=== PATIENT | female | born 1940 | race Caucasian/White ===

== ENCOUNTER 2017-04-15 11:22 | Outpatient (RCR) | payer MEDICARE, OTHER, SELFPAY ==
[2017-04-15 16:35] LABS: International Normalized Ratio 2.1; Prothrombin Time (Protime)PT. 22.5 SECONDS (11.7-14.9)
[2017-04-15 17:36] LABS: Absolute Lymphocyte Count 1.18 X10^3/ul (0.83-4.51); Absolute Neutrophil Count 5.3 X10^3/uL (2.0-7.7); Basophil# 0.04 X10^3/uL; Basophil% 0.5 % (0-1); Eosinophil# 0.18 X10^3/uL; Eosinophils% 2.4 % (0-5); Hematocrit 34.2 % (37-47); Hemoglobin 11.2 g/dl (12.0-15.0); Lymphocyte # 1.18 X10^3/ul (4.0); Lymphocyte % 15.8 % (19-41); Mean Corp Hgb Conc 32.7 g/gl (32-36); Mean Corpuscular Hgb 31.3 pg (27.0-32.0); Mean Corpuscular Volume 95.5 fL (81-99); Mean Platelet Vol. 10.8 fl (6.2-12.0); Monocyte# 0.71 X10^3/uL; Monocyte% 9.5 % (0-10); Neutrophil # 5.34 X10^3/uL (2.7-7.7); Neutrophil % 71.7 % (47-70); Platelet Count 93 K/mm3 (150-450); RBC Distribution Width CV 14.9 % (11.6-14.6); RBC Distribution Width SD 49.8 fl (35.1-43.9); Red Blood Count 3.58 M/mm3 (4.2-5.4); White Blood Count 7.5 K/mm3 (4.4-11.0)
[2017-04-15 17:38] LABS: POSITIVE COUNT NO; POSITIVE DIFFERENTIAL NO; POSITIVE MORPHOLOGY NO
== END 2017-04-15 11:30 | disposition home or self-care (01) ==
LOC: MTLAB 11:22
PROVIDERS: Family Provider Family Medicine; PCP Family Medicine; Visit Provider Internal Medicine Cardiovascular Disease
DX: I48.0 Paroxysmal atrial fibrillation (principal)
CPT/HCPCS: 36415; 85025; 85610

== ENCOUNTER 2017-05-06 12:53 | Outpatient (RCR) | payer MEDICARE, OTHER, SELFPAY ==
[2017-05-06 14:03] LABS: International Normalized Ratio 2.1; Prothrombin Time (Protime)PT. 22.4 SECONDS (11.7-14.9)
== END 2017-05-06 15:00 | disposition home or self-care (01) ==
LOC: MTLAB 12:53
PROVIDERS: Family Provider Family Medicine; PCP Family Medicine; Visit Provider Internal Medicine Cardiovascular Disease
DX: I48.0 Paroxysmal atrial fibrillation (principal)
CPT/HCPCS: 36415; 85610

== ENCOUNTER → 2017-05-19 13:11 | Outpatient (CLI) | payer MEDICARE, OTHER, SELFPAY ==
--- NOTE | 2017-05-19 13:17 | RAD_ITS ---
STUDY: X-RAY CHEST REASON FOR EXAM: Female, 77 years old. Extreme shortness of breath. TECHNIQUE: PA and lateral views of the chest. COMPARISON: Comparison is made with prior study dated September 14, 2016. FINDINGS: Hyperinflation. Stable increase in markings in both lungs suggestive of scarring. Mild degree of vascular congestion. Sternal cerclage wires are present from a prior sternotomy. Marked cardiomegaly. Prior aortic and mitral valve prostheses. Left-sided dual-chamber pacemaker. Normal mediastinum and bj. Normal visualized pulmonary arteries. There is atherosclerotic calcification of the aortic arch with tortuosity. Normal visualized thoracic spine. Normal visualized ribs, clavicles, and shoulders. There is no demonstrated abnormality of the visualized soft tissue structures of the upper abdomen. RAD/Chest PA and Lateral IMPRESSION: Marked degree of cardiomegaly. Vascular congestion with superimposed scarring in both lungs. Electronically Signed: Joey Avila MD at 13:44 EST Tel [phone], Service support ,
[2017-05-19 14:10] LABS: Absolute Lymphocyte Count 1.08 X10^3/ul (0.83-4.51); Absolute Neutrophil Count 5.3 X10^3/uL (2.0-7.7); Basophil# 0.05 X10^3/uL; Basophil% 0.7 % (0-1); Eosinophil# 0.16 X10^3/uL; Eosinophils% 2.2 % (0-5); Hematocrit 33.2 % (37-47); Hemoglobin 10.7 g/dl (12.0-15.0); Lymphocyte # 1.08 X10^3/ul (4.0); Lymphocyte % 14.9 % (19-41); Mean Corp Hgb Conc 32.2 g/gl (32-36); Mean Corpuscular Hgb 31.4 pg (27.0-32.0); Mean Corpuscular Volume 97.4 fL (81-99); Mean Platelet Vol. 10.3 fl (6.2-12.0); Monocyte# 0.69 X10^3/uL; Monocyte% 9.5 % (0-10); Neutrophil # 5.27 X10^3/uL (2.7-7.7); Neutrophil % 72.6 % (47-70); Platelet Count 93 K/mm3 (150-450); RBC Distribution Width CV 15.7 % (11.6-14.6); RBC Distribution Width SD 53.5 fl (35.1-43.9); Red Blood Count 3.41 M/mm3 (4.2-5.4); White Blood Count 7.3 K/mm3 (4.4-11.0)
[2017-05-19 14:16] LABS: POSITIVE COUNT NO; POSITIVE DIFFERENTIAL NO; POSITIVE MORPHOLOGY NO
[2017-05-19 14:48] LABS: ALB/GLOB Ratio 0.9 RATIO (0.9-2.4); AST(SGOT) 33 U/L (15-37); Alanine Aminotransfer ALT/SGPT 26 U/L (13-56); Albumin, Serum 3.6 g/dL (3.2-5.0); Alkaline Phosphatase 104 U/L (45-117); Anion Gap 11 (5-15); BUN 16 mg/dL (7-18); Calcium,Total 8.8 mg/dL (8.5-10.1); Chloride 106 mmol/L (98-107); Creatinine, Serum 1.14 mg/dL (0.55-1.02); EST Glomerular Filtration Rate 49 mL/min (>60); Est Glom Filt Rate - Afr Amer 59 mL/min (>60); Globulin 3.8 g/dL (2.2-4.2); Glucose 95 mg/dL (74-106); Potassium 3.9 mmol/L (3.5-5.1); Protein, Total 7.4 g/dL (6.4-8.2); Sodium Level 142 mmol/L (136-145)
== END ==
PROVIDERS: Family Provider Family Medicine; PCP Family Medicine; Visit Provider Family Medicine
DX: R06.02 Shortness of breath (principal); D64.9 Anemia, unspecified; R53.83 Other fatigue; R05 Cough
CPT/HCPCS: 36415; 71046; 80053; 85025

== ENCOUNTER 2017-05-23 17:56 | Inpatient (IN) | payer MEDICARE, OTHER, SELFPAY ==
[2017-05-23] VITALS (11 sets, daily range): BP systolic 133–158; BP diastolic 70–92; PULSE 70–80; RESP 18–30; TEMP 36.4–36.7; O2SAT 73–97; BMI 26.8; BMI 31.6; BMI 31.7
--- NOTE | 2017-05-23 18:27 | RAD_ITS ---
STUDY: X-RAY CHEST REASON FOR EXAM: Female, 77 years old. Shortness of breath. TECHNIQUE: Single AP portable view of the chest. COMPARISON: May 19, 2017. FINDINGS: Patient has left-sided intracardiac pacemaker. Patient has had a sternotomy. Cardiac monitoring leads are present. Patient has 2 valvular prosthesis. Lungs are hyperexpanded. There is mild prominence of bronchovascular markings. There are small pleural effusions. There is moderate cardiac enlargement. There are calcified mediastinal and hilar lymph nodes. There is prominence of the pulmonary hilar arteries without peripheral pulmonary vascular congestion. There is atherosclerotic calcification of the aortic arch with tortuosity. There is demineralization of the osseous structures. Normal visualized ribs, clavicles, and shoulders. There is no demonstrated abnormality of the visualized soft tissue structures of the upper abdomen. RAD/Chest 1 View (Portable) IMPRESSION: Unchanged appearance of the chest with moderate cardiomegaly, chronic pulmonary congestion and postoperative changes. Electronically Signed: Shannan Reynolds MD at 19:25 EST , Service support ,
--- NOTE | 2017-05-23 18:27 | EKG12_ITS ---
Test Reason : SOB Blood Pressure : / mmHG Vent. Rate : 070 BPM Atrial Rate : 075 BPM P-R Int : 000 ms QRS Dur : 144 ms QT Int : 452 ms P-R-T Axes : 000 223 069 degrees QTc Int : 488 ms Ventricular-paced rhythm Abnormal ECG Confirmed by NICOLE BOBBY MD ([id number]), copy editor JOSE SPRINGER ([id number] on 05/25/2017 2:15:09 PM Referred By: Abby Pendleton Confirmed By:NICOLE BOBBY MD
--- NOTE | 2017-05-23 18:43 | ED.VISSUMM ---
- ER Visit Summary Date of Service: 05/23/17 Chief Complaint: Shortness of breath History of Present Illness: The patient is a 77 F presenting with shortness of breath which started 4 days ago. She was seen by her primary care physician. She had chest x-ray which showed cardiomegaly and fluid in her lungs. She increased her Lasix and her nebulizer treatments. She continues to be short of breath. Dyspnea is worsened with exertion. She denies chest pain. Denies fever. She has had a mild cough. She wears 2.5 L of home O2 and states she has had to bump this up recently. Her sats at home have been in the 70s. Physical Examination: Vitals are stable. Patient is afebrile. Alert no acute distress. Pulse ox 95% on 6 L HEENT exam is unremarkable. Neck is supple. Lungs are clear and equal bilaterally. Heart is regular rate and rhythm. Abdomen is soft nontender nondistended. Extremities are unremarkable. Mild symmetric edema Skin is warm and dry. No focal neurologic deficit. Remainder of exam is unremarkable. Emergency Department Course and Treatment: EKG is paced at a rate of 70. Chest x-rays shows cardiomegaly, CHF. CBC shows a hemoglobin 10.3, platelets 97. Chemistries show glucose 114, BUN 21, creatinine 1.68. Troponin is negative. BNP 311.6. She was given Lasix IV. Due to her hypoxia I feel she should be admitted. Discussed with the hospitalist for admission. Disposition: Admission Impression: CHF exacerbation This note was generated with [employer] dictation software. It may contain incorrect words, spelling, and punctuation that were not noted in review of the chart prior to signing ED Disposition - Plan for ED Patient: Chief Complaint: Shortness of Breath Referrals: Abby Pendleton DO [Primary Care Provider] -
[2017-05-23] MEDS: Aspirin 81 MG TAB.CHEW 324 MG PO (18:50)
[2017-05-23] MEDS: Furosemide 40 MG/4 ML Vial IV (18:50)
[2017-05-23 19:16] LABS: Absolute Lymphocyte Count 1.07 X10^3/ul (0.83-4.51); Absolute Neutrophil Count 4.6 X10^3/uL (2.0-7.7); Basophil# 0.03 X10^3/uL; Basophil% 0.5 % (0-1); Eosinophil# 0.12 X10^3/uL; Eosinophils% 1.9 % (0-5); Hematocrit 32.2 % (37-47); Hemoglobin 10.3 g/dl (12.0-15.0); Lymphocyte # 1.07 X10^3/ul (4.0); Lymphocyte % 16.7 % (19-41); Mean Corpuscular Hgb 30.4 pg (27.0-32.0); Mean Platelet Vol. 9.4 fl (6.2-12.0); Monocyte# 0.58 X10^3/uL; Monocyte% 9.1 % (0-10); Neutrophil # 4.59 X10^3/uL (2.7-7.7); Neutrophil % 71.6 % (47-70); Platelet Count 97 K/mm3 (150-450); RBC Distribution Width CV 15.6 % (11.6-14.6); RBC Distribution Width SD 54.7 fl (35.1-43.9); Red Blood Count 3.39 M/mm3 (4.2-5.4); White Blood Count 6.4 K/mm3 (4.4-11.0)
[2017-05-23 19:19] LABS: POSITIVE COUNT NO; POSITIVE DIFFERENTIAL NO; POSITIVE MORPHOLOGY NO
[2017-05-23 19:41] LABS: Anion Gap 8 (5-15); BUN 21 mg/dL (7-18); BUN/Creat Ratio 12.5 RATIO (10-20); Calcium,Total 8.7 mg/dL (8.5-10.1); Chloride 108 mmol/L (98-107); Creatinine, Serum 1.68 mg/dL (0.55-1.02); EST Glomerular Filtration Rate 31 mL/min (>60); Est Glom Filt Rate - Afr Amer 38 mL/min (>60); Estimated Creatinine Clearance 21.16 ml/min; Glucose 114 mg/dL (74-106); Potassium 3.5 mmol/L (3.5-5.1); Sodium Level 141 mmol/L (136-145)
[2017-05-23 19:59] LABS: BNP,B-Type NATRIURETIC PEPTIDE 311.6 pg/mL (0-100)
--- NOTE | 2017-05-23 21:40 | PCM.HP.STD ---
Problem List (1) Acute on chronic diastolic heart failure Status: Acute (2) penitentiary (current) use of anticoagulants Status: Chronic (3) Nonrheumatic mitral valve regurgitation Status: Acute (4) Nonrheumatic tricuspid (valve) insufficiency Status: Acute (5) Cardiac pacemaker in situ Status: Chronic (6) Long-term use of high-risk medication Status: Chronic (7) Presence of prosthetic heart valve Status: Chronic (8) Nonrheumatic aortic (valve) insufficiency Status: Chronic (9) Subendocardial myocardial infarction Status: Chronic (10) Cardiomyopathy, dilated Status: Chronic (11) S/P AVR (aortic valve replacement) Status: Chronic (12) History of bacterial endocarditis Status: Chronic (13) Thrombocytopenia Status: Chronic (14) Contusion of left upper arm, initial encounter Status: Chronic (15) Iron deficiency anemia Status: Chronic (16) Chronic atrial fibrillation Status: Chronic (17) Congestive heart failure Status: Chronic (18) Pulmonary hypertension Status: Chronic (19) Coronary artery disease Status: Chronic (20) Hypertension Status: Chronic Qualifiers: (21) Interstitial lung disease Status: Chronic (22) Hyperlipidemia Status: Chronic Qualifiers: (23) Hypothyroidism Status: Chronic (24) Right shoulder pain Status: Acute (25) History of mitral valve replacement Status: Resolved (26) History of tricuspid valve replacement Status: Resolved History of Present Illness Date of Admission: 05/23/17 Chief Complaint: Progressive shortness of breath since past Tuesday The patient is a 77 year old F with extensive cardiac history including coronary artery disease, multiple valvular heart disease status post CABG in 2011 with mitral and tricuspid valve repair and then TAVR in in [facility] came to ER with progressive worsening of shortness of breath since past Tuesday about 5 days. She is short of breath at rest and even on minimal exertion. She also feels chest congestion but denies chest pain. There is no lower extremity swelling. Her PCP increased her diuretic 80 mg twice daily but still not responding probably due to bowel congestion. In ED, chest x-ray shows pulmonary venous congestion. She responded well with IV Lasix and had 5 times urination in the ER. She feels better with regards to her shortness of breath. 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) Palpitations (Chronic) Cardiac pacemaker in situ (Chronic) Long-term use of high-risk medication (Chronic) Presence of prosthetic heart valve (Chronic) Nonrheumatic aortic (valve) insufficiency (Chronic) 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, dilated (Chronic) S/P AVR (aortic valve replacement) (Chronic ~05/2014) History of bacterial endocarditis (Chronic) Thrombocytopenia (Chronic) Contusion of left upper arm, initial encounter (Chronic) Iron deficiency anemia (Chronic) Chronic atrial fibrillation (Chronic) Congestive heart failure (Chronic) Pulmonary hypertension (Chronic) Coronary artery disease (Chronic) Hypertension (Chronic) Interstitial lung disease (Chronic) Hyperlipidemia (Chronic) Hypothyroidism (Chronic) Allergies GERI Inhibitors Allergy (Verified 05/23/17 18:03) Angioedema amiodarone Allergy (Verified 05/23/17 18:03) Other doxycycline Allergy (Verified 05/23/17 18:03) Other rosuvastatin calcium [From Crestor] Allergy (Verified 05/23/17 18:03) Other Sulfa (Sulfonamide Antibiotics) Allergy (Verified 05/23/17 18:03) Nausea tiotropium bromide [From Spiriva with HandiHaler] Allergy (Verified 05/23/17 18:03) Other codeine Adverse Reaction (Verified 05/23/17 18:03) Vomiting hydrocodone bitartrate [From Vicodin] Adverse Reaction (Verified 05/23/17 18:03) Vomiting Home Medications: Ambulatory Orders Medication Instructions Recorded Calcium Carb/Vitamin D [Os-Kem 500 tab PO DAILY 02/16/13 500MG + D] Magnesium 250 mg PO DAILY 02/16/13 Oxygen, Home [Home Oxygen] 2.5 lpm NASAL QHS 02/16/13 Potassium Chloride [Klor-Con M10] 20 meq PO TID 03/01/13 Dicyclomine HCl [Bentyl] 10 mg PO TID 11/14/13 Esomeprazole Mag Trihydrate 20 mg PO DAILY 11/14/13 [Nexium] Polyvinyl Alcohol/Povidone/Pf 1 ea OP DAILY PRN PRN 12/13/13 [Refresh Classic Eye Drops] [place]-3 Fatty Acids [Fish Oil] 300 mg PO DAILY 12/10/14 Fexofenadine/Pseudoephedrine 1 ea PO DAILY 12/15/14 [Adriana-D 12 Hour Tablet] B Complex with Vitamin C [Vitamin 1 ea PO DAILY 06/23/16 B-Complex with Vit C] Ferrous Sulfate [Iron] 325 mg PO DAILY 06/23/16 Meclizine HCl [Antivert] 12.5 mg PO 4X/DAY PRN PRN 06/23/16 Nitroglycerin [Nitrostat] 0.4 mg SL DAILY PRN 06/23/16 Warfarin [Coumadin ([facility])] 4 mg PO DAILY 06/23/16 Diltiazem CD [Cardizem CD] 240 mg PO DAILY 01/12/17 atorvastatin 40 mg tablet 20 mg PO QHS tab 04/08/17 cholecalciferol (vitamin D3) 5,000 5,000 unit PO QDAY 04/08/17 unit capsule fluticasone 250 mcg-salmeterol 50 1 inh INHALATION Q12H 04/08/17 mcg/dose blistr powdr for inhalation lactobacillus combination no.8 3 3,000 mmu cells PO QDAY 04/08/17 billion cell capsule levothyroxine 75 mcg tablet 75 mcg PO QDAY tab 04/08/17 folic acid 800 mcg tablet 800 mcg PO QDAY 04/11/17 Albuterol Aerosols [Ventolin 2.5 mg INHALATION Q6H PRN PRN 05/23/17 Aerosols] Furosemide [Lasix] 80 mg PO BID 05/23/17 Surgical History: cataract, hysterectomy, total knee arthroplasty, - - Mitral and tricuspid valve replacement, pacemaker implantation 2013 Psychiatric History: No pertinent psych hx 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 Denies: Cough, Sputum production Gastrointestinal: Denies: Abdominal Pain, Nausea, Vomiting Genitourinary: Denies: Dysuria Musculoskeletal: Denies: Joint Pain, Joint Tenderness Skin: Denies: Rash, Wounds Neurological: Denies: Numbness, Tingling, Focal weakness Psychiatric: Denies: Anxiety, Depression, Homicidal Ideations, Suicidal Ideations Hematologic/ Lymphatic: Denies: Easy Bruising, Easy Bleeding VTE Information - Inpt Only VTE Present on Admission: No VTE Mechan Device Prophylaxis: None VTE Pharm Prophylaxis ordered?: Yes Patient Problems: Active and Suspected Problems (Last Reviewed 04/11/17 @ 13:38 by Yasmin Agee) Acute on chronic diastolic heart failure (Acute) - Physical Exam General: Alert, Oriented x3, Cooperative HEENT: Atraumatic, PERRLA, EOMI, Normocephalic Neck: Supple, No JVD, Negative Carotid Bruits Lungs: Diminished, Rales, Short of Breath Cardiovascular: Regular rate, Regular Rhythm, Normal S1, Normal S2, Murmur - PANSystolic murmur present over mitral area and left lower sternal border with radiation to carotids and left axilla. Abdomen: Bowel Sounds Present, Soft, Non Tender Extremities: No edema, Capillary Refill Less than 3 Seconds Skin: No rashes, No breakdown Musculoskeletal: No Tenderness to Palpation of Joints or Extremities Neurological: Cranial nerves II-XII grossly intact Psych/Mental Status: Normal Affect, Appropriate Vital Signs Temp Pulse Resp BP Pulse Ox 97.6 F L 71 20 H 136/79 H 96 05/23/17 17:57 05/23/17 21:22 05/23/17 21:22 05/23/17 21:22 05/23/17 21:22 Assessment/Plan Active and Suspected Problems (Last Reviewed 04/11/17 @ 13:38 by Yasmin Agee) Acute on chronic diastolic heart failure (Acute) The patient is a 77 year old F with extensive cardiac history including coronary artery disease, multiple valvular heart disease status post CABG in 2011 with mitral and tricuspid valve repair and then TAVR in in [facility] came to ER with progressive worsening of shortness of breath since past Tuesday about 5 days. She is short of breath at rest and even on minimal exertion. She also feels chest congestion but denies chest pain. There is no lower extremity swelling. Her PCP increased her diuretic 80 mg twice daily but still not responding probably due to bowel congestion. In ED, chest x-ray shows pulmonary venous congestion. She responded well with IV Lasix and had 5 times urination in the ER. She feels better with regards to her shortness of breath. EKG shows ventricular paced rhythm with occ PVCs at 70 bpm. 1. Acute on chronic diastolic heart failure, most probably due to multiple valvular heart disease status post mitral and tricuspid valve repair and TAVR replacement as mentioned above: The patient is being admitted in PCU floor. Serial cardiac enzymes to rule out ACS although very low probability. On IV Lasix 40 mg twice daily as she responded well with single dose of 40 mg IV Lasix. On fluid restriction. 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 Resume her home cardiac medications diltiazem 240 mg daily, atorvastatin . Monitor intake and output, electrolytes and kidney function. 2. Multiple valvular heart disease including tricuspid and mitral valve repair/annuloplasty and aortic valve, TAVR: She had 2D echo in November 2016 which showed EF 65%, left atrium moderately enlarged, right atrium severely enlarged, mildly dilated right ventricle and angioplasty gradient tricuspid and mitral valve. RVSP 37 mmHg. Mild 1+ MR and TR. Trivial AR.. Stable bioprosthetic aortic valve. No need of further 2D echo. 3. Arrhythmia including paroxysmal A. fib on Coumadin: Patient had history of proximal A. fib and has dual-chamber pacemaker. No INR done in the ER, INR ordered and adjust the dose of Coumadin accordingly. Patient also had history of ventricular tachycardia back in 2014. Currently she is a stable. 4. Coronary artery disease status post CABG: Other multiple comorbidities include history of coronary artery disease status post CABG, dilated cardiomyopathy, iron deficiency anemia, history of bacterial endocarditis, hypertension, and interstitial lung disease, hypothyroidism, pulmonary hypertension, dyslipidemia and bilateral knee replacement: Stable. Home medications resumed. DVT prophylaxis: On Coumadin. This note was generated with [employer] dictation software. Every effort was made to ensure accuracy, however computerized street flusher driver mistakes may persist. Code Visit Inpatient E&M: 43600 Init Hosp L3
--- NOTE | 2017-05-23 21:54 | HP.PCM_ITS ---
Problem List (1) Acute on chronic diastolic heart failure Status: Acute (2) custodial (current) use of anticoagulants Status: Chronic (3) Nonrheumatic mitral valve regurgitation Status: Acute (4) Nonrheumatic tricuspid (valve) insufficiency Status: Acute (5) Cardiac pacemaker in situ Status: Chronic (6) Long-term use of high-risk medication Status: Chronic (7) Presence of prosthetic heart valve Status: Chronic (8) Nonrheumatic aortic (valve) insufficiency Status: Chronic (9) Subendocardial myocardial infarction Status: Chronic (10) Cardiomyopathy, dilated Status: Chronic (11) S/P AVR (aortic valve replacement) Status: Chronic (12) History of bacterial endocarditis Status: Chronic (13) Thrombocytopenia Status: Chronic (14) Contusion of left upper arm, initial encounter Status: Chronic (15) Iron deficiency anemia Status: Chronic (16) Chronic atrial fibrillation Status: Chronic (17) Congestive heart failure Status: Chronic (18) Pulmonary hypertension Status: Chronic (19) Coronary artery disease Status: Chronic (20) Hypertension Status: Chronic Qualifiers: (21) Interstitial lung disease Status: Chronic (22) Hyperlipidemia Status: Chronic Qualifiers: (23) Hypothyroidism Status: Chronic (24) Right shoulder pain Status: Acute (25) History of mitral valve replacement Status: Resolved (26) History of tricuspid valve replacement Status: Resolved History of Present Illness Date of Admission: 05/23/17 Chief Complaint: Progressive shortness of breath since past Tuesday The patient is a 77 year old F with extensive cardiac history including coronary artery disease, multiple valvular heart disease status post CABG in 2011 with mitral and tricuspid valve repair and then TAVR in in [facility] came to ER with progressive worsening of shortness of breath since past Tuesday about 5 days. She is short of breath at rest and even on minimal exertion. She also feels chest congestion but denies chest pain. There is no lower extremity swelling. Her PCP increased her diuretic 80 mg twice daily but still not responding probably due to bowel congestion. In ED, chest x-ray shows pulmonary venous congestion. She responded well with IV Lasix and had 5 times urination in the ER. She feels better with regards to her shortness of breath. 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) Palpitations (Chronic) Cardiac pacemaker in situ (Chronic) Long-term use of high-risk medication (Chronic) Presence of prosthetic heart valve (Chronic) Nonrheumatic aortic (valve) insufficiency (Chronic) 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, dilated (Chronic) S/P AVR (aortic valve replacement) (Chronic ~05/2014) History of bacterial endocarditis (Chronic) Thrombocytopenia (Chronic) Contusion of left upper arm, initial encounter (Chronic) Iron deficiency anemia (Chronic) Chronic atrial fibrillation (Chronic) Congestive heart failure (Chronic) Pulmonary hypertension (Chronic) Coronary artery disease (Chronic) Hypertension (Chronic) Interstitial lung disease (Chronic) Hyperlipidemia (Chronic) Hypothyroidism (Chronic) Allergies GERI Inhibitors Allergy (Verified 05/23/17 18:03) Angioedema amiodarone Allergy (Verified 05/23/17 18:03) Other doxycycline Allergy (Verified 05/23/17 18:03) Other rosuvastatin calcium [From Crestor] Allergy (Verified 05/23/17 18:03) Other Sulfa (Sulfonamide Antibiotics) Allergy (Verified 05/23/17 18:03) Nausea tiotropium bromide [From Spiriva with HandiHaler] Allergy (Verified 05/23/17 18: 03) Other codeine Adverse Reaction (Verified 05/23/17 18:03) Vomiting hydrocodone bitartrate [From Vicodin] Adverse Reaction (Verified 05/23/17 18:03) Vomiting Home Medications: Ambulatory Orders Medication Instructions Recorded Calcium Carb/Vitamin D [Os-Kem 500 tab PO DAILY 02/16/13 500MG + D] Magnesium 250 mg PO DAILY 02/16/13 Oxygen, Home [Home Oxygen] 2.5 lpm NASAL QHS 02/16/13 Potassium Chloride [Klor-Con M10] 20 meq PO TID 03/01/13 Dicyclomine HCl [Bentyl] 10 mg PO TID 11/14/13 Esomeprazole Mag Trihydrate 20 mg PO DAILY 11/14/13 [Nexium] Polyvinyl Alcohol/Povidone/Pf 1 ea OP DAILY PRN PRN 12/13/13 [Refresh Classic Eye Drops] [place]-3 Fatty Acids [Fish Oil] 300 mg PO DAILY 12/10/14 Fexofenadine/Pseudoephedrine 1 ea PO DAILY 12/15/14 [Adriana-D 12 Hour Tablet] B Complex with Vitamin C [Vitamin 1 ea PO DAILY 06/23/16 B-Complex with Vit C] Ferrous Sulfate [Iron] 325 mg PO DAILY 06/23/16 Meclizine HCl [Antivert] 12.5 mg PO 4X/DAY PRN PRN 06/23/16 Nitroglycerin [Nitrostat] 0.4 mg SL DAILY PRN 06/23/16 Warfarin [Coumadin (PBKC)] 4 mg PO DAILY 06/23/16 Diltiazem CD [Cardizem CD] 240 mg PO DAILY 01/12/17 atorvastatin 40 mg tablet 20 mg PO QHS tab 04/08/17 cholecalciferol (vitamin D3) 5,000 5,000 unit PO QDAY 04/08/17 unit capsule fluticasone 250 mcg-salmeterol 50 1 inh INHALATION Q12H 04/08/17 mcg/dose blistr powdr for inhalation lactobacillus combination no.8 3 3,000 mmu cells PO QDAY 04/08/17 billion cell capsule levothyroxine 75 mcg tablet 75 mcg PO QDAY tab 04/08/17 folic acid 800 mcg tablet 800 mcg PO QDAY 04/11/17 Albuterol Aerosols [Ventolin 2.5 mg INHALATION Q6H PRN PRN 05/23/17 Aerosols] Furosemide [Lasix] 80 mg PO BID 05/23/17 Surgical History: cataract, hysterectomy, total knee arthroplasty, - - Mitral and tricuspid valve replacement, pacemaker implantation 2013 Psychiatric History: No pertinent psych hx 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 Denies: Cough, Sputum production Gastrointestinal: Denies: Abdominal Pain, Nausea, Vomiting Genitourinary: Denies: Dysuria Musculoskeletal: Denies: Joint Pain, Joint Tenderness Skin: Denies: Rash, Wounds Neurological: Denies: Numbness, Tingling, Focal weakness Psychiatric: Denies: Anxiety, Depression, Homicidal Ideations, Suicidal Ideations Hematologic/ Lymphatic: Denies: Easy Bruising, Easy Bleeding VTE Information - Inpt Only VTE Present on Admission: No VTE Mechan Device Prophylaxis: None VTE Pharm Prophylaxis ordered?: Yes Patient Problems: Active and Suspected Problems (Last Reviewed 04/11/17 @ 13:38 by Yasmin Agee) Acute on chronic diastolic heart failure (Acute) - Physical Exam General: Alert, Oriented x3, Cooperative HEENT: Atraumatic, PERRLA, EOMI, Normocephalic Neck: Supple, No JVD, Negative Carotid Bruits Lungs: Diminished, Rales, Short of Breath Cardiovascular: Regular rate, Regular Rhythm, Normal S1, Normal S2, Murmur - PANSystolic murmur present over mitral area and left lower sternal border with radiation to carotids and left axilla. Abdomen: Bowel Sounds Present, Soft, Non Tender Extremities: No edema, Capillary Refill Less than 3 Seconds Skin: No rashes, No breakdown Musculoskeletal: No Tenderness to Palpation of Joints or Extremities Neurological: Cranial nerves II-XII grossly intact Psych/Mental Status: Normal Affect, Appropriate Vital Signs Temp Pulse Resp BP Pulse Ox 97.6 F L 71 20 H 136/79 H 96 05/23/17 17:57 05/23/17 21:22 05/23/17 21:22 05/23/17 21:22 05/23/17 21:22 Assessment/Plan Active and Suspected Problems (Last Reviewed 04/11/17 @ 13:38 by Yasmin Agee) Acute on chronic diastolic heart failure (Acute) The patient is a 77 year old F with extensive cardiac history including coronary artery disease, multiple valvular heart disease status post CABG in 2011 with mitral and tricuspid valve repair and then TAVR in in [facility] came to ER with progressive worsening of shortness of breath since past Tuesday about 5 days. She is short of breath at rest and even on minimal exertion. She also feels chest congestion but denies chest pain. There is no lower extremity swelling. Her PCP increased her diuretic 80 mg twice daily but still not responding probably due to bowel congestion. In ED, chest x-ray shows pulmonary venous congestion. She responded well with IV Lasix and had 5 times urination in the ER. She feels better with regards to her shortness of breath. EKG shows ventricular paced rhythm with occ PVCs at 70 bpm. 1. Acute on chronic diastolic heart failure, most probably due to multiple valvular heart disease status post mitral and tricuspid valve repair and TAVR replacement as mentioned above: The patient is being admitted in PCU floor. Serial cardiac enzymes to rule out ACS although very low probability. On IV Lasix 40 mg twice daily as she responded well with single dose of 40 mg IV Lasix. On fluid restriction. Consult Dr. Neri, her human services assistant. Resume her home cardiac medications diltiazem 240 mg daily, atorvastatin . Monitor intake and output, electrolytes and kidney function. 2. Multiple valvular heart disease including tricuspid and mitral valve repair/ annuloplasty and aortic valve, TAVR: She had 2D echo in November 2016 which showed EF 65%, left atrium moderately enlarged, right atrium severely enlarged, mildly dilated right ventricle and angioplasty gradient tricuspid and mitral valve. RVSP 37 mmHg. Mild 1+ MR and TR. Trivial AR.. Stable bioprosthetic aortic valve. No need of further 2D echo. 3. Arrhythmia including paroxysmal A. fib on Coumadin: Patient had history of proximal A. fib and has dual-chamber pacemaker. No INR done in the ER, INR ordered and adjust the dose of Coumadin accordingly. Patient also had history of ventricular tachycardia back in 2014. Currently she is a stable. 4. Coronary artery disease status post CABG: Other multiple comorbidities include history of coronary artery disease status post CABG, dilated cardiomyopathy, iron deficiency anemia, history of bacterial endocarditis, hypertension, and interstitial lung disease, hypothyroidism, pulmonary hypertension, dyslipidemia and bilateral knee replacement: Stable. Home medications resumed. DVT prophylaxis: On Coumadin. This note was generated with [employer] dictation software. Every effort was made to ensure accuracy, however computerized dentures lab technician mistakes may persist. Code Visit Inpatient E&M: 79650 Init Hosp L3
[2017-05-23 22:48] LABS: International Normalized Ratio 2.2; Prothrombin Time (Protime)PT. 23.8 SECONDS (11.7-14.9)
[2017-05-23 22:58] LABS: Magnesium 2.4 mg/dL (1.6-2.6)
[2017-05-23] MEDS: Atorvastatin Calcium 20 MG Tablet PO (23:51)
[2017-05-23] MEDS: Dicyclomine 10 MG Capsule PO (23:51)
[2017-05-24] VITALS (14 sets, daily range): BP systolic 106–150; BP diastolic 61–74; PULSE 69–76; RESP 16–24; TEMP 36.4–37.2; O2SAT 86–96
[2017-05-24] MEDS: Dicyclomine 10 MG Capsule PO ×3 (05:41→21:24)
[2017-05-24] MEDS: Levothyroxine 75 MCG Tablet PO (05:41)
--- NOTE | 2017-05-24 05:55 | EKG12_ITS ---
Test Reason : MORNING EKG Blood Pressure : / mmHG Vent. Rate : 070 BPM Atrial Rate : 072 BPM P-R Int : 000 ms QRS Dur : 186 ms QT Int : 494 ms P-R-T Axes : 000 204 060 degrees QTc Int : 533 ms Ventricular-paced rhythm Abnormal ECG When compared with ECG of 23-MAY-2017 18:14, MANUAL COMPARISON REQUIRED, DATA IS UNCONFIRMED Confirmed by KANU CABRERA, NICOLE ([id number]), editorial intern JOSE SPRINGER ([id number]) on 05/25/2017 2:46:37 PM Referred By: Abby Pendleton Confirmed By:NICOLE BOBBY MD
--- NOTE | 2017-05-24 06:21 | CPS ---
PT REFUSED HOSPITAL BIPAP.pT WILL HAVE HER FAMILY BRING HER CPAP IN.
[2017-05-24 06:37] LABS: International Normalized Ratio 2.3; Prothrombin Time (Protime)PT. 24.4 SECONDS (11.7-14.9)
[2017-05-24 06:38] LABS: Absolute Lymphocyte Count 1.01 X10^3/ul (0.83-4.51); Absolute Neutrophil Count 4.9 X10^3/uL (2.0-7.7); Basophil# 0.05 X10^3/uL; Basophil% 0.7 % (0-1); Eosinophil# 0.22 X10^3/uL; Eosinophils% 3.2 % (0-5); Hematocrit 31.8 % (37-47); Hemoglobin 10.3 g/dl (12.0-15.0); Lymphocyte # 1.01 X10^3/ul (4.0); Lymphocyte % 14.8 % (19-41); Mean Corp Hgb Conc 32.4 g/gl (32-36); Mean Corpuscular Hgb 30.6 pg (27.0-32.0); Mean Corpuscular Volume 94.4 fL (81-99); Monocyte% 8.8 % (0-10); Neutrophil # 4.94 X10^3/uL (2.7-7.7); Neutrophil % 72.5 % (47-70); Platelet Count 95 K/mm3 (150-450); RBC Distribution Width CV 15.4 % (11.6-14.6); RBC Distribution Width SD 52.9 fl (35.1-43.9); Red Blood Count 3.37 M/mm3 (4.2-5.4); White Blood Count 6.8 K/mm3 (4.4-11.0)
[2017-05-24 06:58] LABS: Anion Gap 9 (5-15); BUN 17 mg/dL (7-18); BUN/Creat Ratio 15.3 RATIO (10-20); Calcium,Total 8.3 mg/dL (8.5-10.1); Chloride 106 mmol/L (98-107); Cholesterol 98 mg/dL (200); Creatinine, Serum 1.11 mg/dL (0.55-1.02); EST Glomerular Filtration Rate 51 mL/min (>60); Est Glom Filt Rate - Afr Amer 61 mL/min (>60); Estimated Creatinine Clearance 32.03 ml/min; Glucose 87 mg/dL (74-106); High Density Lipoprotein 57 mg/dL; Potassium 3.1 mmol/L (3.5-5.1); Sodium Level 143 mmol/L (136-145); Thyroid Stim Hormone (TSH) 1.37 uIU/mL (0.358-3.74); Triglycerides 38 mg/dL; Very Low Density Lipoprotein 8 mg/dL (5-40)
[2017-05-24 07:12] LABS: POSITIVE COUNT NO; POSITIVE DIFFERENTIAL NO; POSITIVE MORPHOLOGY NO
[2017-05-24] MEDS: Budesonide Respules 0.5 MG/2 ML AMPUL.NEB. INHALATION ×2 (07:32→19:12)
[2017-05-24] MEDS: Albuterol 2.5 MG/3 ML VIAL.NEB. INHALATION ×3 (07:32→19:12)
--- NOTE | 2017-05-24 07:37 | PCM.CONS.C ---
Reason for Consult Date of Consultation: 05/24/17 Reason for Consultation: Shortness of breath. History of Present Illness: The patient is a 77 year old F is a 77 F who presented urgency room with shortness of breath which have been going on for approximately 5 days also. Since her last visit on 01/19/2017 she notes overall she has been doing well from a cardiac standpoint with respect not having any concerning chest discomfort, no significant change in her respiratory status, no near syncope or syncope, and no unexplained fevers, chills, or night sweats. Does have a history of transcutaneous aortic valve replacement procedure performed at the [facility] in May 2014 during which time she received a [employer] valve. She also had a mitral valve repair in October 2011 with a 28 mm annuloplasty ring as well as a tricuspid valve repair with a 30 mm annuloplasty ring and a maze procedure. In addition she had a dual-chamber pacemaker placed in July 2013 after an AV ivonne ablation. Does not have any obstructive coronary disease. As you recall her last echocardiographic study was performed at [facility] on 12/07/2016. At that time the left ventricular systolic function was thought to be normal with an LVEF of 65%, she had a D shaped left ventricle during both systole and diastole, septal bounce, mildly dilated right ventricle, moderate dilatation of the left atrium, severe dilatation of the right atrium, an annuloplasty ring in the mitral valve position with mild transvalvular MR, an annuloplasty ring in the tricuspid valve position with mild transvalvular TR, a stable appearing bioprosthetic aortic valve with mild to moderate aortic valve stenosis and trivial transvalvular aortic valve insufficiency, mild to moderate pulmonic valve insufficiency, dilatation of the main pulmonary artery, and estimated right ventricular systolic pressure of 37 mmHg, and pacemaker/ICD leads in the right atrium and the right ventricle. In the emergency room she was evaluated and it was thought that she was fluid overloaded and she was given intravenous Lasix. She had previously seen her primary physician who had increased her diuretic dose but it does not appear that this made a significant difference. Time however she appears to be fairly stable. Past Medical History Allergies/Adverse Reactions: Allergies GERI Inhibitors Allergy (Verified 05/23/17 18:03) Angioedema amiodarone Allergy (Verified 05/23/17 18:03) Other doxycycline Allergy (Verified 05/23/17 18:03) Other rosuvastatin calcium [From Crestor] Allergy (Verified 05/23/17 18:03) Other Sulfa (Sulfonamide Antibiotics) Allergy (Verified 05/23/17 18:03) Nausea tiotropium bromide [From Spiriva with HandiHaler] Allergy (Verified 05/23/17 18:03) Other codeine Adverse Reaction (Verified 05/23/17 18:03) Vomiting hydrocodone bitartrate [From Vicodin] Adverse Reaction (Verified 05/23/17 18:03) Vomiting Home Medications: Ambulatory Orders Medication Instructions Recorded Calcium Carb/Vitamin D [Os-Kem 500 tab PO DAILY 02/16/13 500MG + D] Magnesium 250 mg PO DAILY 02/16/13 Oxygen, Home [Home Oxygen] 2.5 lpm NASAL QHS 02/16/13 Potassium Chloride [Klor-Con M10] 20 meq PO TID 03/01/13 Dicyclomine HCl [Bentyl] 10 mg PO TID 11/14/13 Esomeprazole Mag Trihydrate 20 mg PO DAILY 11/14/13 [Nexium] Polyvinyl Alcohol/Povidone/Pf 1 ea OP DAILY PRN PRN 12/13/13 [Refresh Classic Eye Drops] [place]-3 Fatty Acids [Fish Oil] 300 mg PO DAILY 12/10/14 Fexofenadine/Pseudoephedrine 1 ea PO DAILY 12/15/14 [Adriana-D 12 Hour Tablet] B Complex with Vitamin C [Vitamin 1 ea PO DAILY 06/23/16 B-Complex with Vit C] Ferrous Sulfate [Iron] 325 mg PO DAILY 06/23/16 Meclizine HCl [Antivert] 12.5 mg PO 4X/DAY PRN PRN 06/23/16 Nitroglycerin [Nitrostat] 0.4 mg SL DAILY PRN 06/23/16 Warfarin [Coumadin (PBKC)] 4 mg PO DAILY 06/23/16 Diltiazem CD [Cardizem CD] 240 mg PO DAILY 01/12/17 atorvastatin 40 mg tablet 20 mg PO QHS tab 04/08/17 cholecalciferol (vitamin D3) 5,000 5,000 unit PO QDAY 04/08/17 unit capsule fluticasone 250 mcg-salmeterol 50 1 inh INHALATION Q12H 04/08/17 mcg/dose blistr powdr for inhalation lactobacillus combination no.8 3 3,000 mmu cells PO QDAY 04/08/17 billion cell capsule levothyroxine 75 mcg tablet 75 mcg PO QDAY tab 04/08/17 folic acid 800 mcg tablet 800 mcg PO QDAY 04/11/17 Albuterol Aerosols [Ventolin 2.5 mg INHALATION Q6H PRN PRN 05/23/17 Aerosols] Furosemide [Lasix] 80 mg PO BID 05/23/17 Past Medical History (Chronic Problems): Chronic Problems (Last Reviewed 04/11/17 @ 13:38 by Yasmin Agee) 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) Palpitations (Chronic) Cardiac pacemaker in situ (Chronic) Long-term use of high-risk medication (Chronic) Presence of prosthetic heart valve (Chronic) Nonrheumatic aortic (valve) insufficiency (Chronic) 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, dilated (Chronic) S/P AVR (aortic valve replacement) (Chronic ~05/2014) History of bacterial endocarditis (Chronic) Thrombocytopenia (Chronic) Contusion of left upper arm, initial encounter (Chronic) Iron deficiency anemia (Chronic) Chronic atrial fibrillation (Chronic) Congestive heart failure (Chronic) Pulmonary hypertension (Chronic) Coronary artery disease (Chronic) Hypertension (Chronic) Interstitial lung disease (Chronic) Hyperlipidemia (Chronic) Hypothyroidism (Chronic) Surgical History: cataract, hysterectomy, total knee arthroplasty, - - Mitral and tricuspid valve replacement, pacemaker implantation 2013 Psychiatric History: No pertinent psych hx 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: No pertinent 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 history - *Family History Maternal Family History: Family History (Last Reviewed 04/11/17 @ 13:38 by Yasmin Agee) Father CAD (coronary artery disease) Myocardial infarction History Items: No pertinent history Paternal Family History: Family History (Last Reviewed 04/11/17 @ 13:38 by Yasmin Agee) Father CAD (coronary artery disease) Myocardial infarction History Items: No pertinent history Smoking Status: Never smoker Alcohol: None Drugs: None Review of Systems - Review of Systems General: Denies: Fever, Night Sweats, Fatigue Cardiovascular: Reports: Shortness of Breath, Shortness of Breath at Rest, Shortness of Breath with Exertion. Denies: Chest Discomfort, Orthopnea, PND, Peripheral Edema, Palpitations, Lightheadedness, Dizziness, Near Syncope, Syncope Respiratory: Denies: Cough, Sputum Production, Hemoptysis Gastrointestinal: Denies: Hematemesis, Hematochezia, Melena Genitourinary: Denies: Dysuria, Hematuria Skin: Denies: Rash Subjectve: Pleasant lady slightly short of breath. Objective: Vital Signs Temp Pulse Resp BP Pulse Ox 97.5 F L 70 16 139/74 H 95 05/24/17 03:04 05/24/17 07:09 05/24/17 03:04 05/24/17 03:04 05/24/17 03:04 Oxygen Flow Rate 4 Oxygen Delivery Method Nasal Cannula Weight: 144 lb 9.972 oz Body Mass Index (BMI) 31.6 Intake and Output for Last 24 Hours 05/22/17 05/23/17 05/24/17 23:59 23:59 23:59 Intake Total 250 / 250 Output Total 1275 / 1275 Balance -1025 / -1025 General: Awake, Alert, Oriented x 3, Ill Appearing HEENT: PERRL, EOMI, Sclera Non Icteric Neck: Supple, Good ROM, No Lymph Node Enlargement Lungs: Diminished Carl Bases Cardiovascular: Regular Rhythm, Normal S1, Normal S2, No Rubs, No Gallops Murmur Murmur: Grade 3/6, Mid Systolic, LLSB Vascular: No Carotid Bruits, Normal Femoral Pulses, Normal Radial Pulses, Normal Dorsalis Pedal Pulse, Normal Posterior Tibial Pulses Abdomen: Bowel Sounds Present, Soft, Non Tender, No HSM, No Organomegaly Extremities: No Cyanosis, No Clubbing, No edema Neurological: No Focal Motor or Sensory Deficit Psych/Mental Status: Appropriate, Anxious 05/23/17 21:30: Magnesium 2.4 05/23/17 21:30: Troponin I < 0.02 05/23/17 21:37: PT 23.8 H, INR 2.2 05/24/17 02:23: Troponin I < 0.02 05/24/17 05:50: WBC 6.8, RBC 3.37 L, Hgb 10.3 L, Hct 31.8 L, MCV 94.4, MCH 30.6, MCHC 32.4, RDW 15.4 H, RDW Differential 52.9 H, Plt Count 95 L, MPV 10.0, Immature Gran % (Auto) 0.000, Neut % (Auto) 72.5 H, Lymph % (Auto) 14.8 L, Collin % (Auto) 8.8, Eos % (Auto) 3.2, Baso % (Auto) 0.7, Absolute Neuts (auto) 4.9, Total Counted Not Reportable 05/24/17 05:50: PT 24.4 H, INR 2.3 05/24/17 05:50: Sodium 143, Potassium 3.1 L, Chloride 106, Carbon Dioxide 28.0, Anion Gap 9, BUN 17, Creatinine 1.11 H, Est GFR (MDRD) Af Amer 61, Est GFR (MDRD) Non-Af 51 L, BUN/Creatinine Ratio 15.3, Glucose 87, Calcium 8.3 L, Triglycerides 38, Cholesterol 98, LDL Cholesterol 33, VLDL Cholesterol 8, HDL Cholesterol 57 Rhythm: EKG: AV sequential pacing Assessment/Plan Congestive heart failure-acute diastolic Etiology is not entirely clear. Her previous echocardiogram had demonstrated preserved ejection fraction but with pulmonary pressures which were elevated. My recommendation will be for her to receive a day of intravenous Lasix and then subsequently switch her to oral Lasix. 2. Presence of prosthetic heart valve Z95.2 The patient is status post a transcatheter aortic valve replacement procedure at [facility]. She appears to be doing well at this time. Her most recent noninvasive studies performed locally are as noted above. Will suggest repeat her echocardiogram today In the interim she does need to continue her AHA antibiotic prophylaxis. 3. S/P mitral valve repair Z98.890 Plan She does have a history of a mitral valve repair as noted above. Her mitral valve apparatus is been stable. She will continue to be followed noninvasively. She will continue AHA antibiotic prophylaxis. 4. S/P tricuspid valve repair Z98.890 Plan She does have a history of a tricuspid valve repair as noted above. Again she appears to be stable at this time. Her valvular apparatus appears to be stable based on her no most recent noninvasive studies. She will continue [employer] antibiotic prophylaxis. She will continue to be followed. 5. Chronic atrial fibrillation I48.2 Plan She has a history of underlying atrial fibrillation/flutter. She has been treated medically. She is undergone AV node ablation. She has a permanent pacemaker in place. She continues anticoagulant therapy. INR is noted to be therapeutic. She continues with permanent pacemaker follow-up. 6. S/P ablation operation for arrhythmia Z98.890; Z86.79 Plan She has a history of an AV node ablation as noted above. She appears to have done well since her AV node ablation with her medical therapy and her permanent pacemaker placement. 7. Presence of cardiac pacemaker Z95.0 Plan She does have a permanent pacemaker in place. It has been followed. It has been functioning appropriately. 8. History of bacterial endocarditis Z86.79 Plan She has a history of infectious endocarditis. She was treated medically. She has had no recurrent fevers, chills, or night sweats. She will monitor for any concerns. She will continue outpatient cardiovascular follow-up. 9. Hyperlipidemia, unspecified hyperlipidemia type E78.5 Plan Her lipid labs were evaluated as noted above. She will continue medical management and follow-up. 10. Essential hypertension I10 Plan Her blood pressure appears to be under reasonably good control at this time. She will continue medical therapy and follow-up. 11. Interstitial lung disease J84.9 Plan She has been followed locally by Dr. Molina of pulmonology and at [facility] by Dr. Emanuel Herrera. She will continue her pulmonary follow-up as directed by her pulmonary physicians. 12. Pulmonary HTN I27.20 Plan There is a history of pulmonary hypertension. She continues her medical management. She continues with outpatient follow-up noninvasively as noted above. 13. Long-term use of high-risk medication Z79.899 Plan She is on medical management that does require follow-up. This is with respect to laboratory studies. Thank you for allowing me to participate in the care of your patient. Please don't hesitate to call if any issues arise
--- NOTE | 2017-05-24 07:40 | CON.PCM_ITS ---
Reason for Consult Date of Consultation: 05/24/17 Reason for Consultation: Shortness of breath. History of Present Illness: The patient is a 77 year old F is a 77 F who presented urgency room with shortness of breath which have been going on for approximately 5 days also. Since her last visit on 01/19/2017 she notes overall she has been doing well from a cardiac standpoint with respect not having any concerning chest discomfort, no significant change in her respiratory status, no near syncope or syncope, and no unexplained fevers, chills, or night sweats. Does have a history of transcutaneous aortic valve replacement procedure performed at the [facility] in May 2014 during which time she received a [employer] valve. She also had a mitral valve repair in October 2011 with a 28 mm annuloplasty ring as well as a tricuspid valve repair with a 30 mm annuloplasty ring and a maze procedure. In addition she had a dual-chamber pacemaker placed in July 2013 after an AV ivonne ablation. Does not have any obstructive coronary disease. As you recall her last echocardiographic study was performed at [facility] on 12/07/2016. At that time the left ventricular systolic function was thought to be normal with an LVEF of 65%, she had a D shaped left ventricle during both systole and diastole, septal bounce, mildly dilated right ventricle, moderate dilatation of the left atrium, severe dilatation of the right atrium, an annuloplasty ring in the mitral valve position with mild transvalvular MR, an annuloplasty ring in the tricuspid valve position with mild transvalvular TR, a stable appearing bioprosthetic aortic valve with mild to moderate aortic valve stenosis and trivial transvalvular aortic valve insufficiency, mild to moderate pulmonic valve insufficiency, dilatation of the main pulmonary artery, and estimated right ventricular systolic pressure of 37 mmHg, and pacemaker/ICD leads in the right atrium and the right ventricle. In the emergency room she was evaluated and it was thought that she was fluid overloaded and she was given intravenous Lasix. She had previously seen her primary physician who had increased her diuretic dose but it does not appear that this made a significant difference. Time however she appears to be fairly stable. Past Medical History Allergies/Adverse Reactions: Allergies GERI Inhibitors Allergy (Verified 05/23/17 18:03) Angioedema amiodarone Allergy (Verified 05/23/17 18:03) Other doxycycline Allergy (Verified 05/23/17 18:03) Other rosuvastatin calcium [From Crestor] Allergy (Verified 05/23/17 18:03) Other Sulfa (Sulfonamide Antibiotics) Allergy (Verified 05/23/17 18:03) Nausea tiotropium bromide [From Spiriva with HandiHaler] Allergy (Verified 05/23/17 18: 03) Other codeine Adverse Reaction (Verified 05/23/17 18:03) Vomiting hydrocodone bitartrate [From Vicodin] Adverse Reaction (Verified 05/23/17 18:03) Vomiting Home Medications: Ambulatory Orders Medication Instructions Recorded Calcium Carb/Vitamin D [Os-Kem 500 tab PO DAILY 02/16/13 500MG + D] Magnesium 250 mg PO DAILY 02/16/13 Oxygen, Home [Home Oxygen] 2.5 lpm NASAL QHS 02/16/13 Potassium Chloride [Klor-Con M10] 20 meq PO TID 03/01/13 Dicyclomine HCl [Bentyl] 10 mg PO TID 11/14/13 Esomeprazole Mag Trihydrate 20 mg PO DAILY 11/14/13 [Nexium] Polyvinyl Alcohol/Povidone/Pf 1 ea OP DAILY PRN PRN 12/13/13 [Refresh Classic Eye Drops] [place]-3 Fatty Acids [Fish Oil] 300 mg PO DAILY 12/10/14 Fexofenadine/Pseudoephedrine 1 ea PO DAILY 12/15/14 [Adriana-D 12 Hour Tablet] B Complex with Vitamin C [Vitamin 1 ea PO DAILY 06/23/16 B-Complex with Vit C] Ferrous Sulfate [Iron] 325 mg PO DAILY 06/23/16 Meclizine HCl [Antivert] 12.5 mg PO 4X/DAY PRN PRN 06/23/16 Nitroglycerin [Nitrostat] 0.4 mg SL DAILY PRN 06/23/16 Warfarin [Coumadin (PBKC)] 4 mg PO DAILY 06/23/16 Diltiazem CD [Cardizem CD] 240 mg PO DAILY 01/12/17 atorvastatin 40 mg tablet 20 mg PO QHS tab 04/08/17 cholecalciferol (vitamin D3) 5,000 5,000 unit PO QDAY 04/08/17 unit capsule fluticasone 250 mcg-salmeterol 50 1 inh INHALATION Q12H 04/08/17 mcg/dose blistr powdr for inhalation lactobacillus combination no.8 3 3,000 mmu cells PO QDAY 04/08/17 billion cell capsule levothyroxine 75 mcg tablet 75 mcg PO QDAY tab 04/08/17 folic acid 800 mcg tablet 800 mcg PO QDAY 04/11/17 Albuterol Aerosols [Ventolin 2.5 mg INHALATION Q6H PRN PRN 05/23/17 Aerosols] Furosemide [Lasix] 80 mg PO BID 05/23/17 Past Medical History (Chronic Problems): Chronic Problems (Last Reviewed 04/11/17 @ 13:38 by Yasmin Agee) jail (current) use of anticoagulants (Chronic) Palpitations (Chronic) Cardiac pacemaker in situ (Chronic) Long-term use of high-risk medication (Chronic) Presence of prosthetic heart valve (Chronic) Nonrheumatic aortic (valve) insufficiency (Chronic) 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, dilated (Chronic) S/P AVR (aortic valve replacement) (Chronic ~05/2014) History of bacterial endocarditis (Chronic) Thrombocytopenia (Chronic) Contusion of left upper arm, initial encounter (Chronic) Iron deficiency anemia (Chronic) Chronic atrial fibrillation (Chronic) Congestive heart failure (Chronic) Pulmonary hypertension (Chronic) Coronary artery disease (Chronic) Hypertension (Chronic) Interstitial lung disease (Chronic) Hyperlipidemia (Chronic) Hypothyroidism (Chronic) Surgical History: cataract, hysterectomy, total knee arthroplasty, - - Mitral and tricuspid valve replacement, pacemaker implantation 2013 Psychiatric History: No pertinent psych hx CARDIOLOGY PHYSICIAN ASSISTANT History: No pertinent CARDIOLOGY PHYSICIAN ASSISTANT history - *Family History Maternal Family History: Family History (Last Reviewed 04/11/17 @ 13:38 by Yasmin Agee) Father CAD (coronary artery disease) Myocardial infarction History Items: No pertinent history Paternal Family History: Family History (Last Reviewed 04/11/17 @ 13:38 by Yasmin Agee) Father CAD (coronary artery disease) Myocardial infarction History Items: No pertinent history Smoking Status: Never smoker Alcohol: None Drugs: None Review of Systems - Review of Systems General: Denies: Fever, Night Sweats, Fatigue Cardiovascular: Reports: Shortness of Breath, Shortness of Breath at Rest, Shortness of Breath with Exertion. Denies: Chest Discomfort, Orthopnea, PND, Peripheral Edema, Palpitations, Lightheadedness, Dizziness, Near Syncope, Syncope Respiratory: Denies: Cough, Sputum Production, Hemoptysis Gastrointestinal: Denies: Hematemesis, Hematochezia, Melena Genitourinary: Denies: Dysuria, Hematuria Skin: Denies: Rash Subjectve: Pleasant lady slightly short of breath. Objective: Vital Signs Temp Pulse Resp BP Pulse Ox 97.5 F L 70 16 139/74 H 95 05/24/17 03:04 05/24/17 07:09 05/24/17 03:04 05/24/17 03:04 05/24/17 03:04 Oxygen Flow Rate 4 Oxygen Delivery Method Nasal Cannula Weight: 144 lb 9.972 oz Body Mass Index (BMI) 31.6 Intake and Output for Last 24 Hours 05/22/17 05/23/17 05/24/17 23:59 23:59 23:59 Intake Total 250 / 250 Output Total 1275 / 1275 Balance -1025 / -1025 General: Awake, Alert, Oriented x 3, Ill Appearing HEENT: PERRL, EOMI, Sclera Non Icteric Neck: Supple, Good ROM, No Lymph Node Enlargement Lungs: Diminished Carl Bases Cardiovascular: Regular Rhythm, Normal S1, Normal S2, No Rubs, No Gallops Murmur Murmur: Grade 3/6, Mid Systolic, LLSB Vascular: No Carotid Bruits, Normal Femoral Pulses, Normal Radial Pulses, Normal Dorsalis Pedal Pulse, Normal Posterior Tibial Pulses Abdomen: Bowel Sounds Present, Soft, Non Tender, No HSM, No Organomegaly Extremities: No Cyanosis, No Clubbing, No edema Neurological: No Focal Motor or Sensory Deficit Psych/Mental Status: Appropriate, Anxious 05/23/17 21:30: Magnesium 2.4 05/23/17 21:30: Troponin I < 0.02 05/23/17 21:37: PT 23.8 H, INR 2.2 05/24/17 02:23: Troponin I < 0.02 05/24/17 05:50: WBC 6.8, RBC 3.37 L, Hgb 10.3 L, Hct 31.8 L, MCV 94.4, MCH 30.6 , MCHC 32.4, RDW 15.4 H, RDW Differential 52.9 H, Plt Count 95 L, MPV 10.0, Immature Gran % (Auto) 0.000, Neut % (Auto) 72.5 H, Lymph % (Auto) 14.8 L, Alfalfa % (Auto) 8.8, Eos % (Auto) 3.2, Baso % (Auto) 0.7, Absolute Neuts (auto) 4.9, Total Counted Not Reportable 05/24/17 05:50: PT 24.4 H, INR 2.3 05/24/17 05:50: Sodium 143, Potassium 3.1 L, Chloride 106, Carbon Dioxide 28.0, Anion Gap 9, BUN 17, Creatinine 1.11 H, Est GFR (MDRD) Af Amer 61, Est GFR (MDRD ) Non-Af 51 L, BUN/Creatinine Ratio 15.3, Glucose 87, Calcium 8.3 L, Triglycerides 38, Cholesterol 98, LDL Cholesterol 33, VLDL Cholesterol 8, HDL Cholesterol 57 Rhythm: EKG: AV sequential pacing Assessment/Plan Congestive heart failure-acute diastolic Etiology is not entirely clear. Her previous echocardiogram had demonstrated preserved ejection fraction but with pulmonary pressures which were elevated. My recommendation will be for her to receive a day of intravenous Lasix and then subsequently switch her to oral Lasix. 2. Presence of prosthetic heart valve Z95.2 The patient is status post a transcatheter aortic valve replacement procedure at [facility]. She appears to be doing well at this time. Her most recent noninvasive studies performed locally are as noted above. Will suggest repeat her echocardiogram today In the interim she does need to continue her AHA antibiotic prophylaxis. 3. S/P mitral valve repair Z98.890 Plan She does have a history of a mitral valve repair as noted above. Her mitral valve apparatus is been stable. She will continue to be followed noninvasively. She will continue AHA antibiotic prophylaxis. 4. S/P tricuspid valve repair Z98.890 Plan She does have a history of a tricuspid valve repair as noted above. Again she appears to be stable at this time. Her valvular apparatus appears to be stable based on her no most recent noninvasive studies. She will continue [employer] [place] [employer] antibiotic prophylaxis. She will continue to be followed. 5. Chronic atrial fibrillation I48.2 Plan She has a history of underlying atrial fibrillation/flutter. She has been treated medically. She is undergone AV node ablation. She has a permanent pacemaker in place. She continues anticoagulant therapy. INR is noted to be therapeutic. She continues with permanent pacemaker follow-up. 6. S/P ablation operation for arrhythmia Z98.890; Z86.79 Plan She has a history of an AV node ablation as noted above. She appears to have done well since her AV node ablation with her medical therapy and her permanent pacemaker placement. 7. Presence of cardiac pacemaker Z95.0 Plan She does have a permanent pacemaker in place. It has been followed. It has been functioning appropriately. 8. History of bacterial endocarditis Z86.79 Plan She has a history of infectious endocarditis. She was treated medically. She has had no recurrent fevers, chills, or night sweats. She will monitor for any concerns. She will continue outpatient cardiovascular follow-up. 9. Hyperlipidemia, unspecified hyperlipidemia type E78.5 Plan Her lipid labs were evaluated as noted above. She will continue medical management and follow-up. 10. Essential hypertension I10 Plan Her blood pressure appears to be under reasonably good control at this time. She will continue medical therapy and follow-up. 11. Interstitial lung disease J84.9 Plan She has been followed locally by Dr. Molina of pulmonology and at [facility] by Dr. Emanuel Herrera. She will continue her pulmonary follow-up as directed by her pulmonary physicians. 12. Pulmonary HTN I27.20 Plan There is a history of pulmonary hypertension. She continues her medical management. She continues with outpatient follow-up noninvasively as noted above. 13. Long-term use of high-risk medication Z79.899 Plan She is on medical management that does require follow-up. This is with respect to laboratory studies. Thank you for allowing me to participate in the care of your patient. Please don't hesitate to call if any issues arise
--- NOTE | 2017-05-24 07:45 | ECHOD_ITS ---
Reason For Study: CHF Procedure This was a 2D Doppler, Color Flow transthoracic echocardiogram. Exam performed portable in patient room. Left Ventricle Normal LV size. D shaped septum in systole and diastole. Left ventricular systolic function is normal. The estimated ejection fraction is 60 %. Unable to assess diastolic dysfunction. Right Ventricle Normal RV size. ICD or pacer leads identified within the right ventricle. Normal systolic function. Atria The left atrium is mildly enlarged. Normal right atrium. ICD or pacer leads identified within the right atrium. Mitral Valve Bileaflet diffuse mitral valve thickening. Mild (1+) eccentric mitral valve insufficiency. An annuloplasty ring is noted in the mitral position. Tricuspid Valve Normal tricuspid valve. Moderate (2+) tricuspid valve insufficiency. Pulmonary artery systolic pressure is 65 mmHg. Severe pulmonary hypertension. An annuloplasty ring is noted in the tricuspid position. Aortic Valve Peak aortic valve gradient 73 mmHg. Mean aortic valve gradient 43 mmHg. Moderate aortic stenosis. Calculated aortic valve area (continuity equation) is 1.0 cm2. Bioprosthetic aortic valve. Pulmonic Valve Normal pulmonic valve. Moderate (2+) pulmonic valve insufficiency. Great Vessels Normal aortic root. The pulmonary artery is normal size. and partially collapses. Pericardium/Pleural No pericardial effusion. MMode/2D Measurements & Calculations LVIDd: 3.9 cm IVSd: 1.3 cm LVOT diam: 2.0 cm LVIDs: 2.7 cm LVPWd: 1.0 cm LVOT area: 3.0 cm2 RVDd: 4.5 cm FS: 29.5 % Ao root diam: 3.3 cm LAV(MOD-sp4): 83.6 ml LA A4 area: 25.0 cm2 LA dimension: 5.3 cm RA A4 area: 20.1 cm2 Doppler Measurements & Calculations MV E max andrew: 215.0 cm/sec MV V2 max: 231.3 cm/sec Ao V2 max: 381.8 cm/sec MV max P.4 mmHg Ao max P.0 mmHg MV V2 mean: 102.4 cm/sec Ao V2 mean: 272.4 cm/sec MV mean P.7 mmHg Ao mean P.8 mmHg MV V2 VTI: 50.5 cm Ao V2 VTI: 72.2 cm MVA(VTI): 1.5 cm2 CECIL(I,D): 1.1 cm2 CECIL(V,D): 1.0 cm2 LV V1 max: 128.1 cm/sec SV(LVOT): 77.5 ml TV V2 max: 135.1 cm/sec LV V1 max P.6 mmHg TV max P.3 mmHg LV V1 mean P.3 mmHg TV V2 mean: 69.8 cm/sec LV V1 mean: 99.6 cm/sec TV mean P.3 mmHg LV V1 VTI: 25.5 cm PA V2 max: 135.6 cm/sec PI end-d andrew: 115.0 cm/sec TR max andrew: 389.3 cm/sec TR max P.8 mmHg Interpretation Summary Normal LV size. D shaped septum in systole and diastole. Left ventricular systolic function is normal. The estimated ejection fraction is 60 %. Unable to assess diastolic dysfunction. Pulmonary artery systolic pressure is 65 mmHg. Mean aortic valve gradient 43 mmHg. Bioprosthetic aortic valve. Compared to the previous the is mildly worse and the pulmonary pressures are higher. There is evidence of volume and pressure overload. Ordering Physician: Barron Hannon Referring Physician: Abby Pendleton V Performed By: Sunni Arredondo, RHONDACS, RVT
--- NOTE | 2017-05-24 08:26 | PCM.PN.HOSP ---
Patient Problems: Active and Suspected Problems (Last Reviewed 04/11/17 @ 13:38 by Yasmin Agee) Acute on chronic diastolic heart failure (Acute) Subjective: Patient with no acute events since admission per self and per nursing report. Notes improved dyspnea with ongoing diuresis, but still increased from baseline and worse with exertional attempts. States she does have as needed oxygen at home 2.5 L nasal cannula but has been using this routinely. Discussed plan of continue IV Lasix today with plan for oral transition tomorrow with oxygenation assessment for discharge home planning. Patient denies fevers, chills, nausea, emesis, abdominal pain, chest pain. Objective: Physical Examination: General: awake, alert, oriented x 3 and cooperative, seated upright in bedside chair in no apparent distress. Skin: normal color, turgor, no icterus, cyanosis. HEENT: AT/NC, EOMI, PERRLA, MMM. Lungs: Diminished BS, > BL bases, minimal crackles BL bases, moderate effort, no wheezing or rhonchi. Heart: Regular rate and rhythm; no gallop, rub audible, SM. Abdomen: soft, NTTP, ND, normal BS. Extremities: no cyanosis, clubbing, or edema. Neurological: patient awake, alert, oriented x 3; cognitive function intact; pupils equally reactive to light and accomodation; cranial nerves II-XII grossly normal, moving all 4 extremities, no focal deficits, strength moderately globally decreased. Psychiatric: affect appears normal, no acute evidence of depressive or anxiety feelings. Vitals/I&O's: Vital Signs Temp Pulse Resp BP Pulse Ox 97.5 F L 70 16 139/74 H 95 05/24/17 03:04 05/24/17 07:09 05/24/17 03:04 05/24/17 03:04 05/24/17 03:04 Oxygen Flow Rate 4 Oxygen Delivery Method Nasal Cannula Weight: 144 lb 9.972 oz Body Mass Index (BMI) 31.6 Intake and Output for Last 24 Hours 05/22/17 05/23/17 05/24/17 23:59 23:59 23:59 Intake Total 250 / 250 Output Total 1275 / 1275 Balance -1025 / -1025 Laboratory Results 05/23/17 21:30: Magnesium 2.4 05/23/17 21:30: Troponin I < 0.02 05/23/17 21:37: PT 23.8 H, INR 2.2 05/24/17 02:23: Troponin I < 0.02 05/24/17 05:50: WBC 6.8, RBC 3.37 L, Hgb 10.3 L, Hct 31.8 L, MCV 94.4, MCH 30.6, MCHC 32.4, RDW 15.4 H, RDW Differential 52.9 H, Plt Count 95 L, MPV 10.0, Immature Gran % (Auto) 0.000, Neut % (Auto) 72.5 H, Lymph % (Auto) 14.8 L, [place] % (Auto) 8.8, Eos % (Auto) 3.2, Baso % (Auto) 0.7, Absolute Neuts (auto) 4.9, Absolute Lymphs (auto) 1.01, Total Counted Not Reportable 05/24/17 05:50: PT 24.4 H, INR 2.3 05/24/17 05:50: Sodium 143, Potassium 3.1 L, Chloride 106, Carbon Dioxide 28.0, Anion Gap 9, BUN 17, Creatinine 1.11 H, Estim Creat Clear Calc 32.03, Est GFR (MDRD) Af Amer 61, Est GFR (MDRD) Non-Af 51 L, BUN/Creatinine Ratio 15.3, Glucose 87, Calcium 8.3 L, Triglycerides 38, Cholesterol 98, LDL Cholesterol 33, VLDL Cholesterol 8, HDL Cholesterol 57, TSH 1.37 Current Medications Acetaminophen (Tylenol) 650 mg PO Q6H PRN PRN PRN Reason: Mild Pain (scale 0-3)/T>100.7 Al Hydroxide/Mg Hydroxide (Mylanta Ii) 30 ml PO Q6H PRN PRN PRN Reason: Gastric Burning Albuterol Sulfate (Ventolin Aerosols) 2.5 mg INHALATION Q6H PRN PRN PRN Reason: SHORTNESS OF BREATH Albuterol Sulfate (Ventolin Aerosols) 2.5 mg INHALATION Q6HWA.RT ON LICENSE OF [facility] Last Admin: 05/24/17 07:32 Dose: 2.5 mg Atorvastatin Calcium (Lipitor) 20 mg PO QHS ON LICENSE OF [facility] Last Admin: 05/23/17 23:51 Dose: 20 mg Bisacodyl (Dulcolax) 10 mg RECTAL DAILY PRN PRN PRN Reason: Constipation Budesonide (Pulmicort Aerosol) 0.5 mg INHALATION Q12H.RT ON LICENSE OF [facility] Last Admin: 05/24/17 07:32 Dose: 0.5 mg Dicyclomine HCl (Bentyl) 10 mg PO TID ON LICENSE OF [facility] Last Admin: 05/24/17 05:41 Dose: 10 mg Diltiazem HCl (Cardizem Cd) 240 mg PO DAILY ON LICENSE OF [facility] Docusate Sodium (Colace) 200 mg PO BID PRN PRN PRN Reason: Constipation Ferrous Sulfate (Ferrous Sulfate) 325 mg PO DAILYCM ON LICENSE OF [facility] Folic Acid (Folic Acid) 1 mg PO DAILYCM ON LICENSE OF [facility] Furosemide (Lasix) 40 mg IV BIDLX ON LICENSE OF [facility] Lactobacillus Acidophilus (Acidophilus) 1 tablet PO DAILY ON LICENSE OF [facility] Levothyroxine Sodium (Synthroid) 75 mcg PO DAILY@0600 ON LICENSE OF [facility] Last Admin: 05/24/17 05:41 Dose: 75 mcg Loratadine (Claritin) 10 mg PO DAILY ON LICENSE OF [facility] Magnesium Oxide (Mag-Ox 400) 200 mg PO DAILY ON LICENSE OF [facility] Meclizine HCl (Antivert) 12.5 mg PO 4X/DAY PRN PRN PRN Reason: VERTIGO Morphine Sulfate (Morphine) 1 - 2 mg IV Q4H PRN PRN PRN Reason: SEVERE PAIN (6-10/10) Multivitamins (Allbee W/C Caplet, Thera B Comp/C) 1 capsule PO DAILY ON LICENSE OF [facility] Nitroglycerin (Nitrostat) 0.4 mg SUBLINGUAL Q5M PRN PRN Reason: CARDIAC/CHEST PAIN Non-Formulary Medication (Oxygen, Home [Home Oxygen]) 2.5 lpm NASAL QHS ON LICENSE OF [facility] Last Admin: 05/23/17 23:09 Dose: 2.5 lpm Ondansetron HCl (Zofran) 4 mg IV Q8H PRN PRN PRN Reason: Nausea Oxycodone HCl (Oxyir) 5 mg PO Q4H PRN PRN PRN Reason: Moderate Pain (pain scale 4-5) Pantoprazole Sodium (Protonix) 20 mg PO DAILY ON LICENSE OF [facility] Potassium Chloride (K-Dur) 20 meq PO TIDCM ON LICENSE OF [facility] Pseudoephedrine HCl (Sudafed) 60 mg PO 4X/DAY ON LICENSE OF [facility] Last Admin: 05/23/17 23:50 Dose: Not Given Sodium Chloride () 5 - 30 ml IV UD PRN PRN Reason: SALINE FLUSH Warfarin Sodium (Coumadin (Pbkc)) 4 mg PO DAILY@1700 RADHA PRN Reason: Protocol Zolpidem Tartrate (Ambien (Generic)) 5 mg PO QHS PRN PRN PRN Reason: INSOMNIA Assessment/Plan Active and Suspected Problems (Last Reviewed 04/11/17 @ 13:38 by Yasmin Agee) Acute on chronic diastolic heart failure (Acute) The patient is a 77 y/o F w/ PMHx: Valvular Heart Disease w/ NR MVR s/p MV repair, s/p TV repair, s/p prosthetic AVR (AHA abx proph protocol), Dilated Cardiomyopathy, Hx RI, Myelodysplastic Syndrome w/ Chronic Thrombocytopenia following w/ Dr. Hatch, Chronic Diastolic CHF, PAF s/p ablation and pacemaker placement, Hx bacterial endocarditis, Pulm HTN, Interstitial Lung Disease, HTN, HLD who presents to the [facility] ED on 05/23/17 with progressive dyspnea x 5 days, both at rest and worse with exertion with PCP increase lasix without improvement. (1) Acute Decompensated Diastolic CHF: CXR obtained in the ED w/ congestion. Patient administered IV lasix in the ED, admitted to the PCU, maintained on cardiac telemetry, unremarkable cardiac enzyme series, continue IV lasix diuresis, monitor I/Os, maintain on intake restriction, continue medical therapy w/ coumadin, statin, not on BB or ACEI, maintained on cardizem, IV lasix as noted with oral transition in 05/25/17, TSH and magnesium level normal. Most recent ECHO noted 11/2016 w/ EF 65%, left atrium moderately enlarged, right atrium severely enlarged, mildly dilated right ventricle and angioplasty gradient tricuspid and mitral valve, RVSP 37 mmHg, Mild 1+ MR and TR, Trivial AR, stable bioprosthetic aortic valve w/ repeat ECHO ordered per Cardiology, pending. Cardiology consulted, recommendation continued IV lasix today and transition to oral lasix tomorrow. (2) Acute kidney injury: Admission BUN/Cr 21/1.68, prior baseline creatinine noted to be 0.8-1.1. Given CHF presentation, given IV lasix, no IVFs administered, repeat 05/24/17 BUN/Cr 17/1.11 improved, continue to trend. (3) Valvular Heart Disease: Hx NR MVR s/p MV repair, s/p TV repair, s/p prosthetic AVR, following AHA abx proph protocol, last ECHO (4) Dilated Cardiomyopathy, Hx RI, CAD: s/p CABG, maintain on coumadin, statin, on cardizem, IV lasix as noted with oral transition 05/25/17, allergy to ACEI, not on BB secondary to cardizem concurrent usage. (5) Myelodysplastic Syndrome w/ Chronic Thrombocytopenia: Following w/ Dr. Hatch, admission CBC w/ WBC 6.4, Hgb 10.3, Plts 97, 05/24/17 Plts 95, stable. (6) PAF: s/p ablation and pacemaker placement, maintained on coumadin and cardizem, admission INR 2.2, 05/24/17 INR 2.3, continue to trend. (7) Pulmonary HTN, Interstitial Lung Disease: PRN albuterol, HOB, IS. (8) Hypertension: Continue home regimen including IV Lasix, Cardizem, PRN hydralazine. (9) Hyperlipidemia: Continue home statin regimen. (10) Hypothyroidism: Continue home synthroid regimen, TSH normal. (11) Chronic Normocytic Anemia, Fe Deficiency Anemia: Admission Hgb 10.3, stable, trend, continue home Fe supplementation. (12) GERD: PPI. (13) DVT Prophylaxis: SCDs, coumadin w/ INR trending. Code Visit Inpatient E&M: 07263 Subs Hosp L2
--- NOTE | 2017-05-24 08:27 | CPS ---
PT INCREASED TO 4.5LPM. SATURATION UP TO 91%%. NURSE AWARE
--- NOTE | 2017-05-24 08:45 | PN_ITS ---
Patient Problems: Active and Suspected Problems (Last Reviewed 04/11/17 @ 13:38 by Yasmin Agee) Acute on chronic diastolic heart failure (Acute) Subjective: Patient with no acute events since admission per self and per nursing report. Notes improved dyspnea with ongoing diuresis, but still increased from baseline and worse with exertional attempts. States she does have as needed oxygen at home 2.5 L nasal cannula but has been using this routinely. Discussed plan of continue IV Lasix today with plan for oral transition tomorrow with oxygenation assessment for discharge home planning. Patient denies fevers, chills, nausea, emesis, abdominal pain, chest pain. Objective: Physical Examination: General: awake, alert, oriented x 3 and cooperative, seated upright in bedside chair in no apparent distress. Skin: normal color, turgor, no icterus, cyanosis. HEENT: AT/NC, EOMI, PERRLA, MMM. Lungs: Diminished BS, > BL bases, minimal crackles BL bases, moderate effort, no wheezing or rhonchi. Heart: Regular rate and rhythm; no gallop, rub audible, SM. Abdomen: soft, NTTP, ND, normal BS. Extremities: no cyanosis, clubbing, or edema. Neurological: patient awake, alert, oriented x 3; cognitive function intact; pupils equally reactive to light and accomodation; cranial nerves II-XII grossly normal, moving all 4 extremities, no focal deficits, strength moderately globally decreased. Psychiatric: affect appears normal, no acute evidence of depressive or anxiety feelings. Vitals/I&O's: Vital Signs Temp Pulse Resp BP Pulse Ox 97.5 F L 70 16 139/74 H 95 05/24/17 03:04 05/24/17 07:09 05/24/17 03:04 05/24/17 03:04 05/24/17 03:04 Oxygen Flow Rate 4 Oxygen Delivery Method Nasal Cannula Weight: 144 lb 9.972 oz Body Mass Index (BMI) 31.6 Intake and Output for Last 24 Hours 05/22/17 05/23/17 05/24/17 23:59 23:59 23:59 Intake Total 250 / 250 Output Total 1275 / 1275 Balance -1025 / -1025 Laboratory Results 05/23/17 21:30: Magnesium 2.4 05/23/17 21:30: Troponin I < 0.02 05/23/17 21:37: PT 23.8 H, INR 2.2 05/24/17 02:23: Troponin I < 0.02 05/24/17 05:50: WBC 6.8, RBC 3.37 L, Hgb 10.3 L, Hct 31.8 L, MCV 94.4, MCH 30.6 , MCHC 32.4, RDW 15.4 H, RDW Differential 52.9 H, Plt Count 95 L, MPV 10.0, Immature Gran % (Auto) 0.000, Neut % (Auto) 72.5 H, Lymph % (Auto) 14.8 L, [place] % (Auto) 8.8, Eos % (Auto) 3.2, Baso % (Auto) 0.7, Absolute Neuts (auto) 4.9, Absolute Lymphs (auto) 1.01, Total Counted Not Reportable 05/24/17 05:50: PT 24.4 H, INR 2.3 05/24/17 05:50: Sodium 143, Potassium 3.1 L, Chloride 106, Carbon Dioxide 28.0, Anion Gap 9, BUN 17, Creatinine 1.11 H, Estim Creat Clear Calc 32.03, Est GFR ( MDRD) Af Amer 61, Est GFR (MDRD) Non-Af 51 L, BUN/Creatinine Ratio 15.3, Glucose 87, Calcium 8.3 L, Triglycerides 38, Cholesterol 98, LDL Cholesterol 33 , VLDL Cholesterol 8, HDL Cholesterol 57, TSH 1.37 Current Medications Acetaminophen (Tylenol) 650 mg PO Q6H PRN PRN PRN Reason: Mild Pain (scale 0-3)/T>100.7 Al Hydroxide/Mg Hydroxide (Mylanta Ii) 30 ml PO Q6H PRN PRN PRN Reason: Gastric Burning Albuterol Sulfate (Ventolin Aerosols) 2.5 mg INHALATION Q6H PRN PRN PRN Reason: SHORTNESS OF BREATH Albuterol Sulfate (Ventolin Aerosols) 2.5 mg INHALATION Q6HWA.RT [facility] Last Admin: 05/24/17 07:32 Dose: 2.5 mg Atorvastatin Calcium (Lipitor) 20 mg PO QHS [facility] Last Admin: 05/23/17 23:51 Dose: 20 mg Bisacodyl (Dulcolax) 10 mg RECTAL DAILY PRN PRN PRN Reason: Constipation Budesonide (Pulmicort Aerosol) 0.5 mg INHALATION Q12H.RT [facility] Last Admin: 05/24/17 07:32 Dose: 0.5 mg Dicyclomine HCl (Bentyl) 10 mg PO TID [facility] Last Admin: 05/24/17 05:41 Dose: 10 mg Diltiazem HCl (Cardizem Cd) 240 mg PO DAILY [facility] Docusate Sodium (Colace) 200 mg PO BID PRN PRN PRN Reason: Constipation Ferrous Sulfate (Ferrous Sulfate) 325 mg PO DAILYCM [facility] Folic Acid (Folic Acid) 1 mg PO DAILYCM [facility] Furosemide (Lasix) 40 mg IV BIDLX [facility] Lactobacillus Acidophilus (Acidophilus) 1 tablet PO DAILY [facility] Levothyroxine Sodium (Synthroid) 75 mcg PO DAILY@0600 [facility] Last Admin: 05/24/17 05:41 Dose: 75 mcg Loratadine (Claritin) 10 mg PO DAILY [facility] Magnesium Oxide (Mag-Ox 400) 200 mg PO DAILY [facility] Meclizine HCl (Antivert) 12.5 mg PO 4X/DAY PRN PRN PRN Reason: VERTIGO Morphine Sulfate (Morphine) 1 - 2 mg IV Q4H PRN PRN PRN Reason: SEVERE PAIN (6-10/10) Multivitamins (Allbee W/C Caplet, Thera B Comp/C) 1 capsule PO DAILY [facility] Nitroglycerin (Nitrostat) 0.4 mg SUBLINGUAL Q5M PRN PRN Reason: CARDIAC/CHEST PAIN Non-Formulary Medication (Oxygen, Home [Home Oxygen]) 2.5 lpm NASAL QHS [facility] Last Admin: 05/23/17 23:09 Dose: 2.5 lpm Ondansetron HCl (Zofran) 4 mg IV Q8H PRN PRN PRN Reason: Nausea Oxycodone HCl (Oxyir) 5 mg PO Q4H PRN PRN PRN Reason: Moderate Pain (pain scale 4-5) Pantoprazole Sodium (Protonix) 20 mg PO DAILY [facility] Potassium Chloride (K-Dur) 20 meq PO TIDCM [facility] Pseudoephedrine HCl (Sudafed) 60 mg PO 4X/DAY [facility] Last Admin: 05/23/17 23:50 Dose: Not Given Sodium Chloride () 5 - 30 ml IV UD PRN PRN Reason: SALINE FLUSH Warfarin Sodium (Coumadin (Pbkc)) 4 mg PO DAILY@1700 RAD[facility] PRN Reason: Protocol Zolpidem Tartrate (Ambien (Generic)) 5 mg PO QHS PRN PRN PRN Reason: INSOMNIA Assessment/Plan Active and Suspected Problems (Last Reviewed 04/11/17 @ 13:38 by Yasmin Agee) Acute on chronic diastolic heart failure (Acute) The patient is a 77 y/o F w/ PMHx: 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 Hatch, Chronic Diastolic CHF, PAF s/p ablation and pacemaker placement, Hx bacterial endocarditis, Pulm HTN, Interstitial Lung Disease, HTN, HLD who presents to the [facility] ED on 05/23/17 with progressive dyspnea x 5 days, both at rest and worse with exertion with PCP increase lasix without improvement. (1) Acute Decompensated Diastolic CHF: CXR obtained in the ED w/ congestion. Patient administered IV lasix in the ED, admitted to the PCU, maintained on cardiac telemetry, unremarkable cardiac enzyme series, continue IV lasix diuresis, monitor I/Os, maintain on intake restriction, continue medical therapy w/ coumadin, statin, not on BB or ACEI, maintained on cardizem, IV lasix as noted with oral transition in 05/25/17, TSH and magnesium level normal. Most recent ECHO noted 11/2016 w/ EF 65%, left atrium moderately enlarged, right atrium severely enlarged, mildly dilated right ventricle and angioplasty gradient tricuspid and mitral valve, RVSP 37 mmHg, Mild 1+ MR and TR, Trivial AR , stable bioprosthetic aortic valve w/ repeat ECHO ordered per Cardiology, pending. Cardiology consulted, recommendation continued IV lasix today and transition to oral lasix tomorrow. (2) Acute kidney injury: Admission BUN/Cr 21/1.68, prior baseline creatinine noted to be 0.8-1.1. Given CHF presentation, given IV lasix, no IVFs administered, repeat 05/24/17 BUN/Cr 17/1.11 improved, continue to trend. (3) Valvular Heart Disease: Hx NR MVR s/p MV repair, s/p TV repair, s/p prosthetic AVR, following AHA abx proph protocol, last ECHO (4) Dilated Cardiomyopathy, Hx [place], CAD: s/p CABG, maintain on coumadin, statin, on cardizem, IV lasix as noted with oral transition 05/25/17, allergy to ACEI, not on BB secondary to cardizem concurrent usage. (5) Myelodysplastic Syndrome w/ Chronic Thrombocytopenia: Following w/ Dr. Hatch , admission CBC w/ WBC 6.4, Hgb 10.3, Plts 97, 05/24/17 Plts 95, stable. (6) PAF: s/p ablation and pacemaker placement, maintained on coumadin and cardizem, admission INR 2.2, 05/24/17 INR 2.3, continue to trend. (7) Pulmonary HTN, Interstitial Lung Disease: PRN albuterol, HOB, IS. (8) Hypertension: Continue home regimen including IV Lasix, Cardizem, PRN hydralazine. (9) Hyperlipidemia: Continue home statin regimen. (10) Hypothyroidism: Continue home synthroid regimen, TSH normal. (11) Chronic Normocytic Anemia, Fe Deficiency Anemia: Admission Hgb 10.3, stable , trend, continue home Fe supplementation. (12) GERD: PPI. (13) DVT Prophylaxis: SCDs, coumadin w/ INR trending. Code Visit Inpatient E&M: 30903 Subs Hosp L2
[2017-05-24] MEDS: Vitamin B Comp W-C Capsule 1 CAP PO (08:59)
[2017-05-24] MEDS: 0.9% NaCl Peripheral Flush Adult/Peds IV (08:59)
[2017-05-24] MEDS: Folic Acid 1 MG Tablet PO (08:59)
[2017-05-24] MEDS: Loratadine 10 MG Tablet PO (08:59)
[2017-05-24] MEDS: Pantoprazole Sodium 20 MG Tablet PO (08:59)
[2017-05-24] MEDS: Ferrous Sulfate 325 MG Tablet PO (08:59)
[2017-05-24] MEDS: Magnesium Oxide 400 MG Tablet 200 MG PO (08:59)
[2017-05-24] MEDS: Furosemide 40 MG/4 ML Vial IV ×2 (08:59→17:18)
[2017-05-24] MEDS: dilTIAZem CD 240 MG Capsule PO (09:01)
--- NOTE | 2017-05-24 14:43 | CASEMGMT ---
RN CM ASSESSMENT: Adm diagnosis: CHF Exacerbation. LACE Strata: 3 RN CM Assessment Complete. See attached link for full assessment. Transition Planning: Patient reports she is independent, lives alone, is established with PCP and specialists. The patient drives and uses a walker in the community. The patient reports her dtr accompanies her to her appnts in [place], but goes alone to area providers. The patient has home oxygen, which she reports she had been using only nocturnally prior to admission and has a Bipap for nocturnal use. The patient denies the need for HHS, but asks RN JOHN to check back prior to discharge. RN CM will continue to follow hospital clinical course and will follow up with patient prior to discharge. Care Coordination: Patient will need follow-up appnts scheduled prior to discharge. Disposition: Home with support of dtr. Verbal PADMINI LOPEZ report provided to Allison Castro, FINANCIAL SERVICES AGENT CM. ERICH Gamboa, RN-BC, CCM
[2017-05-24] MEDS: Atorvastatin Calcium 20 MG Tablet PO (21:24)
[2017-05-25] VITALS (9 sets, daily range): BP systolic 109–129; BP diastolic 56–67; PULSE 70–78; RESP 18–24; TEMP 36.8–36.9; O2SAT 85–95
[2017-05-25] MEDS: Dicyclomine 10 MG Capsule PO (06:15)
[2017-05-25] MEDS: Levothyroxine 75 MCG Tablet PO (06:15)
--- NOTE | 2017-05-25 06:26 | CPS ---
attempted bipap for pt , pt was unable to tolerate
--- NOTE | 2017-05-25 06:53 | PN.CARD_ITS ---
Subjectve: Seen and evaluated and appears to be doing better this morning and breathing better Objective: Vital Signs Temp Pulse Resp BP Pulse Ox 98.4 F 70 20 H 115/67 92 05/25/17 03:38 05/25/17 03:38 05/25/17 03:38 05/25/17 03:38 05/25/17 03:38 Oxygen Flow Rate 3 Oxygen Delivery Method Nasal Cannula Weight: 143 lb 11.862 oz Body Mass Index (BMI) 31.6 Intake and Output for Last 24 Hours 05/23/17 05/24/17 05/25/17 23:59 23:59 23:59 Intake Total 1350 / 1350 60 / 60 Output Total 3075 / 3075 150 / 150 Balance -1725 / -1725 -90 / -90 General: Awake, Alert, Oriented x 3 HEENT: PERRL, EOMI, Sclera Non Icteric Neck: Supple, Good ROM, No Lymph Node Enlargement Lungs: Clear to auscultation Cardiovascular: Regular Rhythm, Normal S1, Normal S2, No Rubs, No Gallops Murmur Murmur: Grade 3/6, Mid Systolic, LLSB Vascular: No Carotid Bruits, Normal Femoral Pulses, Normal Radial Pulses, Normal Dorsalis Pedal Pulse, Normal Posterior Tibial Pulses Abdomen: Bowel Sounds Present, Soft, Non Tender, No HSM, No Organomegaly Extremities: No Cyanosis, No Clubbing, No edema Neurological: No Focal Motor or Sensory Deficit 05/24/17 05:50: WBC 6.8, RBC 3.37 L, Hgb 10.3 L, Hct 31.8 L, MCV 94.4, MCH 30.6 , MCHC 32.4, RDW 15.4 H, RDW Differential 52.9 H, Plt Count 95 L, MPV 10.0, Immature Gran % (Auto) 0.000, Neut % (Auto) 72.5 H, Lymph % (Auto) 14.8 L, [place] % (Auto) 8.8, Eos % (Auto) 3.2, Baso % (Auto) 0.7, Absolute Neuts (auto) 4.9, Total Counted Not Reportable 05/24/17 05:50: Sodium 143, Potassium 3.1 L, Chloride 106, Carbon Dioxide 28.0, Anion Gap 9, BUN 17, Creatinine 1.11 H, Est GFR (MDRD) Af Amer 61, Est GFR (MDRD ) Non-Af 51 L, BUN/Creatinine Ratio 15.3, Glucose 87, Calcium 8.3 L, Triglycerides 38, Cholesterol 98, LDL Cholesterol 33, VLDL Cholesterol 8, HDL Cholesterol 57 05/24/17 08:50: Troponin I < 0.02 Assessment/Plan Congestive heart failure-acute diastolic Etiology is not entirely clear. Her previous echocardiogram had demonstrated preserved ejection fraction but with pulmonary pressures which were elevated. My recommendation will be for her to receive oral Lasix. Can be ambulated today to see how she does on the current regimen. I would also suggest the addition of spironolactone 25 mg a day. 2. Presence of prosthetic heart valve Z95.2 The patient is status post a transcatheter aortic valve replacement procedure at [facility]. She appears to be doing well at this time. Her most recent noninvasive studies performed locally are as noted above. Echocardiogram demonstrated mild reduction in the aortic valve area. We will continue to watch the above with serial echocardiograms. In the interim she does need to continue her AHA antibiotic prophylaxis. 3. S/P mitral valve repair Z98.890 Plan She does have a history of a mitral valve repair as noted above. Her mitral valve apparatus is been stable. She will continue to be followed noninvasively. She will continue AHA antibiotic prophylaxis. 4. S/P tricuspid valve repair Z98.890 Plan She does have a history of a tricuspid valve repair as noted above. Again she appears to be stable at this time. Her valvular apparatus appears to be stable based on her no most recent noninvasive studies. She will continue [employer] antibiotic prophylaxis. She will continue to be followed. 5. Chronic atrial fibrillation I48.2 Plan She has a history of underlying atrial fibrillation/flutter. She has been treated medically. She is undergone AV node ablation. She has a permanent pacemaker in place. She continues anticoagulant therapy. INR is noted to be therapeutic. She continues with permanent pacemaker follow-up. 6. S/P ablation operation for arrhythmia Z98.890; Z86.79 Plan She has a history of an AV node ablation as noted above. She appears to have done well since her AV node ablation with her medical therapy and her permanent pacemaker placement. 7. Presence of cardiac pacemaker Z95.0 Plan She does have a permanent pacemaker in place. It has been followed. It has been functioning appropriately. 8. History of bacterial endocarditis Z86.79 Plan She has a history of infectious endocarditis. She was treated medically. She has had no recurrent fevers, chills, or night sweats. She will monitor for any concerns. She will continue outpatient cardiovascular follow-up. 9. Hyperlipidemia, unspecified hyperlipidemia type E78.5 Plan Her lipid labs were evaluated as noted above. She will continue medical management and follow-up. 10. Essential hypertension I10 Plan Her blood pressure appears to be under reasonably good control at this time. She will continue medical therapy and follow-up. 11. Interstitial lung disease J84.9 Plan She has been followed locally by Dr. Molina of pulmonology and at [facility] by Dr. Emanuel Herrera. She will continue her pulmonary follow-up as directed by her pulmonary physicians. 12. Pulmonary HTN I27.20 Plan There is a history of pulmonary hypertension. She continues her medical management. Remain on the diuretics with Lasix and the addition of spironolactone. She continues with outpatient follow-up noninvasively as noted above. 13. Long-term use of high-risk medication Z79.899 Plan She is on medical management that does require follow-up. This is with respect to laboratory studies. Thank you for allowing me to participate in the care of your patient. Please don't hesitate to call if any issues arise. If she is able to ambulate well today with minimal oxygen requirements she may be able to go home and follow-up as an outpatient with her primary physician.
[2017-05-25] MEDS: Budesonide Respules 0.5 MG/2 ML AMPUL.NEB. INHALATION (07:15)
[2017-05-25] MEDS: Albuterol 2.5 MG/3 ML VIAL.NEB. INHALATION ×2 (07:15→12:41)
[2017-05-25] MEDS: Magnesium Oxide 400 MG Tablet 200 MG PO (09:10)
[2017-05-25] MEDS: dilTIAZem CD 240 MG Capsule PO (09:11)
[2017-05-25] MEDS: Pantoprazole Sodium 20 MG Tablet PO (09:11)
[2017-05-25] MEDS: Folic Acid 1 MG Tablet PO (09:11)
[2017-05-25] MEDS: Spironolactone 25 MG Tablet PO (09:11)
[2017-05-25] MEDS: Vitamin B Comp W-C Capsule 1 CAP PO (09:11)
[2017-05-25] MEDS: Furosemide 80 MG Tablet PO (09:11)
[2017-05-25] MEDS: Loratadine 10 MG Tablet PO (09:11)
[2017-05-25] MEDS: Ferrous Sulfate 325 MG Tablet PO (09:11)
--- NOTE | 2017-05-25 11:02 | PCM.DC ---
- Discharge Diagnoses Current Active Problems: Current Active and Chronic Problems (Last Reviewed 04/11/17 @ 13:38 by Yasmin Agee) Acute on chronic diastolic heart failure (Acute) (1) Acute Decompensated Diastolic CHF (2) Acute kidney injury, Resolved (3) Valvular Heart Disease (4) Dilated Cardiomyopathy, Hx MD, CAD (5) Myelodysplastic Syndrome w/ Chronic Thrombocytopenia (6) PAF s/p ablation and pacemaker placement (7) Pulmonary HTN, Interstitial Lung Disease (8) Hypertension (9) Hyperlipidemia (10) Hypothyroidism (11) Chronic Normocytic Anemia, Fe Deficiency Anemia (12) GERD You will use the following diet at home:: Cardiac Your food should be the consistency of: Regular Your liquids should be the consistency of: Regular/Thin Discharge Activity: - - Use assistive devices as needed, continue activity parameters per Cardiology recommendations. May resume sexual activity in: No Restrictions Weight Bearing Status: Weight bearing as tolerated Call your doctor if you observe: Fever of 101 or Higher, Inability to urinate, Inability to have a bowel movement, Shortness of breath, Dizziness, Fainting spells, Swelling in the ankles, Chest pain, Uncontrolled pain, - - Weight gain > 5 lb please contact the Classified Copy Control Clerk. Instructions: What Is Heart Failure?, Heart Failure: Warning Signs of a Flare-Up, Heart Failure: Tracking Your Weight, Heart Failure: Being Active, Taking Medications for Your Heart, Using Oxygen Safely, Using Oxygen at Home, Preventing Falls: Are You At Risk of Falling?, Preventing Falls: Making Changes in Your Living Space, Preventing Falls: Moving Safely Out of a Chair and Bed, Preventing Falls: Moving Safely Using a Cane or Walker Additional Instructions: Please have repeat basic metabolic testing with your primary care at follow-up given medication changes to assure renal function remains improved and also to assess your potassium level to ascertain if supplementation alterations is needed to avoid elevated or lowered levels outside of desired parameters. Allergies/Adverse Reactions: Allergies GERI Inhibitors Allergy (Verified 05/23/17 18:03) Angioedema amiodarone Allergy (Verified 05/23/17 18:03) Other doxycycline Allergy (Verified 05/23/17 18:03) Other rosuvastatin calcium [From Crestor] Allergy (Verified 05/23/17 18:03) Other Sulfa (Sulfonamide Antibiotics) Allergy (Verified 05/23/17 18:03) Nausea tiotropium bromide [From Spiriva with HandiHaler] Allergy (Verified 05/23/17 18:03) Other codeine Adverse Reaction (Verified 05/23/17 18:03) Vomiting hydrocodone bitartrate [From Vicodin] Adverse Reaction (Verified 05/23/17 18:03) Vomiting Medications to take at Discharge Calcium Carb/Vitamin D [Os-Kem 500MG + D] 500 tab PO DAILY 02/16/13 Magnesium 250 mg PO DAILY 02/16/13 Oxygen, Home [Home Oxygen] 2.5 lpm NASAL QHS 02/16/13 Dicyclomine HCl [Bentyl] 10 mg PO TID 11/14/13 Esomeprazole Mag Trihydrate [Nexium] 20 mg PO DAILY 11/14/13 Polyvinyl Alcohol/Povidone/Pf [Refresh Classic Eye Drops] 1 ea OP DAILY PRN PRN 12/13/13 [place]-3 Fatty Acids [Fish Oil] 300 mg PO DAILY 12/10/14 B Complex with Vitamin C [Vitamin B-Complex with Vit C] 1 ea PO DAILY 06/23/16 Ferrous Sulfate [Iron] 325 mg PO DAILY 06/23/16 Meclizine HCl [Antivert] 12.5 mg PO 4X/DAY PRN PRN 06/23/16 Nitroglycerin [Nitrostat] 0.4 mg SL DAILY PRN 06/23/16 Warfarin [Coumadin] 4 mg PO DAILY 06/23/16 Diltiazem CD [Cardizem CD] 240 mg PO DAILY 01/12/17 atorvastatin 40 mg tablet 20 mg PO QHS tab 04/08/17 cholecalciferol (vitamin D3) 5,000 unit capsule 5,000 unit PO QDAY 04/08/17 fluticasone 250 mcg-salmeterol 50 mcg/dose blistr powdr for inhalation 1 inh INHALATION Q12H 04/08/17 lactobacillus combination no.8 3 billion cell capsule 3,000 mmu cells PO QDAY 04/08/17 levothyroxine 75 mcg tablet 75 mcg PO QDAY tab 04/08/17 folic acid 800 mcg tablet 800 mcg PO QDAY 04/11/17 Albuterol Aerosols [Ventolin Aerosols] 2.5 mg INHALATION Q6H PRN PRN 05/23/17 Furosemide [Lasix] 80 mg PO BID 05/23/17 Fexofenadine HCl [Adriana Allergy] 60 mg PO DAILY 05/24/17 Potassium Chloride [K-Dur] 40 meq PO DAILYCM #30 tab 05/25/17 Spironolactone [Aldactone] 25 mg PO DAILY #30 tab 05/25/17 The following prescriptions were given: Potassium Chloride [K-Dur] 40 meq PO DAILYCM #30 tab Spironolactone [Aldactone] 25 mg PO DAILY #30 tab Primary Care Physician: Abby Pendleton DO [Primary Care Provider] - Please follow up with your Primary Care Physician in: Follow-up within 2-3 days to review admission. Please Follow Up With: Jason Neri MD When: Please follow-up as Cardiology advised or within 2-4 weeks, may see FEATHER DUSTER WINDER/PA Proposed Discharge Date: 05/25/17
--- NOTE | 2017-05-25 11:07 | DCINST_ITS ---
- Discharge Diagnoses Current Active Problems: Current Active and Chronic Problems (Last Reviewed 04/11/17 @ 13:38 by Yasmin Agee) Acute on chronic diastolic heart failure (Acute) (1) Acute Decompensated Diastolic CHF (2) Acute kidney injury, Resolved (3) Valvular Heart Disease (4) Dilated Cardiomyopathy, Hx NH, CAD (5) Myelodysplastic Syndrome w/ Chronic Thrombocytopenia (6) PAF s/p ablation and pacemaker placement (7) Pulmonary HTN, Interstitial Lung Disease (8) Hypertension (9) Hyperlipidemia (10) Hypothyroidism (11) Chronic Normocytic Anemia, Fe Deficiency Anemia (12) GERD You will use the following diet at home:: Cardiac Your food should be the consistency of: Regular Your liquids should be the consistency of: Regular/Thin Discharge Activity: - - Use assistive devices as needed, continue activity parameters per Cardiology recommendations. May resume sexual activity in: No Restrictions Weight Bearing Status: Weight bearing as tolerated Call your doctor if you observe: Fever of 101 or Higher, Inability to urinate, Inability to have a bowel movement, Shortness of breath, Dizziness, Fainting spells, Swelling in the ankles, Chest pain, Uncontrolled pain, - - Weight gain > 5 lb please contact the Pharmaceutical Laboratory Technician. Instructions: What Is Heart Failure?, Heart Failure: Warning Signs of a Flare- Up, Heart Failure: Tracking Your Weight, Heart Failure: Being Active, Taking Medications for Your Heart, Using Oxygen Safely, Using Oxygen at Home, Preventing Falls: Are You At Risk of Falling?, Preventing Falls: Making Changes in Your Living Space, Preventing Falls: Moving Safely Out of a Chair and Bed, Preventing Falls: Moving Safely Using a Cane or Walker Additional Instructions: Please have repeat basic metabolic testing with your primary care at follow-up given medication changes to assure renal function remains improved and also to assess your potassium level to ascertain if supplementation alterations is needed to avoid elevated or lowered levels outside of desired parameters. Allergies/Adverse Reactions: Allergies GERI Inhibitors Allergy (Verified 05/23/17 18:03) Angioedema amiodarone Allergy (Verified 05/23/17 18:03) Other doxycycline Allergy (Verified 05/23/17 18:03) Other rosuvastatin calcium [From Crestor] Allergy (Verified 05/23/17 18:03) Other Sulfa (Sulfonamide Antibiotics) Allergy (Verified 05/23/17 18:03) Nausea tiotropium bromide [From Spiriva with HandiHaler] Allergy (Verified 05/23/17 18: 03) Other codeine Adverse Reaction (Verified 05/23/17 18:03) Vomiting hydrocodone bitartrate [From Vicodin] Adverse Reaction (Verified 05/23/17 18:03) Vomiting Medications to take at Discharge Calcium Carb/Vitamin D [Os-Kem 500MG + D] 500 tab PO DAILY 02/16/13 Magnesium 250 mg PO DAILY 02/16/13 Oxygen, Home [Home Oxygen] 2.5 lpm NASAL QHS 02/16/13 Dicyclomine HCl [Bentyl] 10 mg PO TID 11/14/13 Esomeprazole Mag Trihydrate [Nexium] 20 mg PO DAILY 11/14/13 Polyvinyl Alcohol/Povidone/Pf [Refresh Classic Eye Drops] 1 ea OP DAILY PRN PRN 12/13/13 [place]-3 Fatty Acids [Fish Oil] 300 mg PO DAILY 12/10/14 B Complex with Vitamin C [Vitamin B-Complex with Vit C] 1 ea PO DAILY 06/23/16 Ferrous Sulfate [Iron] 325 mg PO DAILY 06/23/16 Meclizine HCl [Antivert] 12.5 mg PO 4X/DAY PRN PRN 06/23/16 Nitroglycerin [Nitrostat] 0.4 mg SL DAILY PRN 06/23/16 Warfarin [Coumadin] 4 mg PO DAILY 06/23/16 Diltiazem CD [Cardizem CD] 240 mg PO DAILY 01/12/17 atorvastatin 40 mg tablet 20 mg PO QHS tab 04/08/17 cholecalciferol (vitamin D3) 5,000 unit capsule 5,000 unit PO QDAY 04/08/17 fluticasone 250 mcg-salmeterol 50 mcg/dose blistr powdr for inhalation 1 inh INHALATION Q12H 04/08/17 lactobacillus combination no.8 3 billion cell capsule 3,000 mmu cells PO QDAY levothyroxine 75 mcg tablet 75 mcg PO QDAY tab 04/08/17 folic acid 800 mcg tablet 800 mcg PO QDAY 04/11/17 Albuterol Aerosols [Ventolin Aerosols] 2.5 mg INHALATION Q6H PRN PRN 05/23/17 Furosemide [Lasix] 80 mg PO BID 05/23/17 Fexofenadine HCl [Adriana Allergy] 60 mg PO DAILY 05/24/17 Potassium Chloride [K-Dur] 40 meq PO DAILYCM #30 tab 05/25/17 Spironolactone [Aldactone] 25 mg PO DAILY #30 tab 05/25/17 The following prescriptions were given: Potassium Chloride [K-Dur] 40 meq PO DAILYCM #30 tab Spironolactone [Aldactone] 25 mg PO DAILY #30 tab Primary Care Physician: Abby Pendleton DO [Primary Care Provider] - Please follow up with your Primary Care Physician in: Follow-up within 2-3 days to review admission. Please Follow Up With: Jason Neri MD When: Please follow-up as Cardiology advised or within 2-4 weeks, may see SUPERVISOR SIGN SHOP/PA Proposed Discharge Date: 05/25/17
--- NOTE | 2017-05-25 11:07 | PCM.DC.SUM ---
Discharge Date and Diagnosis - Problem List Patient Problems: Active and Suspected Problems (Last Reviewed 04/11/17 @ 13:38 by Yasmin Agee) Acute on chronic diastolic heart failure (Acute) Date of Admission: 05/23/17 Date of Discharge: 05/25/17 - Primary Discharge Diagnosis Active and Suspected Problems (Last Reviewed 04/11/17 @ 13:38 by Yasmin Agee) (1) Acute Decompensated Diastolic CHF w/ Hypoxia (2) Acute kidney injury, Resolved (3) Valvular Heart Disease (4) Dilated Cardiomyopathy, Hx [place], CAD (5) Myelodysplastic Syndrome w/ Chronic Thrombocytopenia (6) PAF s/p ablation and pacemaker placement (7) Pulmonary HTN, Interstitial Lung Disease (8) Hypertension (9) Hyperlipidemia (10) Hypothyroidism (11) Chronic Normocytic Anemia, Fe Deficiency Anemia (12) GERD - Secondary Discharge Diagnosis Chronic Problems (Last Reviewed 04/11/17 @ 13:38 by Yasmin Agee) MCC (current) use of anticoagulants (Chronic) Palpitations (Chronic) Cardiac pacemaker in situ (Chronic) Long-term use of high-risk medication (Chronic) Presence of prosthetic heart valve (Chronic) Nonrheumatic aortic (valve) insufficiency (Chronic) 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, dilated (Chronic) S/P AVR (aortic valve replacement) (Chronic ~05/2014) History of bacterial endocarditis (Chronic) Thrombocytopenia (Chronic) Contusion of left upper arm, initial encounter (Chronic) Iron deficiency anemia (Chronic) Chronic atrial fibrillation (Chronic) Congestive heart failure (Chronic) Pulmonary hypertension (Chronic) Coronary artery disease (Chronic) Hypertension (Chronic) Interstitial lung disease (Chronic) Hyperlipidemia (Chronic) Hypothyroidism (Chronic) Hospital Course and Treatment Dr. Hannon Cardiology Operations: None Procedures: 2-D Echocardiogram, EKG Summary of Care Provided: The patient is a 77 y/o F w/ PMHx: Valvular Heart Disease w/ NR MVR s/p MV repair, s/p TV repair, s/p prosthetic AVR (AHA abx proph protocol), Dilated Cardiomyopathy, Hx HI, Myelodysplastic Syndrome w/ Chronic Thrombocytopenia following w/ Dr. Hatch, Chronic Diastolic CHF, PAF s/p ablation and pacemaker placement, Hx bacterial endocarditis, Pulm HTN, Interstitial Lung Disease, HTN, HLD who presented to the [facility] ED on 05/23/17 with progressive dyspnea x 5 days, both at rest and worse with exertion with PCP increase lasix without improvement. CXR obtained in the ED w/ congestion. Patient administered IV lasix in the ED, admitted to the PCU, maintained on cardiac telemetry, unremarkable cardiac enzyme series, continue IV lasix diuresis, monitor I/Os, maintain on intake restriction, continue medical therapy w/ coumadin, statin, not on BB or ACEI, maintained on cardizem, IV lasix as noted with oral transition 05/25/17, TSH and magnesium level normal. Most recent ECHO noted 11/2016 w/ EF 65%, left atrium moderately enlarged, right atrium severely enlarged, mildly dilated right ventricle and angioplasty gradient tricuspid and mitral valve, RVSP 37 mmHg, Mild 1+ MR and TR, Trivial AR, stable bioprosthetic aortic valve w/ repeat ECHO ordered per Cardiology noting normal LV size, D-shaped septum in systole and diastole, LV systolic function normal, EF 60%, unable to assess diastolic dysfunction, pulmonary artery systolic pressure 65 mmHg, mean aortic valve gradient 43 mmHg, bioprosthetic aortic valve in place, compared to previous left ear mildly worse and pulmonary pressure higher with evidence of volume and pressure overload. Cardiology addition low dose spironolactone. During admission, patient additionally with noted RONNIE with admission BUN/Cr 21/1.68, prior baseline creatinine noted to be 0.8-1.1, repeat 05/24/17 BUN/Cr 17/1.11 improved with recommendation for repeat BMP with PCP at follow-up. Cardiology recommendation for oxygenation testing which was performed w/ noted qualification for home oxygen, noted to be mobile in and out of the home thus requiring mobile unit, additionally given her frail state, she would benefit from small conserving device to avoid increased fall risk or self injury. Additionally patient discharged on continued current medications with discharge to home and follow-up with PCP and Cardiology. DAY OF DISCHARGE PROGRESS NOTE: Subjective: Patient without acute event overnight per self and nursing report. Patient notes continued improvement in dyspnea complaint. Cardiology evaluation this AM with recommendation for minor medication changes and discharge to home with oxygenation testing prior. Although highly recommended home health services, patient declined all assistance recommendations. Patient denies fever, chills, nausea, emesis, abdominal pain, chest pain or worsened dyspnea. Patient agreeable to discharge to home. Patient will be discharged with follow-up with primary care physician within 3-5 days in addition to Cardiology. Objective: T 98.4, HR 70, BP 109/56, RR 18, 95% on 2.5L NC. Physical Examination: General: awake, alert, oriented x 3 and cooperative, seated upright in bedside chair in no apparent distress. Skin: normal color, turgor, no icterus, cyanosis. HEENT: AT/NC, EOMI, PERRLA, MMM. Lungs: Diminished BS, > BL bases, resolved prior minimal crackles BL bases, improved effort, no wheezing or rhonchi. Heart: Regular rate and rhythm; no gallop, rub audible, SM. Abdomen: soft, NTTP, ND, normal BS. Extremities: no cyanosis, clubbing, or edema. Neurological: patient awake, alert, oriented x 3; cognitive function intact; pupils equally reactive to light and accomodation; cranial nerves II-XII grossly normal, moving all 4 extremities, no focal deficits, strength moderately globally decreased. Psychiatric: affect appears normal, no acute evidence of depressive or anxiety feelings. Assessment and Plan: Please see hospital summary above. Discharge Activity: - - Use assistive devices as needed, continue activity parameters per Cardiology recommendations. May resume sexual activity in: No Restrictions Weight Bearing Status: Weight bearing as tolerated Call your doctor if you observe: Fever of 101 or Higher, Inability to urinate, Inability to have a bowel movement, Shortness of breath, Dizziness, Fainting spells, Swelling in the ankles, Chest pain, Uncontrolled pain, - - Weight gain > 5 lb please contact the Director Of Academic. Home Medications: Medications to take at Discharge Calcium Carb/Vitamin D [Os-Kem 500MG + D] 500 tab PO DAILY 02/16/13 Magnesium 250 mg PO DAILY 02/16/13 Oxygen, Home [Home Oxygen] 2.5 lpm NASAL QHS 02/16/13 Dicyclomine HCl [Bentyl] 10 mg PO TID 11/14/13 Esomeprazole Mag Trihydrate [Nexium] 20 mg PO DAILY 11/14/13 Polyvinyl Alcohol/Povidone/Pf [Refresh Classic Eye Drops] 1 ea OP DAILY PRN PRN 12/13/13 [place]-3 Fatty Acids [Fish Oil] 300 mg PO DAILY 12/10/14 B Complex with Vitamin C [Vitamin B-Complex with Vit C] 1 ea PO DAILY 06/23/16 Ferrous Sulfate [Iron] 325 mg PO DAILY 06/23/16 Meclizine HCl [Antivert] 12.5 mg PO 4X/DAY PRN PRN 06/23/16 Nitroglycerin [Nitrostat] 0.4 mg SL DAILY PRN 06/23/16 Warfarin [Coumadin] 4 mg PO DAILY 06/23/16 Diltiazem CD [Cardizem CD] 240 mg PO DAILY 01/12/17 atorvastatin 40 mg tablet 20 mg PO QHS tab 04/08/17 cholecalciferol (vitamin D3) 5,000 unit capsule 5,000 unit PO QDAY 04/08/17 fluticasone 250 mcg-salmeterol 50 mcg/dose blistr powdr for inhalation 1 inh INHALATION Q12H 04/08/17 lactobacillus combination no.8 3 billion cell capsule 3,000 mmu cells PO QDAY 04/08/17 levothyroxine 75 mcg tablet 75 mcg PO QDAY tab 04/08/17 folic acid 800 mcg tablet 800 mcg PO QDAY 04/11/17 Albuterol Aerosols [Ventolin Aerosols] 2.5 mg INHALATION Q6H PRN PRN 05/23/17 Furosemide [Lasix] 80 mg PO BID 05/23/17 Fexofenadine HCl [Adriana Allergy] 60 mg PO DAILY 05/24/17 Potassium Chloride [K-Dur] 40 meq PO DAILYCM #30 tab 05/25/17 Spironolactone [Aldactone] 25 mg PO DAILY #30 tab 05/25/17 Following Prescrptions Were Given to Patient: Potassium Chloride [K-Dur] 40 meq PO DAILYCM #30 tab Spironolactone [Aldactone] 25 mg PO DAILY #30 tab Primary Care Physician: Abby Pendleton DO [Primary Care Provider] - Please follow up with your Primary Care Physician in: Follow-up within 2-3 days to review admission. Please Follow Up With: Jason Neri MD When: Please follow-up as Cardiology advised or within 2-4 weeks, may see FULL STACK PYTHON DEVELOPER/PA Patient Instructions: What Is Heart Failure?, Heart Failure: Warning Signs of a Flare-Up, Heart Failure: Tracking Your Weight, Heart Failure: Being Active, Using Oxygen Safely, Using Oxygen at Home, Taking Medications for Your Heart, Preventing Falls: Are You At Risk of Falling?, Preventing Falls: Making Changes in Your Living Space, Preventing Falls: Moving Safely Out of a Chair and Bed, Preventing Falls: Moving Safely Using a Cane or Walker Minutes spent on discharge:: 35 Patient Condition:: Fair Meaningful Use Info Meaningful Use Diagnoses (Choose all that apply): CHF - CHF GERI/ARB ordered at discharge?: No Reason GERI/ARB not ordered?: Allergy Documented LVEF (%): 60 Code Visit Inpatient E&M: 19206 Disch Hosp
--- NOTE | 2017-05-25 11:13 | DS.PCM_ITS ---
Discharge Date and Diagnosis - Problem List Patient Problems: Active and Suspected Problems (Last Reviewed 04/11/17 @ 13:38 by Yasmin Agee) Acute on chronic diastolic heart failure (Acute) Date of Admission: 05/23/17 Date of Discharge: 05/25/17 - Primary Discharge Diagnosis Active and Suspected Problems (Last Reviewed 04/11/17 @ 13:38 by Yasmin Agee) (1) Acute Decompensated Diastolic CHF w/ Hypoxia (2) Acute kidney injury, Resolved (3) Valvular Heart Disease (4) Dilated Cardiomyopathy, Hx MS, CAD (5) Myelodysplastic Syndrome w/ Chronic Thrombocytopenia (6) PAF s/p ablation and pacemaker placement (7) Pulmonary HTN, Interstitial Lung Disease (8) Hypertension (9) Hyperlipidemia (10) Hypothyroidism (11) Chronic Normocytic Anemia, Fe Deficiency Anemia (12) GERD - Secondary Discharge Diagnosis Chronic Problems (Last Reviewed 04/11/17 @ 13:38 by Yasmin Agee) alf (current) use of anticoagulants (Chronic) Palpitations (Chronic) Cardiac pacemaker in situ (Chronic) Long-term use of high-risk medication (Chronic) Presence of prosthetic heart valve (Chronic) Nonrheumatic aortic (valve) insufficiency (Chronic) 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, dilated (Chronic) S/P AVR (aortic valve replacement) (Chronic ~05/2014) History of bacterial endocarditis (Chronic) Thrombocytopenia (Chronic) Contusion of left upper arm, initial encounter (Chronic) Iron deficiency anemia (Chronic) Chronic atrial fibrillation (Chronic) Congestive heart failure (Chronic) Pulmonary hypertension (Chronic) Coronary artery disease (Chronic) Hypertension (Chronic) Interstitial lung disease (Chronic) Hyperlipidemia (Chronic) Hypothyroidism (Chronic) Hospital Course and Treatment Dr. Hannon Cardiology Operations: None Procedures: 2-D Echocardiogram, EKG Summary of Care Provided: The patient is a 77 y/o F w/ PMHx: Valvular Heart Disease w/ NR MVR s/p MV repair, s/p TV repair, s/p prosthetic AVR (AHA abx proph protocol), Dilated Cardiomyopathy, Hx MS, Myelodysplastic Syndrome w/ Chronic Thrombocytopenia following w/ Dr. Hatch, Chronic Diastolic CHF, PAF s/p ablation and pacemaker placement, Hx bacterial endocarditis, Pulm HTN, Interstitial Lung Disease, HTN, HLD who presented to [facility] ED on 05/23/17 with progressive dyspnea x 5 days, both at rest and worse with exertion with PCP increase lasix without improvement. CXR obtained in the ED w/ congestion. Patient administered IV lasix in the ED, admitted to the PCU, maintained on cardiac telemetry, unremarkable cardiac enzyme series, continue IV lasix diuresis, monitor I/Os, maintain on intake restriction, continue medical therapy w/ coumadin, statin, not on BB or ACEI, maintained on cardizem, IV lasix as noted with oral transition 05/25/17, TSH and magnesium level normal. Most recent ECHO noted 2016 w/ EF 65%, left atrium moderately enlarged, right atrium severely enlarged , mildly dilated right ventricle and angioplasty gradient tricuspid and mitral valve, RVSP 37 mmHg, Mild 1+ MR and TR, Trivial AR, stable bioprosthetic aortic valve w/ repeat ECHO ordered per Cardiology noting normal LV size, D-shaped septum in systole and diastole, LV systolic function normal, EF 60%, unable to assess diastolic dysfunction, pulmonary artery systolic pressure 65 mmHg, mean aortic valve gradient 43 mmHg, bioprosthetic aortic valve in place, compared to previous left ear mildly worse and pulmonary pressure higher with evidence of volume and pressure overload. Cardiology addition low dose spironolactone. During admission, patient additionally with noted RONNIE with admission BUN/Cr 21/ 1.68, prior baseline creatinine noted to be 0.8-1.1, repeat 05/24/17 BUN/Cr 17/ 1.11 improved with recommendation for repeat BMP with PCP at follow-up. Cardiology recommendation for oxygenation testing which was performed w/ noted qualification for home oxygen, noted to be mobile in and out of the home thus requiring mobile unit, additionally given her frail state, she would benefit from small conserving device to avoid increased fall risk or self injury. Additionally patient discharged on continued current medications with discharge to home and follow-up with PCP and Cardiology. DAY OF DISCHARGE PROGRESS NOTE: Subjective: Patient without acute event overnight per self and nursing report. Patient notes continued improvement in dyspnea complaint. Cardiology evaluation this AM with recommendation for minor medication changes and discharge to home with oxygenation testing prior. Although highly recommended home health services , patient declined all assistance recommendations. Patient denies fever, chills , nausea, emesis, abdominal pain, chest pain or worsened dyspnea. Patient agreeable to discharge to home. Patient will be discharged with follow-up with primary care physician within 3-5 days in addition to Cardiology. Objective: T 98.4, HR 70, BP 109/56, RR 18, 95% on 2.5L NC. Physical Examination: General: awake, alert, oriented x 3 and cooperative, seated upright in bedside chair in no apparent distress. Skin: normal color, turgor, no icterus, cyanosis. HEENT: AT/NC, EOMI, PERRLA, MMM. Lungs: Diminished BS, > BL bases, resolved prior minimal crackles BL bases, improved effort, no wheezing or rhonchi. Heart: Regular rate and rhythm; no gallop, rub audible, SM. Abdomen: soft, NTTP, ND, normal BS. Extremities: no cyanosis, clubbing, or edema. Neurological: patient awake, alert, oriented x 3; cognitive function intact; pupils equally reactive to light and accomodation; cranial nerves II-XII grossly normal, moving all 4 extremities, no focal deficits, strength moderately globally decreased. Psychiatric: affect appears normal, no acute evidence of depressive or anxiety feelings. Assessment and Plan: Please see hospital summary above. Discharge Activity: - - Use assistive devices as needed, continue activity parameters per Cardiology recommendations. May resume sexual activity in: No Restrictions Weight Bearing Status: Weight bearing as tolerated Call your doctor if you observe: Fever of 101 or Higher, Inability to urinate, Inability to have a bowel movement, Shortness of breath, Dizziness, Fainting spells, Swelling in the ankles, Chest pain, Uncontrolled pain, - - Weight gain > 5 lb please contact the Hand Tufter. Home Medications: Medications to take at Discharge Calcium Carb/Vitamin D [Os-Kem 500MG + D] 500 tab PO DAILY 02/16/13 Magnesium 250 mg PO DAILY 02/16/13 Oxygen, Home [Home Oxygen] 2.5 lpm NASAL QHS 02/16/13 Dicyclomine HCl [Bentyl] 10 mg PO TID 11/14/13 Esomeprazole Mag Trihydrate [Nexium] 20 mg PO DAILY 11/14/13 Polyvinyl Alcohol/Povidone/Pf [Refresh Classic Eye Drops] 1 ea OP DAILY PRN PRN 12/13/13 [place]-3 Fatty Acids [Fish Oil] 300 mg PO DAILY 12/10/14 B Complex with Vitamin C [Vitamin B-Complex with Vit C] 1 ea PO DAILY 06/23/16 Ferrous Sulfate [Iron] 325 mg PO DAILY 06/23/16 Meclizine HCl [Antivert] 12.5 mg PO 4X/DAY PRN PRN 06/23/16 Nitroglycerin [Nitrostat] 0.4 mg SL DAILY PRN 06/23/16 Warfarin [Coumadin] 4 mg PO DAILY 06/23/16 Diltiazem CD [Cardizem CD] 240 mg PO DAILY 01/12/17 atorvastatin 40 mg tablet 20 mg PO QHS tab 04/08/17 cholecalciferol (vitamin D3) 5,000 unit capsule 5,000 unit PO QDAY 04/08/17 fluticasone 250 mcg-salmeterol 50 mcg/dose blistr powdr for inhalation 1 inh INHALATION Q12H 04/08/17 lactobacillus combination no.8 3 billion cell capsule 3,000 mmu cells PO QDAY levothyroxine 75 mcg tablet 75 mcg PO QDAY tab 04/08/17 folic acid 800 mcg tablet 800 mcg PO QDAY 04/11/17 Albuterol Aerosols [Ventolin Aerosols] 2.5 mg INHALATION Q6H PRN PRN 05/23/17 Furosemide [Lasix] 80 mg PO BID 05/23/17 Fexofenadine HCl [Adriana Allergy] 60 mg PO DAILY 05/24/17 Potassium Chloride [K-Dur] 40 meq PO DAILYCM #30 tab 05/25/17 Spironolactone [Aldactone] 25 mg PO DAILY #30 tab 05/25/17 Following Prescrptions Were Given to Patient: Potassium Chloride [K-Dur] 40 meq PO DAILYCM #30 tab Spironolactone [Aldactone] 25 mg PO DAILY #30 tab Primary Care Physician: Abby Pendleton DO [Primary Care Provider] - Please follow up with your Primary Care Physician in: Follow-up within 2-3 days to review admission. Please Follow Up With: Jason Neri MD When: Please follow-up as Cardiology advised or within 2-4 weeks, may see HARDNESS TESTER/PA Patient Instructions: What Is Heart Failure?, Heart Failure: Warning Signs of a Flare-Up, Heart Failure: Tracking Your Weight, Heart Failure: Being Active, Using Oxygen Safely, Using Oxygen at Home, Taking Medications for Your Heart, Preventing Falls: Are You At Risk of Falling?, Preventing Falls: Making Changes in Your Living Space, Preventing Falls: Moving Safely Out of a Chair and Bed, Preventing Falls: Moving Safely Using a Cane or Walker Minutes spent on discharge:: 35 Patient Condition:: Fair Meaningful Use Info Meaningful Use Diagnoses (Choose all that apply): CHF - CHF GERI/ARB ordered at discharge?: No Reason GERI/ARB not ordered?: Allergy Documented LVEF (%): 60 Code Visit Inpatient E&M: 56392 Disch Hosp
--- NOTE | 2017-05-25 12:08 | CASEMGMT ---
PADMINI LOPEZ received referral from Dr. Escobedo for Home Oxygen and [facility]. PADMINI LOPEZ notes patient has current home oxygen with [facility]. PADMINI LOPEZ called [facility] and spoke with Sal who reports patient does need a new oxygen qualification as patient's cert ended in March. New qualification was obtained and referral faxed to [facility]. PADMINI LOPEZ also spoke with Dick at [facility] to notify patient states mini tanks are too heavy; per Dick, will have patient evaluated for most appropriate portable tank. PADMINI LOPEZ also notified Dick patient will need a portable delivered to the hospital at discharge. Patient declines home health, physician notified and spoke with patient, patient still declines. Disposition: Home with new home oxygen settings and support of dtr. Toro Delarosa, BSN, RN-BC, CCM
== END 2017-05-25 14:18 | disposition home or self-care (01) | DRG 292 ==
LOC: ED 21:21 → PCU 21:33
PROVIDERS: Family Medicine; Admitting Provider Internal Medicine; Emergency Provider Emergency Medicine; Family Provider Family Medicine; PCP Family Medicine; Visit Provider Family Medicine
DX: I50.33 Acute on chronic diastolic (congestive) heart failure (principal); I42.0 Dilated cardiomyopathy; N17.9 Acute kidney failure, unspecified; J84.9 Interstitial pulmonary disease, unspecified; J96.11 Chronic respiratory failure with hypoxia; I27.20 Pulmonary hypertension, unspecified; D46.9 Myelodysplastic syndrome, unspecified; K21.9 Gastro-esophageal reflux disease without esophagitis; Z95.1 Presence of aortocoronary bypass graft; I25.10 Atherosclerotic heart disease of native coronary artery without angina pectoris; Z95.0 Presence of cardiac pacemaker; Z99.81 Dependence on supplemental oxygen; I25.2 Old myocardial infarction; E78.5 Hyperlipidemia, unspecified; E03.9 Hypothyroidism, unspecified; I10 Essential (primary) hypertension; Z79.01 Long term (current) use of anticoagulants; Z79.899 Other long term (current) drug therapy; Z95.2 Presence of prosthetic heart valve; Z86.79 Personal history of other diseases of the circulatory system; I35.1 Nonrheumatic aortic (valve) insufficiency; I48.0 Paroxysmal atrial fibrillation
CPT/HCPCS: 36415; 71045; 80048; 80061; 83735; 83880; 84443; 84484; 85025; 85610; 93005; 93306; 94640; 97162; 97165; 97802; 99285; A4216; J1940

== ENCOUNTER → 2017-06-01 12:05 | Outpatient (CLI) | payer MEDICARE, OTHER, SELFPAY ==
[2017-06-01 15:54] LABS: BUN 25 mg/dL (7-18); Creatinine, Serum 1.38 mg/dL (0.55-1.02); Glucose 99 mg/dL (74-106)
[2017-06-01 15:55] LABS: Anion Gap 9 (5-15); BUN/Creat Ratio 18.1 RATIO (10-20); Chloride 103 mmol/L (98-107); EST Glomerular Filtration Rate 39 mL/min (>60); Est Glom Filt Rate - Afr Amer 48 mL/min (>60); Potassium 3.8 mmol/L (3.5-5.1); Sodium Level 138 mmol/L (136-145)
== END ==
PROVIDERS: Family Provider Family Medicine; PCP Family Medicine; Visit Provider Family Medicine
DX: I50.30 Unspecified diastolic (congestive) heart failure (principal); N18.3 Chronic kidney disease, stage 3 (moderate)
CPT/HCPCS: 36415; 80048

== ENCOUNTER 2017-06-23 11:50 | Outpatient (RCR) | payer MEDICARE, OTHER, SELFPAY ==
[2017-05-27 14:40] LABS: International Normalized Ratio 2.4; Prothrombin Time (Protime)PT. 26.5 SECONDS (11.7-14.9)
[2017-06-17 13:59] LABS: International Normalized Ratio 3.3; Prothrombin Time (Protime)PT. 33.9 SECONDS (11.7-14.9)
[2017-06-23 14:15] LABS: International Normalized Ratio 2.6; Prothrombin Time (Protime)PT. 28.2 SECONDS (11.7-14.9)
== END 2017-06-23 12:00 | disposition home or self-care (01) ==
LOC: MTLAB 11:50
PROVIDERS: Family Provider Family Medicine; PCP Family Medicine; Visit Provider Internal Medicine Cardiovascular Disease
DX: I48.0 Paroxysmal atrial fibrillation (principal)
CPT/HCPCS: 36415; 85610

== ENCOUNTER 2017-07-07 11:28 | Outpatient (RCR) | payer MEDICARE, OTHER, SELFPAY ==
[2017-07-07 14:23] LABS: International Normalized Ratio 2.3; Prothrombin Time (Protime)PT. 25.4 SECONDS (11.7-14.9)
== END 2017-07-07 12:00 | disposition home or self-care (01) ==
LOC: MTLAB 11:28
PROVIDERS: Family Provider Family Medicine; PCP Family Medicine; Visit Provider Internal Medicine Cardiovascular Disease
DX: I48.0 Paroxysmal atrial fibrillation (principal)
CPT/HCPCS: 36415; 85610

== ENCOUNTER 2017-09-06 10:59 | Outpatient (RCR) | payer MEDICARE, OTHER, SELFPAY ==
[2017-09-06 12:15] LABS: International Normalized Ratio 2.4; Prothrombin Time (Protime)PT. 26.3 SECONDS (11.7-14.9)
== END 2017-09-06 12:00 | disposition home or self-care (01) ==
LOC: MTLAB 10:59
PROVIDERS: Family Provider Family Medicine; PCP Family Medicine; Visit Provider Internal Medicine Cardiovascular Disease
DX: I48.0 Paroxysmal atrial fibrillation (principal)
CPT/HCPCS: 36415; 85610

== ENCOUNTER → 2017-09-16 07:52 | Outpatient (CLI) | payer MEDICARE, OTHER, SELFPAY ==
[2017-09-16 10:28] LABS: AST(SGOT) 32 U/L (15-37); Alanine Aminotransfer ALT/SGPT 24 U/L (13-56); Albumin, Serum 3.8 g/dL (3.2-5.0); Alkaline Phosphatase 89 U/L (45-117); Bilirubin, Direct 0.25 mg/dL (0.00-0.30); Cholesterol 96 mg/dL (200); Globulin 3.8 g/dL (2.2-4.2); High Density Lipoprotein 65 mg/dL; Protein, Total 7.6 g/dL (6.4-8.2); Triglycerides 47 mg/dL; Very Low Density Lipoprotein 9 mg/dL (5-40)
== END ==
LOC: LAB 07:53 → MTLAB 08:00
PROVIDERS: Family Provider Family Medicine; PCP Family Medicine; Visit Provider Physician Assistant Medical
DX: E78.5 Hyperlipidemia, unspecified (principal)
CPT/HCPCS: 36415; 80061; 80076

== ENCOUNTER 2017-10-06 11:14 | Outpatient (RCR) | payer MEDICARE, OTHER, SELFPAY ==
[2017-10-06 12:20] LABS: International Normalized Ratio 2.4; Prothrombin Time (Protime)PT. 26.2 SECONDS (11.7-14.9)
== END 2017-10-06 13:00 ==
LOC: MTLAB 11:14
PROVIDERS: Family Provider Family Medicine; PCP Family Medicine; Visit Provider Internal Medicine Cardiovascular Disease
DX: Z95.2 Presence of prosthetic heart valve (principal); Z79.01 Long term (current) use of anticoagulants
CPT/HCPCS: 36415; 85610

== ENCOUNTER 2017-11-07 11:53 | Outpatient (RCR) | payer MEDICARE, OTHER, SELFPAY ==
[2017-11-07 14:22] LABS: International Normalized Ratio 2.1; Prothrombin Time (Protime)PT. 23.6 SECONDS (11.7-14.9)
== END 2017-11-07 13:00 | disposition home or self-care (01) ==
LOC: MTLAB 11:53
PROVIDERS: Family Provider Family Medicine; PCP Family Medicine; Visit Provider Internal Medicine Cardiovascular Disease
DX: Z79.01 Long term (current) use of anticoagulants (principal); Z95.2 Presence of prosthetic heart valve
CPT/HCPCS: 36415; 85610

== ENCOUNTER 2017-12-07 11:28 | Outpatient (RCR) | payer MEDICARE, OTHER, SELFPAY ==
[2017-12-07 14:32] LABS: International Normalized Ratio 2.7; Prothrombin Time (Protime)PT. 28.7 SECONDS (11.7-14.9)
== END 2017-12-07 13:00 | disposition home or self-care (01) ==
LOC: MTLAB 11:28
PROVIDERS: Family Provider Family Medicine; PCP Family Medicine; Visit Provider Internal Medicine Cardiovascular Disease
DX: Z79.01 Long term (current) use of anticoagulants (principal); Z95.2 Presence of prosthetic heart valve
CPT/HCPCS: 36415; 85610

== ENCOUNTER 2018-01-06 12:19 | Outpatient (RCR) | payer MEDICARE, OTHER, SELFPAY ==
[2018-01-06 14:08] LABS: Absolute Lymphocyte Count 1.25 X10^3/ul (0.83-4.51); Absolute Neutrophil Count 5.1 X10^3/uL (2.0-7.7); Basophil# 0.05 X10^3/uL; Basophil% 0.7 % (0-1); Eosinophil# 0.16 X10^3/uL; Eosinophils% 2.2 % (0-5); Hemoglobin 9.7 g/dl (12.0-15.0); Lymphocyte # 1.25 X10^3/ul (4.0); Lymphocyte % 17.5 % (19-41); Mean Corp Hgb Conc 32.3 g/gl (32-36); Mean Corpuscular Hgb 31.3 pg (27.0-32.0); Mean Corpuscular Volume 96.8 fL (81-99); Mean Platelet Vol. 10.1 fl (6.2-12.0); Monocyte# 0.62 X10^3/uL; Monocyte% 8.7 % (0-10); Neutrophil # 5.05 X10^3/uL (2.7-7.7); Neutrophil % 70.6 % (47-70); Platelet Count 114 K/mm3 (150-450); RBC Distribution Width CV 14.9 % (11.6-14.6); RBC Distribution Width SD 50.3 fl (35.1-43.9); White Blood Count 7.2 K/mm3 (4.4-11.0)
[2018-01-06 14:09] LABS: POSITIVE COUNT NO; POSITIVE DIFFERENTIAL NO; POSITIVE MORPHOLOGY NO
[2018-01-06 14:20] LABS: International Normalized Ratio 3.1; Prothrombin Time (Protime)PT. 32.1 SECONDS (11.7-14.9)
[2018-01-06 14:30] LABS: AST(SGOT) 28 U/L (15-37); Alanine Aminotransfer ALT/SGPT 26 U/L (13-56); Albumin, Serum 3.7 g/dL (3.2-5.0); Alkaline Phosphatase 93 U/L (45-117); Anion Gap 9 (5-15); BUN 25 mg/dL (7-18); Calcium,Total 8.7 mg/dL (8.5-10.1); Chloride 105 mmol/L (98-107); Creatinine, Serum 1.39 mg/dL (0.55-1.02); EST Glomerular Filtration Rate 39 mL/min (>60); Est Glom Filt Rate - Afr Amer 47 mL/min (>60); Ferritin 93 ng/mL (8-252); Globulin 3.6 g/dL (2.2-4.2); Glucose 90 mg/dL (74-106); Iron 92 ug/dL (50-170); Iron Binding Capacity,Total 303 ug/dL (250-450); PERCENT IRON SATURATION 30.4 % (15.0-55.0); Potassium 3.6 mmol/L (3.5-5.1); Protein, Total 7.3 g/dL (6.4-8.2); Sodium Level 139 mmol/L (136-145); T4 Free Direct 1.58 ng/dL (0.76-1.46); Thyroid Stim Hormone (TSH) 0.62 uIU/mL (0.358-3.74)
== END 2018-01-06 14:00 | disposition home or self-care (01) ==
LOC: MTLAB 12:19
PROVIDERS: Internal Medicine Medical Oncology; Family Provider Family Medicine; PCP Family Medicine; Referring Provider Internal Medicine Cardiovascular Disease; Visit Provider Internal Medicine Cardiovascular Disease
DX: D69.6 Thrombocytopenia, unspecified (principal); E03.9 Hypothyroidism, unspecified; Z79.01 Long term (current) use of anticoagulants; Z95.2 Presence of prosthetic heart valve
CPT/HCPCS: 80053; 82728; 83540; 83550; 84439; 84443; 85025; 85610

== ENCOUNTER → 2018-01-18 11:53 | Outpatient (CLI) | payer MEDICARE, OTHER, SELFPAY ==
--- NOTE | 2018-01-18 11:56 | RAD_ITS ---
STUDY: X-RAY CHEST REASON FOR EXAM: Female, 77 years old. Dyspnea TECHNIQUE: Frontal and lateral views of the chest. COMPARISON: 05/23/2017. FINDINGS: The lungs are hyperexpanded. There are coarsened interstitial markings suggestive of mild chronic fibrosis. No gross focal infiltrates. No gross effusions. There is severe cardiac enlargement. Previous CABG. Pacemaker is seen with leads terminating in the right atrium and right ventricle. Normal mediastinum and bj. There is prominence of the pulmonary hilar arteries without peripheral pulmonary vascular congestion, suggesting pulmonary hypertension. Normal visualized aortic arch and descending thoracic aorta. There are diffuse degenerative changes of the visualized thoracic spine. There is degenerative osteoarthritis of the bilateral shoulders. Diffuse demineralization. There is no demonstrated abnormality of the visualized soft tissue structures of the upper abdomen. RAD/Chest PA and Lateral IMPRESSION: There are findings consistent with COPD. There is no evidence of acute chest disease. Marked cardiomegaly. Electronically Signed: Eloy Cardoso MD at 20:52 EDT , Service support ,
== END ==
PROVIDERS: Family Provider Family Medicine; PCP Family Medicine; Referring Provider Family Medicine; Visit Provider Family Medicine
DX: R06.00 Dyspnea, unspecified (principal)
CPT/HCPCS: 71046

== ENCOUNTER → 2018-01-20 14:15 | Outpatient (CLI) | payer MEDICARE, OTHER, SELFPAY ==
[2018-01-20 14:59] LABS: International Normalized Ratio 2.9; Prothrombin Time (Protime)PT. 30.5 SECONDS (11.7-14.9)
== END ==
PROVIDERS: Family Provider Family Medicine; PCP Family Medicine; Referring Provider Internal Medicine Cardiovascular Disease; Visit Provider Internal Medicine Cardiovascular Disease
DX: Z95.2 Presence of prosthetic heart valve (principal); Z79.01 Long term (current) use of anticoagulants
CPT/HCPCS: 36415; 85610

== ENCOUNTER → 2018-01-26 09:29 | Outpatient (CLI) | payer MEDICARE, OTHER, SELFPAY ==
--- NOTE | 2018-01-26 09:37 | ECHOD_ITS ---
Reason For Study: Valve Replacement - Eval Procedure This was a 2D Doppler, Color Flow transthoracic echocardiogram. The study was technically difficult. Exam performed in department. Left Ventricle Normal LV size. D shaped septum in systole and diastole. Left ventricular systolic function is normal. The estimated ejection fraction is 65 %. Paradoxical septal wall motion c/w a post open heart surgery state and / or an electronic ventricular pacemaker. Unable to assess diastolic dysfunction. No regional wall motion abnormalities noted. Right Ventricle Mildly dilated right ventricle. ICD or pacer leads identified within the right ventricle. Normal systolic function. Atria The left atrium is moderately enlarged. The right atrium is moderately enlarged. ICD or pacer leads identified within the right atrium. No doppler evidence for ASD. Mitral Valve Mild diffuse mitral valve thickening. An annuloplasty ring is noted in the mitral position. MIld (1+) transvalvular insufficiency of the mitral valve. Tricuspid Valve Right ventricular systolic pressure estimated to be 66 mmHg. An annuloplasty ring is noted in the tricuspid position. Moderate transvalvular insufficiency of the tricuspid valve. Aortic Valve Stable appearing bioprosthetic aortic valve apparatus. Trivial transvalvular insufficiency of the aortic valve. Pulmonic Valve The pulmonic valve is not well visualized. Moderate (2+) pulmonic valve insufficiency. Great Vessels Normal sized aortic root. Pericardium/Pleural No pericardial effusion. MMode/2D Measurements & Calculations LVIDd: 4.4 cm IVSd: 1.3 cm LVOT diam: 2.0 cm LVIDs: 3.3 cm LVPWd: 0.96 cm LVOT area: 3.0 cm2 RVDd: 3.4 cm FS: 26.1 % Ao root diam: 2.6 cm LAV(MOD-bp): 92.6 ml LA A4 area: 28.1 cm2 LAV(MOD-bp) Indexed: 57.4 ml/m2 LAV(MOD-sp2): 77.9 ml LAV(MOD-sp4): 97.9 ml LA dimension(2D): 4.9 cm RA A4 area: 24.1 cm2 Doppler Measurements & Calculations MV E max andrew: 216.4 cm/sec MV V2 max: 242.4 cm/sec Ao V2 max: 445.1 cm/sec MV max P.5 mmHg Ao max P.3 mmHg MV V2 mean: 106.8 cm/sec Ao V2 mean: 336.7 cm/sec MV mean P.0 mmHg Ao mean P.6 mmHg MV V2 VTI: 52.0 cm Ao V2 VTI: 93.3 cm MVA(VTI): 2.1 cm2 CECIL(I,D): 1.2 cm2 CECIL(V,D): 1.1 cm2 AI max andrew: 441.0 cm/sec LV V1 max: 158.9 cm/sec MR max andrew: 565.2 cm/sec AI max P.8 mmHg LV V1 max P.1 mmHg MR max P.8 mmHg AI dec slope: 269.3 cm/sec2 LV V1 mean P.5 mmHg AI P1/2t: 479.7 msec LV V1 mean: 124.1 cm/sec LV V1 VTI: 36.5 cm SV(LVOT): 110.4 ml PA V2 max: 145.0 cm/sec PI dec slope: 571.6 cm/sec2 TR max andrew: 396.7 cm/sec TR max P.0 mmHg Interpretation Summary The study was technically difficult. Left ventricular systolic function is normal. The estimated ejection fraction is 65 %. D shaped septum in systole and diastole. Paradoxical septal wall motion c/w a post open heart surgery state and / or an electronic ventricular pacemaker. Mildly dilated right ventricle. The left atrium is moderately enlarged. The right atrium is moderately enlarged. An annuloplasty ring is noted in the mitral position. Mild diffuse mitral valve thickening. MIld (1+) transvalvular insufficiency of the mitral valve. An annuloplasty ring is noted in the tricuspid position. Moderate transvalvular insufficiency of the tricuspid valve. Stable appearing bioprosthetic aortic valve apparatus. Trivial transvalvular insufficiency of the aortic valve. Moderate (2+) pulmonic valve insufficiency. Right ventricular systolic pressure estimated to be 66 mmHg. Unable to assess diastolic dysfunction. ICD or pacer leads identified within the right atrium ICD or pacer leads identified within the right ventricle. Ordering Physician: Jason Neri Referring Physician: Abby Pendleton Performed By: Jena Benz, RHONDACS, RVT
== END ==
PROVIDERS: Family Provider Family Medicine; PCP Family Medicine; Referring Provider Internal Medicine Cardiovascular Disease; Visit Provider Internal Medicine Cardiovascular Disease
DX: Z95.2 Presence of prosthetic heart valve (principal)
CPT/HCPCS: 93306

== ENCOUNTER 2018-02-13 12:17 | Outpatient (RCR) | payer MEDICARE, OTHER, SELFPAY ==
[2018-02-06 13:54] LABS: International Normalized Ratio 3.4; Prothrombin Time (Protime)PT. 34.5 SECONDS (11.7-14.9)
[2018-02-13 14:44] LABS: International Normalized Ratio 2.8; Prothrombin Time (Protime)PT. 29.7 SECONDS (11.7-14.9)
== END 2018-02-13 13:00 | disposition home or self-care (01) ==
LOC: MTLAB 12:17
PROVIDERS: Family Provider Family Medicine; PCP Family Medicine; Referring Provider Internal Medicine Cardiovascular Disease; Visit Provider Internal Medicine Cardiovascular Disease
DX: Z79.01 Long term (current) use of anticoagulants (principal); Z95.2 Presence of prosthetic heart valve
CPT/HCPCS: 36415; 85610

== ENCOUNTER 2018-03-13 12:35 | Outpatient (RCR) | payer MEDICARE, OTHER, SELFPAY ==
[2018-01-20 13:04] VITALS: BMI 26.3
[2018-02-27 14:04] LABS: International Normalized Ratio 2.5
[2018-03-13 13:50] LABS: International Normalized Ratio 2.1; Prothrombin Time (Protime)PT. 23.6 SECONDS (11.7-14.9)
== END 2018-03-13 13:00 | disposition home or self-care (01) ==
LOC: MTLAB 12:35
PROVIDERS: Family Provider Family Medicine; PCP Family Medicine; Referring Provider Internal Medicine Cardiovascular Disease; Visit Provider Internal Medicine Cardiovascular Disease
DX: Z79.01 Long term (current) use of anticoagulants (principal); Z95.2 Presence of prosthetic heart valve
CPT/HCPCS: 36415; 85610

== ENCOUNTER → 2018-03-20 07:37 | Outpatient (CLI) | payer MEDICARE, OTHER, SELFPAY ==
[2018-03-20 10:51] LABS: AST(SGOT) 31 U/L (15-37); Alanine Aminotransfer ALT/SGPT 23 U/L (13-56); Albumin, Serum 3.8 g/dL (3.2-5.0); Alkaline Phosphatase 95 U/L (45-117); Bilirubin, Direct 0.27 mg/dL (0.00-0.30); Cholesterol 102 mg/dL (200); Globulin 3.6 g/dL (2.2-4.2); High Density Lipoprotein 58 mg/dL; Protein, Total 7.4 g/dL (6.4-8.2); Triglycerides 60 mg/dL; Very Low Density Lipoprotein 12 mg/dL (5-40)
== END ==
PROVIDERS: Physician Assistant Medical; Family Provider Family Medicine; PCP Family Medicine; Referring Provider Internal Medicine Cardiovascular Disease; Visit Provider Internal Medicine Cardiovascular Disease
DX: E78.5 Hyperlipidemia, unspecified (principal)
CPT/HCPCS: 36415; 80061; 80076

== ENCOUNTER 2018-04-03 12:10 | Outpatient (RCR) | payer MEDICARE, OTHER, SELFPAY ==
[2018-01-20 13:04] VITALS: BMI 26.3
[2018-04-03 14:20] LABS: International Normalized Ratio 2.7; Prothrombin Time (Protime)PT. 28.9 SECONDS (11.7-14.9)
== END 2018-04-03 13:00 | disposition home or self-care (01) ==
LOC: MTLAB 12:10
PROVIDERS: Family Provider Family Medicine; PCP Family Medicine; Referring Provider Internal Medicine Cardiovascular Disease; Visit Provider Internal Medicine Cardiovascular Disease
DX: Z79.01 Long term (current) use of anticoagulants (principal); Z95.2 Presence of prosthetic heart valve
CPT/HCPCS: 36415; 85610

== ENCOUNTER 2018-05-04 11:16 | Outpatient (RCR) | payer MEDICARE, OTHER, SELFPAY ==
[2018-04-12 11:06] VITALS: BMI 26.3
[2018-05-04 12:25] LABS: Absolute Lymphocyte Count 1.13 X10^3/ul (0.83-4.51); Absolute Neutrophil Count 5.2 X10^3/uL (2.0-7.7); Basophil# 0.04 X10^3/uL; Basophil% 0.6 % (0-1); Eosinophil# 0.15 X10^3/uL; Eosinophils% 2.1 % (0-5); Hematocrit 35.7 % (37-47); Hemoglobin 11.2 g/dl (12.0-15.0); Lymphocyte # 1.13 X10^3/ul (4.0); Lymphocyte % 15.8 % (19-41); Mean Corp Hgb Conc 31.4 g/gl (32-36); Mean Corpuscular Hgb 29.7 pg (27.0-32.0); Mean Corpuscular Volume 94.7 fL (81-99); Monocyte# 0.63 X10^3/uL; Monocyte% 8.8 % (0-10); Neutrophil # 5.18 X10^3/uL (2.7-7.7); Neutrophil % 72.6 % (47-70); Platelet Count 104 K/mm3 (150-450); RBC Distribution Width CV 15.2 % (11.6-14.6); RBC Distribution Width SD 50.7 fl (35.1-43.9); Red Blood Count 3.77 M/mm3 (4.2-5.4); White Blood Count 7.1 K/mm3 (4.4-11.0)
[2018-05-04 12:32] LABS: International Normalized Ratio 2.4; Prothrombin Time (Protime)PT. 26.6 SECONDS (11.7-14.9)
[2018-05-04 12:44] LABS: POSITIVE COUNT NO; POSITIVE DIFFERENTIAL NO; POSITIVE MORPHOLOGY NO
[2018-05-04 12:49] LABS: ALB/GLOB Ratio 1.1 RATIO (0.9-2.4); AST(SGOT) 32 U/L (15-37); Alanine Aminotransfer ALT/SGPT 27 U/L (13-56); Albumin, Serum 3.9 g/dL (3.2-5.0); Alkaline Phosphatase 101 U/L (45-117); Anion Gap 9 (5-15); BUN 27 mg/dL (7-18); BUN/Creat Ratio 19.3 RATIO (10-20); Chloride 105 mmol/L (98-107); EST Glomerular Filtration Rate 39 mL/min (>60); Est Glom Filt Rate - Afr Amer 47 mL/min (>60); Globulin 3.7 g/dL (2.2-4.2); Glucose 102 mg/dL (74-106); Potassium 3.7 mmol/L (3.5-5.1); Protein, Total 7.6 g/dL (6.4-8.2); Sodium Level 137 mmol/L (136-145)
== END 2018-05-25 15:04 | disposition home or self-care (01) ==
LOC: MTLAB 11:16
PROVIDERS: Family Provider Family Medicine; PCP Family Medicine; Referring Provider Internal Medicine Cardiovascular Disease; Visit Provider Internal Medicine Cardiovascular Disease
DX: Z79.01 Long term (current) use of anticoagulants (principal); Z95.2 Presence of prosthetic heart valve
CPT/HCPCS: 36415; 80053; 85025; 85610

== ENCOUNTER → 2018-05-10 15:52 | Outpatient (CLI) | payer MEDICARE, OTHER, SELFPAY ==
[2018-04-12 11:06] VITALS: BMI 26.3
--- NOTE | 2018-05-10 15:54 | BI_ITS ---
MAMMOGRAPHY - BILATERAL SCREENING REASON FOR EXAM: Female, 78 years old. Routine annual screening examination. PERTINENT HISTORY: Non-contributory. Remote right ultrasound guided biopsy. TECHNIQUE: Digital bilateral breast truman (3D mammographic acquisition) in the CC and MLO projections. 2-D mediolateral oblique (MLO) and craniocaudad (CC) views of both breasts were obtained. CAD: Full Field Digital Mammography with Computer Added Detection was performed. COMPARISON: Comparison is made with prior study dated March 2017 and March 02, 2016. FINDINGS: Breast Composition: The breasts are heterogeneously dense, which may obscure small masses. There are no dominant masses or suspicious calcifications. A tissue clip marker is once again seen along the anterior supra thyroidal region of the right breast. The battery pack from a pacemaker is seen in the left axillary region. Stable secretory calcifications. No other significant abnormalities are identified. There has been no significant change since the prior study. BI/SCREENING MAMM (CAD), BILAT IMPRESSION: Stable bilateral screening mammogram. Yearly follow-up mammogram recommended. (A) ASSESSMENT CATEGORY: BIRADS Category 2: Benign. A letter regarding these results will be sent to the patient by the facility within 30 days. Approximately 10% of breast cancers are not detected by mammography. A normal mammogram should not delay biopsy of a clinically suspicious abnormality. [id number] Electronically Signed: Joey Avila MD at 10:05 EST , Service support ,
== END ==
PROVIDERS: Family Provider Family Medicine; PCP Family Medicine; Referring Provider Family Medicine; Visit Provider Family Medicine
DX: Z12.31 Encounter for screening mammogram for malignant neoplasm of breast (principal)
CPT/HCPCS: 77063; 77067

== ENCOUNTER 2018-06-01 13:04 | Outpatient (RCR) | payer MEDICARE, OTHER, SELFPAY ==
[2018-04-12 11:06] VITALS: BMI 26.3
[2018-06-01 14:52] LABS: International Normalized Ratio 2.7; Prothrombin Time (Protime)PT. 28.4 SECONDS (11.7-14.9)
== END 2018-06-01 14:00 | disposition home or self-care (01) ==
LOC: MTLAB 13:04
PROVIDERS: Family Provider Family Medicine; PCP Family Medicine; Referring Provider Internal Medicine Cardiovascular Disease; Visit Provider Internal Medicine Cardiovascular Disease
DX: Z79.01 Long term (current) use of anticoagulants (principal); Z95.2 Presence of prosthetic heart valve
CPT/HCPCS: 36415; 85610

== ENCOUNTER 2018-07-17 12:10 | Outpatient (RCR) | payer MEDICARE, OTHER, SELFPAY ==
[2018-04-12 11:06] VITALS: BMI 26.3
[2018-07-03 13:59] LABS: International Normalized Ratio 3.2; Prothrombin Time (Protime)PT. 32.8 SECONDS (11.7-14.9)
[2018-07-17 14:43] LABS: International Normalized Ratio 2.5; Prothrombin Time (Protime)PT. 27.4 SECONDS (11.7-14.9)
== END 2018-07-25 16:00 | disposition home or self-care (01) ==
LOC: MTLAB 12:10
PROVIDERS: Family Provider Family Medicine; PCP Family Medicine; Referring Provider Internal Medicine Cardiovascular Disease; Visit Provider Internal Medicine Cardiovascular Disease
DX: Z79.01 Long term (current) use of anticoagulants (principal); Z95.2 Presence of prosthetic heart valve
CPT/HCPCS: 36415; 85610

== ENCOUNTER 2018-08-14 12:14 | Outpatient (RCR) | payer MEDICARE, OTHER, SELFPAY ==
[2018-07-26 13:40] VITALS: BMI 26.3
[2018-08-14 14:09] LABS: International Normalized Ratio 2.3; Prothrombin Time (Protime)PT. 25.2 SECONDS (11.7-14.9)
== END 2018-08-14 13:00 | disposition home or self-care (01) ==
LOC: MTLAB 12:14
PROVIDERS: Family Provider Family Medicine; PCP Family Medicine; Referring Provider Internal Medicine Cardiovascular Disease; Visit Provider Internal Medicine Cardiovascular Disease
DX: Z79.01 Long term (current) use of anticoagulants (principal); Z95.2 Presence of prosthetic heart valve
CPT/HCPCS: 36415; 85610

== ENCOUNTER 2018-09-04 11:55 | Outpatient (RCR) | payer MEDICARE, OTHER, SELFPAY ==
[2018-08-26 08:06] VITALS: BMI 25.7
[2018-09-04 14:18] LABS: International Normalized Ratio 2.4; Prothrombin Time (Protime)PT. 26.1 SECONDS (11.7-14.9)
== END 2018-09-04 12:00 | disposition home or self-care (01) ==
LOC: MTLAB 11:55
PROVIDERS: Family Provider Family Medicine; PCP Family Medicine; Referring Provider Internal Medicine Cardiovascular Disease; Visit Provider Internal Medicine Cardiovascular Disease
DX: Z79.01 Long term (current) use of anticoagulants (principal); Z95.2 Presence of prosthetic heart valve
CPT/HCPCS: 36415; 85610

== ENCOUNTER 2018-10-02 07:09 | Outpatient (RCR) | payer MEDICARE, OTHER, SELFPAY ==
[2018-08-26 08:06] VITALS: BMI 25.7
[2018-10-02 10:44] LABS: International Normalized Ratio 2.4; Prothrombin Time (Protime)PT. 26.2 SECONDS (11.7-14.9)
[2018-10-02 10:50] LABS: AST(SGOT) 30 U/L (15-37); Alanine Aminotransfer ALT/SGPT 24 U/L (13-56); Albumin, Serum 3.7 g/dL (3.2-5.0); Alkaline Phosphatase 98 U/L (45-117); Bilirubin, Direct 0.26 mg/dL (0.00-0.30); Cholesterol 94 mg/dL (200); Globulin 3.6 g/dL (2.2-4.2); High Density Lipoprotein 64 mg/dL; Protein, Total 7.3 g/dL (6.4-8.2); Triglycerides 34 mg/dL; Very Low Density Lipoprotein 7 mg/dL (5-40)
== END 2018-10-02 07:30 | disposition home or self-care (01) ==
LOC: MTLAB 07:09
PROVIDERS: Physician Assistant Medical; Family Provider Family Medicine; PCP Family Medicine; Referring Provider Internal Medicine Cardiovascular Disease; Visit Provider Internal Medicine Cardiovascular Disease
DX: I48.2 Chronic atrial fibrillation (principal); Z79.01 Long term (current) use of anticoagulants; Z95.2 Presence of prosthetic heart valve
CPT/HCPCS: 36415; 80061; 80076; 85610

== ENCOUNTER → 2018-10-16 12:06 | Outpatient (CLI) | payer MEDICARE, OTHER, SELFPAY ==
[2018-10-16 11:20] VITALS: BMI 25.7
[2018-10-16 13:22] LABS: Anion Gap 11 (5-15); BUN 31 mg/dL (7-18); BUN/Creat Ratio 21.2 RATIO (10-20); Calcium,Total 9.4 mg/dL (8.5-10.1); Chloride 102 mmol/L (98-107); Creatinine, Serum 1.46 mg/dL (0.55-1.02); EST Glomerular Filtration Rate 37 mL/min (>60); Est Glom Filt Rate - Afr Amer 45 mL/min (>60); Glucose 97 mg/dL (74-106); Magnesium 2.4 mg/dL (1.6-2.6); Sodium Level 138 mmol/L (136-145)
== END ==
PROVIDERS: Family Provider Family Medicine; PCP Family Medicine; Referring Provider Physician Assistant Medical; Visit Provider Physician Assistant Medical
DX: I10 Essential (primary) hypertension (principal)
CPT/HCPCS: 36415; 80048; 83735

== ENCOUNTER → 2018-10-20 12:46 | Outpatient (CLI) | payer MEDICARE, OTHER, SELFPAY ==
[2018-10-16 11:20] VITALS: BMI 25.7
--- NOTE | 2018-10-20 12:48 | CDU_ITS ---
Reason For Study: Dizziness Rt. Velocities/BP Lt. Velocities/BP Prox CCA 70.6/15.7 cm/sec. Prox CCA 61.8/12.6 cm/sec. Mid CCA 66.2/13.5 cm/sec. Mid CCA 46.6/15.4 cm/sec. Dist CCA 46.5/14.6 cm/sec. Dist CCA 42.8/13.5 cm/sec. Prox ICA 38.6/13.3 cm/sec. Prox ICA 48.7/17.9 cm/sec. Mid ICA 51.7/20.3 cm/sec. Mid ICA 62.9/22.3 cm/sec. Dist ICA 77.9/30.8 cm/sec. Dist ICA 66.2/25.6 cm/sec. Rt. ICA/CCA = 1.2. Lt. ICA/CCA = 1.4. Prox ECA 47.6/8 cm/sec. Prox ECA 40/6.9 cm/sec. Rt. Vert. 42/13.3 cm/sec. Lt. Vert. 47.4/13.3 cm/sec. Right Extracranial There is intimal thickening but no significant atherosclerotic plaque noted in the right common carotid artery. There is heterogeneous, irregular atherosclerotic plaque noted in the right internal carotid artery. There is intimal thickening but no significant atherosclerotic plaque noted in the right external carotid artery. Antegrade flow is noted in the right vertebral artery. Left Extracranial There is intimal thickening but no significant atherosclerotic plaque noted in the left common carotid artery. There is heterogeneous, irregular atherosclerotic plaque noted in the left internal carotid artery. There is intimal thickening but no significant atherosclerotic plaque noted in the left external carotid artery. Antegrade flow is noted in the left vertebral artery. Procedure Carotid Duplex [id number]. Exam performed in department. 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
== END ==
PROVIDERS: Family Provider Family Medicine; PCP Family Medicine; Referring Provider Physician Assistant Medical; Visit Provider Physician Assistant Medical
DX: R42 Dizziness and giddiness (principal); R09.89 Other specified symptoms and signs involving the circulatory and respiratory systems
CPT/HCPCS: 93880

== ENCOUNTER → 2018-11-01 14:30 | Outpatient (CLI) | payer MEDICARE, OTHER, SELFPAY ==
[2018-10-16 11:20] VITALS: BMI 25.7
[2018-11-01 15:43] LABS: International Normalized Ratio 1.9; Prothrombin Time (Protime)PT. 21.9 SECONDS (11.7-14.9)
[2018-11-01 16:01] LABS: Free T3 2.2 pg/mL (2.18-3.98); T4 Free Direct 1.47 ng/dL (0.76-1.46); Thyroid Stim Hormone (TSH) 0.86 uIU/mL (0.358-3.74)
== END ==
PROVIDERS: Family Provider Family Medicine; PCP Family Medicine; Visit Provider Internal Medicine Cardiovascular Disease
DX: I48.2 Chronic atrial fibrillation (principal); E03.9 Hypothyroidism, unspecified; Z79.01 Long term (current) use of anticoagulants; Z95.2 Presence of prosthetic heart valve
CPT/HCPCS: 36415; 84439; 84443; 84481; 85610

== ENCOUNTER 2018-11-15 12:39 | Outpatient (RCR) | payer MEDICARE, OTHER, SELFPAY ==
[2018-10-16 11:20] VITALS: BMI 25.7
[2018-11-15 14:22] LABS: International Normalized Ratio 2.1; Prothrombin Time (Protime)PT. 23.8 SECONDS (11.7-14.9)
== END 2018-11-15 13:39 | disposition home or self-care (01) ==
LOC: MTLAB 12:39
PROVIDERS: Family Provider Family Medicine; PCP Family Medicine; Referring Provider Internal Medicine Cardiovascular Disease; Visit Provider Internal Medicine Cardiovascular Disease
DX: I48.2 Chronic atrial fibrillation (principal); Z79.01 Long term (current) use of anticoagulants; Z95.2 Presence of prosthetic heart valve
CPT/HCPCS: 36415; 85610

== ENCOUNTER 2018-12-06 11:55 | Outpatient (RCR) | payer MEDICARE, OTHER, SELFPAY ==
[2018-10-16 11:20] VITALS: BMI 25.7
[2018-12-06 15:01] LABS: International Normalized Ratio 2.1; Prothrombin Time (Protime)PT. 23.7 SECONDS (11.7-14.9)
== END 2018-12-06 18:00 | disposition home or self-care (01) ==
LOC: MTLAB 11:55
PROVIDERS: Family Provider Family Medicine; PCP Family Medicine; Referring Provider Internal Medicine Cardiovascular Disease; Visit Provider Internal Medicine Cardiovascular Disease
DX: I48.2 Chronic atrial fibrillation (principal); Z79.01 Long term (current) use of anticoagulants; Z95.2 Presence of prosthetic heart valve
CPT/HCPCS: 36415; 85610

== ENCOUNTER 2019-01-03 12:58 | Outpatient (RCR) | payer MEDICARE, OTHER, SELFPAY ==
[2018-10-16 11:20] VITALS: BMI 25.7
[2019-01-03 14:17] LABS: International Normalized Ratio 2.4; Prothrombin Time (Protime)PT. 26.1 SECONDS (11.7-14.9)
== END 2019-01-03 18:00 | disposition home or self-care (01) ==
LOC: MTLAB 12:58
PROVIDERS: Family Provider Family Medicine; PCP Family Medicine; Referring Provider Internal Medicine Cardiovascular Disease; Visit Provider Internal Medicine Cardiovascular Disease
DX: I48.20 Chronic atrial fibrillation, unspecified (principal); Z79.01 Long term (current) use of anticoagulants; Z95.2 Presence of prosthetic heart valve
CPT/HCPCS: 36415; 85610

== ENCOUNTER 2019-01-31 12:24 | Outpatient (RCR) | payer MEDICARE, OTHER, SELFPAY ==
[2019-01-16 13:35] VITALS: BMI 24.7
[2019-01-31 14:16] LABS: International Normalized Ratio 2.5; Prothrombin Time (Protime)PT. 26.9 SECONDS (11.7-14.9)
== END 2019-01-31 18:00 | disposition home or self-care (01) ==
LOC: MTLAB 12:24
PROVIDERS: Family Provider Family Medicine; PCP Family Medicine; Referring Provider Internal Medicine Cardiovascular Disease; Visit Provider Internal Medicine Cardiovascular Disease
DX: I48.20 Chronic atrial fibrillation, unspecified (principal); Z79.01 Long term (current) use of anticoagulants; Z95.2 Presence of prosthetic heart valve
CPT/HCPCS: 36415; 85610

== ENCOUNTER 2019-03-02 13:57 | Outpatient (RCR) | payer MEDICARE, OTHER, SELFPAY ==
[2019-01-16 13:35] VITALS: BMI 24.7
[2019-03-02 16:31] LABS: International Normalized Ratio 2.2; Prothrombin Time (Protime)PT. 24.2 SECONDS (11.7-14.9)
== END 2019-03-02 18:00 | disposition home or self-care (01) ==
LOC: MTLAB 13:57
PROVIDERS: Family Provider Family Medicine; PCP Family Medicine; Referring Provider Internal Medicine Cardiovascular Disease; Visit Provider Internal Medicine Cardiovascular Disease
DX: I48.20 Chronic atrial fibrillation, unspecified (principal); Z79.01 Long term (current) use of anticoagulants; Z95.2 Presence of prosthetic heart valve
CPT/HCPCS: 36415; 85610

== ENCOUNTER 2019-04-02 13:15 | Outpatient (RCR) | payer MEDICARE, OTHER, SELFPAY ==
[2019-01-16 13:35] VITALS: BMI 24.7
[2019-04-02 15:19] LABS: International Normalized Ratio 2.2
== END 2019-04-02 18:00 | disposition home or self-care (01) ==
LOC: MTLAB 13:15
PROVIDERS: Family Provider Family Medicine; PCP Family Medicine; Referring Provider Internal Medicine Cardiovascular Disease; Visit Provider Internal Medicine Cardiovascular Disease
DX: I48.20 Chronic atrial fibrillation, unspecified (principal); Z79.01 Long term (current) use of anticoagulants; Z95.2 Presence of prosthetic heart valve
CPT/HCPCS: 36415; 85610

== ENCOUNTER 2019-04-30 12:12 | Outpatient (RCR) | payer MEDICARE, OTHER, SELFPAY ==
[2019-04-18 15:36] VITALS: BMI 24.7
[2019-04-30 14:11] LABS: Prothrombin Time (Protime)PT. 22.4 SECONDS (11.7-14.9)
== END 2019-04-30 18:00 | disposition home or self-care (01) ==
LOC: MTLAB 12:12
PROVIDERS: Family Provider Family Medicine; PCP Family Medicine; Referring Provider Internal Medicine Cardiovascular Disease; Visit Provider Internal Medicine Cardiovascular Disease
DX: I48.20 Chronic atrial fibrillation, unspecified (principal); Z79.01 Long term (current) use of anticoagulants; Z95.2 Presence of prosthetic heart valve
CPT/HCPCS: 36415; 85610

== ENCOUNTER → 2019-05-04 12:47 | Outpatient (CLI) | payer MEDICARE, OTHER, SELFPAY ==
[2019-04-18 15:36] VITALS: BMI 24.7
--- NOTE | 2019-05-04 12:48 | ECHOD_ITS ---
Reason For Study: VALVE REPLACEMENT EVAL Procedure This was a 2D Doppler, Color Flow transthoracic echocardiogram. The study was technically difficult. Exam performed in department. Left Ventricle Normal LV size. D shaped septum in systole and diastole. Left ventricular systolic function is normal. The estimated ejection fraction is 60 %. Unable to assess diastolic dysfunction. No regional wall motion abnormalities noted. Right Ventricle Mildly dilated right ventricle. ICD or pacer leads identified within the right ventricle. Mild global right ventricular systolic dysfunction. Atria The left atrium is moderately enlarged. The right atrium is moderately enlarged. ICD or pacer leads identified within the right atrium. No doppler evidence for ASD. Mitral Valve Mild diffuse mitral valve thickening. The mitral valve chordae are thickened and/or calcified. An annuloplasty ring is noted in the mitral position. Trivial transvalvular insufficiency of the mitral valve. Tricuspid Valve Right ventricular systolic pressure estimated to be 60 mmHg. An annuloplasty ring is noted in the tricuspid position. Moderate transvalvular insufficiency of the tricuspid valve. Aortic Valve Stable appearing bioprosthetic aortic valve apparatus. Trivial perivalvular insufficiency of the aortic valve. Pulmonic Valve The pulmonic valve is not well visualized. Moderate (2+) pulmonic valve insufficiency. Great Vessels The aortic root is not well visualized. Pericardium/Pleural No pericardial effusion. MMode/2D Measurements & Calculations LVIDd: 4.1 cm IVSd: 1.0 cm LVOT diam: 2.0 cm LVIDs: 2.8 cm LVPWd: 0.98 cm LVOT area: 3.2 cm2 RVDd: 3.8 cm FS: 32.8 % LAV(MOD-bp): 78.0 ml LA A4 area: 25.3 cm2 LA dimension(2D): 5.3 cm LAV(MOD-bp) Indexed: 48.2 ml/m2 LAV(MOD-sp2): 70.1 ml LAV(MOD-sp4): 73.0 ml RA A4 area: 23.9 cm2 Time Measurements MV dec time: 0.26 sec Doppler Measurements & Calculations MV E max andrew: 177.2 cm/sec MV V2 max: 200.6 cm/sec Ao V2 max: 375.1 cm/sec MV max P.1 mmHg Ao max P.3 mmHg MV V2 mean: 96.3 cm/sec Ao V2 mean: 258.8 cm/sec MV mean P.6 mmHg Ao mean P.7 mmHg MV V2 VTI: 45.6 cm Ao V2 VTI: 71.6 cm AI max andrew: 402.5 cm/sec PA V2 max: 122.4 cm/sec PI dec slope: 359.6 cm/sec2 AI max P.9 mmHg AI dec slope: 222.9 cm/sec2 AI P1/2t: 528.9 msec TR max andrew: 375.9 cm/sec TR max P.5 mmHg Interpretation Summary The study was technically difficult. Left ventricular systolic function is normal. The estimated ejection fraction is 60 %. D shaped septum in systole and diastole. Paradoxical septal wall motion compatible with a post open heart surgery state and/or an underlying electronic ventricular pacemaker. Mildly dilated right ventricle. Mild global right ventricular systolic dysfunction. The left atrium is moderately enlarged. The right atrium is moderately enlarged. An annuloplasty ring is noted in the mitral position. Mild diffuse mitral valve thickening. The mitral valve chordae are thickened and/or calcified. Trivial transvalvular insufficiency of the mitral valve. An annuloplasty ring is noted in the tricuspid position. Moderate transvalvular insufficiency of the tricuspid valve. Stable appearing bioprosthetic aortic valve apparatus. Trivial perivalvular insufficiency of the aortic valve. Moderate (2+) pulmonic valve insufficiency. Right ventricular systolic pressure estimated to be 60 mmHg. Unable to assess diastolic dysfunction. ICD or pacer leads identified within the right atrium ICD or pacer leads identified within the right ventricle. Ordering Physician: Jason Neri Referring Physician: Abby Pendleton Performed By: Jena Benz, RDCS, RVT
== END ==
PROVIDERS: PCP Family Medicine; Referring Provider Internal Medicine Cardiovascular Disease; Visit Provider Internal Medicine Cardiovascular Disease
DX: I50.32 Chronic diastolic (congestive) heart failure (principal)
CPT/HCPCS: 93306

== ENCOUNTER → 2019-05-14 15:15 | Outpatient (CLI) | payer MEDICARE, OTHER, SELFPAY ==
[2019-04-18 15:36] VITALS: BMI 24.7
--- NOTE | 2019-05-14 15:17 | BI_ITS ---
MAMMOGRAPHY - BILATERAL SCREENING REASON FOR EXAM: Female, 79 years old. Routine annual screening examination. PERTINENT HISTORY: Non-contributory. Remote right excisional breast biopsy. TECHNIQUE: Digital bilateral breast angelita (3D mammographic acquisition) in the CC and MLO projections. 2-D mediolateral oblique (MLO) and craniocaudad (CC) views of both breasts were obtained. CAD: Full Field Digital Mammography with Computer Added Detection was performed. COMPARISON: Comparison is made with prior study dated May 10, 2018 and April 04, 2017. FINDINGS: Breast Composition: The breasts are heterogeneously dense, which may obscure small masses. There is a 1.1 cm x 1.5 cm spiculated nodule in the slightly superior retroareolar region of the right breast. This was not seen on prior study. Correlation with ultrasound is recommended. A tissue clip marker is once again seen in the anterior superior periareolar region of the right breast. A pacemaker battery pack is seen in the left axillary region. Stable bilateral secretory calcifications. No other significant abnormalities are identified. BI/SCREEN MAMM (CAD) W/ANGELITA BILAT IMPRESSION: 1.1 cm x 1.5 cm spiculated nodule in the superior retroareolar region of the right breast as described. Correlation with ultrasound is recommended. ASSESSMENT CATEGORY: BIRADS Category 0: Incomplete. Need additional imaging evaluation. A letter regarding these results will be sent to the patient by the facility within 30 days. Approximately 10% of breast cancers are not detected by mammography. A normal mammogram should not delay biopsy of a clinically suspicious abnormality. [id number] Electronically Signed: Joey Avila, at 8:22 EST , Service support ,
== END ==
PROVIDERS: PCP Family Medicine; Referring Provider Family Medicine; Visit Provider Family Medicine
DX: Z12.31 Encounter for screening mammogram for malignant neoplasm of breast (principal)
CPT/HCPCS: 77063; 77067

== ENCOUNTER → 2019-05-17 10:19 | Outpatient (CLI) | payer MEDICARE, OTHER, SELFPAY ==
[2019-04-18 15:36] VITALS: BMI 24.7
--- NOTE | 2019-05-17 10:22 | US_ITS ---
STUDY: ULTRASOUND BREAST - RIGHT REASON FOR EXAM: Female, 79 years old. Abnormal screening mammogram. TECHNIQUE: Axial and longitudinal images of the RIGHT breast were performed with a high resolution ultrasound transducer. # OF IMAGES: 22 COMPARISON: Comparison is made with prior mammogram dated May 14, 2019. FINDINGS: RIGHT Breast: The mammographic abnormality corresponds to a 1.3 cm x 1.2 cm x 0.9 cm inhomogeneous irregular spiculated nodule at the 12:00 position of the breast at 1 cm from nipple. A biopsy is recommended. US/Breast Limited Unilateral IMPRESSION: 1.3 cm x 1.2 cm x 0.9 cm spiculated hypoechoic solid mass with irregular borders at the 12:00 position of the breast at 1 cm from the nipple. A biopsy is recommended. ASSESSMENT CATEGORY: BIRADS Category 5: Highly Suggestive of Malignancy - Appropriate Action Should Be Taken. A letter regarding these results will be sent to the patient by the facility within 30 days. Electronically Signed: Joey Avila, at 10:25 EST , Service support ,
== END ==
PROVIDERS: PCP Family Medicine; Referring Provider Family Medicine; Visit Provider Family Medicine
DX: R92.8 Other abnormal and inconclusive findings on diagnostic imaging of breast (principal)
CPT/HCPCS: 76642

== ENCOUNTER → 2019-05-26 08:00 | Outpatient (CLI) | payer MEDICARE, OTHER, SELFPAY ==
--- NOTE | 2019-05-26 | IMM_PTH ---
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 Abby Pendleton DO : 1940 BED: DIS: SPEC #: [id number] RECD: 05/29/19 13:36 STATUS: EYAL REQ #: [id number] BÁRBARA: 05/26/19 00:[address]: Moe Thao DEPT: IMMUNOHISTOCHEMISTRY RECD BY: Bela Levy ENTERED: 05/29/19 13:38 SP TYPE: IMMUNO OTHR DR: Dr. Abby Pendleton DO Tissues: Right breast, NOS Procedures: CALPONIN-1 (add) CK5-6 (add) CK8 (add) E-CAD (add) HER2 ENEIDA (add) KI-67 (add) P53 (add) OH (add) P40 (add) ER (initial) PHYSICIAN & INSTITUTION [facility] [id number] SPECIMEN INFORMATION: Tissue Source: Right breast tissue Clinical Info: Abnormal mammogram, right Specimen Number: [id number] CPT code: 31168, 14701 x6, 74978 x3 METHODOLOGY: Deparaffinized sections of prefer/formalin-fixed tissue or PAP/DQ stained slides are incubated with monoclonal/polyclonal antibodies/oligonucleotide probes. Localization is made via biotin free immunoperoxidase method. Appropriate controls are performed and reacted as expected. Results on target cell population are indicated in the following table: RESULTS: ANTIBODY / CLONE RESULT E-Cad (ECH-6) negative CK8 (03alzaU83) positive Calponin-1 (TE346W) negative CK5-6 (D5 & 1684) negative P40 (BC28) negative P53 (DO-7) negative Ki-67 (30-9) positive, low MORPHOMETRIC ANALYSIS ER (clone 6F11) >95%, strong intensity OH (clone 16/1E2) 27%, strong intensity Her-2Neu (clone CB11) 3+ The prognostic test for HER2 is performed on formalin-fixed paraffin embedded tissue. A 3+ (positive) staining pattern is defined as intense, homogeneous, complete, circumferential membranous staining in >10% of contiguous tumor cells. A similar weak (2+) staining pattern is interpreted as equivocal. SOLOMON follow-up testing is recommended for all equivocal cases. Positivity/negativity for ER/OH is reported if > or < 1% of the tumor cells are immuno- reactive, respectively. The ASCO/CAP criteria is used for scoring. Reference: Journal of Clinical Oncology, 2013; 31:7762-9194 & 2010; 16:4221-5836. Duration of fixation: 35.5 Hrs; Sample Adequate: Yes. These assays have not been validated on decalcified tissues. Results should be interpreted with caution given the likelihood of false negativity on decalcified specimens. These tests were developed and their performance characteristics determined by [facility]. They may not have been cleared or approved by the U.S. Food and Drug Administration. The FDA has determined that such clearance or approval is not necessary. The above immunohistochemical/dualISH markers are ordered and reviewed by the Pathologist. INTERPRETATION: Right breast tissue, ultrasound-guided needle core biopsy: Invasive lobular carcinoma, nuclear grade 1. Positive for estrogen receptors (favorable prognostic indicator). Positive for progesterone receptors (favorable prognostic indicator). Positive for overexpression of JNY3pim. SJ:sveta 05/30/19
--- NOTE | 2019-05-26 08:00 | BRBX_PTH ---
PATIENT: MICA WESTBROOK LOC: [facility] U#:[id number] AGE/SX: 84/F ROOM: RE05/26/[address]: Dr. Abby Pendleton DO : 1940 BED: DIS: SPEC #: [id number] RECD: 05/26/19 10:08 STATUS: EYAL AJ #: [id number] BÁRBARA: 05/26/19 08:[address]: Moe Thao DEPT: SURGICAL PATHOLOGY RECD BY: Dick Fleming ENTERED: 05/28/19 09:02 SP TYPE: BREAST BX OTHR DR: Dr. Abby Pendleton DO Tissues: Right breast, NOS Procedures: Surgery Specimen Level IV HEADER OPERATION: Ultrasound-guided needle core biopsy, right breast PRE-OP DIAGNOSIS: Abnormal mammogram, right TISSUE SUBMITTED: Right breast biopsy tissue ISCHEMIC TIME: <1 minute FIXATION TIME: 35.5 hours MICROSCOPIC DIAGNOSIS Right breast, ultrasound-guided needle core biopsy: Invasive lobular carcinoma, nuclear grade 1 (0.4 cm in greatest length). See comment. KAREN:sveta 05/29/19 COMMENT Immunohistochemistry ([id number]) supports the above diagnosis. ER/PA/Eki8zmd studies are being performed on sections of tumor and the results from this study will be reported separately ([id number]). MICROSCOPIC DESCRIPTION Slides are reviewed. GROSS DESCRIPTION Received in fixative is one container labeled with the patient's name and designated right breast biopsy. The specimen consists of multiple elongated fragments of cabrera-yellow fibroadipose tissue that in aggregate measure 1 x 0.5 x 0.1 cm. The entire specimen is submitted in one cassette. / KAREN:sveta 05/28/19 TC:0 CPT: 77584 ADDENDUM ADDENDUM ADDENDUM ADDENDUM ADDENDUM ADDENDUM ADDENDUM ADDENDUM ADDENDUM ADDENDUM ADDENDUM 06/26/2019 09:55 ADDENDUM 06/26/2019 09:55 ADDENDUM 06/26/2019 09:55 ADDENDUM 06/26/2019 09:55 ADDENDUM 06/26/2019 09:55 This addendum is added to incorporate an outside pathology consultation report. The case was examined at [facility] (#[id number]) and the following diagnosis was rendered. Right breast, ultrasound-guided needle core biopsy: Invasive lobular carcinoma, grade 2 (score: tubule 3, nuclear 2, mitotic 1), 0.3 cm in greatest length. Please see complete above mentioned consultation report in EMR
[2019-05-26 08:30] VITALS: BMI 24.7
== END ==
PROVIDERS: PCP Family Medicine; Visit Provider Family Medicine
DX: R92.8 Other abnormal and inconclusive findings on diagnostic imaging of breast (principal)
CPT/HCPCS: 88305; 88341; 88342

== ENCOUNTER → 2019-07-05 12:20 | Outpatient (CLI) | payer MEDICARE, OTHER, SELFPAY ==
[2019-06-01 13:48] VITALS: BMI 24.7
--- NOTE | 2019-07-05 12:26 | BD_ITS ---
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 COMPARISON: Comparison is made with prior study dated May 01, 2013. FINDINGS: Lumbar Spine (L1-L4): g/cm2 (0.935) / T-score (-2.2) / Z-score (-0.4) Findings are suggestive of osteopenia with a high fracture risk. Increased thoracic kyphosis. Left Femur Total: g/cm2 (0.750) / T-score (-2.0) / Z-score (-0.1) Left Femoral Neck: g/cm2 (0.768) / T-score (-1.9) / Z-score (0.2) Right Femur Total: g/cm2 (0.652) / T-score (-2.8) / Z-score (-0.9) Right Femoral Neck: g/cm2 (0.725) / T-score (-2.3) / Z-score (-0.1) The T-Scores on the most recent prior examination were: Lumbar Spine (L1-L4): There has been worsening of bone density since the previous examination. Left Femur Total: which represents an improvement of 1.9%. Right Femur Total: which represents a worsening of 7.5%. BD/Dexa Bone Density Study IMPRESSION: The patient is considered osteoporotic as outlined below according to World [employer] Organization (WHO) criteria with a high fracture risk. There has been worsening of bone density since the previous examination. Reference Information: The T-score is the number of standard deviations above or below the standard which is normal for young adults at their peak bone mineral density. The World Health Organization (WHO) interprets the T-scores as follows: Above -1 Normal bone density Between -1 and -2.5 Osteopenia Equal to / or below -2.5 Osteoporosis As a practical clinical guideline, osteopenia may be graded as follows: Mild -1 through -1.5 Moderate -1.6 through -2.0 Severe -2.1 through -2.4 The Z-score is the number of standard deviations above or below age-matched controls. A Z-score of less than -1.5 would be considered abnormal. References: 1. NIH Osteoporosis and Related Bone Diseases http://www.osteo.org 2. International Society for Clinical Densitometry http://www.iscd.org 3. National Osteoporosis Foundation http://www.nof.org Electronically Signed: Joey Avila, at 14:08 EDT , Service support ,
--- NOTE | 2019-07-05 12:53 | VDLE_ITS ---
Reason For Study: Edema Procedure LEFT Exam performed in department. GSV is normal. A preliminary report was called and/or faxed CFV is compressible, spontaneous, phasic, to Annie. competent, and demonstrates normal augmentation. FV is compressible, spontaneous, phasic, competent and demonstrates normal augmentation. FV mid- distal visualized with color only. Pt unable to tolerate compression. POP V is compressible, spontaneous, phasic, competent and demonstrates normal augmentation. T/P Trunk is compressible. PTV is compressible. LT PerV is compressible. Interpretation Summary Deep veins of the left lower extremity are patent and compressible segmentally. There is no evidence of left lower extremity deep vein thrombosis. Valvular competence appears intact within the proximal deep venous system on the left . The left great saphenous vein appears patent and compressible segmentally. Ordering Physician: Josette Valencia Referring Physician: Lan Guerin M.D. Performed By: Allison Reno RVT
== END ==
PROVIDERS: PCP Family Medicine; Referring Provider Internal Medicine Medical Oncology; Visit Provider Internal Medicine Medical Oncology
DX: Z78.0 Asymptomatic menopausal state (principal); M81.0 Age-related osteoporosis without current pathological fracture; R60.0 Localized edema
CPT/HCPCS: 77080; 93971

== ENCOUNTER → 2019-07-17 11:12 | Outpatient (CLI) | payer MEDICARE, OTHER, SELFPAY ==
[2019-06-01 13:48] VITALS: BMI 24.7
[2019-07-17 14:39] LABS: Absolute Lymphocyte Count 0.71 X10^3/uL (0.83-4.51); Absolute Neutrophil Count 10.7 X10^3/uL (2.0-7.7); Basophil# 0.03 X10^3/uL; Basophil% 0.2 % (0-1); Eosinophil# 0.02 X10^3/uL; Eosinophils% 0.2 % (0-5); Hematocrit 29.7 % (37-47); Hemoglobin 9.3 g/dL (12.0-15.0); Lymphocyte # 0.71 X10^3/ul (4.0); Lymphocyte % 5.7 % (19-41); Mean Corp Hgb Conc 31.3 g/dL (32-36); Mean Corpuscular Hgb 28.5 pg (27.0-32.0); Mean Corpuscular Volume 91.1 fL (81-99); Mean Platelet Vol. 9.3 fl (6.2-12.0); Monocyte# 0.79 X10^3/uL; Monocyte% 6.4 % (0-10); NRBC Flagged by Analyzer 0 % (0-5); Neutrophil # 10.73 X10^3/uL (2.7-7.7); Neutrophil % 86.5 % (47-70); Platelet Count 213 K/mm3 (150-450); RBC Distribution Width CV 16.9 % (11.6-14.6); RBC Distribution Width SD 56.3 fl (35.1-43.9); Red Blood Count 3.26 M/mm3 (4.2-5.4); White Blood Count 12.4 K/mm3 (4.4-11.0)
[2019-07-17 14:50] LABS: Prothrombin Time (Protime)PT. 63.1 SECONDS (11.7-14.9)
[2019-07-17 14:55] LABS: Anion Gap 10 (5-15); BUN 20 mg/dL (7-18); BUN/Creat Ratio 15.2 RATIO (10-20); Calcium,Total 8.7 mg/dL (8.5-10.1); Chloride 96 mmol/L (98-107); Creatinine, Serum 1.32 mg/dL (0.55-1.02); EST Glomerular Filtration Rate 41 mL/min (>60); Est Glom Filt Rate - Afr Amer 50 mL/min (>60); Glucose 96 mg/dL (74-106); Potassium 3.9 mmol/L (3.5-5.1); Sodium Level 131 mmol/L (136-145)
[2019-07-17 15:01] LABS: BNP,B-Type NATRIURETIC PEPTIDE 561.4 pg/mL (0-100)
[2019-07-17 15:08] LABS: International Normalized Ratio 7.3
== END ==
PROVIDERS: PCP Family Medicine; Referring Provider Physician Assistant Medical; Visit Provider Physician Assistant Medical
DX: I48.20 Chronic atrial fibrillation, unspecified (principal); R06.02 Shortness of breath; I10 Essential (primary) hypertension; I25.10 Atherosclerotic heart disease of native coronary artery without angina pectoris; T82.857A Stenosis of other cardiac prosthetic devices, implants and grafts, initial encounter; Z79.01 Long term (current) use of anticoagulants; Z95.2 Presence of prosthetic heart valve
CPT/HCPCS: 36415; 80048; 83880; 85025; 85610

== ENCOUNTER 2019-07-23 11:09 | Outpatient (RCR) | payer MEDICARE, OTHER, SELFPAY ==
[2019-05-26 08:30] VITALS: BMI 24.7
[2019-07-17 15:29] VITALS: BMI 24.7
[2019-07-23 15:10] LABS: Prothrombin Time (Protime)PT. 30.7 SECONDS (11.7-14.9)
[2019-07-23 15:20] LABS: Anion Gap 10 (5-15); BUN 35 mg/dL (7-18); Calcium,Total 9.8 mg/dL (8.5-10.1); Chloride 90 mmol/L (98-107); Creatinine, Serum 1.84 mg/dL (0.55-1.02); EST Glomerular Filtration Rate 28 mL/min (>60); Est Glom Filt Rate - Afr Amer 34 mL/min (>60); Glucose 88 mg/dL (74-106); Potassium 4.2 mmol/L (3.5-5.1); Sodium Level 128 mmol/L (136-145)
== END 2019-07-26 18:00 | disposition home or self-care (01) ==
LOC: MTLAB 11:09
PROVIDERS: Physician Assistant Medical; Family Provider Family Medicine; PCP Family Medicine; Referring Provider Internal Medicine Cardiovascular Disease; Visit Provider Internal Medicine Cardiovascular Disease
DX: I48.20 Chronic atrial fibrillation, unspecified (principal); Z79.01 Long term (current) use of anticoagulants; Z95.2 Presence of prosthetic heart valve
CPT/HCPCS: 36415; 80048; 85610

== ENCOUNTER → 2019-08-09 12:49 | Outpatient (CLI) | payer MEDICARE, OTHER, SELFPAY ==
[2019-07-17 15:29] VITALS: BMI 24.7
--- NOTE | 2019-08-09 12:52 | RAD_ITS ---
STUDY: X-RAY - THORACIC SPINE REASON FOR EXAM: Female, 79 years old. Recent fall, acute back pain TECHNIQUE: AP and lateral view(s) of the thoracic spine were obtained. COMPARISON: None. FINDINGS: There is an increase in the normal thoracic kyphosis. There is no substantial scoliosis. There is demineralization of the thoracic spine with endplate spondylosis. There is multilevel disc space narrowing of the thoracic spine. Moderate cardiomegaly. Prior midline sternotomy. Findings suggestive of a 1.8 cm calcified gallstone. RAD/Thoracic Spine 2 Views IMPRESSION: Multilevel spondylosis and disc space narrowing. Increased kyphosis. Gallstone. Electronically Signed: Joey Avila, at 14:28 EDT , Service support ,
== END ==
PROVIDERS: PCP Family Medicine; Referring Provider Family Medicine; Visit Provider Family Medicine
DX: M54.9 Dorsalgia, unspecified (principal)
CPT/HCPCS: 72070

== ENCOUNTER 2019-08-13 11:31 | Outpatient (RCR) | payer MEDICARE, OTHER, SELFPAY ==
[2019-07-17 15:29] VITALS: BMI 24.7
[2019-07-30 12:26] LABS: International Normalized Ratio 1.7; Prothrombin Time (Protime)PT. 19.8 SECONDS (11.7-14.9)
[2019-07-30 12:45] LABS: Anion Gap 12 (5-15); BUN 62 mg/dL (7-18); BUN/Creat Ratio 30.4 RATIO (10-20); Calcium,Total 9.6 mg/dL (8.5-10.1); Chloride 84 mmol/L (98-107); Creatinine, Serum 2.04 mg/dL (0.55-1.02); EST Glomerular Filtration Rate 25 mL/min (>60); Est Glom Filt Rate - Afr Amer 30 mL/min (>60); Glucose 98 mg/dL (74-106); Potassium 3.9 mmol/L (3.5-5.1); Sodium Level 122 mmol/L (136-145)
[2019-08-06 12:23] LABS: International Normalized Ratio 1.5; Prothrombin Time (Protime)PT. 17.3 SECONDS (11.7-14.9)
[2019-08-06 12:43] LABS: Anion Gap 10 (5-15); BUN 40 mg/dL (7-18); Calcium,Total 9.1 mg/dL (8.5-10.1); Chloride 94 mmol/L (98-107); Creatinine, Serum 1.38 mg/dL (0.55-1.02); EST Glomerular Filtration Rate 39 mL/min (>60); Est Glom Filt Rate - Afr Amer 47 mL/min (>60); Glucose 100 mg/dL (74-106); Potassium 4.1 mmol/L (3.5-5.1); Sodium Level 128 mmol/L (136-145)
[2019-08-13 15:25] LABS: International Normalized Ratio 2.5; Prothrombin Time (Protime)PT. 26.6 SECONDS (11.7-14.9)
== END 2019-08-13 18:00 | disposition home or self-care (01) ==
LOC: MTLAB 11:31
PROVIDERS: Physician Assistant Medical; Family Provider Family Medicine; PCP Family Medicine; Referring Provider Internal Medicine Cardiovascular Disease; Visit Provider Internal Medicine Cardiovascular Disease
DX: I48.20 Chronic atrial fibrillation, unspecified (principal); Z79.01 Long term (current) use of anticoagulants; Z95.2 Presence of prosthetic heart valve
CPT/HCPCS: 36415; 80048; 85610

== ENCOUNTER 2019-08-22 19:01 | Inpatient (IN) | payer MEDICARE, OTHER, SELFPAY ==
[2019-07-17 15:29] VITALS: BMI 24.7
[2019-08-22 19:02] VITALS: BP 91/55; PULSE 70; RESP 19; TEMP 36.7; O2SAT 90; BMI 23.8
[2019-08-22 19:58] LABS: Absolute Lymphocyte Count 1.02 X10^3/uL (0.83-4.51); Absolute Neutrophil Count 9.3 X10^3/uL (2.0-7.7); Basophil# 0.05 X10^3/uL; Basophil% 0.5 % (0-1); Eosinophil# 0.04 X10^3/uL; Eosinophils% 0.4 % (0-5); Hematocrit 25.1 % (37-47); Hemoglobin 8.2 g/dL (12.0-15.0); Lymphocyte # 1.02 X10^3/ul (4.0); Lymphocyte % 9.2 % (19-41); Mean Corp Hgb Conc 32.7 g/dL (32-36); Mean Corpuscular Volume 88.7 fL (81-99); Mean Platelet Vol. 8.9 fl (6.2-12.0); Monocyte# 0.59 X10^3/uL; Monocyte% 5.3 % (0-10); NRBC Flagged by Analyzer 0 % (0-5); Neutrophil # 9.34 X10^3/uL (2.7-7.7); Platelet Count 175 K/mm3 (150-450); RBC Distribution Width CV 17.9 % (11.6-14.6); RBC Distribution Width SD 57.7 fl (35.1-43.9); Red Blood Count 2.83 M/mm3 (4.2-5.4); White Blood Count 11.1 K/mm3 (4.4-11.0)
[2019-08-22] MEDS: Morphine 4 MG/ML Syringe IV (19:59)
--- NOTE | 2019-08-22 20:01 | RAD_ITS ---
STUDY: X-RAY CHEST REASON FOR EXAM: Female, 79 years old. BACK PAIN, CONFUSION, WEAKNESS TECHNIQUE: AP portable COMPARISON: January 18, 2018 FINDINGS: Lungs are hyperinflated and there is diffuse interstitial thickening.. There is no demonstrated pleural abnormality. Postop change status post median sternotomy and CABG. Heart is enlarged. Normal mediastinum and bj. Normal visualized pulmonary arteries. Normal visualized aortic arch and descending thoracic aorta. Pacer noted on the left with electrodes in satisfactory position. Thoracic spine and shoulders demonstrate degenerative change. Normal visualized ribs, and clavicles There is no demonstrated abnormality of the visualized soft tissue structures of the upper abdomen. RAD/Chest 1 View (Portable) IMPRESSION: ASHD and COPD. No acute disease. Electronically Signed: Paul Tolliver MD at 20:23 EDT , Service support ,
[2019-08-22 20:16] LABS: ALB/GLOB Ratio 0.6 RATIO (0.9-2.4); AST(SGOT) 21 U/L (15-37); Alanine Aminotransfer ALT/SGPT 17 U/L (13-56); Albumin, Serum 2.6 g/dL (3.2-5.0); Alkaline Phosphatase 74 U/L (45-117); Anion Gap 10 (5-15); BUN 31 mg/dL (7-18); BUN/Creat Ratio 20.3 RATIO (10-20); Calcium,Total 8.6 mg/dL (8.5-10.1); Chloride 99 mmol/L (98-107); Creatinine, Serum 1.53 mg/dL (0.55-1.02); EST Glomerular Filtration Rate 35 mL/min (>60); Est Glom Filt Rate - Afr Amer 42 mL/min (>60); Estimated Creatinine Clearance 21.42 ml/min; Globulin 4.3 g/dL (2.2-4.2); Glucose 142 mg/dL (74-106); Potassium 3.8 mmol/L (3.5-5.1); Protein, Total 6.9 g/dL (6.4-8.2); Sodium Level 130 mmol/L (136-145)
--- NOTE | 2019-08-22 20:18 | ED.DCSUM_ITS ---
- ER Visit Summary Date of Service: 08/22/19 Chief Complaint: Back pain History of Present Illness: The patient is a 79 F who presents with back pain for the past 3 months. Patient has a history of breast cancer and has been having worsening back pain over the past 3 months. Patient had a recent x-ray of her back which showed gallstones but no acute fracture or metastatic disease. Patient describes the pain as sharp. Patient states the pain is over the lumbar spine and thoracic spine. Patient states the pain is worse with any movement. Patient states the pain is better with a heating pad. Patient admits to some shortness of breath. Patient denies any nausea or vomiting. Patient admits to some diarrhea as well as some dysuria. Patient also admits to some general weakness. Physical Examination: Vital signs are stable except for slightly low blood pressure of 91/55. Patient is afebrile. Patient is in no acute distress. Oral mucosa is pink and moist. Neck is supple. Trachea is midline. There is no JVD. Heart was irregularly irregular. Lungs are clear but diminished. Abdomen is soft. Bowel sounds are normal. There is no tenderness. Cranial nerves II through XII are intact. There are no focal motor or sensory deficits noted. Extremities are intact. There is no calf tenderness. There is 1+ edema of the lower extremities bilaterally. Test Results: Portable chest x-ray was obtained. There is no acute cardiopulmonary process. X-rays of the lumbar spine were obtained. There is no acute fracture or evidence of metastatic disease. CBC shows a slight leukocytosis of 11.1. Hemoglobin was 8.2. Basic metabolic profile showed a slightly elevated BUN of 31 and creatinine of 1.53. These are consistent with prior results. Urinalysis shows leukocyte esterase of 500 with 10-25 white blood cells and 2+ bacteria. Emergency Department Course and Treatment: Patient was given a dose of morphine here. Patient was feeling better on reevaluation. Patient was given a dose of Cipro for the urinary tract infection. Patient attempted ambulation with a walker. Patient had trouble ambulating even to the bedside commode with a walker. Case was discussed with the hospitalist. He will be in to evaluate the patient for admission. Disposition: Admit to hospital Impression: 1. Urinary tract infection 2. Intractable back pain This note was generated with True[employer] software. It may contain incorrect words, spelling, and punctuation that were not noted in review of the chart prior to signing ED Disposition - Plan for ED Patient: Disposition: Acute Care Hospital [facility] Diagnosis: Urinary tract infection, Intractable low back pain, History of breast cancer in female Referrals: Abby Pendleton DO [Primary Care Provider] -
[2019-08-22 20:26] LABS: Mucous, Urine 0 SEEN /hpf (<or=2+); Red Blood Cells-Urine 0 SEEN /hpf (0-5)
[2019-08-22 20:29] LABS: Color, Urine Yellow (Yellow); Glucose, Dipstick Normal (Normal); Ketone-Dipstick Negative (Negative); Leukocyte Esterase-Dipstick 500 /ul (Negative); Nitrite-Dipstick Negative (Negative); Occult Blood-Urine 25 /ul (Negative); Protein-Dipstick Negative (Negative); Urine Bilirubin Dipstick Negative (Negative); Urine Clarity Sl. Cloudy (Clear); Urine Urobilinogen Normal (Normal)
--- NOTE | 2019-08-22 20:41 | RAD_ITS ---
STUDY: X-RAY - LUMBAR SPINE REASON FOR EXAM: Female, 79 years old. LOWER BACK PAIN TECHNIQUE: 3 view(s) of the lumbar spine were obtained. COMPARISON: None FINDINGS: Normal lumbar lordosis. There is mild dextro scoliosis. Grade 1 spondylolisthesis at L4-5.. No evidence for acute fracture or subluxation. There is narrowing of L3-4 and L4-5 disc spaces and minor endplate spurring The soft tissue structures are unremarkable. RAD/Lumbar Spine 2 or 3 Views IMPRESSION: Scoliosis and degenerative change. No evidence for acute fracture Electronically Signed: Paul Tolliver MD at 21:06 EDT , Service support ,
[2019-08-22 20:49] LABS: Bacteria 2+ /hpf (None Seen); Squamous Epithelial Cells - UA 0-5 SEEN /hpf (5-10); White Blood Cells 10-25 SEEN /hpf (0-5)
[2019-08-22 21:02] VITALS: BP 102/70; PULSE 70; RESP 18; O2SAT 96
[2019-08-22] MEDS: Ciprofloxacin 500 MG Tablet PO (21:38)
[2019-08-22 21:55] VITALS: O2SAT 98
[2019-08-22 22:00] VITALS: BP 110/71; PULSE 70; RESP 18; TEMP 36.9; O2SAT 95
--- NOTE | 2019-08-22 22:25 | PCM.HP.STD ---
Problem List (1) MDS (myelodysplastic syndrome) Status: Chronic (2) History of breast cancer in female Status: Chronic (3) Pure hypercholesterolemia Status: Chronic (4) Essential hypertension Status: Chronic (5) Prosthetic aortic valve stenosis Status: Chronic (6) Cardiac pacemaker in situ Status: Chronic Comment: pacemaker implant 08/08 (7) Iron deficiency anemia Status: Chronic (8) Chronic atrial fibrillation Status: Chronic (9) Congestive heart failure Status: Chronic Qualifiers: (10) Coronary artery disease Status: Chronic Qualifiers: (11) Interstitial lung disease Status: Chronic (12) Hypothyroidism Status: Chronic History of Present Illness Date of Admission: 08/22/19 Chief Complaint: Back pain. The patient is a 79 year old F with past medical history as mentioned above presented to the emergency room because of back pain. Patient stated that she has been having this back pain for the last 3 months, started back on April,, it is mid and lower back pain, constant dull aching pain, sometimes goes up to 10 out of 10 in severity, extends to the both sides of her spine, not radiating, relieved by applying heat pad, no aggravating factor and no other associated symptoms. She denied mechanical fall or trauma to her back. She denied numbness or tingling. She denied focal leg weakness. She had a history of invasive breast lobular carcinoma that was diagnosed on April, and she was referred to [facility] for further treatment. According to her daughter, she was given medication twice and she is not sure if that was chemotherapy or not and she had congestive heart failure and those medications were discontinued. She is supposed to see Dr. Hatch for evaluation and she is supposed to go back to [facility] for further evaluation. In the emergency department, patient was afebrile, blood pressure and heart rate are stable, pulse ox was maintained on 3 L. Routine blood work was remarkable for mild leukocytosis, hemoglobin of 8.2 g/dL which is chronic, sodium of 130, BUN is 31, creatinine is 1.53. LFT was unremarkable. Urinalysis revealed cloudy urine, positive for leukocyte esterase, there was 10-25 WBCs and 2+ bacteria. Chest x-ray revealed cardiomegaly, no acute findings. Lumbar spine x-ray revealed scoliosis and degenerative changes, no acute fractures. She is being admitted for intractable back pain and acute cystitis. Past Medical History Past Medical History (Chronic Problems): Chronic Problems (Last Reviewed 08/22/19 @ 22:[address] La Balderas MD) MDS (myelodysplastic syndrome) (Chronic) Anemia (Chronic) History of breast cancer in female (Chronic) Pure hypercholesterolemia (Chronic) Essential hypertension (Chronic) Prosthetic aortic valve stenosis (Chronic) Nonrheumatic mitral valve regurgitation (Chronic) S/P valve repair with a 28 mm G04 annuloplasty ring in October 2011; Nonrheumatic tricuspid (valve) insufficiency (Chronic) S/P repair with a 30 mm MC3 ring angioplasty system in October 2011 Cardiac pacemaker in situ (Chronic) pacemaker implant 08/08 Presence of prosthetic heart valve (Chronic) 11/06, Mitral valve repair with 28mm GeoForm annuloplasty, tricuspid repair with 30mm MC ring annuloplasty Nonrheumatic aortic (valve) insufficiency (Chronic) S/P TAVR with [employer] 23 mm low dense valve in May 2013 at [facility]; 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 La Balderas MD) Pure hypercholesterolemia (Chronic) E78.00 Essential hypertension (Chronic) I10 Prosthetic aortic valve stenosis (Chronic) T82.857A Nonrheumatic mitral valve regurgitation (Chronic) I34.0 S/P valve repair with a 28 mm G04 annuloplasty ring in October 2011; Nonrheumatic tricuspid (valve) insufficiency (Chronic) I36.1 S/P repair with a 30 mm MC3 ring angioplasty system in October 2011 Cardiac pacemaker in situ (Chronic) Z95.0 pacemaker implant 08/08 Nonrheumatic aortic (valve) insufficiency (Chronic) I35.1 S/P TAVR with [employer] 23 mm low dense valve in May 2013 at [facility]; Subendocardial myocardial infarction (Chronic) I21.4 Cardiomyopathy, dilated (Chronic) I42.0 History of bacterial endocarditis (Chronic) Z86.79 Thrombocytopenia (Chronic) D69.6 Iron deficiency anemia (Chronic) D50.9 Chronic atrial fibrillation (Chronic) I48.2 Congestive heart failure (Chronic) I50.9 Pulmonary hypertension (Chronic) I27.2 Coronary artery disease (Chronic) I25.10 Interstitial lung disease (Chronic) J84.9 Hypothyroidism (Chronic) E03.9 Breast cancer C50.919 COPD (chronic obstructive pulmonary disease) J44.9 Left ventricular systolic dysfunction I51.9 Allergies GERI Inhibitors Allergy (Verified 07/17/19 15:26) Angioedema amiodarone Allergy (Verified 07/17/19 15:26) Other doxycycline Allergy (Verified 07/17/19 15:26) Other rosuvastatin calcium [From Crestor] Allergy (Verified 07/17/19 15:26) Other Sulfa (Sulfonamide Antibiotics) Allergy (Verified 07/17/19 15:26) Nausea tiotropium bromide [From Spiriva with HandiHaler] Allergy (Verified 07/17/19 15:26) Other codeine Adverse Reaction (Verified 07/17/19 15:26) Vomiting hydrocodone bitartrate [From Vicodin] Adverse Reaction (Verified 07/17/19 15:26) Vomiting Home Medications: Ambulatory Orders Medication Instructions Recorded Dicyclomine HCl [Bentyl] 10 mg PO TID 11/14/13 Ferrous Sulfate [Iron] 325 mg PO DAILY 06/23/16 Meclizine HCl [Antivert] 12.5 mg PO 4X/DAY PRN PRN 06/23/16 Nitroglycerin [Nitrostat] 0.4 mg SL DAILY PRN 06/23/16 lactobacillus combination no.8 3 3,000 mmu cells PO QDAY 04/08/17 billion cell capsule levothyroxine 75 mcg tablet 75 mcg PO DAILY tab 04/08/17 folic acid 800 mcg tablet 800 mcg PO QDAY 04/11/17 diltiazem HCl 240 mg 240 mg PO DAILY #90 cap 05/14/19 capsule,extended release 24 hr Atorvastatin Calcium 10 mg PO DAILY 08/22/19 B-Complex with Vitamin C [Super B 1 tab PO DAILY 08/22/19 Complex-Vitamin C] Calcium Carbonate/Vitamin D3 1 tab PO DAILY 08/22/19 [Os-Kem 500+D3 Caplet] Cholecalciferol (Vitamin D3) 2,000 unit PO DAILY 08/22/19 [Vitamin D3] Esomeprazole Magnesium [Nexium 22.3 mg PO DAILY 08/22/19 24Hr] Fexofenadine HCl [Adriana Allergy] 180 mg PO DAILY 08/22/19 Fluticasone Propion/Salmeterol 1 puff INHALATION BID 08/22/19 [Wixela 250-50 Inhub] Furosemide 40 mg PO DAILY 08/22/19 Furosemide 80 mg PO DAILY 08/22/19 Magnesium Oxide [Magnesium] 250 mg PO DAILY 08/22/19 Mineral Oil/Petrolatum,White 1 drp EACH EYE QHS 08/22/19 [Refresh P.m. Ointment] [place]-3S/Dha/Epa/Fish Oil [Fish 1 cap PO DAILY 08/22/19 Oil 1,200 mg Softgel] Polyvinyl Alcohol/Povidone/Pf 1 drp EACH EYE TID 08/22/19 [Refresh Classic Eye Drops] Spironolactone [Aldactone] 25 mg PO DAILY 08/22/19 Warfarin Sodium [Coumadin] 1 mg PO .COMPLEX 08/22/19 Warfarin [Coumadin] 3 mg PO .COMPLEX 08/22/19 Surgical History: Surgical History (Last Reviewed 08/22/19 @ 22:[address] La Balderas MD) S/P AVR (aortic valve replacement) (Chronic) Onset Date: ~05/2014 Z95.2 TAVR [facility] [employer] 23 mm Kandice valve Aortic Valve 06/09 History of breast biopsy Onset Date: ~05/2019 Z98.890 History of bilateral knee replacement Z98.890, Z96.653 History of total hysterectomy Z98.890, Z90.710 History of mitral valve replacement (Inactive) Onset Date: ~10/2011 Z95.2 06/09 History of tricuspid valve replacement (Inactive) Onset Date: ~10/2011 Z95.2 06/09 Surgical History: cataract, hysterectomy, total knee arthroplasty, - - Mitral and tricuspid valve replacement, pacemaker implantation 2013 Psychiatric History: No pertinent psych hx 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 La Balderas MD) Father CAD (coronary artery disease) Myocardial infarction Paternal Family History: Family History (Last Reviewed 08/22/19 @ 22:[address] La Balderas MD) Father CAD (coronary artery disease) Myocardial infarction Review of Systems Constitutional: Reports: Anorexia, Weakness, Fatigue. Denies: Chills, Fever Eyes: Denies: Blurred vision, Double vision, Drainage, Redness HEENT: Denies: Difficulty Hearing, Ear Pain, Eye Pain, Nasal Congestion, Sore Throat Cardiovascular: Denies: Chest Pain, Chest Pressure, Chest Tightness, Edema, Heaviness, Palpitations, Syncope Respiratory: Reports: Shortness of Breath. Denies: Cough, Hemoptysis, Pleuritic Pain, Sputum production, Wheezing Gastrointestinal: Denies: Abdominal Pain, Constipation, Diarrhea, Nausea, Vomiting Genitourinary: Denies: Dysuria, Frequency, Hematuria Musculoskeletal: Reports: Back Pain. Denies: Arm Pain, Foot Pain Skin: Denies: Dryness, Rash Neurological: Denies: Balance problems, Double vision, Change in Speech, Slurred speech, Confusion, Headaches, Incoordination, Numbness Psychiatric: Denies: Anxiety, Depression Endocrine: Denies: Change in Body Habitus, Polydipsia, Polyuria VTE Information - Inpt Only VTE Present on Admission: No VTE Mechan Device Prophylaxis: None VTE Pharm Prophylaxis ordered?: No - Physical Exam Vitals/I&O's: Vital Signs Temp Pulse Resp BP Pulse Ox 98.4 F 70 18 110/71 95 08/22/19 22:00 08/22/19 22:00 08/22/19 22:00 08/22/19 22:00 08/22/19 22:00 Oxygen Flow Rate (L/min) 3 Oxygen Delivery Method Nasal Cannula Weight: 122 lb Body Mass Index (BMI) 23.8 Intake and Output for Last 24 Hours 08/20/19 08/21/19 08/22/19 23:59 23:59 23:59 Intake Total 500 / 500 Balance 500 / 500 General: Alert, Oriented x3, Cooperative, - - Mildly short of breath, cachectic. HEENT: Atraumatic, PERRLA, EOMI, Normocephalic Oral: Moist Mucosa, No Gingival or Mucosal Lesions/ Ulcerations Neck: Supple, No JVD, Negative Carotid Bruits, Trachea Midline, Thyroid Normal Size and Texture Lungs: No wheeze, No rales, Diminished, Rhonchi, Short of Breath, - - Decreased breath sounds bilateral, scattered rhonchi. Cardiovascular: Normal S1, Normal S2, PMI Normal, Irregular Rate, Murmur Abdomen: Bowel Sounds Present, Soft, Non Tender, Non-Distended, No Hepato-splenomegaly Extremities: No clubbing, No cyanosis, Edema - + Edema. Skin: No rashes, No breakdown Lymphatic: No Cervical, Supraclavicular, or Inguinal Adenopathy Neurological: Cranial nerves II-XII grossly intact, Motor Exam 5/5 strength throughout Psych/Mental Status: Normal Affect, Appropriate, Alert and oriented to time, place, person, mood and affect Laboratory Results 08/22/19 19:40: WBC 11.1 H, RBC 2.83 L, Hgb 8.2 L, Hct 25.1 L, MCV 88.7, MCH 29.0, MCHC 32.7, RDW Std Deviation 57.7 H, RDW Coeff of Jacob 17.9 H, Plt Count 175, MPV 8.9, Immature Gran % (Auto) 0.600, Neut % (Auto) 84.0 H, Lymph % (Auto) 9.2 L, [place] % (Auto) 5.3, Eos % (Auto) 0.4, Baso % (Auto) 0.5, Absolute Neuts (auto) 9.3 H, Absolute Lymphs (auto) 1.02, Nucleated RBC % 0 08/22/19 19:40: Sodium 130 L, Potassium 3.8, Chloride 99, Carbon Dioxide 21.0, Anion Gap 10, BUN 31 H, Creatinine 1.53 H, Estim Creat Clear Calc 21.42, Est GFR (MDRD) Af Amer 42 L, Est GFR (MDRD) Non-Af 35 L, BUN/Creatinine Ratio 20.3 H, Glucose 142 H, Calcium 8.6, Total Bilirubin 0.60, AST 21, ALT 17, Alkaline Phosphatase 74, Total Protein 6.9, Albumin 2.6 L, Globulin 4.3 H, Albumin/Globulin Ratio 0.6 L 08/22/19 20:00: Urine Color Yellow, Urine Clarity Sl. Cloudy, Urine pH 8.0, Ur Specific [place] 1.010, Urine Protein Negative, Urine Glucose (UA) Normal, Urine Ketones Negative, Urine Occult Blood 25 H, Urine Nitrite Negative, Urine Bilirubin Negative, Urine Urobilinogen Normal, Ur Leukocyte Esterase 500 H, Urine RBC 0 SEEN, Urine WBC 10-25 SEEN, Ur Squamous Epith Cells 0-5 SEEN, Urine Bacteria 2+, Urine Mucus 0 SEEN Clinical Impression(s) from Imaging Studies Chest X-Ray 08/22/19 20:01 IMPRESSION: ASHD and COPD. No acute disease. Electronically Signed: Paul Tolliver MD at 20:23 EDT , Service support , Lumbar Spine X-Ray 08/22/19 20:41 IMPRESSION: Scoliosis and degenerative change. No evidence for acute fracture Electronically Signed: Paul Tolliver MD at 21:06 EDT , Service support , Assessment/Plan This is a 79 years old female patient presented to the emergency room because of worsening back pain, difficulty ambulating in context of recent history of diagnosis of invasive breast cancer and she is being admitted for evaluation and treatment and also found to have acute cystitis. #1 acute on chronic back pain: Mid and lower back pain, vague. No clinical evidence of radiculopathy. She had lumbar spine x-ray that showed scoliosis and degenerative changes, no acute fractures. Patient does have a history of recent diagnosis of breast cancer. Plan: Admit to [facility] floor, IV morphine PRN for pain, OxyIR PRN, laxatives, IV antiemetics, Tylenol PRN, CT scan lumbar and thoracic spine without contrast to rule out metastasis and compression fractures, repeat CBC and BMP tomorrow morning, PT OT evaluation and treatment. #2 acute cystitis: Urinalysis reviewed. She has mild leukocytosis, afebrile. Plan: Start IV Rocephin, urine culture. #3 recent diagnosis of invasive breast lobular carcinoma: Not receiving any treatment so far. She is supposed to go back to [facility] next month for further evaluation. #4 chronic atrial fibrillation: Status post pacemaker: Rate is controlled, continue Cardizem for rate control, continue Coumadin for anticoagulation. #5 hypertension: Blood pressure stable, continue Lasix, Aldactone and Cardizem. #6 valvular heart disease: Status post mitral valve replacement and repair, status post aortic valve replacement with bioprosthetic valve, stable. #7 CAD status post CABG: Stable, no complaints. She is only on Coumadin. #8 dilated cardiomyopathy/chronic diastolic CHF: Clinically stable, compensated. Continue Lasix, Aldactone. She is not on GERI inhibitor because of chronic kidney disease. #9 myelodysplastic syndrome: With chronic anemia and thrombocytopenia. Today, platelet count is normal. Hemoglobin is 8.2 g/dL. Plan to monitor. #10 hypothyroidism: Continue levothyroxine. #11 chronic anemia: Hemoglobin stable at baseline, plan to monitor. #12 chronic respiratory failure/interstitial lung disease: On home oxygen at 3 L. At this time, pulse ox is maintained on 3 L. Stable. #13 stage III chronic kidney disease: Baseline creatinine has been around 1.3 to 1.7 mg/dL. Admission creatinine is 1.53, stable at baseline. #14 DVT prophylaxis: Patient has been Coumadin, will check INR. This note was generated with [employer] dictation software. It may contain incorrect words, spelling, and punctuation that were not noted in checking the note before signing. Inpatient E&M: 16002 Init Hosp L3
--- NOTE | 2019-08-22 22:40 | CT_ITS ---
STUDY: CT THORACIC SPINE WITHOUT CONTRAST REASON FOR EXAM: Female, 79 years old. BACK PAIN x 3 MONTHS, DULL ACHE, 10/10, UNABLE TO WALK AT TIMES, HX BREAST CA, CONCERN FOR METS, HX PACER, CHF, CAD, VALVE REPLACEMENT, TYREE RADIATION DOSAGE (If Supplied By Facility): CTDIvol = ( 18.42 ) mGy, DLP = ( 622.63 ) mGycm TECHNIQUE: The patient was scanned in a multi detector CT scanner. High resolution imaging was performed. Images were obtained from to . Sagittal and coronal images were reconstructed. Individualized dose optimization techniques were used for this CT. COMPARISON: None. FINDINGS: There is kyphosis of the thoracic spine. There is NO acute fracture. There is a wedge-shaped configuration of T5 which could be an old fracture. There is generalized osteopenia of the bony structures. There is advanced multilevel degenerative disc change. Facet joints are intact. There is NO significant bony spinal or foraminal stenosis. There is NO paraspinal mass or soft tissue swelling. There are small bilateral pleural effusions. Visualized ribs are intact. CT/Spine Thoracic without Contras IMPRESSION: There is kyphosis of the thoracic spine. There is NO acute fracture. There is a wedge-shaped configuration of T5 which could be an old fracture. There is advanced multilevel degenerative disc change. Electronically Signed: Patrick Rod MD at 7:13 EDT , Service support ,
--- NOTE | 2019-08-22 22:40 | CT_ITS ---
STUDY: CT LUMBAR SPINE WITHOUT CONTRAST REASON FOR EXAM: Female, 79 years old. Severe back pain for 3 months. Unable to walk at times. History of breast cancer. RADIATION DOSAGE (If Supplied By Facility): CTDIvol = ( 14.78 ) mGy, DLP = ( 470.22 ) mGycm TECHNIQUE: The patient was scanned in a multi detector CT scanner. High resolution transaxial imaging was performed. Images were obtained of the lumbar spine. Sagittal and coronal images were reconstructed. Individualized dose optimization techniques were used for this CT. COMPARISON: Lumbar spine series August 10, 2012. Lumbar spine series August 22, 2019. FINDINGS: 2 mm of anterolisthesis L3 on L4. 3 mm of anterolisthesis of L4 on L5. There is no substantial scoliosis. Normal vertebrae of the lumbar spine. L1-2: Mild disc space narrowing and vacuum disc. Normal bilateral facet joints. Normal central canal and bilateral lateral recesses. Normal bilateral intervertebral neural foramina. L2-3: Inferior endplate degenerative changes. Normal disc height and morphology. Normal bilateral facet joints. Normal central canal and bilateral lateral recesses. Normal bilateral intervertebral neural foramina. L3-4: Mild disc space narrowing and vacuum disc. Ligamentum flavum and facet hypertrophy produce moderate spinal stenosis. Normal bilateral intervertebral neural foramina. L4-5: Disc space narrowing and vacuum disks. Broad-based central disc bulge, ligamentum flavum flavum and facet hypertrophy produce mild spinal stenosis.. Normal bilateral intervertebral neural foramina. L5-S1: Normal endplates. Disc space narrowing. Normal bilateral facet joints. Normal central canal and bilateral lateral recesses. Normal bilateral intervertebral neural foramina. Normal visualized paraspinous soft tissue structures. Probable gallstones right abdomen incompletely visualized. CT/Spine Lumbar without Contrast IMPRESSION: Multilevel degenerative changes of the lumbar spine. No evidence of metastatic disease. Probable gallstones. Correlate with ultrasound or CT abdomen and pelvis in view of the history of back pain. Electronically Signed: Ru Quiroz MD at 6:05 EDT , Service support ,
[2019-08-22 22:41] VITALS: BMI 24.3
[2019-08-22 22:47] VITALS: BP 100/69; PULSE 70; RESP 20; TEMP 36.4; O2SAT 97
[2019-08-22 22:54] VITALS: BMI 24.3
[2019-08-22 23:01] LABS: Prothrombin Time (Protime)PT. 38.1 SECONDS (11.7-14.9)
[2019-08-22 23:02] LABS: International Normalized Ratio 3.9
[2019-08-22] MEDS: Ceftriaxone 1 GM/50 ML BAG IV (23:48)
[2019-08-22] MEDS: 0.9% Saline Lock 10 ML Syringe IV (23:49)
[2019-08-23] VITALS (9 sets, daily range): BP systolic 110–130; BP diastolic 56–74; PULSE 70–79; RESP 16–22; TEMP 36.4–36.9; O2SAT 85–94
[2019-08-23 05:45] LABS: Absolute Lymphocyte Count 0.57 X10^3/uL (0.83-4.51); Absolute Neutrophil Count 9.5 X10^3/uL (2.0-7.7); Basophil# 0.04 X10^3/uL; Basophil% 0.4 % (0-1); Eosinophil# 0.05 X10^3/uL; Eosinophils% 0.5 % (0-5); Hematocrit 27.6 % (37-47); Hemoglobin 8.7 g/dL (12.0-15.0); Lymphocyte # 0.57 X10^3/ul (4.0); Lymphocyte % 5.3 % (19-41); Mean Corp Hgb Conc 31.5 g/dL (32-36); Mean Corpuscular Hgb 28.8 pg (27.0-32.0); Mean Corpuscular Volume 91.4 fL (81-99); Mean Platelet Vol. 9.3 fl (6.2-12.0); Monocyte# 0.55 X10^3/uL; Monocyte% 5.1 % (0-10); NRBC Flagged by Analyzer 0 % (0-5); Neutrophil # 9.52 X10^3/uL (2.7-7.7); Neutrophil % 88.1 % (47-70); POSITIVE DIFFERENTIAL YES; Platelet Count 171 K/mm3 (150-450); RBC Distribution Width CV 18.1 % (11.6-14.6); RBC Distribution Width SD 59.3 fl (35.1-43.9); Red Blood Count 3.02 M/mm3 (4.2-5.4); White Blood Count 10.8 K/mm3 (4.4-11.0)
[2019-08-23 05:47] LABS: Differential Indicated SCAN CRITERIA MET
[2019-08-23 06:14] LABS: Anion Gap 10 (5-15); BUN 28 mg/dL (7-18); BUN/Creat Ratio 22.2 RATIO (10-20); Calcium,Total 8.3 mg/dL (8.5-10.1); Chloride 98 mmol/L (98-107); Creatinine, Serum 1.26 mg/dL (0.55-1.02); EST Glomerular Filtration Rate 44 mL/min (>60); Est Glom Filt Rate - Afr Amer 53 mL/min (>60); Estimated Creatinine Clearance 26.01 ml/min; Glucose 97 mg/dL (74-106); Potassium 3.6 mmol/L (3.5-5.1); Sodium Level 131 mmol/L (136-145)
[2019-08-23] MEDS: Levothyroxine 75 MCG Tablet PO (06:25)
[2019-08-23 06:38] LABS: Differential Comment SCANNED
[2019-08-23] MEDS: Dicyclomine 10 MG Capsule PO ×3 (07:00→16:12)
[2019-08-23] MEDS: Folic Acid 1 MG Tablet PO (07:52)
--- NOTE | 2019-08-23 10:00 | CASEMGMT ---
RN JOHN Face to Face with patient for initial transition planning/care coordination assessment. RN CM introduced self and role at [facility]. Patient lying in bed, alert and oriented. Patient willing to participate in assessment and is able to answer all questions appropriately. Care providers, pharmacy, and demographics verified. Patient wishes to discharge home, denies need for home health at this time, will continue to monitor for HHC pending therapy. Patient states she has no further needs or concerns at this time. CM to follow for discharge planning needs that may arise. PCP: [facility] Specialists: Sushil, clam bed worker; Jordin, oncologist; Halle, polysomnographer; to follow-up with [place] oncologist [facility] Pres[facility] Benef[facility]:yes Living Will/HPOA: yes, daughter Antonia Pruitt LNOK: daughter Living Arrangements: Patient lives alone in [facility] with 1 step to enter. Patient states she is independent at home. Daughter checks on her daily. Transportation: Daughter DME/HHC: Patient has shower chair, raised toilet, cane, walker, grab bars, wheelchair, medical alert, nebulizer, oxygen @ 3lpm with port and concentrator through [facility]. Patient has previously been to [facility]. Disposition Plan: Patient to discharge home with family support and follow-up plans in place. Will monitor for HHC. Allison JUNG, RN, CM
--- NOTE | 2019-08-23 10:04 | CASEMGMT ---
Social Work Note TOVA reviewed chart. Pt was diagnosed with Breast Cancer April 2019. SW in to speak with pt to provide support. SW introduced self and role at [facility]. Pt is alert and orientated x3. Pt confirms that she was diagnosed with Breast Cancer April 2019. Pt states she has been to [facility] and they are not operating on pt but will hopefully be providing pt with medication to block it. Pt states that she feels well supportive and states that her daughter lives close to her and would be at [facility] with her if she was allowed to be. SW offered to provide pt with support groups, additional resources, etc. but pt denied. Allison Perry WAREHOUSE ASSEMBLY WORKER, CHAINSTITCH SEAT JOINER
[2019-08-23] MEDS: Magnesium Oxide 400 MG Tablet 200 MG PO (11:03)
[2019-08-23] MEDS: Pantoprazole Sodium 20 MG Tablet PO (11:03)
[2019-08-23] MEDS: dilTIAZem CD 240 MG Capsule PO (11:04)
[2019-08-23] MEDS: Spironolactone 25 MG Tablet PO (11:04)
[2019-08-23] MEDS: Furosemide 80 MG Tablet PO ×2 (11:06→16:13)
[2019-08-23] MEDS: Ferrous Sulfate 325 MG Tablet PO (11:11)
[2019-08-23 12:47] LABS: Prothrombin Time (Protime)PT. 37.7 SECONDS (11.7-14.9)
[2019-08-23 13:05] LABS: International Normalized Ratio 3.9
[2019-08-23] MEDS: Albuterol 2.5 MG/3 ML VIAL.NEB. INHALATION (13:54)
--- NOTE | 2019-08-23 14:00 | PN_ITS ---
Reason for Visit: intractable back pain Subjective: pt denies difficulty emptying bladder or dysuria. no fever/chills. no flank or abdominal pain. ongoing severe back pain and some SOB. Pt using 5 lpm o2 today tho 3 lpm is baseline. no cough. no chest pain. no nausea/vomiting. Vitals/I&O's: Vital Signs Temp Pulse Resp BP Pulse Ox 98.5 F 79 16 126/74 H 91 08/23/19 08:15 08/23/19 13:56 08/23/19 13:56 08/23/19 08:15 08/23/19 13:56 Oxygen Flow Rate (L/min) 4 Oxygen Delivery Method Nasal Cannula Weight: 124 lb 5.451 oz Body Mass Index (BMI) 24.3 Intake and Output for Last 24 Hours 08/21/19 08/22/19 08/23/19 23:59 23:59 23:59 Intake Total 500.25 / 500.25 929 / 929 Output Total 650 / 650 Balance 500.25 / 500.25 279 / 279 General: Alert, Oriented x3, Cooperative HEENT: Atraumatic, PERRLA, EOMI, Normocephalic Neck: Supple, No JVD, Negative Carotid Bruits Lungs: Clear to auscultation, Normal air movement Cardiovascular: Regular rate, No murmurs Abdomen: Bowel Sounds Present, Soft, Non Tender Extremities: No edema, Capillary Refill Less than 3 Seconds Skin: No rashes, No breakdown Musculoskeletal: No Tenderness to Palpation of Joints or Extremities Neurological: Cranial nerves II-XII grossly intact Psych/Mental Status: Normal Affect, Appropriate, Alert and oriented to time, place, person, mood and affect Microbiology Past 72 Hours 08/22/19 20:00 Urine, Clean Catch Urine Culture - Preliminary GNR lactose performance improvement director Laboratory Results 08/22/19 19:40: WBC 11.1 H, RBC 2.83 L, Hgb 8.2 L, Hct 25.1 L, MCV 88.7, MCH 29.0, MCHC 32.7, RDW Std Deviation 57.7 H, RDW Coeff of Jacob 17.9 H, Plt Count 175, MPV 8.9, Immature Gran % (Auto) 0.600, Neut % (Auto) 84.0 H, Lymph % (Auto) 9.2 L, [place] % (Auto) 5.3, Eos % (Auto) 0.4, Baso % (Auto) 0.5, Absolute Neuts (auto) 9.3 H, Absolute Lymphs (auto) 1.02, Nucleated RBC % 0 08/22/19 19:40: Sodium 130 L, Potassium 3.8, Chloride 99, Carbon Dioxide 21.0, Anion Gap 10, BUN 31 H, Creatinine 1.53 H, Estim Creat Clear Calc 21.42, Est GFR (MDRD) Af Amer 42 L, Est GFR (MDRD) Non-Af 35 L, BUN/Creatinine Ratio 20.3 H, Glucose 142 H, Calcium 8.6, Total Bilirubin 0.60, AST 21, ALT 17, Alkaline Phosphatase 74, Total Protein 6.9, Albumin 2.6 L, Globulin 4.3 H, Albumin/Globulin Ratio 0.6 L 08/22/19 19:40: PT 38.1 H, INR 3.9 H* 08/22/19 20:00: Urine Color Yellow, Urine Clarity Sl. Cloudy, Urine pH 8.0, Ur Specific [place] 1.010, Urine Protein Negative, Urine Glucose (UA) Normal, Urine Ketones Negative, Urine Occult Blood 25 H, Urine Nitrite Negative, Urine Bilirubin Negative, Urine Urobilinogen Normal, Ur Leukocyte Esterase 500 H, Urine RBC 0 SEEN, Urine WBC 10-25 SEEN, Ur Squamous Epith Cells 0-5 SEEN, Urine Bacteria 2+, Urine Mucus 0 SEEN 08/23/19 05:26: WBC 10.8, RBC 3.02 L, Hgb 8.7 L, Hct 27.6 L, MCV 91.4, MCH 28.8, MCHC 31.5 L, RDW Std Deviation 59.3 H, RDW Coeff of Jacob 18.1 H, Plt Count 171, MPV 9.3, Immature Gran % (Auto) 0.600, Neut % (Auto) 88.1 H, Lymph % (Auto) 5.3 L, [place] % (Auto) 5.1, Eos % (Auto) 0.5, Baso % (Auto) 0.4, Absolute Neuts (auto) 9.5 H, Absolute Lymphs (auto) 0.57 L, Nucleated RBC % 0, Differential Comment SCANNED 08/23/19 05:26: Sodium 131 L, Potassium 3.6, Chloride 98, Carbon Dioxide 23.0, Anion Gap 10, BUN 28 H, Creatinine 1.26 H, Estim Creat Clear Calc 26.01, Est GFR (MDRD) Af Amer 53 L, Est GFR (MDRD) Non-Af 44 L, BUN/Creatinine Ratio 22.2 H, Glucose 97, Calcium 8.3 L 08/23/19 12:19: PT 37.7 H, INR 3.9 H* Current Medications Acetaminophen (Tylenol) 650 mg PO Q6H PRN PRN PRN Reason: Pain Score 1-10/Temp > 100.7 F Albuterol Sulfate (Ventolin Aerosols) 2.5 mg INHALATION Q4H PRN PRN PRN Reason: Shortness of breath, wheezing Last Admin: 08/23/19 13:54 Dose: 2.5 mg Documented by: Atorvastatin Calcium (Lipitor) 10 mg PO DAILY@2200 [facility] Dicyclomine HCl (Bentyl) 10 mg PO TIDAC [facility] Last Admin: 08/23/19 11:04 Dose: 10 mg Documented by: Diltiazem HCl (Cardizem Cd) 240 mg PO DAILY [facility] Last Admin: 08/23/19 11:04 Dose: 240 mg Documented by: Ferrous Sulfate (Ferrous Sulfate) 325 mg PO DAILY@1200 [facility] Last Admin: 08/23/19 11:11 Dose: 325 mg Documented by: Folic Acid (Folic Acid) [facility] Last Admin: 08/23/19 07:52 Dose: 1 mg Documented by: Furosemide (Lasix) 80 mg PO BID@1000,1800 [facility] Last Admin: 08/23/19 11:06 Dose: 80 mg Documented by: Ceftriaxone Sodium (Rocephin) 1 gm in 50 mls @ 100 mls/hr IV Q24@2200 [facility] Last Infusion: 08/23/19 00:18 Dose: Infused Documented by: Sodium Chloride () 250 mls @ 15 mls/hr IV .[id number] PRN PRN Reason: Saline Flush Last Infusion: 08/23/19 02:14 Dose: 0 mls/hr Documented by: Sodium Chloride () 250 mls @ 15 mls/hr IV .[id number] PRN PRN Reason: Additional IVPB Infusion Levothyroxine Sodium (Synthroid) 75 mcg PO DAILY@0600 [facility] Last Admin: 08/23/19 06:25 Dose: 75 mcg Documented by: Magnesium Hydroxide (Milk Of Magnesia) 15 ml PO DAILY [facility] Last Admin: 08/23/19 12:43 Dose: Not Given Documented by: Magnesium Oxide (Mag-Ox 400) 200 mg PO DAILY [facility] Last Admin: 08/23/19 11:03 Dose: 200 mg Documented by: Meclizine HCl (Antivert) 12.5 mg PO 4X/DAY PRN PRN PRN Reason: VERTIGO Morphine Sulfate () 2 mg IV Q3H PRN PRN PRN Reason: Pain Score 6-10/10 Ondansetron HCl (Zofran) 4 mg IV Q8H PRN PRN PRN Reason: NAUSEA/VOMITING Oxycodone HCl (Oxyir) 5 mg PO Q4H PRN PRN PRN Reason: Pain Score 4-5/10 Pantoprazole Sodium (Protonix) 20 mg PO DAILY [facility] Last Admin: 08/23/19 11:03 Dose: 20 mg Documented by: Senna/Docusate Sodium (Senokot-S, Onelia-Colace) 2 tablet PO BID PRN PRN PRN Reason: Constipation Sodium Chloride () 10 - 40 ml IV UD PRN PRN Reason: SALINE FLUSH Last Admin: 08/22/19 23:49 Dose: 10 ml Documented by: Spironolactone (Aldactone) 25 mg PO DAILY [facility] Last Admin: 08/23/19 11:04 Dose: 25 mg Documented by: Zolpidem Tartrate (Ambien (Generic)) 5 mg PO QHS PRN PRN PRN Reason: INSOMNIA STROKE Vital Signs/Narrative: Vital Signs Pulse Resp Pulse Ox 08/23/19 13:56 79 16 91 Medical Necessity - Tobacco Use Smoking Status: Never smoker Assessment/Plan 1. Acute UTI - wbc imroved. culture shows GNR lactose performance improvement director. continue rocephin. 2. Chronic hypoxic resp failure 2/2 COPD/CHF - no acerbation of either. added duoneb. added IS. Continue prn albuterol. baseline 3lpm. No evidence of pna, chf, or copd exacerbation at this time 3. Intractable back pain - imaging with severe DDD. PTOT evals. consider o/p pain management referral. 4.CKDIII - improved. 5. Chronic diastolic CHF - no exacerbation. continue home lasix, aldactone 6. Hypothyroidism - synthroid 7. Valvular heart dz - s/p TAVR, tricuspid valve replacement, mitral valve replacement. 8. Chronic iron def anemia - continue po iron. 9. Chronic afib - warfarin, cardizem 10. HLD - statin DVT ppx: warfarin DC planning: PTOT This patient was seen by Anuj Villa PA-C under the supervision of Dr. Israel.
[2019-08-23] MEDS: 0.9% Saline Lock 10 ML Syringe IV ×2 (18:08→21:05)
[2019-08-23] MEDS: Ipratropium/Albuterol Sulfate 3 ML AMPUL.NEB INHALATION (20:20)
[2019-08-23] MEDS: Ceftriaxone 1 GM/50 ML BAG IV (21:05)
[2019-08-23] MEDS: Atorvastatin Calcium 10 MG Tablet PO (21:06)
[2019-08-24] VITALS (11 sets, daily range): BP systolic 92–123; BP diastolic 60–67; PULSE 64–87; RESP 18–22; TEMP 36.3–37.2; O2SAT 90–100
[2019-08-24] MEDS: Albuterol 2.5 MG/3 ML VIAL.NEB. INHALATION (03:50)
[2019-08-24] MEDS: Levothyroxine 75 MCG Tablet PO (05:26)
[2019-08-24 05:56] LABS: Absolute Lymphocyte Count 0.45 X10^3/uL (0.83-4.51); Absolute Neutrophil Count 4.4 X10^3/uL (2.0-7.7); Basophil# 0.01 X10^3/uL; Basophil% 0.2 % (0-1); Hematocrit 26.5 % (37-47); Hemoglobin 8.1 g/dL (12.0-15.0); Lymphocyte # 0.45 X10^3/ul (4.0); Lymphocyte % 8.8 % (19-41); Mean Corp Hgb Conc 30.6 g/dL (32-36); Mean Corpuscular Hgb 28.1 pg (27.0-32.0); Mean Platelet Vol. 8.7 fl (6.2-12.0); Monocyte# 0.18 X10^3/uL; Monocyte% 3.5 % (0-10); NRBC Flagged by Analyzer 0 % (0-5); Neutrophil # 4.43 X10^3/uL (2.7-7.7); Neutrophil % 86.7 % (47-70); POSITIVE DIFFERENTIAL YES; Platelet Count 151 K/mm3 (150-450); RBC Distribution Width CV 17.8 % (11.6-14.6); RBC Distribution Width SD 60.1 fl (35.1-43.9); Red Blood Count 2.88 M/mm3 (4.2-5.4); White Blood Count 5.1 K/mm3 (4.4-11.0)
[2019-08-24 06:02] LABS: International Normalized Ratio 3.4; Prothrombin Time (Protime)PT. 34.3 SECONDS (11.7-14.9)
[2019-08-24 06:16] LABS: Anion Gap 9 (5-15); BUN 29 mg/dL (7-18); Calcium,Total 8.4 mg/dL (8.5-10.1); Chloride 100 mmol/L (98-107); Creatinine, Serum 1.26 mg/dL (0.55-1.02); EST Glomerular Filtration Rate 44 mL/min (>60); Est Glom Filt Rate - Afr Amer 53 mL/min (>60); Estimated Creatinine Clearance 26.01 ml/min; Glucose 149 mg/dL (74-106); Potassium 3.7 mmol/L (3.5-5.1); Sodium Level 132 mmol/L (136-145)
[2019-08-24 06:20] LABS: Differential Indicated SCAN CRITERIA MET
[2019-08-24 06:40] LABS: Differential Comment SCANNED
[2019-08-24] MEDS: Dicyclomine 10 MG Capsule PO ×3 (06:58→16:46)
[2019-08-24] MEDS: Ipratropium/Albuterol Sulfate 3 ML AMPUL.NEB INHALATION ×2 (07:18→19:37)
[2019-08-24] MEDS: Folic Acid 1 MG Tablet PO (07:46)
--- NOTE | 2019-08-24 10:06 | CASEMGMT ---
BRENDAN LOPEZ Note: Brendan LOPEZ to room to talk with pt re: PT/OT recommendations and discharge planning. Discussed SNF, HHC, and OP therapy with pt at this time. Pt states she does not want to go to a SNF, that she wishes to return home, she feels she is safe to return home, and also states is not interested in HHC for therapy or OP therapy. She states she has had both and does not feel that it was very helpful. Pt currently on 3 L/M N/C. Per BRENDAN Cramer, pt has been maintaining @ 92% @ rest with 3 L/M but has been requiring more O2 w/exertion. Call placed to [facility]. Their current O2 orders for pt are 3L/M continuously and 2.5 L/M bleed-in via CPAP @ [facility]. PLAN: PT/OT to work with pt today. BRENDAN LOPEZ to follow to ensure a safe discharge plan for pt. Will need Ambulatory pulse ox prior to discharge. Daljit JUNG RN, CM
--- NOTE | 2019-08-24 10:53 | DCINST_ITS ---
- Discharge Diagnoses Current Active Problems: Current Active and Chronic Problems (Last Reviewed 08/22/19 @ 22:[address] La Balderas MD) History of breast cancer in female (Chronic) You will use the following diet at home:: Cardiac Your food should be the consistency of: Regular Your liquids should be the consistency of: Regular/Thin Discharge Activity: Return to Normal Activity Additional Instructions: Ask your doctor about having a CBC in 1 week. Allergies/Adverse Reactions: Allergies GERI Inhibitors Allergy (Verified 08/22/19 22:43) Angioedema amiodarone Allergy (Verified 08/22/19 22:43) Other doxycycline Allergy (Verified 08/22/19 22:43) Other rosuvastatin calcium [From Crestor] Allergy (Verified 08/22/19 22:43) Other Sulfa (Sulfonamide Antibiotics) Allergy (Verified 08/22/19 22:43) Nausea tiotropium bromide [From Spiriva with HandiHaler] Allergy (Verified 08/23/19 11:06) Nausea codeine Adverse Reaction (Verified 08/22/19 22:43) Vomiting hydrocodone bitartrate [From Vicodin] Adverse Reaction (Verified 08/22/19 22:43) Vomiting Medications to take at Discharge Dicyclomine HCl [Bentyl] 10 mg PO TID 11/14/13 Ferrous Sulfate [Iron] 65 mg PO DAILY 06/23/16 Meclizine HCl [Antivert] 12.5 mg PO 4X/DAY PRN PRN 06/23/16 Nitroglycerin [Nitrostat] 0.4 mg SL DAILY PRN 06/23/16 lactobacillus combination no.8 3 billion cell capsule 3,000 mmu cells PO QDAY 04/08/17 levothyroxine 75 mcg tablet 75 mcg PO DAILY tab 04/08/17 folic acid 800 mcg tablet 800 mcg PO QDAY 04/11/17 diltiazem HCl 240 mg capsule,extended release 24 hr 240 mg PO DAILY #90 cap 05/14/19 Atorvastatin Calcium 10 mg PO QHS 08/22/19 B-Complex with Vitamin C [Super B Complex-Vitamin C] 1 tab PO DAILY 08/22/19 Calcium Carbonate/Vitamin D3 [Os-Kem 500+D3 Caplet] 1 tab PO DAILY 08/22/19 Cholecalciferol (Vitamin D3) [Vitamin D3] 2,000 unit PO DAILY 08/22/19 Esomeprazole Magnesium [Nexium 24Hr] 22.3 mg PO DAILY 08/22/19 Fexofenadine HCl [Adriana Allergy] 180 mg PO DAILY 08/22/19 Fluticasone Propion/Salmeterol [Wixela 250-50 Inhub] 1 puff INHALATION BID 08/22/19 Furosemide 80 mg PO BID 08/22/19 Magnesium Oxide [Magnesium] 250 mg PO DAILY 08/22/19 Mineral Oil/Petrolatum,White [Refresh P.m. Ointment] 1 drp EACH EYE QHS 08/22/19 [place]-3S/Dha/Epa/Fish Oil [Fish Oil 1,200 mg Softgel] 1,200 mg PO DAILY 08/22/19 Polyvinyl Alcohol/Povidone/Pf [Refresh Classic Eye Drops] 1 drp EACH EYE TID 08/22/19 Spironolactone [Aldactone] 25 mg PO DAILY 08/22/19 Warfarin Sodium [Coumadin] 4 mg PO MOWE 08/22/19 Warfarin [Coumadin (PBKC)] 1 mg PO SUTUTHFRSA 08/22/19 Acetaminophen [Tylenol Tablet] 650 mg PO Q6H PRN PRN tab 08/24/19 Cephalexin [Keflex] 500 mg PO BID #6 cap 08/24/19 Ipratropium/Albuterol Sulfate [Duoneb] 3 ml INHALATION Q6H #120 ampul.neb 0 08/24/19 MethylPREDNISolone DosePak [Medrol DosePak] 4 mg PO UD #1 box 08/24/19 Oxycodone [Oxyir] 5 mg PO Q6H PRN PRN 3 Days #12 tab 08/24/19 The following prescriptions were given: Ipratropium/Albuterol Sulfate [Duoneb] 3 ml INHALATION Q6H #120 ampul.neb Transmission Status: Received by [facility] Cephalexin [Keflex] 500 mg PO BID #6 cap Transmission [facility]: [facility] MethylPREDNISolone DosePak [Medrol DosePak] 4 mg PO UD #1 box Transmission Status: Received by [facility] Oxycodone [Oxyir] 5 mg PO Q6H PRN PRN 3 Days #12 tab PRN Reason: Pain Score 6-01/04 Transmission Status: Received by [facility] Primary Care Physician: Abby Pendleton DO [Primary Care Provider] - Please follow up with your Primary Care Physician in: 1 week Test Results: Test results from this visit will be discussed in further detail at your follow- up appointment, if applicable. Please Follow Up With: Shimon Hatch MD When: 1-2 weeks Please Follow Up With: Eleuterio Molina MD When: 3-4 weeks Proposed Discharge Date: 08/24/19
--- NOTE | 2019-08-24 11:17 | CT_ITS ---
STUDY: CT CHEST WITHOUT CONTRAST REASON FOR EXAM: Female, 79 years old. INTERSITIAL LUNG DISEASE. Breast cancer history RADIATION DOSAGE (If Supplied By Facility): CTDIvol = ( 14.80 ) mGy, DLP = ( 484.35 ) mGycm TECHNIQUE: Transaxial imaging was performed without the administration of intravenous contrast material. Multiplanar coronal and sagittal images were reformatted. Individualized dose optimization techniques were used for this CT. COMPARISON: Comparison is made with prior examination of May 29, 2015. FINDINGS: A left-sided dual-chamber pacemaker is seen. Small bilateral pleural effusions with bibasilar infiltrates and/or atelectasis. Fibrocalcific scarring at the lung apices. Cardiomegaly. There is enlargement of the right and left atria. There are calcifications of the coronary arteries. Status post aortic valve replacement. Prior midline sternotomy. There are multiple small lymph nodes within the mediastinum, which are normal in size and morphology most compatible with reactive lymph hyperplasia. Normal hilar regions. There is prominence of the pulmonary hilar arteries without peripheral pulmonary vascular congestion, suggesting pulmonary hypertension. There is atherosclerotic calcification of the aortic arch with tortuosity and elongation of the aortic arch and descending thoracic aorta. There are multi-level degenerative changes of the thoracic spine. Increased kyphosis. 50% loss of height of a mid dorsal vertebrae. Calcified granuloma in the anterior lateral aspect of the right lobe of the liver. CT/Chest without Contrast IMPRESSION: Small bilateral pleural effusions with bibasilar atelectasis and/or infiltrates at the lung bases. Cardiomegaly with enlargement of both the right and left atrium. Enlargement of the pulmonary arteries. Electronically Signed: Joey Avila, at 13:03 EDT , Service support ,
[2019-08-24] MEDS: Furosemide 80 MG Tablet PO (11:21)
[2019-08-24] MEDS: Spironolactone 25 MG Tablet PO (11:22)
[2019-08-24] MEDS: Magnesium Oxide 400 MG Tablet 200 MG PO (11:22)
[2019-08-24] MEDS: dilTIAZem CD 240 MG Capsule PO (11:22)
[2019-08-24] MEDS: Pantoprazole Sodium 20 MG Tablet PO (11:22)
[2019-08-24] MEDS: Ferrous Sulfate 325 MG Tablet PO (11:23)
--- NOTE | 2019-08-24 11:54 | PCM.PN.HOSP ---
Reason for Visit: back pain, inability to ambulate Subjective: pt back to 3 lpm O2, with improved SOB. No LE edema. No CP. No cough. Back pain is improved. Pt ambulated 40 feet with therapy and does not want SNF or home health care. No fever/chills. No dysuria. Pt plans to see Dr. Hatch in 2 weeks. Vitals/I&O's: Vital Signs Temp Pulse Resp BP Pulse Ox 98.9 F 70 19 H 95/63 93 08/24/19 09:30 08/24/19 09:30 08/24/19 09:30 08/24/19 09:30 08/24/19 09:30 Oxygen Flow Rate (L/min) 3 Oxygen Delivery Method Nasal Cannula Weight: 124 lb 5.451 oz Body Mass Index (BMI) 24.3 Intake and Output for Last 24 Hours 08/22/19 08/23/19 08/24/19 23:59 23:59 23:59 Intake Total 500.25 / 500.25 1392.75 / 1792.75 550 / 550 Output Total 1050 / 2050 1000 / 1000 Balance 500.25 / 500.25 342.75 / -257.25 -450 / -450 General: Alert, Oriented x3, Cooperative HEENT: Atraumatic, PERRLA, EOMI, Normocephalic Neck: Supple, No JVD, Negative Carotid Bruits Lungs: Clear to auscultation, Diminished Cardiovascular: Regular rate, No murmurs Abdomen: Bowel Sounds Present, Soft, Non Tender Extremities: No edema, Capillary Refill Less than 3 Seconds Skin: No rashes, No breakdown Musculoskeletal: No Tenderness to Palpation of Joints or Extremities Neurological: Cranial nerves II-XII grossly intact Psych/Mental Status: Normal Affect, Appropriate, Alert and oriented to time, place, person, mood and affect Microbiology Past 72 Hours 08/22/19 20:00 Urine, Clean Catch Urine Culture - Final Klebsiella oxytoca Laboratory Results 08/23/19 12:19: PT 37.7 H, INR 3.9 H* 08/24/19 05:26: WBC 5.1, RBC 2.88 L, Hgb 8.1 L, Hct 26.5 L, MCV 92.0, MCH 28.1, MCHC 30.6 L, RDW Std Deviation 60.1 H, RDW Coeff of Jacob 17.8 H, Plt Count 151, MPV 8.7, Immature Gran % (Auto) 0.800, Neut % (Auto) 86.7 H, Lymph % (Auto) 8.8 L, [place] % (Auto) 3.5, Eos % (Auto) 0.0, Baso % (Auto) 0.2, Absolute Neuts (auto) 4.4, Absolute Lymphs (auto) 0.45 L, Nucleated RBC % 0, Differential Comment SCANNED 08/24/19 05:26: PT 34.3 H, INR 3.4 08/24/19 05:26: Sodium 132 L, Potassium 3.7, Chloride 100, Carbon Dioxide 23.0, Anion Gap 9, BUN 29 H, Creatinine 1.26 H, Estim Creat Clear Calc 26.01, Est GFR (MDRD) Af Amer 53 L, Est GFR (MDRD) Non-Af 44 L, BUN/Creatinine Ratio 23.0 H, Glucose 149 H, Calcium 8.4 L 08/24/19 05:26: B-Natriuretic Peptide Pending Current Medications Acetaminophen (Tylenol) 650 mg PO Q6H PRN PRN PRN Reason: Pain Score 1-10/Temp > 100.7 F Albuterol Sulfate (Ventolin Aerosols) 2.5 mg INHALATION Q4H PRN PRN PRN Reason: Shortness of breath, wheezing Last Admin: 08/24/19 03:50 Dose: 2.5 mg Documented by: Albuterol/Ipratropium (Duoneb) 3 ml INHALATION Q6HWA.RT [facility] Last Admin: 08/24/19 07:18 Dose: 3 ml Documented by: Atorvastatin Calcium (Lipitor) 10 mg PO DAILY@2200 [facility] Last Admin: 08/23/19 21:06 Dose: 10 mg Documented by: Cefadroxil (Duricef) 500 mg PO BID [facility] Dicyclomine HCl (Bentyl) 10 mg PO TIDAC [facility] Last Admin: 08/24/19 11:21 Dose: 10 mg Documented by: Diltiazem HCl (Cardizem Cd) 240 mg PO DAILY [facility] Last Admin: 08/24/19 11:22 Dose: 240 mg Documented by: Ferrous Sulfate (Ferrous Sulfate) 325 mg PO DAILY@1200 [facility] Last Admin: 08/24/19 11:23 Dose: 325 mg Documented by: Folic Acid (Folic Acid) 1 mg PO DAILYCM [facility] Last Admin: 08/24/19 07:46 Dose: 1 mg Documented by: Furosemide (Lasix) 80 mg PO BID@1000,1800 [facility] Last Admin: 08/24/19 11:21 Dose: 80 mg Documented by: Sodium Chloride () 250 mls @ 15 mls/hr IV .[id number] PRN PRN Reason: Saline Flush Last Infusion: 08/23/19 22:30 Dose: 0 mls/hr Documented by: Sodium Chloride () 250 mls @ 15 mls/hr IV .[id number] PRN PRN Reason: Additional IVPB Infusion Levothyroxine Sodium (Synthroid) 75 mcg PO DAILY@0600 [facility] Last Admin: 08/24/19 05:26 Dose: 75 mcg Documented by: Magnesium Hydroxide (Milk Of Magnesia) 15 ml PO DAILY [facility] Last Admin: 08/24/19 11:23 Dose: Not Given Documented by: Magnesium Oxide (Mag-Ox 400) 200 mg PO DAILY [facility] Last Admin: 08/24/19 11:22 Dose: 200 mg Documented by: Meclizine HCl (Antivert) 12.5 mg PO 4X/DAY PRN PRN PRN Reason: VERTIGO Methylprednisolone (Solu-Medrol) 20 mg IV Q8 [facility] Last Admin: 08/24/19 05:27 Dose: 20 mg Documented by: Morphine Sulfate () 2 mg IV Q3H PRN PRN PRN Reason: Pain Score 6-10/10 Ondansetron HCl (Zofran) 4 mg IV Q8H PRN PRN PRN Reason: NAUSEA/VOMITING Oxycodone HCl (Oxyir) 5 mg PO Q4H PRN PRN PRN Reason: Pain Score 4-5/10 Pantoprazole Sodium (Protonix) 20 mg PO DAILY [facility] Last Admin: 08/24/19 11:22 Dose: 20 mg Documented by: Senna/Docusate Sodium (Senokot-S, Onelia-Colace) 2 tablet PO BID PRN PRN PRN Reason: Constipation Sodium Chloride () 10 - 40 ml IV UD PRN PRN Reason: SALINE FLUSH Last Admin: 08/23/19 21:05 Dose: 10 ml Documented by: Spironolactone (Aldactone) 25 mg PO DAILY [facility] Last Admin: 08/24/19 11:22 Dose: 25 mg Documented by: Zolpidem Tartrate (Ambien (Generic)) 5 mg PO QHS PRN PRN PRN Reason: INSOMNIA STROKE Vital Signs/Narrative: Vital Signs Temp Pulse Resp BP Pulse Ox 08/24/19 09:30 98.9 F 70 19 H 95/63 93 Medical Necessity - Tobacco Use Smoking Status: Never smoker Assessment/Plan 1. Acute UTI - Asymptomatic. culture shows serratia, susceptible to cephalosporins. continue rocephin. 2. Chronic hypoxic resp failure 2/2 COPD/CHF/Pulmonary Fibrosis - no exacerbation of COPD or CHF. added duoneb. Pt of Dr. Molina, and follows a subspecialist for pulm fibrosis. Continue IS. Continue prn albuterol. baseline 3lpm. 3. Intractable back pain - imaging with severe DDD. PTOT evals. consider o/p pain management referral. Possible wedge fracture on xray. pt placed on solumedrol and has good response. Pt now ambulatory. 4.CKDIII - improved. 5. Chronic diastolic CHF - no exacerbation. continue home lasix, aldactone 6. Hypothyroidism - synthroid 7. Valvular heart dz - s/p TAVR, tricuspid valve replacement, mitral valve replacement. 8. Chronic iron def anemia - continue po iron. 9. Chronic afib - warfarin, cardizem 10. HLD - statin 11. Hx breast cancer - inoperable. follows Dr. Hatch and [facility]. She has follow up in 2 weeks. DVT ppx: warfarin - held for elevated INR. DC planning: PTOT This patient was seen by Anuj Villa PA-C under the supervision of Dr. Chou
[2019-08-24 12:30] LABS: Platelet Count 181 K/mm3 (150-450); RET-HE 30.1 pg (30-35); Reticulocyte Count 3.97 % (0.5-1.5)
[2019-08-24] MEDS: Cefadroxil 500 MG CAPSULE PO ×2 (12:43→22:56)
--- NOTE | 2019-08-24 13:08 | CASEMGMT ---
Social Work Note SW updated that pt is agreeable to Meals on Wheels referral. Pt was also educated on Palliative care and is thinking about it. SW in to speak with pt. Pt confirms that she is agreeable to Meals on Wheels referral. SW informed pt that [facility] referral can be made. Pt also confirms that she was educated on Palliative Care, states she doesn't want a referral made at this time time but is agreeable to taking information. SW provided pt with Palliative Care brochure, updated pt that she can call Palliative Care once she gets home if she decides to meet with them. SW also educated pt on Direction Home and provided pt with Direction Home information. Pt agreeable to Direction Home referral being made. Pt denied additional needs or concerns at this time. SW made Meals on Wheels referral. SW made Direction Home referral. Allison Perry SCIENCE PROFESSOR, EMPLOYER RELATIONS REPRESENTATIVE
[2019-08-24 13:15] LABS: Phosphorus 4.2 mg/dL (2.5-4.9)
[2019-08-24 13:54] LABS: Ferritin 133 ng/mL (8-252); Iron 35 ug/dL (50-170); Iron Binding Capacity,Total 258 ug/dL (250-450); Magnesium 2.5 mg/dL (1.6-2.6); PERCENT IRON SATURATION 13.6 % (15.0-55.0)
[2019-08-24] MEDS: Lidocaine 5% Patch 1 PATCH TOPICAL (14:24)
--- NOTE | 2019-08-24 14:45 | CHAPLAIN ---
Type of Pastoral Visit _x__ Initial Visit ___ Follow-up Visit ___ On-call Visit ___ General Patient Visit ___ Spiritual Assessment ___ Family Conference ___ Bereavement ___ Rapid Response ___ Code Blue ___ Other (describe below) Pastoral Care Referral From _x__ Patient ___ Family ___ Nurse ___ Physician ___ Community Services Manager _x__ Elementary Secretary ___ Other (describe below) Sacrament/Intervention _x__ Active listening ___ Anointing ___ Orthodoxy ___ Bereavement ___ Communion _x__ Camille exploration ___ _x__ Life review _x__ Prayer ___ Reconciliation ___ Sacrament of Sick _x__ Supportive presence ___ Wedding ___ Other (describe below) Pastoral Comments 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
--- NOTE | 2019-08-24 14:56 | PCM.CONS.PUL ---
Problem List (1) MDS (myelodysplastic syndrome) Status: Chronic (2) History of breast cancer in female Status: Chronic (3) Pure hypercholesterolemia Status: Chronic (4) Prosthetic aortic valve stenosis Status: Chronic (5) Nonrheumatic mitral valve regurgitation Status: Chronic Comment: S/P valve repair with a 28 mm G04 annuloplasty ring in October 2011; (6) Nonrheumatic tricuspid (valve) insufficiency Status: Chronic Comment: S/P repair with a 30 mm MC3 ring angioplasty system in October 2011 (7) Subendocardial myocardial infarction Status: Chronic (8) Cardiomyopathy, dilated Status: Chronic (9) S/P AVR (aortic valve replacement) Status: Chronic Comment: TAVR [facility] [employer] 23 mm Kandice valve Aortic Valve 06/09 (10) Thrombocytopenia Status: Chronic (11) Chronic atrial fibrillation Status: Chronic (12) Congestive heart failure Status: Chronic Qualifiers: (13) Pulmonary hypertension Status: Chronic (14) Interstitial lung disease Status: Chronic Reason for Consult Date of Consultation: 08/24/19 Reason for Consultation: Conversational dyspnea History of Present Illness: The patient is a 79 year old F, with past medical history listed below, who presented to [facility] on 08/22/2019 secondary to intractable back pain. Patient reportedly has a history of breast cancer that has led to worsening back pain over the last 3 months. Patient described the pain is sharp and radiating from lumbar to thoracic spine. Patient states it is worse with any movement and better on a heating pad. Patient had had some shortness of breath, but denied any constitutional symptoms such as fever, chills, nausea or vomiting. Patient did have some diarrhea and dysuria along with general lysed weakness. On evaluation in the ER, patient was noted to be hypotensive at 91/55 with atrial fibrillation and leg edema. Chest x-ray was unremarkable, but lumbar x-ray showed some compression. Creatinine was slightly elevated at 1.53 and urinalysis did show 2+ bacteria. Patient was given a dose of Cipro, but was unable to ambulate with a walker, so was admitted to the hospital for intractable back pain. Over the course of the hospitalization, patient was placed on steroid therapy with improvement in back pain. There was some consideration for discharge today, but the hospitalist noted significant conversational dyspnea. Patient typically sees Dr. Molina as an outpatient, but a pulmonary consult was obtained for possible optimization options. Patient has a very complex past medical history for both cardiac and pulmonary etiologies for shortness of breath. Patient is very clear that she did not have any fever or productive cough on presentation. Patient states she feels that she is about 50% of baseline from a respiratory status. Patient has noted some increased lower extremity edema, but was recently seen in cardiology for congestive heart failure. Patient is very worried about changing her Lasix dosing as she has been told this can hurt the kidneys. Patient has been seen at [facility] previously for interstitial lung disease, but states that she has been seen Dr. Molina since 2011. Patient states that she uses 3 L nasal cannula at all times and rarely titrates it to exertion. Review of systems otherwise negative from a constitutional, HEENT, respiratory, cardiovascular, GI, genitourinary, musculoskeletal, skin, neurologic, psychiatric and hematologic system unless stated above. Past Medical History Past Medical History (Chronic Problems): Chronic Problems (Last Reviewed 08/22/19 @ 22:[address] La Balderas MD) MDS (myelodysplastic syndrome) (Chronic) Anemia (Chronic) History of breast cancer in female (Chronic) Pure hypercholesterolemia (Chronic) Essential hypertension (Chronic) Prosthetic aortic valve stenosis (Chronic) Nonrheumatic mitral valve regurgitation (Chronic) S/P valve repair with a 28 mm G04 annuloplasty ring in October 2011; Nonrheumatic tricuspid (valve) insufficiency (Chronic) S/P repair with a 30 mm MC3 ring angioplasty system in October 2011 Cardiac pacemaker in situ (Chronic) pacemaker implant 08/08 Presence of prosthetic heart valve (Chronic) 11/06, Mitral valve repair with 28mm [employer] annuloplasty, tricuspid repair with 30mm MC ring annuloplasty Nonrheumatic aortic (valve) insufficiency (Chronic) S/P TAVR with [employer] 23 mm low dense valve in May 2013 at [facility]; 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, dilated (Chronic) S/P AVR (aortic valve replacement) (Chronic ~05/2014) TAVR wit [employer] 23 mm Kandice valve Aortic Valve 06/09 History of bacterial endocarditis (Chronic) Thrombocytopenia (Chronic) Contusion of left upper arm, initial encounter (Chronic) Iron deficiency anemia (Chronic) Chronic atrial fibrillation (Chronic) Congestive heart failure (Chronic) Pulmonary hypertension (Chronic) Coronary artery disease (Chronic) Interstitial lung disease (Chronic) Hypothyroidism (Chronic) Medical History: Medical History (Last Reviewed 08/22/19 @ 22:[address] La Balderas MD) Pure hypercholesterolemia (Chronic) E78.00 Essential hypertension (Chronic) I10 Prosthetic aortic valve stenosis (Chronic) T82.857A Nonrheumatic mitral valve regurgitation (Chronic) I34.0 S/P valve repair with a 28 mm G04 annuloplasty ring in October 2011; Nonrheumatic tricuspid (valve) insufficiency (Chronic) I36.1 S/P repair with a 30 mm MC3 ring angioplasty system in October 2011 Cardiac pacemaker in situ (Chronic) Z95.0 pacemaker implant 08/08 Nonrheumatic aortic (valve) insufficiency (Chronic) I35.1 S/P TAVR with [employer] 23 mm low dense valve in May 2013 at [facility]; Subendocardial myocardial infarction (Chronic) I21.4 Cardiomyopathy, dilated (Chronic) I42.0 History of bacterial endocarditis (Chronic) Z86.79 Thrombocytopenia (Chronic) D69.6 Iron deficiency anemia (Chronic) D50.9 Chronic atrial fibrillation (Chronic) I48.2 Congestive heart failure (Chronic) I50.9 Pulmonary hypertension (Chronic) I27.2 Coronary artery disease (Chronic) I25.10 Interstitial lung disease (Chronic) J84.9 Hypothyroidism (Chronic) E03.9 Breast cancer C50.919 COPD (chronic obstructive pulmonary disease) J44.9 Left ventricular systolic dysfunction I51.9 Allergies GERI Inhibitors Allergy (Verified 08/22/19 22:43) Angioedema amiodarone Allergy (Verified 08/22/19 22:43) Other doxycycline Allergy (Verified 08/22/19 22:43) Other rosuvastatin calcium [From Crestor] Allergy (Verified 08/22/19 22:43) Other Sulfa (Sulfonamide Antibiotics) Allergy (Verified 08/22/19 22:43) Nausea tiotropium bromide [From Spiriva with HandiHaler] Allergy (Verified 08/23/19 11:06) Nausea codeine Adverse Reaction (Verified 08/22/19 22:43) Vomiting hydrocodone bitartrate [From Vicodin] Adverse Reaction (Verified 08/22/19 22:43) Vomiting Home Medications: Ambulatory Orders Medication Instructions Recorded Dicyclomine HCl [Bentyl] 10 mg PO TID 11/14/13 Ferrous Sulfate [Iron] 65 mg PO DAILY 06/23/16 Meclizine HCl [Antivert] 12.5 mg PO 4X/DAY PRN PRN 06/23/16 Nitroglycerin [Nitrostat] 0.4 mg SL DAILY PRN 06/23/16 lactobacillus combination no.8 3 3,000 mmu cells PO QDAY 04/08/17 billion cell capsule levothyroxine 75 mcg tablet 75 mcg PO DAILY tab 04/08/17 folic acid 800 mcg tablet 800 mcg PO QDAY 04/11/17 diltiazem HCl 240 mg 240 mg PO DAILY #90 cap 05/14/19 capsule,extended release 24 hr Atorvastatin Calcium 10 mg PO QHS 08/22/19 B-Complex with Vitamin C [Super B 1 tab PO DAILY 08/22/19 Complex-Vitamin C] Calcium Carbonate/Vitamin D3 1 tab PO DAILY 08/22/19 [Os-Kem 500+D3 Caplet] Cholecalciferol (Vitamin D3) 2,000 unit PO DAILY 08/22/19 [Vitamin D3] Esomeprazole Magnesium [Nexium 22.3 mg PO DAILY 08/22/19 24Hr] Fexofenadine HCl [Adriana Allergy] 180 mg PO DAILY 08/22/19 Fluticasone Propion/Salmeterol 1 puff INHALATION BID 08/22/19 [Wixela 250-50 Inhub] Furosemide 80 mg PO BID 08/22/19 Magnesium Oxide [Magnesium] 250 mg PO DAILY 08/22/19 Mineral Oil/Petrolatum,White 1 drp EACH EYE QHS 08/22/19 [Refresh P.m. Ointment] Diamond-3S/Dha/Epa/Fish Oil [Fish 1,200 mg PO DAILY 08/22/19 Oil 1,200 mg Softgel] Polyvinyl Alcohol/Povidone/Pf 1 drp EACH EYE TID 08/22/19 [Refresh Classic Eye Drops] Spironolactone [Aldactone] 25 mg PO DAILY 08/22/19 Warfarin Sodium [Coumadin] 4 mg PO MOWE 08/22/19 Warfarin [Coumadin (PBKC)] 1 mg PO SUTUTHFRSA 08/22/19 Acetaminophen [Tylenol Tablet] 650 mg PO Q6H PRN PRN tab 08/24/19 Cephalexin [Keflex] 500 mg PO BID #6 cap 08/24/19 Ipratropium/Albuterol Sulfate 3 ml INHALATION Q6H #120 ampul.neb 08/24/19 [Duoneb] MethylPREDNISolone DosePak [Medrol 4 mg PO UD #1 box 08/24/19 DosePak] Oxycodone [Oxyir] 5 mg PO Q6H PRN PRN 3 Days #12 tab 08/24/19 Surgical History: Surgical History (Last Reviewed 08/22/19 @ 22:[address] La Balderas MD) S/P AVR (aortic valve replacement) (Chronic) Onset Date: ~05/2014 Z95.2 TAVR [facility] [employer] 23 mm Kandice valve Aortic Valve 06/09 History of breast biopsy Onset Date: ~05/2019 Z98.890 History of bilateral knee replacement Z98.890, Z96.653 History of total hysterectomy Z98.890, Z90.710 History of mitral valve replacement (Inactive) Onset Date: ~10/2011 Z95.2 06/09 History of tricuspid valve replacement (Inactive) Onset Date: ~10/2011 Z95.2 06/09 Surgical History: cataract, hysterectomy, total knee arthroplasty, - - Mitral and tricuspid valve replacement, pacemaker implantation 2013 Psychiatric History: No pertinent psych hx 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 La Balderas MD) Father CAD (coronary artery disease) Myocardial infarction History Items: No pertinent history Paternal Family History: Family History (Last Reviewed 08/22/19 @ 22:[address] La Balderas MD) Father CAD (coronary artery disease) Myocardial infarction History Items: No pertinent history Review of Systems Comment: See HPI Objective: Multiple studies were reviewed. CT scan completed earlier today shows small bilateral pleural effusions with basilar atelectasis, bronchiectasis, cardiomegaly and significant enlargement of the pulmonary arteries. Echocardiogram (05/04/2019): EF 60% with mildly dilated RV and right systolic ventricular pressure of 60 mmHg. Left atrium and right atrium are moderately enlarged and there is a pacer wires. Bioprosthetic aortic valve appears to be functioning appropriately - Physical Exam Vitals/I&O's: Vital Signs Temp Pulse Resp BP Pulse Ox 37.2 C 70 19 H 95/63 90 08/24/19 09:30 08/24/19 09:30 08/24/19 09:30 08/24/19 09:30 08/24/19 14:00 Oxygen Flow Rate (L/min) [ 3 AMBULATION with Oxygen] Oxygen Flow Rate (L/min) 3 Oxygen Delivery Method Nasal Cannula Weight: 56.4 kg Body Mass Index (BMI) 24.3 Intake and Output for Last 24 Hours 08/22/19 08/23/19 08/24/19 23:59 23:59 23:59 Intake Total 500.25 / 500.25 1392.75 / 1792.75 1300 / 1300 Output Total 1050 / 2050 1000 / 1000 Balance 500.25 / 500.25 342.75 / -257.25 300 / 300 General: Alert, Oriented x3, Cooperative, No apparent distress, - - Thin build. Speaking in full sentences. HEENT: Atraumatic, PERRLA, EOMI, Normocephalic, - - No scleral icterus or injection noted. Glasses in place. Oral: Moist Mucosa, No Gingival or Mucosal Lesions/ Ulcerations Neck: No Nodes, Trachea Midline, JVD, Right Lungs: No rhonchi, No wheeze, Diminished, Rales - Bilateral bases, - - Symmetric expansion. Significant kyphoscoliosis appreciated. Cardiovascular: Normal S1, Irregular Rate, Murmur - Systolic and diastolic murmurs noted, grade 3 out of 6 in the right sternal and left sternal border. Prominent S2 Abdomen: Bowel Sounds Present, Soft, Non Tender, Non-Distended Extremities: No cyanosis, Clubbing, Edema - 2+ lower extremity edema Skin: No rashes, No breakdown Musculoskeletal: No Tenderness to Palpation of Joints or Extremities Lymphatic: No Cervical, Supraclavicular, or Inguinal Adenopathy Neurological: Cranial nerves II-XII grossly intact, Neuro grossly intact, Motor Exam 5/5 strength throughout Psych/Mental Status: Alert and oriented to time, place, person, mood and affect Microbiology Past 72 Hours 08/22/19 20:00 Urine, Clean Catch Urine Culture - Final Klebsiella oxytoca Laboratory Results 08/24/19 05:26: WBC 5.1, RBC 2.88 L, Hgb 8.1 L, Hct 26.5 L, MCV 92.0, MCH 28.1, MCHC 30.6 L, RDW Std Deviation 60.1 H, RDW Coeff of Jacob 17.8 H, Plt Count 151, MPV 8.7, Immature Gran % (Auto) 0.800, Neut % (Auto) 86.7 H, Lymph % (Auto) 8.8 L, [place] % (Auto) 3.5, Eos % (Auto) 0.0, Baso % (Auto) 0.2, Absolute Neuts (auto) 4.4, Absolute Lymphs (auto) 0.45 L, Nucleated RBC % 0, Differential Comment SCANNED 08/24/19 05:26: PT 34.3 H, INR 3.4 08/24/19 05:26: Sodium 132 L, Potassium 3.7, Chloride 100, Carbon Dioxide 23.0, Anion Gap 9, BUN 29 H, Creatinine 1.26 H, Estim Creat Clear Calc 26.01, Est GFR (MDRD) Af Amer 53 L, Est GFR (MDRD) Non-Af 44 L, BUN/Creatinine Ratio 23.0 H, Glucose 149 H, Calcium 8.4 L 08/24/19 05:26: B-Natriuretic Peptide Pending 08/24/19 12:10: Retic Count 3.97 H, Immature Retic Fraction 21.30 H, Retic Hgb Equivalent 30.1 08/24/19 12:10: Vitamin B12 Pending 08/24/19 12:10: Magnesium 2.5, Iron 35 L, TIBC 258, Iron Saturation 13.6 L, Ferritin 133, Folate 86.60 H 08/24/19 12:10: Phosphorus 4.2 Current Medications Acetaminophen (Tylenol) 650 mg PO Q6H PRN PRN PRN Reason: Pain Score 1-10/Temp > 100.7 F Albuterol Sulfate (Ventolin Aerosols) 2.5 mg INHALATION Q4H PRN PRN PRN Reason: Shortness of breath, wheezing Last Admin: 08/24/19 03:50 Dose: 2.5 mg Documented by: Albuterol/Ipratropium (Duoneb) 3 ml INHALATION Q6HWA.RT RADHA Last Admin: 08/24/19 12:39 Dose: Not Given Documented by: Atorvastatin Calcium (Lipitor) 10 mg PO DAILY@2200 [facility] Last Admin: 08/23/19 21:06 Dose: 10 mg Documented by: Cefadroxil (Duricef) 500 mg PO BID [facility] Last Admin: 08/24/19 12:43 Dose: 500 mg Documented by: Dicyclomine HCl (Bentyl) 10 mg PO TIDAC [facility] Last Admin: 08/24/19 11:21 Dose: 10 mg Documented by: Diltiazem HCl (Cardizem Cd) 240 mg PO DAILY [facility] Last Admin: 08/24/19 11:22 Dose: 240 mg Documented by: Ferrous Sulfate (Ferrous Sulfate) 325 mg PO DAILY@1200 [facility] Last Admin: 08/24/19 11:23 Dose: 325 mg Documented by: Folic Acid (Folic Acid) 1 mg PO DAILYCM [facility] Last Admin: 08/24/19 07:46 Dose: 1 mg Documented by: Furosemide (Lasix) 80 mg IV BID@1000,1800 [facility] Sodium Chloride () 250 mls @ 15 mls/hr IV .[id number] PRN PRN Reason: Saline Flush Last Infusion: 08/23/19 22:30 Dose: 0 mls/hr Documented by: Sodium Chloride () 250 mls @ 15 mls/hr IV .[id number] PRN PRN Reason: Additional IVPB Infusion Levothyroxine Sodium (Synthroid) 75 mcg PO DAILY@0600 [facility] Last Admin: 08/24/19 05:26 Dose: 75 mcg Documented by: Lidocaine (Lidoderm Patch) 1 patch TOPICAL DAILY [facility]; Protocol Last Admin: 08/24/19 14:24 Dose: 1 patch Documented by: Magnesium Hydroxide (Milk Of Magnesia) 15 ml PO DAILY [facility] Last Admin: 08/24/19 11:23 Dose: Not Given Documented by: Magnesium Oxide (Mag-Ox 400) 200 mg PO DAILY [facility] Last Admin: 08/24/19 11:22 Dose: 200 mg Documented by: Meclizine HCl (Antivert) 12.5 mg PO 4X/DAY PRN PRN PRN Reason: VERTIGO Morphine Sulfate () 2 mg IV Q3H PRN PRN PRN Reason: Pain Score 6-10/10 Ondansetron HCl (Zofran) 4 mg IV Q8H PRN PRN PRN Reason: NAUSEA/VOMITING Oxycodone HCl (Oxyir) 5 mg PO Q4H PRN PRN PRN Reason: Pain Score 4-5/10 Pantoprazole Sodium (Protonix) 20 mg PO DAILY [facility] Last Admin: 08/24/19 11:22 Dose: 20 mg Documented by: Senna/Docusate Sodium (Senokot-S, Onelia-Colace) 2 tablet PO BID PRN PRN PRN Reason: Constipation Sodium Chloride () 10 - 40 ml IV UD PRN PRN Reason: SALINE FLUSH Last Admin: 08/23/19 21:05 Dose: 10 ml Documented by: Spironolactone (Aldactone) 25 mg PO DAILY [facility] Last Admin: 08/24/19 11:22 Dose: 25 mg Documented by: Zolpidem Tartrate (Ambien (Generic)) 5 mg PO QHS PRN PRN PRN Reason: INSOMNIA Clinical Impression(s) from Imaging Studies Chest CT 08/24/19 11:17 IMPRESSION: Small bilateral pleural effusions with bibasilar atelectasis and/or infiltrates at the lung bases. Cardiomegaly with enlargement of both the right and left atrium. Enlargement of the pulmonary arteries. Electronically Signed: Joey Avila, at 13:03 EDT , Service support , Assessment/Plan RECOMMENDATIONS: 1. Initiate aggressive diuresis 2. No steroids indicated from a pulmonary perspective 3. Wean oxygen as tolerated. Walking oximetry prior to discharge 4. Continue anticoagulation IMPRESSIONS: 1. Chronic hypoxic respiratory failure/bronchiectasis/pulmonary fibrosis/kyphoscoliosis Patient with multiple etiologies for hypoxia. Patient does have bronchiectasis noted on CT scan of the chest, but does not have any infiltrates suggestive of an acute infectious process. Patient is not reporting any purulent sputum or change in cough to suggest a bronchiectasis/pulmonary fibrosis exacerbation. No steroids are indicated from a pulmonary perspective. Patient does have significant pulmonary hypertension on recent echocardiogram and worsening lower extremity edema. Highly suspicious the patient requires more than 3 L nasal cannula with exertion, so a walking oximetry should be completed prior to discharge. 2. Chronic diastolic CHF/acute cor pulmonale/valvular heart disease/chronic A. fib Patient appears to be on appropriate therapy with anticoagulation and optimization of heart rate. However, given patient's elevated pulmonary artery pressures and lower extremity edema, there is significant concern for cor pulmonale complicating current condition. Recommend increasing diuretic therapy. Given high dose Lasix already taken, will likely need monitored in the hospital with electrolytes replaced as indicated. Patient is well rate controlled at this time. 3. CKD stage III/intractable back pain/hypothyroidism/advanced age/iron deficiency anemia/hyperlipidemia/breast cancer Complicates care, management, recovery and prognosis. Okay to continue with current plan from my perspective. Patient does have an acute UTI, but appears to be responding well to current antibiotic therapy. Patient does have a wedge fracture noted on x-ray. Unclear if palliative/hospice measures would be indicated on discharge given comorbidities and symptomatology. Defer to hospitalist service. Inpatient E&M: [id number] Init Hosp L3
[2019-08-24 16:11] LABS: Vitamin B12 1243 pg/mL (211-911)
[2019-08-24] MEDS: Furosemide 100 MG/10 ML Vial 80 MG IV (18:09)
[2019-08-24] MEDS: 0.9% Saline Lock 10 ML Syringe IV (18:09)
[2019-08-24 20:20] LABS: Urea Nitrogen, Urine 482 mg/dL (NO RANGE EST.)
[2019-08-24] MEDS: Atorvastatin Calcium 10 MG Tablet PO (22:56)
[2019-08-25] VITALS (11 sets, daily range): BP systolic 106–126; BP diastolic 65–77; PULSE 69–75; RESP 16–20; TEMP 36.4–36.7; O2SAT 92–100
[2019-08-25] MEDS: Dicyclomine 10 MG Capsule PO ×3 (06:23→22:27)
[2019-08-25] MEDS: Levothyroxine 75 MCG Tablet PO (06:23)
[2019-08-25] MEDS: Ipratropium/Albuterol Sulfate 3 ML AMPUL.NEB INHALATION ×3 (07:08→19:20)
[2019-08-25 07:49] LABS: Hematocrit 30.8 % (37-47); Hemoglobin 9.4 g/dL (12.0-15.0)
--- NOTE | 2019-08-25 07:49 | PCM.PROGNOTE ---
Subjective: Day #4 antibiotics Patient was seen in conjunction with Anuj Villa. I have discussed the case with Anuj and orders have been written. Afebrile since admission Heart rate is within normal limits. Blood pressure is well controlled and orthostatic vital signs are negative today. She is currently 96 to 100% saturated on a 3 L nasal cannula at rest. Her pulse ox with ambulation on oxygen was 90% yesterday and that was on 3 L/min. Respiratory rate has come down since yesterday. Fluid balance on 08/24/2019 was +625 and overnight she was -400. Urine output on 08/24/2019 was 1575 but she took 2200 p.o. All labs personally reviewed. Hemoglobin today is 9.4, up from 8.1 yesterday following intravenous Lasix/diuresis. Reticulocyte count is elevated at 3.97 and immature reticulocyte fraction is 21.3%. The BNP on 08/24/2019 was 1169. B12 and folate are both high. Serum iron is low at 35 but the TIBC is normal at 258 and the ferritin is 133. Oxygen saturation is mildly decreased at 13.6. Fractional excretion of urea was 22.1% which is consistent with prerenal. INR today went up to 4.1 despite the fact that were holding warfarin. Hyponatremia has improved and the sodium is up to 135. The BUN is 35 and the creatinine is 1.33 which is still within her baseline. Serum bicarb is 23 and stable. Medication list was reviewed. She is on Bentyl 10 mg 3 times daily. She also has as needed oxycodone, meclizine, morphine sulfate as needed ordered and these are all sedating. She is complaining of increasing feeling of fatigue today. She also thinks that her brain is not as sharp. She is also complaining of mid back pain and the lidocaine patch is not helping her. She requested Biofreeze but it is not on the formulary. She did not sleep well last night due to people coming in taking her vital signs frequently and has not been resting well due to severe shortness of breath and the steroids which were discontinued yesterday because she is not wheezing and the SOB is due to cor pulmonale. Occasional cough with clear sputum. She tells me that she forces fluids because she thought you had to drink a lot of fluids when on a diuretic to prevent dehydration. She chronically has dry mouth but she is on an anti-cholinergic TID. She appears drowsy, she is oriented X3 and appropriate Lungs - the basilar rales are improving, no wheezing, the conversational dyspnea is somewhat better today, no accessory muscle use today. H - RRR still with pitting edema of the distal LE's and the ankles No rashes, no skin breakdown - Physical Exam Vitals/I&O's: Vital Signs Temp Pulse Resp BP Pulse Ox 97.6 F L 70 16 113/70 96 08/25/19 06:25 08/25/19 07:08 08/25/19 07:08 08/25/19 06:38 08/25/19 07:08 Oxygen Flow Rate (L/min) [ 3 AMBULATION with Oxygen] Oxygen Flow Rate (L/min) 3 Oxygen Delivery Method Nasal Cannula Weight: 124 lb 5.451 oz Body Mass Index (BMI) 24.3 Orthostatic Vital Signs Start: 08/25/19 03:04 Freq: q24h Status: Active Protocol: Activity Type Activity Date Activity User E-Sign Co-Sign Detail Recorded Client Recorded Date Recorded By Document 08/25/19 06:38 EV [id number] 08/25/19 06:39 EV 08/25/19 06:38 Orthostatic Vitals Standing -Blood Pressure (90/60-120/80 mm Hg) 106/76 -Extremity Use Left Arm -Pulse Rate (60-100 beats/min) 69 Sitting -Blood Pressure (90/60-120/80 mm Hg) 116/68 -Extremity Use Left Arm -Pulse Rate (60-100 beats/min) 70 Lying -Blood Pressure (90/60-120/80 mm Hg) 113/70 -Extremity Use Left Arm -Pulse Rate (60-100 beats/min) 70 Intake and Output for Last 24 Hours 08/23/19 08/24/19 08/25/19 23:59 23:59 23:59 Intake Total 1392.75 / 1792.75 2200 / 2200 100 / 100 Output Total 1050 / 2050 1575 / 1575 500 / 500 Balance 342.75 / -257.25 625 / 625 -400 / -400 Microbiology Past 72 Hours 08/22/19 20:00 Urine, Clean Catch Urine Culture - Final Klebsiella oxytoca Laboratory Results 08/24/19 05:26: B-Natriuretic Peptide 1169.0 H 08/24/19 12:10: Retic Count 3.97 H, Immature Retic Fraction 21.30 H, Retic Hgb Equivalent 30.1 08/24/19 12:10: Vitamin B12 1243 H 08/24/19 12:10: Magnesium 2.5, Iron 35 L, TIBC 258, Iron Saturation 13.6 L, Ferritin 133, Folate 86.60 H 08/24/19 12:10: Phosphorus 4.2 08/24/19 18:10: Urine Creatinine 94.90 08/24/19 18:10: Urine Urea Nitrogen 482 08/25/19 07:00: Hgb Pending, Hct Pending 08/25/19 07:00: Sodium Pending, Potassium Pending, Chloride Pending, Carbon Dioxide Pending, Anion Gap Pending, BUN Pending, Creatinine Pending, Est GFR (MDRD) Af Amer Pending, Est GFR (MDRD) Non-Af Pending, BUN/Creatinine Ratio Pending, Glucose Pending, Calcium Pending, Phosphorus Pending, Magnesium Pending Current Medications Acetaminophen (Tylenol) 650 mg PO Q6H PRN PRN PRN Reason: Pain Score 1-10/Temp > 100.7 F Albuterol Sulfate (Ventolin Aerosols) 2.5 mg INHALATION Q4H PRN PRN PRN Reason: Shortness of breath, wheezing Last Admin: 08/24/19 03:50 Dose: 2.5 mg Documented by: Albuterol/Ipratropium (Duoneb) 3 ml INHALATION Q6HWA.RT [facility] Last Admin: 08/25/19 07:08 Dose: 3 ml Documented by: Atorvastatin Calcium (Lipitor) 10 mg PO DAILY@2200 [facility] Last Admin: 08/24/19 22:56 Dose: 10 mg Documented by: Cefadroxil (Duricef) 500 mg PO BID [facility] Last Admin: 08/24/19 22:56 Dose: 500 mg Documented by: Dicyclomine HCl (Bentyl) 10 mg PO TIDAC [facility] Last Admin: 08/25/19 06:23 Dose: 10 mg Documented by: Diltiazem HCl (Cardizem Cd) 240 mg PO DAILY [facility] Last Admin: 08/24/19 11:22 Dose: 240 mg Documented by: Ferrous Sulfate (Ferrous Sulfate) 325 mg PO DAILY@1200 [facility] Last Admin: 08/24/19 11:23 Dose: 325 mg Documented by: Folic Acid (Folic Acid) 1 mg PO DAILYCM [facility] Last Admin: 08/24/19 07:46 Dose: 1 mg Documented by: Furosemide (Lasix) 80 mg IV BID@1000,1800 [facility] Last Admin: 08/24/19 18:09 Dose: 80 mg Documented by: Sodium Chloride () 250 mls @ 15 mls/hr IV .[id number] PRN PRN Reason: Saline Flush Last Infusion: 08/23/19 22:30 Dose: 0 mls/hr Documented by: Sodium Chloride () 250 mls @ 15 mls/hr IV .[id number] PRN PRN Reason: Additional IVPB Infusion Levothyroxine Sodium (Synthroid) 75 mcg PO DAILY@0600 [facility] Last Admin: 08/25/19 06:23 Dose: 75 mcg Documented by: Lidocaine (Lidoderm Patch) 1 patch TOPICAL DAILY [facility]; Protocol Last Admin: 08/24/19 14:24 Dose: 1 patch Documented by: Magnesium Hydroxide (Milk Of Magnesia) 15 ml PO DAILY [facility] Last Admin: 08/24/19 11:23 Dose: Not Given Documented by: Magnesium Oxide (Mag-Ox 400) 200 mg PO DAILY [facility] Last Admin: 08/24/19 11:22 Dose: 200 mg Documented by: Meclizine HCl (Antivert) 12.5 mg PO 4X/DAY PRN PRN PRN Reason: VERTIGO Morphine Sulfate () 2 mg IV Q3H PRN PRN PRN Reason: Pain Score 6-10/10 Ondansetron HCl (Zofran) 4 mg IV Q8H PRN PRN PRN Reason: NAUSEA/VOMITING Oxycodone HCl (Oxyir) 5 mg PO Q4H PRN PRN PRN Reason: Pain Score 4-5/10 Pantoprazole Sodium (Protonix) 20 mg PO DAILY [facility] Last Admin: 08/24/19 11:22 Dose: 20 mg Documented by: Senna/Docusate Sodium (Senokot-S, Onelia-Colace) 2 tablet PO BID PRN PRN PRN Reason: Constipation Sodium Chloride () 10 - 40 ml IV UD PRN PRN Reason: SALINE FLUSH Last Admin: 08/24/19 18:09 Dose: 10 ml Documented by: Spironolactone (Aldactone) 25 mg PO DAILY [facility] Last Admin: 08/24/19 11:22 Dose: 25 mg Documented by: Zolpidem Tartrate (Ambien (Generic)) 5 mg PO QHS PRN PRN PRN Reason: INSOMNIA Medical Necessity - Tobacco Use Smoking Status: Never smoker Assessment/Plan Impressions 1. Acute uncomplicated urinary tract infection secondary to Klebsiella oxytoca which is sensitive to everything but ampicillin. She was initially on Rocephin and was converted to cefadroxil on 08/24/2019. 2. Acute on chronic congestive heart failure - Pt has been out-drinking her diuretics because she did not want to get dehydrated. She has been placed on fluid restriction. Will continue the IV Lasix and give 1 dose of Metolazone today. 3. Bronchiectasis on CT scan 4. Acute on chronic respiratory failure with hypoxemia secondary to acute congestive heart failure 5. Supratherapeutic INR which is increasing despite holding warfarin 6. Stage III chronic renal failure 7. Hyponatremia-improving with diuresis 8. Recently diagnosed breast cancer 9. Chronic back pain 10. History of irritable bowel syndrome on Bentyl 10 mg 3 times daily. Bentyl is an anticholinergic which is contraindicated in patients over the age of 65, especially those with cardiovascular disease. This medication also causes drowsiness so will discontinue at this time. Appreciate Dr. Edward's consult and his recommendations. Discontinue the lidocaine patch and start EMLA cream to the mid back followed by Zostrix cream 10 to 15 minutes later 3 times daily. Continue Lasix 80 mg IV twice daily and daily Spironolactone. 1 dose of metolazone today Restrict fluids to 1200 cc daily 5 mg of vitamin K today p.o. Recheck lab in the a.m. Start acetaminophen 1 g p.o. every 8 hours for pain relief. Discontinue Bentyl Discontinue morphine sulfate Decrease the oxycodone to 2.5 mg p.o. every 6 hours as needed severe pain Inpatient E&M: [id number] [facility] Hosp L2
[2019-08-25 08:28] LABS: Anion Gap 8 (5-15); BUN 35 mg/dL (7-18); BUN/Creat Ratio 26.3 RATIO (10-20); Calcium,Total 8.8 mg/dL (8.5-10.1); Chloride 104 mmol/L (98-107); Creatinine, Serum 1.33 mg/dL (0.55-1.02); EST Glomerular Filtration Rate 41 mL/min (>60); Est Glom Filt Rate - Afr Amer 49 mL/min (>60); Estimated Creatinine Clearance 24.64 ml/min; Glucose 97 mg/dL (74-106); Magnesium 2.5 mg/dL (1.6-2.6); Phosphorus 4.3 mg/dL (2.5-4.9); Potassium 4.3 mmol/L (3.5-5.1); Sodium Level 135 mmol/L (136-145)
--- NOTE | 2019-08-25 08:32 | PN_ITS ---
Subjective: Patient did well overnight. Patient reports subjective improvement in dyspnea. Patient is reporting some vaginal discomfort that she associates with the use of the diaper. Patient is not reporting any muscle cramps or dizziness with standing. - Physical Exam Vitals/I&O's: Vital Signs Temp Pulse Resp BP Pulse Ox 36.4 C L 70 16 113/70 96 08/25/19 06:25 08/25/19 07:08 08/25/19 07:08 08/25/19 06:38 08/25/19 07:08 Oxygen Flow Rate (L/min) [ 3 AMBULATION with Oxygen] Oxygen Flow Rate (L/min) 3 Oxygen Delivery Method Nasal Cannula Weight: 56.4 kg Body Mass Index (BMI) 24.3 Orthostatic Vital Signs Start: 08/25/19 03:04 Freq: q24h Status: Active Protocol: Activity Type Activity Date Activity User E-Sign Co-Sign Detail Recorded Client Recorded Date Recorded By Document 08/25/19 06:38 EV [id number] 08/25/19 06:39 EV 08/25/19 06:38 Orthostatic Vitals Standing -Blood Pressure (90/60-120/80) 106/76 -Extremity Use Left Arm -Pulse Rate (60-100) 69 Sitting -Blood Pressure (90/60-120/80) 116/68 -Extremity Use Left Arm -Pulse Rate (60-100) 70 Lying -Blood Pressure (90/60-120/80) 113/70 -Extremity Use Left Arm -Pulse Rate (60-100) 70 Intake and Output for Last 24 Hours 08/23/19 08/24/19 08/25/19 23:59 23:59 23:59 Intake Total 1392.75 / 1792.75 2200 / 2200 100 / 100 Output Total 1050 / 2050 1575 / 1575 500 / 500 Balance 342.75 / -257.25 625 / 625 -400 / -400 General: Alert, Oriented x3, Cooperative, No apparent distress, - - Frail appearing. Speaking in full sentences. HEENT: Atraumatic, PERRLA, EOMI, Normocephalic, - - No scleral icterus or injection noted. Glasses in place. Oral: Moist Mucosa, No Gingival or Mucosal Lesions/ Ulcerations Neck: Supple, No JVD, No Nodes, Trachea Midline Lungs: No rhonchi, No wheeze, Diminished, Rales, - - Symmetric expansion. Significant kyphoscoliosis. Cardiovascular: Normal S1, Normal S2, Murmur - No change compared to previous, No rub noted, No Gallop Abdomen: Bowel Sounds Present, Soft, Non Tender, Non-Distended Extremities: No cyanosis, Capillary Refill Less than 3 Seconds, Edema - Improving Skin: - - No change from previous Musculoskeletal: No Tenderness to Palpation of Joints or Extremities Lymphatic: No Cervical, Supraclavicular, or Inguinal Adenopathy Neurological: Cranial nerves II-XII grossly intact, Neuro grossly intact, Motor Exam 5/5 strength throughout Psych/Mental Status: Alert and oriented to time, place, person, mood and affect Microbiology Past 72 Hours 08/22/19 20:00 Urine, Clean Catch Urine Culture - Final Klebsiella oxytoca Laboratory Results 08/24/19 05:26: B-Natriuretic Peptide 1169.0 H 08/24/19 12:10: Retic Count 3.97 H, Immature Retic Fraction 21.30 H, Retic Hgb Equivalent 30.1 08/24/19 12:10: Vitamin B12 1243 H 08/24/19 12:10: Magnesium 2.5, Iron 35 L, TIBC 258, Iron Saturation 13.6 L, Ferritin 133, Folate 86.60 H 08/24/19 12:10: Phosphorus 4.2 08/24/19 18:10: Urine Creatinine 94.90 08/24/19 18:10: Urine Urea Nitrogen 482 08/25/19 07:00: Hgb 9.4 L, Hct 30.8 L 08/25/19 07:00: Sodium 135 L, Potassium 4.3, Chloride 104, Carbon Dioxide 23.0, Anion Gap 8, BUN 35 H, Creatinine 1.33 H, Estim Creat Clear Calc 24.64, Est GFR (MDRD) Af Amer 49 L, Est GFR (MDRD) Non-Af 41 L, BUN/Creatinine Ratio 26.3 H, Glucose 97, Calcium 8.8, Phosphorus 4.3, Magnesium 2.5 Current Medications Acetaminophen (Tylenol) 650 mg PO Q6H PRN PRN PRN Reason: Pain Score 1-10/Temp > 100.7 F Albuterol Sulfate (Ventolin Aerosols) 2.5 mg INHALATION Q4H PRN PRN PRN Reason: Shortness of breath, wheezing Last Admin: 08/24/19 03:50 Dose: 2.5 mg Documented by: Albuterol/Ipratropium (Duoneb) 3 ml INHALATION Q6HWA.RT [facility] Last Admin: 08/25/19 07:08 Dose: 3 ml Documented by: Atorvastatin Calcium (Lipitor) 10 mg PO DAILY@2200 [facility] Last Admin: 08/24/19 22:56 Dose: 10 mg Documented by: Cefadroxil (Duricef) 500 mg PO BID [facility] Last Admin: 08/24/19 22:56 Dose: 500 mg Documented by: Dicyclomine HCl (Bentyl) 10 mg PO TIDAC [facility] Last Admin: 08/25/19 06:23 Dose: 10 mg Documented by: Diltiazem HCl (Cardizem Cd) 240 mg PO DAILY [facility] Last Admin: 08/24/19 11:22 Dose: 240 mg Documented by: Ferrous Sulfate (Ferrous Sulfate) 325 mg PO DAILY@1200 [facility] Last Admin: 08/24/19 11:23 Dose: 325 mg Documented by: Folic Acid (Folic Acid) 1 mg PO DAILYCM [facility] Last Admin: 08/24/19 07:46 Dose: 1 mg Documented by: Furosemide (Lasix) 80 mg IV BID@1000,1800 [facility] Last Admin: 08/24/19 18:09 Dose: 80 mg Documented by: Sodium Chloride () 250 mls @ 15 mls/hr IV .[id number] PRN PRN Reason: Saline Flush Last Infusion: 08/23/19 22:30 Dose: 0 mls/hr Documented by: Sodium Chloride () 250 mls @ 15 mls/hr IV .[id number] PRN PRN Reason: Additional IVPB Infusion Levothyroxine Sodium (Synthroid) 75 mcg PO DAILY@0600 [facility] Last Admin: 08/25/19 06:23 Dose: 75 mcg Documented by: Lidocaine (Lidoderm Patch) 1 patch TOPICAL DAILY [facility]; Protocol Last Admin: 08/24/19 14:24 Dose: 1 patch Documented by: Magnesium Hydroxide (Milk Of Magnesia) 15 ml PO DAILY [facility] Last Admin: 08/24/19 11:23 Dose: Not Given Documented by: Magnesium Oxide (Mag-Ox 400) 200 mg PO DAILY [facility] Last Admin: 08/24/19 11:22 Dose: 200 mg Documented by: Meclizine HCl (Antivert) 12.5 mg PO 4X/DAY PRN PRN PRN Reason: VERTIGO Morphine Sulfate () 2 mg IV Q3H PRN PRN PRN Reason: Pain Score 6-10/10 Ondansetron HCl (Zofran) 4 mg IV Q8H PRN PRN PRN Reason: NAUSEA/VOMITING Oxycodone HCl (Oxyir) 5 mg PO Q4H PRN PRN PRN Reason: Pain Score 4-5/10 Pantoprazole Sodium (Protonix) 20 mg PO DAILY [facility] Last Admin: 08/24/19 11:22 Dose: 20 mg Documented by: Senna/Docusate Sodium (Senokot-S, Onelia-Colace) 2 tablet PO BID PRN PRN PRN Reason: Constipation Sodium Chloride () 10 - 40 ml IV UD PRN PRN Reason: SALINE FLUSH Last Admin: 08/24/19 18:09 Dose: 10 ml Documented by: Spironolactone (Aldactone) 25 mg PO DAILY [facility] Last Admin: 08/24/19 11:22 Dose: 25 mg Documented by: Zolpidem Tartrate (Ambien (Generic)) 5 mg PO QHS PRN PRN PRN Reason: INSOMNIA Clinical Impression(s) from Imaging Studies Chest CT 08/24/19 11:17 IMPRESSION: Small bilateral pleural effusions with bibasilar atelectasis and/or infiltrates at the lung bases. Cardiomegaly with enlargement of both the right and left atrium. Enlargement of the pulmonary arteries. Electronically Signed: Joey Avila, at 13:03 EDT , Service support , Medical Necessity - Tobacco Use Smoking Status: Never smoker Assessment/Plan RECOMMENDATIONS: 1. Continue aggressive diuresis 2. No steroids indicated from a pulmonary perspective 3. Wean oxygen as tolerated. Walking oximetry prior to discharge 4. Continue anticoagulation IMPRESSIONS: 1. Chronic hypoxic respiratory failure/bronchiectasis/pulmonary fibrosis/kyphoscoliosis Patient with multiple etiologies for hypoxia. Patient does have bronchiectasis noted on CT scan of the chest, but does not have any infiltrates suggestive of an acute infectious process. Patient is not reporting any purulent sputum or change in cough to suggest a bronchiectasis/pulmonary fibrosis exacerbation. No steroids are indicated from a pulmonary perspective. Patient appears to be tolerating increased diuretic therapy well. Would continue for another 24 hours. Baseline saturations appear to be improving on current nasal cannula. Wean oxygen as tolerated. Highly suspicious the patient requires more than 3 L nasal cannula with exertion, so a walking oximetry should be completed prior to discharge. 2. Chronic diastolic CHF/acute cor pulmonale/valvular heart disease/chronic A. fib Patient appears to be on appropriate therapy with anticoagulation and optimization of heart rate. However, given patient's elevated pulmonary artery pressures and lower extremity edema, there is significant concern for cor pulmonale complicating current condition. Recommend increasing diuretic therapy. Given high dose Lasix already taken, will likely need monitored in the hospital with electrolytes replaced as indicated. Patient is well rate controlled at this time. 3. CKD stage III/intractable back pain/hypothyroidism/advanced age/iron deficiency anemia/hyperlipidemia/breast cancer Complicates care, management, recovery and prognosis. Okay to continue with current plan from my perspective. Patient does have an acute UTI, but appears to be responding well to current antibiotic therapy. Patient does have a wedge fracture noted on x-ray. Unclear if palliative/hospice measures would be indicated on discharge given comorbidities and symptomatology. Defer to hospitalist service. Inpatient E&M: [id number] Subs Hosp L2
[2019-08-25 09:19] LABS: Prothrombin Time (Protime)PT. 39.6 SECONDS (11.7-14.9)
[2019-08-25 09:23] LABS: International Normalized Ratio 4.1
--- NOTE | 2019-08-25 09:27 | NURSING ---
Update given t daughter lobito
[2019-08-25] MEDS: Cefadroxil 500 MG CAPSULE PO ×2 (10:30→22:27)
[2019-08-25] MEDS: Folic Acid 1 MG Tablet PO (10:30)
[2019-08-25] MEDS: Magnesium Oxide 400 MG Tablet 200 MG PO (10:31)
[2019-08-25] MEDS: Pantoprazole Sodium 20 MG Tablet PO (10:31)
[2019-08-25] MEDS: dilTIAZem CD 240 MG Capsule PO (10:32)
[2019-08-25] MEDS: Furosemide 100 MG/10 ML Vial 80 MG IV ×2 (10:32→17:19)
[2019-08-25] MEDS: Magnesium Hydroxide 30 ML UDC 15 ML PO (10:32)
[2019-08-25] MEDS: Spironolactone 25 MG Tablet PO (10:32)
[2019-08-25] MEDS: Ferrous Sulfate 325 MG Tablet PO (10:40)
[2019-08-25] MEDS: metOLazone 5 MG Tablet PO (12:00)
[2019-08-25] MEDS: Phytonadione (Vit K1) 5 MG TABLET PO (12:00)
--- NOTE | 2019-08-25 13:49 | PCM.PN.HOSP ---
Reason for Visit: back pain, UTI Subjective: Pt feels that her breathing is minimally improved. No LE edema. No CP. No Palp. No cough. No fever/chills. No dysuria. She c/o increased back pain today. Vitals/I&O's: Vital Signs Temp Pulse Resp BP Pulse Ox 98.1 F 72 18 120/65 94 08/25/19 10:00 08/25/19 10:00 08/25/19 10:00 08/25/19 10:00 08/25/19 10:01 Oxygen Flow Rate (L/min) [ 3 AMBULATION with Oxygen] Oxygen Flow Rate (L/min) 3 Oxygen Delivery Method Nasal Cannula Weight: 124 lb 5.451 oz Body Mass Index (BMI) 24.3 Orthostatic Vital Signs Start: 08/25/19 03:04 Freq: q24h Status: Active Protocol: Activity Type Activity Date Activity User E-Sign Co-Sign Detail Recorded Client Recorded Date Recorded By Document 08/25/19 06:38 EV [id number] 08/25/19 06:39 EV 08/25/19 06:38 Orthostatic Vitals Standing -Blood Pressure (90/60-120/80) 106/76 -Extremity Use Left Arm -Pulse Rate (60-100) 69 Sitting -Blood Pressure (90/60-120/80) 116/68 -Extremity Use Left Arm -Pulse Rate (60-100) 70 Lying -Blood Pressure (90/60-120/80) 113/70 -Extremity Use Left Arm -Pulse Rate (60-100) 70 Intake and Output for Last 24 Hours 08/23/19 08/24/19 08/25/19 23:59 23:59 23:59 Intake Total 1392.75 / 1792.75 2200 / 2200 250 / 250 Output Total 1050 / 2050 1575 / 1575 500 / 500 Balance 342.75 / -257.25 625 / 625 -250 / -250 General: Alert, Oriented x3, Cooperative HEENT: Atraumatic, PERRLA, EOMI, Normocephalic Neck: Supple, No JVD, Negative Carotid Bruits Lungs: Clear to auscultation, Diminished Cardiovascular: Regular rate, No murmurs Abdomen: Bowel Sounds Present, Soft, Non Tender Extremities: No edema, Capillary Refill Less than 3 Seconds Skin: No rashes, No breakdown Musculoskeletal: No Tenderness to Palpation of Joints or Extremities Neurological: Cranial nerves II-XII grossly intact Psych/Mental Status: Normal Affect, Appropriate, Alert and oriented to time, place, person, mood and affect Microbiology Past 72 Hours 08/22/19 20:00 Urine, Clean Catch Urine Culture - Final Klebsiella oxytoca Laboratory Results 08/24/19 05:26: B-Natriuretic Peptide 1169.0 H 08/24/19 12:10: Vitamin B12 1243 H 08/24/19 12:10: Magnesium 2.5, Iron 35 L, TIBC 258, Iron Saturation 13.6 L, Ferritin 133, Folate 86.60 H 08/24/19 18:10: Urine Creatinine 94.90 08/24/19 18:10: Urine Urea Nitrogen 482 08/25/19 07:00: Hgb 9.4 L, Hct 30.8 L 08/25/19 07:00: Sodium 135 L, Potassium 4.3, Chloride 104, Carbon Dioxide 23.0, Anion Gap 8, BUN 35 H, Creatinine 1.33 H, Estim Creat Clear Calc 24.64, Est GFR (MDRD) Af Amer 49 L, Est GFR (MDRD) Non-Af 41 L, BUN/Creatinine Ratio 26.3 H, Glucose 97, Calcium 8.8, Phosphorus 4.3, Magnesium 2.5 08/25/19 08:42: PT 39.6 H, INR 4.1 H* Current Medications Acetaminophen (Tylenol) 650 mg PO Q6H PRN PRN PRN Reason: Pain Score 1-10/Temp > 100.7 F Albuterol Sulfate (Ventolin Aerosols) 2.5 mg INHALATION Q4H PRN PRN PRN Reason: Shortness of breath, wheezing Last Admin: 08/24/19 03:50 Dose: 2.5 mg Documented by: Albuterol/Ipratropium (Duoneb) 3 ml INHALATION Q6HWA.RT [facility] Last Admin: 08/25/19 07:08 Dose: 3 ml Documented by: Atorvastatin Calcium (Lipitor) 10 mg PO DAILY@2200 [facility] Last Admin: 08/24/19 22:56 Dose: 10 mg Documented by: Capsaicin (Zostrix) 1 applic TOPICAL TID [facility]; Protocol Cefadroxil (Duricef) 500 mg PO BID [facility] Last Admin: 08/25/19 10:30 Dose: 500 mg Documented by: Dicyclomine HCl (Bentyl) 10 mg PO TIDAC [facility] Last Admin: 08/25/19 10:30 Dose: 10 mg Documented by: Diltiazem HCl (Cardizem Cd) 240 mg PO DAILY [facility] Last Admin: 08/25/19 10:32 Dose: 240 mg Documented by: Ferrous Sulfate (Ferrous Sulfate) 325 mg PO DAILY@1200 [facility] Last Admin: 08/25/19 10:40 Dose: 325 mg Documented by: Folic Acid (Folic Acid) 1 mg PO DAILYCM [facility] Last Admin: 08/25/19 10:30 Dose: 1 mg Documented by: Furosemide (Lasix) 80 mg IV BID@1000,1800 [facility] Last Admin: 08/25/19 10:32 Dose: 80 mg Documented by: Sodium Chloride () 250 mls @ 15 mls/hr IV .[id number] PRN PRN Reason: Saline Flush Last Infusion: 08/23/19 22:30 Dose: 0 mls/hr Documented by: Sodium Chloride () 250 mls @ 15 mls/hr IV .[id number] PRN PRN Reason: Additional IVPB Infusion Levothyroxine Sodium (Synthroid) 75 mcg PO DAILY@0600 [facility] Last Admin: 08/25/19 06:23 Dose: 75 mcg Documented by: Lidocaine (Lidoderm Patch) 1 patch TOPICAL DAILY [facility]; Protocol Last Admin: 08/25/19 10:39 Dose: Not Given Documented by: Lidocaine HCl (Xylocaine 2% Jelly) 1 applic TOPICAL TID [facility]; Protocol Magnesium Hydroxide (Milk Of Magnesia) 15 ml PO DAILY [facility] Last Admin: 08/25/19 10:32 Dose: 15 ml Documented by: Magnesium Oxide (Mag-Ox 400) 200 mg PO DAILY [facility] Last Admin: 08/25/19 10:31 Dose: 200 mg Documented by: Meclizine HCl (Antivert) 12.5 mg PO 4X/DAY PRN PRN PRN Reason: VERTIGO Morphine Sulfate () 2 mg IV Q3H PRN PRN PRN Reason: Pain Score 6-10/10 Ondansetron HCl (Zofran) 4 mg IV Q8H PRN PRN PRN Reason: NAUSEA/VOMITING Oxycodone HCl (Oxyir) 5 mg PO Q4H PRN PRN PRN Reason: Pain Score 4-5/10 Pantoprazole Sodium (Protonix) 20 mg PO DAILY [facility] Last Admin: 08/25/19 10:31 Dose: 20 mg Documented by: Senna/Docusate Sodium (Senokot-S, Onelia-Colace) 2 tablet PO BID PRN PRN PRN Reason: Constipation Sodium Chloride () 10 - 40 ml IV UD PRN PRN Reason: SALINE FLUSH Last Admin: 08/24/19 18:09 Dose: 10 ml Documented by: Spironolactone (Aldactone) 25 mg PO DAILY [facility] Last Admin: 08/25/19 10:32 Dose: 25 mg Documented by: Zolpidem Tartrate (Ambien (Generic)) 5 mg PO QHS PRN PRN PRN Reason: INSOMNIA STROKE Vital Signs/Narrative: Vital Signs Temp Pulse Resp BP Pulse Ox 08/25/19 10:01 94 08/25/19 10:00 98.1 F 72 18 120/65 95 Medical Necessity - Tobacco Use Smoking Status: Never smoker Assessment/Plan 1. Acute UTI - Asymptomatic. culture shows serratia, susceptible to cephalosporins. Changed to Duricef. 2. Chronic hypoxic resp failure 2/2 COPD/CHF/Pulmonary Fibrosis - no exacerbation of COPD or CHF. added duoneb. Pt of Dr. Molina, and follows a subspecialist for pulm fibrosis. Continue IS. Continue prn albuterol. baseline 3lpm. -Pulm following. -co2 stale, BUN/creatinine increased. -lasix/aldactone/metolazone continued. -CT chest with small BL pleural effusions, atelectasis vs infiltrate, cardiomegaly, enlarged pulmonary arteries. 3. Intractable back pain - imaging with severe DDD. PTOT evals. consider o/p pain management referral. Possible wedge fracture on xray. pt placed on solumedrol and has good response. Pt now ambulatory. Lidocaine added. stop iv morphine. 4.CKDIII - bump Cr. check in AM. 5. Chronic diastolic CHF - no exacerbation. continue home lasix, aldactone 6. Hypothyroidism - synthroid 7. Valvular heart dz - s/p TAVR, tricuspid valve replacement, mitral valve replacement. 8. Chronic iron def anemia - continue po iron. b12/folate elevated. 9. Chronic afib - warfarin, cardizem. Vit K 5mg given. Paced. 10. HLD - statin 11. Hx breast cancer - inoperable. follows Dr. Hatch and [facility]. She has follow up in 2 weeks. 12. Iron def anemia - replete, check stool occult blood. 13. diaper rash - nystatin powder. DVT ppx: warfarin - held for elevated INR. DC planning: PTOT This patient was seen by Anuj Villa PA-C under the supervision of Dr. Chou
[2019-08-25] MEDS: Nystatin Powder 15gm Bottle 1 APPLIC TOPICAL ×2 (14:57→22:34)
[2019-08-25] MEDS: Capsaicin 0.025% 1 APPLIC Tube TOPICAL ×2 (14:58→22:35)
[2019-08-25] MEDS: Acetaminophen 500 MG Tablet 1000 MG PO ×2 (14:58→22:27)
[2019-08-25] MEDS: Lidocaine 2% Jelly 1 APPLIC Tube TOPICAL ×2 (14:59→22:30)
[2019-08-25] MEDS: Atorvastatin Calcium 10 MG Tablet PO (22:27)
[2019-08-26 04:52] VITALS: BP 111/70; PULSE 71; RESP 20; TEMP 36.5; O2SAT 96
[2019-08-26] MEDS: Acetaminophen 500 MG Tablet 1000 MG PO ×2 (05:46→13:25)
[2019-08-26] MEDS: Levothyroxine 75 MCG Tablet PO (05:47)
[2019-08-26] MEDS: Nystatin Powder 15gm Bottle 1 APPLIC TOPICAL ×2 (05:52→13:22)
[2019-08-26] MEDS: Capsaicin 0.025% 1 APPLIC Tube TOPICAL ×2 (05:53→13:23)
[2019-08-26] MEDS: Lidocaine 2% Jelly 1 APPLIC Tube TOPICAL ×2 (05:53→13:24)
[2019-08-26 06:25] LABS: Absolute Lymphocyte Count 0.96 X10^3/uL (0.83-4.51); Absolute Neutrophil Count 7.7 X10^3/uL (2.0-7.7); Basophil# 0.03 X10^3/uL; Basophil% 0.3 % (0-1); Eosinophil# 0.04 X10^3/uL; Eosinophils% 0.4 % (0-5); Hematocrit 27.6 % (37-47); Hemoglobin 8.6 g/dL (12.0-15.0); Lymphocyte # 0.96 X10^3/ul (4.0); Lymphocyte % 10.3 % (19-41); Mean Corp Hgb Conc 31.2 g/dL (32-36); Mean Corpuscular Hgb 28.9 pg (27.0-32.0); Mean Corpuscular Volume 92.6 fL (81-99); Mean Platelet Vol. 8.9 fl (6.2-12.0); Monocyte# 0.58 X10^3/uL; Monocyte% 6.2 % (0-10); NRBC Flagged by Analyzer 0 % (0-5); Neutrophil # 7.65 X10^3/uL (2.7-7.7); Neutrophil % 81.7 % (47-70); Platelet Count 184 K/mm3 (150-450); RBC Distribution Width CV 18.3 % (11.6-14.6); RBC Distribution Width SD 60.9 fl (35.1-43.9); Red Blood Count 2.98 M/mm3 (4.2-5.4); White Blood Count 9.4 K/mm3 (4.4-11.0)
[2019-08-26 06:42] VITALS: PULSE 70; RESP 16; O2SAT 98
[2019-08-26] MEDS: Ipratropium/Albuterol Sulfate 3 ML AMPUL.NEB INHALATION (06:42)
[2019-08-26 06:59] LABS: Anion Gap 6 (5-15); BUN 41 mg/dL (7-18); BUN/Creat Ratio 30.4 RATIO (10-20); Chloride 103 mmol/L (98-107); Creatinine, Serum 1.35 mg/dL (0.55-1.02); EST Glomerular Filtration Rate 40 mL/min (>60); Est Glom Filt Rate - Afr Amer 49 mL/min (>60); Estimated Creatinine Clearance 24.27 ml/min; Glucose 91 mg/dL (74-106); Potassium 4.6 mmol/L (3.5-5.1); Sodium Level 134 mmol/L (136-145)
[2019-08-26 07:10] LABS: Prothrombin Time (Protime)PT. 21.8 SECONDS (11.7-14.9)
--- NOTE | 2019-08-26 07:33 | PCM.PN.PUL ---
Subjective: Patient did well overnight. No acute issues were reported. Patient's lower extremity edema is subjectively improved. Patient denies any current chest pain. Patient believes her dyspnea on exertion is much improved compared to previous. - Physical Exam Vitals/I&O's: Vital Signs Temp Pulse Resp BP Pulse Ox 36.5 C L 70 16 111/70 98 08/26/19 04:52 08/26/19 06:42 08/26/19 06:42 08/26/19 04:52 08/26/19 06:42 Oxygen Flow Rate (L/min) [ 3 AMBULATION with Oxygen] Oxygen Flow Rate (L/min) 3 Oxygen Delivery Method Nasal Cannula Weight: 56.4 kg Body Mass Index (BMI) 24.3 Orthostatic Vital Signs Start: 08/25/19 03:04 Freq: q24h Status: Active Protocol: Activity Type Activity Date Activity User E-Sign Co-Sign Detail Recorded Client Recorded Date Recorded By Document 08/25/19 06:38 EV [id number] 08/25/19 06:39 EV 08/25/19 06:38 Orthostatic Vitals Standing -Blood Pressure (90/60-120/80) 106/76 -Extremity Use Left Arm -Pulse Rate (60-100) 69 Sitting -Blood Pressure (90/60-120/80) 116/68 -Extremity Use Left Arm -Pulse Rate (60-100) 70 Lying -Blood Pressure (90/60-120/80) 113/70 -Extremity Use Left Arm -Pulse Rate (60-100) 70 Intake and Output for Last 24 Hours 08/24/19 08/25/19 08/26/19 23:59 23:59 23:59 Intake Total 2200 / 2200 805 / 805 50 / 50 Output Total 1575 / 1575 1000 / 1000 1200 / 1200 Balance 625 / 625 -195 / -195 -1150 / -1150 General: Alert, Oriented x3, Cooperative, - - Improved conversational dyspnea. HEENT: Atraumatic, PERRLA, EOMI, Normocephalic, - - No scleral icterus. Oral: Moist Mucosa, No Gingival or Mucosal Lesions/ Ulcerations Neck: Supple, No Nodes, Trachea Midline, JVD, Right Lungs: No rhonchi, No wheeze, Diminished, Rales, - - Significant kyphoscoliosis Cardiovascular: Normal S1, Normal S2, Irregular Rate, Murmur, No rub noted, No Gallop Abdomen: Bowel Sounds Present, Soft, Non Tender, Non-Distended Extremities: No clubbing, No cyanosis, Edema - Much improved compared to previous Skin: - - No change compared to previous Musculoskeletal: No Tenderness to Palpation of Joints or Extremities, Muscle Wasting Lymphatic: No Cervical, Supraclavicular, or Inguinal Adenopathy Neurological: Cranial nerves II-XII grossly intact, Neuro grossly intact, Motor Exam 5/5 strength throughout Psych/Mental Status: Alert and oriented to time, place, person, mood and affect Microbiology Past 72 Hours 08/22/19 20:00 Urine, Clean Catch Urine Culture - Final Klebsiella oxytoca Laboratory Results 08/25/19 07:00: Hgb 9.4 L, Hct 30.8 L 08/25/19 07:00: Sodium 135 L, Potassium 4.3, Chloride 104, Carbon Dioxide 23.0, Anion Gap 8, BUN 35 H, Creatinine 1.33 H, Estim Creat Clear Calc 24.64, Est GFR (MDRD) Af Amer 49 L, Est GFR (MDRD) Non-Af 41 L, BUN/Creatinine Ratio 26.3 H, Glucose 97, Calcium 8.8, Phosphorus 4.3, Magnesium 2.5 08/25/19 08:42: PT 39.6 H, INR 4.1 H* 08/26/19 05:43: WBC 9.4, RBC 2.98 L, Hgb 8.6 L, Hct 27.6 L, MCV 92.6, MCH 28.9, MCHC 31.2 L, RDW Std Deviation 60.9 H, RDW Coeff of Jacob 18.3 H, Plt Count 184, MPV 8.9, Immature Gran % (Auto) 1.100 H, Neut % (Auto) 81.7 H, Lymph % (Auto) 10.3 L, Daniels % (Auto) 6.2, Eos % (Auto) 0.4, Baso % (Auto) 0.3, Absolute Neuts (auto) 7.7, Absolute Lymphs (auto) 0.96, Nucleated RBC % 0 08/26/19 05:43: PT 21.8 H, INR 2.0 08/26/19 05:43: Sodium 134 L, Potassium 4.6, Chloride 103, Carbon Dioxide 25.0, Anion Gap 6, BUN 41 H, Creatinine 1.35 H, Estim Creat Clear Calc 24.27, Est GFR (MDRD) Af Amer 49 L, Est GFR (MDRD) Non-Af 40 L, BUN/Creatinine Ratio 30.4 H, Glucose 91, Calcium 9.0 Current Medications Acetaminophen (Tylenol) 1,000 mg PO Q8H [facility] Last Admin: 08/26/19 05:46 Dose: 1,000 mg Documented by: Albuterol Sulfate (Ventolin Aerosols) 2.5 mg INHALATION Q4H PRN PRN PRN Reason: Shortness of breath, wheezing Last Admin: 08/24/19 03:50 Dose: 2.5 mg Documented by: Albuterol/Ipratropium (Duoneb) 3 ml INHALATION Q6HWA.RT [facility] Last Admin: 08/26/19 06:42 Dose: 3 ml Documented by: Atorvastatin Calcium (Lipitor) 10 mg PO DAILY@2200 [facility] Last Admin: 08/25/19 22:27 Dose: 10 mg Documented by: Capsaicin (Zostrix) 1 applic TOPICAL TID [facility]; Protocol Last Admin: 08/26/19 05:53 Dose: 1 applicatio Documented by: Cefadroxil (Duricef) 500 mg PO BID [facility] Last Admin: 08/25/19 22:27 Dose: 500 mg Documented by: Dicyclomine HCl (Bentyl) 10 mg PO BID [facility] Last Admin: 08/25/19 22:27 Dose: 10 mg Documented by: Diltiazem HCl (Cardizem Cd) 240 mg PO DAILY [facility] Last Admin: 08/25/19 10:32 Dose: 240 mg Documented by: Ferrous Sulfate (Ferrous Sulfate) 325 mg PO DAILY@1200 [facility] Last Admin: 08/25/19 10:40 Dose: 325 mg Documented by: Folic Acid (Folic Acid) 1 mg PO DAILYCM [facility] Last Admin: 08/25/19 10:30 Dose: 1 mg Documented by: Furosemide (Lasix) 80 mg IV BID@1000,1800 [facility] Last Admin: 08/25/19 17:19 Dose: 80 mg Documented by: Sodium Chloride () 250 mls @ 15 mls/hr IV .[id number] PRN PRN Reason: Saline Flush Last Infusion: 08/23/19 22:30 Dose: 0 mls/hr Documented by: Sodium Chloride () 250 mls @ 15 mls/hr IV .[id number] PRN PRN Reason: Additional IVPB Infusion Levothyroxine Sodium (Synthroid) 75 mcg PO DAILY@0600 [facility] Last Admin: 08/26/19 05:47 Dose: 75 mcg Documented by: Lidocaine HCl (Xylocaine 2% Jelly) 1 applic TOPICAL TID [facility]; Protocol Last Admin: 08/26/19 05:53 Dose: 1 applic Documented by: Magnesium Hydroxide (Milk Of Magnesia) 15 ml PO DAILY [facility] Last Admin: 08/25/19 10:32 Dose: 15 ml Documented by: Magnesium Oxide (Mag-Ox 400) 200 mg PO DAILY [facility] Last Admin: 08/25/19 10:31 Dose: 200 mg Documented by: Meclizine HCl (Antivert) 12.5 mg PO 4X/DAY PRN PRN PRN Reason: VERTIGO Nystatin (Mycostatin Powder) 1 applic TOPICAL TID [facility]; Protocol Last Admin: 08/26/19 05:52 Dose: 1 applicatio Documented by: Ondansetron HCl (Zofran) 4 mg IV Q8H PRN PRN PRN Reason: NAUSEA/VOMITING Oxycodone HCl (Oxyir) 2.5 mg PO Q6H PRN PRN PRN Reason: Pain Score 4-5/10 Pantoprazole Sodium (Protonix) 20 mg PO DAILY [facility] Last Admin: 08/25/19 10:31 Dose: 20 mg Documented by: Senna/Docusate Sodium (Senokot-S, Onelia-Colace) 2 tablet PO BID PRN PRN PRN Reason: Constipation Sodium Chloride () 10 - 40 ml IV UD PRN PRN Reason: SALINE FLUSH Last Admin: 08/24/19 18:09 Dose: 10 ml Documented by: Spironolactone (Aldactone) 25 mg PO DAILY [facility] Last Admin: 08/25/19 10:32 Dose: 25 mg Documented by: Zolpidem Tartrate (Ambien (Generic)) 5 mg PO QHS PRN PRN PRN Reason: INSOMNIA Medical Necessity - Tobacco Use Smoking Status: Never smoker Assessment/Plan RECOMMENDATIONS: 1. Consider transition to baseline Lasix therapy 2. No steroids indicated from a pulmonary perspective 3. Wean oxygen as tolerated. Walking oximetry prior to discharge 4. Continue anticoagulation 5. Patient should follow-up with primary mineral technologist at discharge IMPRESSIONS: 1. Chronic hypoxic respiratory failure/bronchiectasis/pulmonary fibrosis/kyphoscoliosis Patient with multiple etiologies for hypoxia. Patient does have bronchiectasis noted on CT scan of the chest, but does not have any infiltrates suggestive of an acute infectious process. Patient is not reporting any purulent sputum or change in cough to suggest a bronchiectasis/pulmonary fibrosis exacerbation. No steroids are indicated from a pulmonary perspective. Patient appears to be tolerating increased diuretic therapy well. Given resolution of lower extremity edema, could consider transition back to baseline Lasix therapy. Baseline saturations appear to be improving on current nasal cannula. Wean oxygen as tolerated. Highly suspicious the patient requires more than 3 L nasal cannula with exertion, so a walking oximetry should be completed prior to discharge. Patient should be instructed on ambulation oxygen requirements 2. Chronic diastolic CHF/acute cor pulmonale/valvular heart disease/chronic A. fib Patient appears to be on appropriate therapy with anticoagulation and optimization of heart rate. However, given patient's elevated pulmonary artery pressures and lower extremity edema, there is significant concern for cor pulmonale complicating current condition. Recommend increasing diuretic therapy. Electrolytes have been acceptable despite diuresis. Patient is well rate controlled at this time. 3. CKD stage III/intractable back pain/hypothyroidism/advanced age/iron deficiency anemia/hyperlipidemia/breast cancer Complicates care, management, recovery and prognosis. Okay to continue with current plan from my perspective. Patient does have an acute UTI, but appears to be responding well to current antibiotic therapy. Patient does have a wedge fracture noted on x-ray. Unclear if palliative/hospice measures would be indicated on discharge given comorbidities and symptomatology. Defer to hospitalist service. Inpatient E&M: [id number] Subs Hosp L2
--- NOTE | 2019-08-26 10:04 | DCINST_ITS ---
- Discharge Diagnoses Current Active Problems: Current Active and Chronic Problems (Last Reviewed 08/22/19 @ 22:[address] La Balderas MD) History of breast cancer in female (Chronic) You will use the following diet at home:: Cardiac Your food should be the consistency of: Regular Your liquids should be the consistency of: Regular/Thin Discharge Activity: Return to Normal Activity Allergies/Adverse Reactions: Allergies GERI Inhibitors Allergy (Verified 08/22/19 22:43) Angioedema amiodarone Allergy (Verified 08/22/19 22:43) Other doxycycline Allergy (Verified 08/22/19 22:43) Other rosuvastatin calcium [From Crestor] Allergy (Verified 08/22/19 22:43) Other Sulfa (Sulfonamide Antibiotics) Allergy (Verified 08/22/19 22:43) Nausea tiotropium bromide [From Spiriva with HandiHaler] Allergy (Verified 08/23/19 11:06) Nausea codeine Adverse Reaction (Verified 08/22/19 22:43) Vomiting hydrocodone bitartrate [From Vicodin] Adverse Reaction (Verified 08/22/19 22:43) Vomiting Medications to take at Discharge Ferrous Sulfate [Iron] 65 mg PO DAILY 06/23/16 Meclizine HCl [Antivert] 12.5 mg PO 4X/DAY PRN PRN 06/23/16 Nitroglycerin [Nitrostat] 0.4 mg SL DAILY PRN 06/23/16 lactobacillus combination no.8 3 billion cell capsule 3,000 mmu cells PO QDAY 04/08/17 levothyroxine 75 mcg tablet 75 mcg PO DAILY tab 04/08/17 folic acid 800 mcg tablet 800 mcg PO QDAY 04/11/17 diltiazem HCl 240 mg capsule,extended release 24 hr 240 mg PO DAILY #90 cap 05/14/19 Atorvastatin Calcium 10 mg PO QHS 08/22/19 B-Complex with Vitamin C [Super B Complex-Vitamin C] 1 tab PO DAILY 08/22/19 Calcium Carbonate/Vitamin D3 [Os-Kme 500-Vit D3 600 Caplet] 1 tab PO DAILY 08/22/19 Cholecalciferol (Vitamin D3) [Vitamin D3] 2,000 unit PO DAILY 08/22/19 Esomeprazole Magnesium [Nexium 24Hr] 22.3 mg PO DAILY 08/22/19 Fexofenadine HCl [Adriana Allergy] 180 mg PO DAILY 08/22/19 Fluticasone Propion/Salmeterol [Wixela 250-50 Inhub] 1 puff INHALATION BID 08/22/19 Furosemide 80 mg PO BID 08/22/19 Magnesium Oxide [Magnesium] 250 mg PO DAILY 08/22/19 Mineral Oil/Petrolatum,White [Refresh P.m. Ointment] 1 drp EACH EYE QHS 08/22/19 [place]-3S/Dha/Epa/Fish Oil [Fish Oil 1,200 mg Softgel] 1,200 mg PO DAILY 08/22/19 Polyvinyl Alcohol/Povidone/Pf [Refresh Classic Eye Drops] 1 drp EACH EYE TID 08/22/19 Spironolactone [Aldactone] 25 mg PO DAILY 08/22/19 Warfarin Sodium [Coumadin] 4 mg PO MOWE 08/22/19 Warfarin [Coumadin] 1 mg PO SUTUTHFRSA 08/22/19 Acetaminophen [Tylenol Tablet] 650 mg PO Q6H PRN PRN tab 08/24/19 Ipratropium/Albuterol Sulfate [Duoneb] 3 ml INHALATION Q6H #120 ampul.neb 08/24/19 MethylPREDNISolone DosePak [Medrol DosePak] 4 mg PO UD #1 box 08/24/19 Oxycodone [Oxyir] 5 mg PO Q6H PRN PRN 3 Days #12 tab 08/24/19 Acetaminophen [Tylenol] 1,000 mg PO Q8H tablet 08/26/19 Cefadroxil [Duricef] 500 mg PO BID #2 cap 08/26/19 Dicyclomine HCl [Bentyl] 10 mg PO BID capsule 08/26/19 Nystatin Powder [Mycostatin Powder] 1 applic TOPICAL TID bottle 08/26/19 The following prescriptions were given: Ipratropium/Albuterol Sulfate [Duoneb] 3 ml INHALATION Q6H #120 ampul.neb Transmission Status: Received by [facility] Cefadroxil [Duricef] 500 mg PO BID #2 cap Transmission Status: Pending to [facility] MethylPREDNISolone DosePak [Medrol DosePak] 4 mg PO UD #1 box Transmission Status: Received by [facility] Oxycodone [Oxyir] 5 mg PO Q6H PRN PRN 3 Days #12 tab PRN Reason: Pain Score [id number] Transmission Status: Received by [facility] Primary Care Physician: Abby Pendleton DO [Primary Care Provider] - Please follow up with your Primary Care Physician in: 1 week Test Results: Test results from this visit will be discussed in further detail at your follow- up appointment, if applicable. Please Follow Up With: Shimon Hatch MD When: 1-2 weeks Please Follow Up With: Eleuterio Molina MD When: 3-4 weeks Please Follow Up With: Yasmin Singleton PA When: 2 weeks Proposed Discharge Date: 08/24/19
[2019-08-26 10:17] VITALS: BP 110/63; PULSE 70; RESP 18; TEMP 36.8; O2SAT 97
[2019-08-26] MEDS: dilTIAZem CD 240 MG Capsule PO (10:22)
[2019-08-26] MEDS: Folic Acid 1 MG Tablet PO (10:22)
[2019-08-26] MEDS: Dicyclomine 10 MG Capsule PO (10:22)
[2019-08-26] MEDS: Magnesium Oxide 400 MG Tablet 200 MG PO (10:22)
[2019-08-26] MEDS: Cefadroxil 500 MG CAPSULE PO (10:23)
[2019-08-26] MEDS: Pantoprazole Sodium 20 MG Tablet PO (10:23)
[2019-08-26] MEDS: Ferrous Sulfate 325 MG Tablet PO (10:23)
[2019-08-26] MEDS: Spironolactone 25 MG Tablet PO (10:24)
[2019-08-26] MEDS: Furosemide 100 MG/10 ML Vial 80 MG IV (10:25)
--- NOTE | 2019-08-26 12:27 | PCM.DC ---
- Discharge Diagnoses Current Active Problems: Current Active and Chronic Problems (Last Reviewed 08/22/19 @ 22:[address] La Balderas MD) History of breast cancer in female (Chronic) You will use the following diet at home:: Cardiac - low salt - salt makes you retain water Discharge Activity: Return to Normal Activity, Use Walker Keep extremity elevated above heart level: Legs Call your doctor if you observe: Fever of 101 or Higher, Inability to urinate, Shortness of breath, Dizziness, Fainting spells, Swelling in the ankles, Chest pain, Increased palpitations (irregular heartbeat), Uncontrolled pain, - - Call your PCP if severe diarrhea ( > 5 stools a day), painful sores in the mouth, painful swallowing, rash or itching. Taking a probiotic such as Lactobacillus or Kefir can help with loose stools while taking antibiotics. Additional Instructions: 1. When you are up and about and exerting yourself increase the oxygen to 4 liters. You can continue 3 liters if you are sitting and 2.5 liters with BIPAP at night. 2. You are anemic and this likely makes you short of breath as well. Go slow and if you have increased shortness of breath or you feel lightheaded sit down. Do not walk outside of your house without someone being with you. 3. Continue to weigh your self daily. 4. When you are eating the blood supply and thus oxygen gets diverted to the GI tract to digest your food and it takes blood away from the lungs. When you have lung disease it is better to eat small amounts throughout the day than to eat 3 full meals a day. You will get less short of breath. 4. The Bentyl you take for irritable bowel is NOT a good drug for someone your age.....it can make you drowsy and it can cause problems with the rhythm of the heart. Most people your age have increased anxiety and this can lead to irritable bowel. Rather than Bentyl it may be resonable to use a non-addictive medication like buspar to help with anxiety. You can discuss this with Dr. Pendleton at your next visit. 5. LET SOMEONE ELSE CLEAN for you. You need all your energy to breath and fight breast cancer......do not use up your energy doing things that some one else can do. You will have better quality of life and more energy to breath and stay alive. 6. You must eat well, sleep well and get some exercise everyday to maximize the function of the immune system and stay strong. 7. The INR was too high in the hospital and we had to hold the Warfarin and give you a small amount of vitamin K. You must have the INR rechecked in [address] Pendleton. 8.. It was a pleasure meeting you Woodruff and I wish you well with the breast Cancer. If you are ever in the hospital again I am happy to care for you. If you have questions after you go home today my cell phone # is [phone]. Be well! Allergies/Adverse Reactions: Allergies GERI Inhibitors Allergy (Verified 08/22/19 22:43) Angioedema amiodarone Allergy (Verified 08/22/19 22:43) Other doxycycline Allergy (Verified 08/22/19 22:43) Other rosuvastatin calcium [From Crestor] Allergy (Verified 08/22/19 22:43) Other Sulfa (Sulfonamide Antibiotics) Allergy (Verified 08/22/19 22:43) Nausea tiotropium bromide [From Spiriva with HandiHaler] Allergy (Verified 08/23/19 11:06) Nausea codeine Adverse Reaction (Verified 08/22/19 22:43) Vomiting hydrocodone bitartrate [From Vicodin] Adverse Reaction (Verified 08/22/19 22:43) Vomiting Medications to take at Discharge Ferrous Sulfate [Iron] 65 mg PO DAILY 06/23/16 Meclizine HCl [Antivert] 12.5 mg PO 4X/DAY PRN PRN 06/23/16 Nitroglycerin [Nitrostat] 0.4 mg SL DAILY PRN 06/23/16 lactobacillus combination no.8 3 billion cell capsule 3,000 mmu cells PO QDAY 04/08/17 levothyroxine 75 mcg tablet 75 mcg PO DAILY tab 04/08/17 folic acid 800 mcg tablet 800 mcg PO QDAY 04/11/17 diltiazem HCl 240 mg capsule,extended release 24 hr 240 mg PO DAILY #90 cap 05/14/19 Atorvastatin Calcium 10 mg PO QHS 08/22/19 B-Complex with Vitamin C [Super B Complex-Vitamin C] 1 tab PO DAILY 08/22/19 Calcium Carbonate/Vitamin D3 [Os-Kme 500-Vit D3 600 Caplet] 1 tab PO DAILY 08/22/19 Cholecalciferol (Vitamin D3) [Vitamin D3] 2,000 unit PO DAILY 08/22/19 Esomeprazole Magnesium [Nexium 24Hr] 22.3 mg PO DAILY 08/22/19 Fexofenadine HCl [Adriana Allergy] 180 mg PO DAILY 08/22/19 Fluticasone Propion/Salmeterol [Wixela 250-50 Inhub] 1 puff INHALATION BID 08/22/19 Furosemide 80 mg PO BID 08/22/19 Magnesium Oxide [Magnesium] 250 mg PO DAILY 08/22/19 Mineral Oil/Petrolatum,White [Refresh P.m. Ointment] 1 drp EACH EYE QHS 08/22/19 [place]-3S/Dha/Epa/Fish Oil [Fish Oil 1,200 mg Softgel] 1,200 mg PO DAILY 08/22/19 Polyvinyl Alcohol/Povidone/Pf [Refresh Classic Eye Drops] 1 drp EACH EYE TID 08/22/19 Spironolactone [Aldactone] 25 mg PO DAILY 08/22/19 Warfarin Sodium [Coumadin] 4 mg PO MOWE 08/22/19 Warfarin [Coumadin] 1 mg PO SUTUTHFRSA 08/22/19 Ipratropium/Albuterol Sulfate [Duoneb] 3 ml INHALATION Q6H #120 ampul.neb 08/24/19 Acetaminophen [Tylenol] 1,000 mg PO Q8H tab 08/26/19 Capsaicin [Zostrix] 56.6 gm TP TID #1 tube 08/26/19 Cefadroxil [Duricef] 500 mg PO BID #2 cap 08/26/19 Dicyclomine HCl [Bentyl] 10 mg PO BID cap 08/26/19 Lidocaine 2% Jelly [Xylocaine 2% Jelly] 1 applic TOPICAL TID #1 tube 08/26/19 Nystatin Powder [Mycostatin Powder] 1 applic TOPICAL TID bottle 08/26/19 The following prescriptions were given: Ipratropium/Albuterol Sulfate [Duoneb] 3 ml INHALATION Q6H #120 ampul.neb Transmission Status: Received by [facility] Cefadroxil [Duricef] 500 mg PO BID #2 cap Transmission Status: Received by [facility] MethylPREDNISolone DosePak [Medrol DosePak] 4 mg PO UD #1 box Transmission Status: Received by [facility] Oxycodone [Oxyir] 5 mg PO Q6H PRN PRN 3 Days #12 tab PRN Reason: Pain Score 6-10/10 Transmission Status: Received by [id number] Primary Care Physician: Abby Pendleton DO [Primary Care Provider] - Please follow up with your Primary Care Physician in: 1 week Test Results: Test results from this visit will be discussed in further detail at your follow-up appointment, if applicable. Please Follow Up With: Shimon Hatch MD When: 1-2 weeks Please Follow Up With: Eleuterio Molina MD When: 3-4 weeks Please Follow Up With: Yasmin Singleton PA When: 2 weeks Proposed Discharge Date: 08/24/19
--- NOTE | 2019-08-26 13:31 | NURSING ---
call daughter update given and went over discharge instructions
--- NOTE | 2019-08-26 13:35 | DS.PCM_ITS ---
Discharge Date and Diagnosis - Problem List Patient Problems: Active and Suspected Problems (Last Reviewed 08/22/19 @ 22:[address] La Balderas MD) Supratherapeutic INR (Acute) Hyponatremia (Acute) Acute respiratory insufficiency (Acute) Severe back pain (Acute) UTI (urinary tract infection) (Acute) Acute CHF (Acute) Date of Admission: 08/22/19 Date of Discharge: 08/26/19 - Primary Discharge Diagnosis Acute Problems: Active Problems (Last Reviewed 08/22/19 @ 22:[address] La Balderas MD) Acute UTI, Klebsiella oxytoca Intractable back pain 2/2 severe DDD Breast cancer Chronic hypoxic respiratory failure 2/2 severe COPD, pulmonary fibrosis, chronic diastolic CHF Hx TAVR, tricuspid valve replacement, mitral valve replacement CKDIII Iron def anemia Chronic Afib, with PM in place diaper rash - Secondary Discharge Diagnosis Chronic Problems: Chronic Problems (Last Reviewed 08/22/19 @ 22:[address] La Balderas MD) Bronchiectasis (Chronic) MDS (myelodysplastic syndrome) (Chronic) Anemia (Chronic) History of breast cancer in female (Chronic) Pure hypercholesterolemia (Chronic) Essential hypertension (Chronic) Prosthetic aortic valve stenosis (Chronic) Nonrheumatic mitral valve regurgitation (Chronic) S/P valve repair with a 28 mm G04 annuloplasty ring in October 2011; Nonrheumatic tricuspid (valve) insufficiency (Chronic) S/P repair with a 30 mm MC3 ring angioplasty system in October 2011 Cardiac pacemaker in situ (Chronic) pacemaker implant 08/08 Presence of prosthetic heart valve (Chronic) 11/06, Mitral valve repair with 28mm GeoForm annuloplasty, tricuspid repair with 30mm MC ring annuloplasty Nonrheumatic aortic (valve) insufficiency (Chronic) S/P TAVR with [employer] 23 mm low dense valve in May 2013 at [facility]; 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, dilated (Chronic) S/P AVR (aortic valve replacement) (Chronic ~05/2014) TAVR wit [employer] 23 mm Kandice valve Aortic Valve 06/09 History of bacterial endocarditis (Chronic) Thrombocytopenia (Chronic) Contusion of left upper arm, initial encounter (Chronic) Iron deficiency anemia (Chronic) Chronic atrial fibrillation (Chronic) Congestive heart failure (Chronic) Pulmonary hypertension (Chronic) Coronary artery disease (Chronic) Interstitial lung disease (Chronic) Hypothyroidism (Chronic) Hospital Course and Treatment Imaging Results: IMAGING: RAD/Lumbar Spine 2 or 3 Views IMPRESSION: Scoliosis and degenerative change. No evidence for acute fracture RAD/Chest 1 View (Portable) IMPRESSION: ASHD and COPD. No acute disease. CT/Spine Lumbar without Contrast IMPRESSION: Multilevel degenerative changes of the lumbar spine. No evidence of metastatic disease. Probable gallstones. Correlate with ultrasound or CT abdomen and pelvis in view of the history of back pain. CT/Spine Thoracic without Contras IMPRESSION: There is kyphosis of the thoracic spine. There is NO acute fracture. There is a wedge-shaped configuration of T5 which could be an old fracture. There is advanced multilevel degenerative disc change. CT/Chest without Contrast IMPRESSION: Small bilateral pleural effusions with bibasilar atelectasis and/or infiltrates at the lung bases. Cardiomegaly with enlargement of both the right and left atrium. Enlargement of the pulmonary arteries. Consults: [facility] - pulmonology Operations: None Procedures: None Summary of Care Provided: Hospital Course: The patient is a 79 year old F with an extensive pmhx as above notably severe COPD and chronic hypoxic resp failure, chronic paced Afib, aortic, mitral, and tricuspid valve replacement, chronic diastolic CHF, and active breast cancer pt of Dr. Hatch who presented to the ER with c/o severe back pain that had progr essed for 3 months with no inciting trauma. She had xrays and CT of her spine in the ER with severe chronic DDD and a possible old wedge fracture. She also had leukocytosis and a positive UA and was felt to have a UTI. She was admitted to the med surg unit for intractable back pain with associated debility, and UTI. She was treated with supportive care for back pain and steroids, provided with PT and OT, and given Rocephin for her UTI. She did well here with good response to antibiotics. She grew Klebsiella oxytoca in her urine resistant to amp susceptible to cephs. She was transitioned to duricef and will complete 5 total days of therapy. PT and OT were able to work with her and get her up and moving, she does need more therapy but refuses SNF and home health services at this time. Her breathing was somewhat labored while here and she temporarily required up to 5 lpms O2 (baseline 3). Pulmonary medicine was consulted and a CT was obtained. CT showed underlying chronic disease, see report above. She had mild LE edema. She was started on duonebs and IV lasix to optimize her respiratory status prior to DC, but was not felt to have acute exacerbations of her underlying chronic disease. She was discharged home in stable condition. She will complete a medrol dose pack for her back pain. She will need close follow up with Dr. Hatch her oncologist to arrange treatment of her underlying breast cancer. She will also need follow up with her cognos architect Dr. Molina in 2 weeks, her machine deburrer in 3-4 weeks, and her PCP in 1-2 weeks. She was discharged home in stable condition. This patient was sen by Anuj Villa PA-C under the supervision of Dr. Chou.[] Patient Problems: Active and Suspected Problems (Last Reviewed 08/22/19 @ 22:[address] La Balderas MD) Supratherapeutic INR (Acute) Hyponatremia (Acute) Acute respiratory insufficiency (Acute) Severe back pain (Acute) UTI (urinary tract infection) (Acute) Acute CHF (Acute) - Physical Exam Vitals/I&O's: Vital Signs Temp Pulse Resp BP Pulse Ox 98.2 F 70 18 110/63 97 08/26/19 10:17 08/26/19 10:17 08/26/19 10:17 08/26/19 10:17 08/26/19 10:17 Oxygen Flow Rate (L/min) [ 3 AMBULATION with Oxygen] Oxygen Flow Rate (L/min) 3 Oxygen Delivery Method Room Air Weight: 124 lb 5.451 oz Body Mass Index (BMI) 24.3 Orthostatic Vital Signs Start: 08/25/19 03:04 Freq: q24h Status: Active Protocol: Activity Type Activity Date Activity User E-Sign Co-Sign Detail Recorded Client Recorded Date Recorded By Document 08/25/19 06:38 EV [id number] 08/25/19 06:39 EV 08/25/19 06:38 Orthostatic Vitals Standing -Blood Pressure (90/60-120/80) 106/76 -Extremity Use Left Arm -Pulse Rate (60-100) 69 Sitting -Blood Pressure (90/60-120/80) 116/68 -Extremity Use Left Arm -Pulse Rate (60-100) 70 Lying -Blood Pressure (90/60-120/80) 113/70 -Extremity Use Left Arm -Pulse Rate (60-100) 70 Intake and Output for Last 24 Hours 08/24/19 08/25/19 08/26/19 23:59 23:59 23:59 Intake Total 2200 / 2200 805 / 805 370 / 370 Output Total 1575 / 1575 1000 / 1000 1600 / 1600 Balance 625 / 625 -195 / -195 -1230 / -1230 General: Alert, Oriented x3, Cooperative, - - frail HEENT: Atraumatic, PERRLA, EOMI, Normocephalic Neck: Supple, No JVD, Negative Carotid Bruits Lungs: Clear to auscultation, Normal air movement Cardiovascular: Regular rate, No murmurs Abdomen: Bowel Sounds Present, Soft, Non Tender Extremities: No edema, Capillary Refill Less than 3 Seconds Skin: No rashes, No breakdown Musculoskeletal: No Tenderness to Palpation of Joints or Extremities Neurological: Cranial nerves II-XII grossly intact Psych/Mental Status: Normal Affect, Appropriate, Alert and oriented to time, place, person, mood and affect Microbiology Past 72 Hours 08/22/19 20:00 Urine, Clean Catch Urine Culture - Final Klebsiella oxytoca Laboratory Results 08/26/19 05:43: WBC 9.4, RBC 2.98 L, Hgb 8.6 L, Hct 27.6 L, MCV 92.6, MCH 28.9, MCHC 31.2 L, RDW Std Deviation 60.9 H, RDW Coeff of Jacob 18.3 H, Plt Count 184, MPV 8.9, Immature Gran % (Auto) 1.100 H, Neut % (Auto) 81.7 H, Lymph % (Auto) 10.3 L, Bland % (Auto) 6.2, Eos % (Auto) 0.4, Baso % (Auto) 0.3, Absolute Neuts (auto) 7.7, Absolute Lymphs (auto) 0.96, Nucleated RBC % 0 08/26/19 05:43: PT 21.8 H, INR 2.0 08/26/19 05:43: Sodium 134 L, Potassium 4.6, Chloride 103, Carbon Dioxide 25.0, Anion Gap 6, BUN 41 H, Creatinine 1.35 H, Estim Creat Clear Calc 24.27, Est GFR (MDRD) Af Amer 49 L, Est GFR (MDRD) Non-Af 40 L, BUN/Creatinine Ratio 30.4 H, Glucose 91, Calcium 9.0 Current Medications Acetaminophen (Tylenol) 1,000 mg PO Q8H [facility] Last Admin: 08/26/19 13:25 Dose: 1,000 mg Documented by: Albuterol Sulfate (Ventolin Aerosols) 2.5 mg INHALATION Q4H PRN PRN PRN Reason: Shortness of breath, wheezing Last Admin: 08/24/19 03:50 Dose: 2.5 mg Documented by: Albuterol/Ipratropium (Duoneb) 3 ml INHALATION Q6HWA.RT [facility] Last Admin: 08/26/19 13:25 Dose: Not Given Documented by: Atorvastatin Calcium (Lipitor) 10 mg PO DAILY@2200 [facility] Last Admin: 08/25/19 22:27 Dose: 10 mg Documented by: Capsaicin (Zostrix) 1 applic TOPICAL TID [facility]; Protocol Last Admin: 08/26/19 13:23 Dose: 1 applicatio Documented by: Cefadroxil (Duricef) 500 mg PO BID [facility] Last Admin: 08/26/19 10:23 Dose: 500 mg Documented by: Dicyclomine HCl (Bentyl) 10 mg PO BID [facility] Last Admin: 08/26/19 10:22 Dose: 10 mg Documented by: Diltiazem HCl (Cardizem Cd) 240 mg PO DAILY [facility] Last Admin: 08/26/19 10:22 Dose: 240 mg Documented by: Ferrous Sulfate (Ferrous Sulfate) 325 mg PO DAILY@1200 [facility] Last Admin: 08/26/19 10:23 Dose: 325 mg Documented by: Folic Acid (Folic Acid) 1 mg PO DAILYCM [facility] Last Admin: 08/26/19 10:22 Dose: 1 mg Documented by: Furosemide (Lasix) 80 mg IV BID@1000,1800 [facility] Last Admin: 08/26/19 10:25 Dose: 80 mg Documented by: Sodium Chloride () 250 mls @ 15 mls/hr IV .[id number] PRN PRN Reason: Saline Flush Last Infusion: 05/28/20 22:30 Dose: 0 mls/hr Documented by: Sodium Chloride () 250 mls @ 15 mls/hr IV .[id number] PRN PRN Reason: Additional IVPB Infusion Levothyroxine Sodium (Synthroid) 75 mcg PO DAILY@0600 [facility] Last Admin: 08/26/19 05:47 Dose: 75 mcg Documented by: Lidocaine HCl (Xylocaine 2% Jelly) 1 applic TOPICAL TID [facility]; Protocol Last Admin: 08/26/19 13:24 Dose: 1 applic Documented by: Magnesium Hydroxide (Milk Of Magnesia) 15 ml PO DAILY [facility] Last Admin: 08/26/19 10:23 Dose: Not Given Documented by: Magnesium Oxide (Mag-Ox 400) 200 mg PO DAILY [facility] Last Admin: 08/26/19 10:22 Dose: 200 mg Documented by: Meclizine HCl (Antivert) 12.5 mg PO 4X/DAY PRN PRN PRN Reason: VERTIGO Nystatin (Mycostatin Powder) 1 applic TOPICAL TID [facility]; Protocol Last Admin: 08/26/19 13:22 Dose: 1 applicatio Documented by: Ondansetron HCl (Zofran) 4 mg IV Q8H PRN PRN PRN Reason: NAUSEA/VOMITING Oxycodone HCl (Oxyir) 2.5 mg PO Q6H PRN PRN PRN Reason: Pain Score 4-5/10 Pantoprazole Sodium (Protonix) 20 mg PO DAILY [facility] Last Admin: 08/26/19 10:23 Dose: 20 mg Documented by: Senna/Docusate Sodium (Senokot-S, [place]-Colace) 2 tablet PO BID PRN PRN PRN Reason: Constipation Sodium Chloride () 10 - 40 ml IV UD PRN PRN Reason: SALINE FLUSH Last Admin: 08/24/19 18:09 Dose: 10 ml Documented by: Sodium Chloride ([place] Nasal [place]) 2 spray NASAL TID [facility] Spironolactone (Aldactone) 25 mg PO DAILY [facility] Last Admin: 08/26/19 10:24 Dose: 25 mg Documented by: Zolpidem Tartrate (Ambien (Generic)) 5 mg PO QHS PRN PRN PRN Reason: INSOMNIA Discharge Diet: Low fat/ Low Cholesterol, 2000 mg Sodium Diet Discharge Activity: Return to Normal Activity, Use Walker Keep extremity elevated above heart level: Legs Call your doctor if you observe: Fever of 101 or Higher, Inability to urinate, Shortness of breath, Dizziness, Fainting spells, Swelling in the ankles, Chest pain, Increased palpitations (irregular heartbeat), Uncontrolled pain, - - Call your PCP if severe diarrhea ( > 5 stools a day), painful sores in the mouth, p ainful swallowing, rash or itching. Taking a probiotic such as Lactobacillus or Kefir can help with loose stools while taking antibiotics. Home Medications: Medications to take at Discharge Ferrous Sulfate [Iron] 65 mg PO DAILY 06/23/16 Meclizine HCl [Antivert] 12.5 mg PO 4X/DAY PRN PRN 06/23/16 Nitroglycerin [Nitrostat] 0.4 mg SL DAILY PRN 06/23/16 lactobacillus combination no.8 3 billion cell capsule 3,000 mmu cells PO QDAY 04/08/17 levothyroxine 75 mcg tablet 75 mcg PO DAILY tab 04/08/17 folic acid 800 mcg tablet 800 mcg PO QDAY 04/11/17 diltiazem HCl 240 mg capsule,extended release 24 hr 240 mg PO DAILY #90 cap 05/14/19 Atorvastatin Calcium 10 mg PO QHS 08/22/19 B-Complex with Vitamin C [Super B Complex-Vitamin C] 1 tab PO DAILY 08/22/19 Calcium Carbonate/Vitamin D3 [Os-Kem 500-Vit D3 600 Caplet] 1 tab PO DAILY 08/22/19 Cholecalciferol (Vitamin D3) [Vitamin D3] 2,000 unit PO DAILY 08/22/19 Esomeprazole Magnesium [Nexium 24Hr] 22.3 mg PO DAILY 08/22/19 Fexofenadine HCl [Adriana Allergy] 180 mg PO DAILY 08/22/19 Fluticasone Propion/Salmeterol [Wixela 250-50 Inhub] 1 puff INHALATION BID 08/22/19 Furosemide 80 mg PO BID 08/22/19 Magnesium Oxide [Magnesium] 250 mg PO DAILY 08/22/19 Mineral Oil/Petrolatum,White [Refresh P.m. Ointment] 1 drp EACH EYE QHS 08/22/19 [place]-3S/Dha/Epa/Fish Oil [Fish Oil 1,200 mg Softgel] 1,200 mg PO DAILY 08/22/19 Polyvinyl Alcohol/Povidone/Pf [Refresh Classic Eye Drops] 1 drp EACH EYE TID 08/22/19 Spironolactone [Aldactone] 25 mg PO DAILY 08/22/19 Warfarin Sodium [Coumadin] 4 mg PO MOWE 08/22/19 Warfarin [Coumadin] 1 mg PO SUTUTHFRSA 08/22/19 Ipratropium/Albuterol Sulfate [Duoneb] 3 ml INHALATION Q6H #120 ampul.neb 08/24/19 Acetaminophen [Tylenol] 1,000 mg PO Q8H tab 08/26/19 Capsaicin [Zostrix] 56.6 gm TP TID #1 tube 08/26/19 Cefadroxil [Duricef] 500 mg PO BID #2 cap 08/26/19 Dicyclomine HCl [Bentyl] 10 mg PO BID cap 08/26/19 Lidocaine 2% Jelly [Xylocaine 2% Jelly] 1 applic TOPICAL TID #1 tube 08/26/19 Nystatin Powder [Mycostatin Powder] 1 applic TOPICAL TID bottle 08/26/19 Following Prescrptions Were Given to Patient: Ipratropium/Albuterol Sulfate [Duoneb] 3 ml INHALATION Q6H #120 ampul.neb Transmission Status: Received by [facility] Cefadroxil [Duricef] 500 mg PO BID #2 cap Transmission Status: Received by [address] Lidocaine 2% Jelly [Xylocaine 2% Jelly] 1 applic TOPICAL TID #1 tube Transmission Status: Received by [address] Capsaicin [Zostrix] 56.6 gm TP TID #1 tube Transmission Status: Received by [address] Primary Care Physician: Abby Pendleton DO [Primary Care Provider] - Please follow up with your Primary Care Physician in: 1 week Please Follow Up With: Shimon Hatch MD When: 1-2 weeks Please Follow Up With: Eleuterio Molina MD When: 3-4 weeks Please Follow Up With: Yasmin Singleton PA When: 2 weeks Disposition: Home Minutes spent on discharge:: 35 Patient Condition:: Stable Medical Necessity - Tobacco Use Smoking Status: Never smoker Meaningful Use Info Meaningful Use Diagnoses (Choose all that apply): None applicable
--- NOTE | 2019-08-27 12:14 | CASEMGMT ---
Addendum entered by Cody Zacarias 08/27/19 12:53: Return call received from patient's daughter who is with patient today. Pt is doing well, no questions re: medications instructions or f/u. Pt states she is feeling improved. Daughter states she appreciates call, patient is doing well and they have all information from the hospital. Larry TAYLORM Original Note: RN CM DC PHONE CALL DC DATE: 08.26.2019 DC DISPOSITION: Home with information on Palliative care and Meals on Wheels referral. DC DIAGNOSIS: Supratherapeutic INR, Hyponatremia LACE/STRATA: 02/27 F/U APPTS MADE PRIOR TO DC: no Attempted call to home phone. No answer and no message machine available. Larry JUNG RN AC
== END 2019-08-26 14:55 | disposition home or self-care (01) | DRG 551 ==
LOC: ED 21:56 → MS3 08-23 01:03
PROVIDERS: Physician Assistant; Admitting Provider Hospitalist; Emergency Provider Emergency Medicine; PCP Family Medicine; Visit Provider Internal Medicine
DX: M51.34 Other intervertebral disc degeneration, thoracic region (principal); I50.33 Acute on chronic diastolic (congestive) heart failure; N30.00 Acute cystitis without hematuria; Z16.11 Resistance to penicillins; I48.20 Chronic atrial fibrillation, unspecified; I42.0 Dilated cardiomyopathy; I13.0 Hypertensive heart and chronic kidney disease with heart failure and stage 1 through stage 4 chronic kidney disease, or unspecified chronic kidney disease; I50.32 Chronic diastolic (congestive) heart failure; J96.11 Chronic respiratory failure with hypoxia; E87.1 Hypo-osmolality and hyponatremia; M48.54XA Collapsed vertebra, not elsewhere classified, thoracic region, initial encounter for fracture; T82.857A Stenosis of other cardiac prosthetic devices, implants and grafts, initial encounter; J84.9 Interstitial pulmonary disease, unspecified; B96.89 Other specified bacterial agents as the cause of diseases classified elsewhere; N18.3 Chronic kidney disease, stage 3 (moderate); D46.9 Myelodysplastic syndrome, unspecified; D63.8 Anemia in other chronic diseases classified elsewhere; G89.29 Other chronic pain; R79.1 Abnormal coagulation profile; L22 Diaper dermatitis; D69.6 Thrombocytopenia, unspecified; J84.10 Pulmonary fibrosis, unspecified; J47.9 Bronchiectasis, uncomplicated; I27.81 Cor pulmonale (chronic); I34.0 Nonrheumatic mitral (valve) insufficiency; M41.9 Scoliosis, unspecified; C50.911 Malignant neoplasm of unspecified site of right female breast; I27.20 Pulmonary hypertension, unspecified; I25.10 Atherosclerotic heart disease of native coronary artery without angina pectoris; D50.9 Iron deficiency anemia, unspecified; E03.9 Hypothyroidism, unspecified; E78.5 Hyperlipidemia, unspecified; Y83.1 Surgical operation with implant of artificial internal device as the cause of abnormal reaction of the patient, or of later complication, without mention of misadventure at the time of the procedure; Z99.81 Dependence on supplemental oxygen; Z79.01 Long term (current) use of anticoagulants; Z79.899 Other long term (current) drug therapy; I25.2 Old myocardial infarction; Z95.0 Presence of cardiac pacemaker; Z95.3 Presence of xenogenic heart valve; Z95.2 Presence of prosthetic heart valve; Z95.1 Presence of aortocoronary bypass graft; Z96.653 Presence of artificial knee joint, bilateral
CPT/HCPCS: 36415; 71045; 71250; 72100; 72128; 72131; 80048; 80053; 81001; 82570; 82607; 82728; 82746; 83540; 83550; 83735; 83880; 84100; 84540; 85014; 85018; 85025; 85045; 85610; 87077; 87086; 87088; 87186; 94640; 94762; 96361; 96374; 97110; 97116; 97162; 97166; 97530; 99283; J7040; J7050; A4216; J1940

== ENCOUNTER → 2019-08-31 09:20 | Outpatient (CLI) | payer MEDICARE, OTHER, SELFPAY ==
[2019-08-22 22:41] VITALS: BMI 24.3
== END ==
PROVIDERS: PCP Family Medicine; Visit Provider Family Medicine
DX: N39.0 Urinary tract infection, site not specified (principal)
CPT/HCPCS: 87077; 87086; 87088; 87186

== ENCOUNTER → 2019-09-05 13:21 | Outpatient (CLI) | payer MEDICARE, OTHER, SELFPAY ==
[2019-09-03 11:48] VITALS: BMI 22.4
--- NOTE | 2019-09-05 14:08 | VDLE_ITS ---
Reason For Study: LLE pain RIGHT LEFT CFV is compressible, spontaneous, phasic, GSV is normal. competent and demonstrates normal CFV is compressible, spontaneous, phasic, augmentation. competent, and demonstrates normal Procedure augmentation. Exam performed in department. FV is compressible, spontaneous, phasic, A preliminary report was called and/or faxed competent and demonstrates normal to [place]. augmentation. POP V is compressible, spontaneous, phasic, competent and demonstrates normal augmentation. T/P Trunk is compressible. PTV is compressible. LT PerV is compressible. Interpretation Summary Deep veins of the left lower extremity are patent and compressible segmentally. There is no evidence of left lower extremity deep vein thrombosis. Valvular competence appears intact within the proximal deep venous system on the left . The left great saphenous vein appears patent and compressible segmentally. Ordering Physician: Abby Pendleton Referring Physician: Abby Pendleton Performed By: Allison Reno RVT
== END ==
PROVIDERS: PCP Family Medicine; Referring Provider Family Medicine; Visit Provider Family Medicine
DX: M79.605 Pain in left leg (principal); L53.9 Erythematous condition, unspecified
CPT/HCPCS: 93971

== ENCOUNTER 2019-09-07 13:18 | Outpatient (RCR) | payer MEDICARE, OTHER, SELFPAY ==
[2019-09-03 11:48] VITALS: BMI 22.4
[2019-09-07 15:32] LABS: Prothrombin Time (Protime)PT. 22.4 SECONDS (11.7-14.9)
== END 2019-09-07 18:00 | disposition home or self-care (01) ==
LOC: MTLAB 13:18
PROVIDERS: Internal Medicine Medical Oncology; Family Provider Family Medicine; PCP Family Medicine; Referring Provider Internal Medicine Cardiovascular Disease; Visit Provider Internal Medicine Cardiovascular Disease
DX: I48.20 Chronic atrial fibrillation, unspecified (principal); Z79.01 Long term (current) use of anticoagulants; Z95.2 Presence of prosthetic heart valve
CPT/HCPCS: 36415; 85610

== ENCOUNTER → 2019-09-10 16:48 | Outpatient (CLI) | payer MEDICARE, OTHER, SELFPAY ==
[2019-09-03 11:48] VITALS: BMI 22.4
[2019-09-10 18:26] LABS: Erythrocyte Sedimentation Rate 59 mm/hr (0-30)
[2019-09-12 20:07] LABS: Cytoplasmic Ab (C-ANCA) <1:20 titer (Neg:<1:20)
[2019-09-13 01:10] LABS: Perinuclear Ab (P-ANCA) <1:20 titer (Neg:<1:20)
== END ==
PROVIDERS: PCP Family Medicine; Referring Provider Family Medicine; Visit Provider Family Medicine
DX: I77.6 Arteritis, unspecified (principal)
CPT/HCPCS: 36415; 85652; 86140; 86256

== ENCOUNTER → 2019-09-21 15:34 | Outpatient (CLI) | payer MEDICARE, OTHER, SELFPAY ==
[2019-09-21 10:23] VITALS: BMI 21.1
[2019-09-21 16:08] LABS: Anion Gap 9 (5-15); BUN 39 mg/dL (7-18); BUN/Creat Ratio 31.2 RATIO (10-20); Calcium,Total 8.8 mg/dL (8.5-10.1); Chloride 98 mmol/L (98-107); Creatinine, Serum 1.25 mg/dL (0.55-1.02); EST Glomerular Filtration Rate 44 mL/min (>60); Est Glom Filt Rate - Afr Amer 53 mL/min (>60); Glucose 104 mg/dL (74-106); Potassium 3.8 mmol/L (3.5-5.1); Sodium Level 133 mmol/L (136-145)
== END ==
PROVIDERS: PCP Family Medicine; Referring Provider Physician Assistant Medical
DX: I10 Essential (primary) hypertension (principal)
CPT/HCPCS: 36415; 80048

== ENCOUNTER → 2019-10-18 08:25 | Outpatient (CLI) | payer MEDICARE, OTHER, SELFPAY ==
[2019-10-09 15:13] VITALS: BMI 22.0
--- NOTE | 2019-10-18 08:30 | NM_ITS ---
CLINICAL: 79-year-old female with reported history of carcinoma of the breast with current complaint of thoracic spine pain. WHOLE BODY 99m Tc MDP RADIONUCLIDE BONE SCINTIGRAPHY COMPARISON: Previous whole body bone scintigraphy study report dated 08/14/2012 FINDINGS: Following the intravenous administration of 25.3 mCi of 99m Tc MDP, whole body bone images reveal: 1. Newly identified increased radiopharmaceutical concentration is defined in the ninth thoracic vertebra diffusely and proximal sternum-manubrium. 2. Enhanced tracer concentration is observed in the left wrist, acromioclavicular compartment of the bilateral shoulders. 3. The remaining skeletal structures are scintigraphically unremarkable with normal-appearing renal images and urinary bladder activity identified. Bilateral knee arthroplasties demonstrate no evidence of significant increased tracer distribution. NM/Bone Scan Whole Body IMPRESSION: 1. The increase in radiopharmaceutical concentration identified in the ninth thoracic vertebra is most consistent with trauma-compression fracture. Uptake in the ninth thoracic vertebra and proximal sternum may be further investigated with plain film radiography in the setting of known breast carcinoma. 2. Degenerative arthritis appears currently expressed in the right and left shoulders, the left wrist. 3. Overall compared to the previous whole body bone scintigraphy report dated 08/14/2012, the current increase in tracer distribution noted in the ninth thoracic vertebra and proximal sternum may be further investigated with plain film x-ray if clinically indicated, as described above. Electronically Signed: Matheus Comer DO at 22:40 EDT Tel , Service support ,
== END ==
PROVIDERS: PCP Family Medicine; Referring Provider Internal Medicine Medical Oncology; Visit Provider Internal Medicine Medical Oncology
DX: C50.919 Malignant neoplasm of unspecified site of unspecified female breast (principal)
CPT/HCPCS: 78306

== ENCOUNTER 2019-11-21 12:16 | Outpatient (RCR) | payer MEDICARE, OTHER, SELFPAY ==
[2019-09-24 12:59] VITALS: BMI 21.2
[2019-10-30 10:06] VITALS: BMI 23.2
[2019-11-21 15:56] LABS: International Normalized Ratio 1.3; Prothrombin Time (Protime)PT. 15.4 SECONDS (11.7-14.9)
== END 2019-11-26 18:00 | disposition home or self-care (01) ==
LOC: MTLAB 12:16
PROVIDERS: Family Provider Family Medicine; PCP Family Medicine; Referring Provider Internal Medicine Cardiovascular Disease; Visit Provider Internal Medicine Cardiovascular Disease
DX: I48.20 Chronic atrial fibrillation, unspecified (principal); Z79.01 Long term (current) use of anticoagulants
CPT/HCPCS: 36415; 85610

== ENCOUNTER 2019-12-17 10:14 | Inpatient (IN) | payer MEDICARE, OTHER, SELFPAY ==
[2019-10-30 10:06] VITALS: BMI 23.2
[2019-12-17] VITALS (14 sets, daily range): BP systolic 101–138; BP diastolic 55–91; PULSE 68–92; RESP 12–38; TEMP 36.3–36.7; O2SAT 89–96; BMI 22.6; BMI 24.6; BMI 24.7
--- NOTE | 2019-12-17 10:15 | ED.VIS.GEN ---
History of Present Illness Chief Complaint: Shortness of Breath Informant: Patient, Family Narrative: 79-year-old female with history of [place], CAD, CHF, pulmonary hypertension, dilated cardiomyopathy presenting today with shortness of breath. She states this is been ongoing for the last 2 weeks. Patient is on Coumadin chronically for history of A. fib as well as valvular replacement. She states that her INR levels were low and that Dr. Neri has been monitoring are. He changed her dosing to 3 mg daily. She states that she wears 3 L of oxygen chronically throughout the day and 2-1/2 L at night with a CPAP mask. She states she typically has worsening shortness of breath later in the day. She denies any chest pain or palpitations. She does state that while I have been monitoring her lab work it has been noted also that her electrolytes are out of balance. Patient complains of exertional dyspnea without chest pain. She states she sleeps flat at night on one pillow however. She also notes that she has had a 10 pound weight gain this week. - Past Medical History (1) Breast cancer Status: Chronic (2) Supratherapeutic INR Status: Deleted (3) Hyponatremia Status: Chronic (4) Acute respiratory insufficiency Status: Deleted (5) Acute CHF Status: Deleted Past Medical History - Allergies and Home Meds Allergies/Adverse Reactions: Allergies GERI Inhibitors Allergy (Verified 12/17/19 10:15) Angioedema amiodarone Allergy (Verified 12/17/19 10:15) Other doxycycline Allergy (Verified 12/17/19 10:15) Other rosuvastatin calcium [From Crestor] Allergy (Verified 12/17/19 10:15) Other Sulfa (Sulfonamide Antibiotics) Allergy (Verified 12/17/19 10:15) Nausea tiotropium bromide [From Spiriva with HandiHaler] Allergy (Verified 12/17/19 10:15) Nausea codeine Adverse Reaction (Verified 12/17/19 10:15) Vomiting hydrocodone bitartrate [From Vicodin] Adverse Reaction (Verified 12/17/19 10:15) Vomiting Past Medical History: - - Reviewed in problem list Surgical History: cataract, hysterectomy, total knee arthroplasty, - - Mitral and tricuspid valve replacement, pacemaker implantation 2013 Smoking Status: Never smoker - Family History Maternal Family History: Family History (Last Reviewed 11/01/19 @ 16:54 by Yasmin IZQUIERDO, PA) Father CAD (coronary artery disease) Myocardial infarction Family History: Reports: No pertinent history Paternal Family History: Family History (Last Reviewed 11/01/19 @ 16:54 by Yasmin IZQUIERDO, PA) Father CAD (coronary artery disease) Myocardial infarction Family History: Reports: No pertinent history Review of Systems General: Denies: Chills, Fever, Sweats Eyes: Denies: Visual changes - bilaterally, Diplopia ENT: Denies: Rhinorrhea, Sore throat Cardiovascular: Denies: Chest pain, Palpitations Respiratory: Reports: Dyspnea, Dyspnea on exertion. Denies: Orthopnea Gastrointestinal: Denies: Abdominal pain, Nausea, Vomiting Genitourinary: Denies: Dysuria, Hematuria Musculoskeletal: Reports: Swelling - Bilateral lower extremity swelling. Denies: Myalgias, Arthralgias Skin: Denies: Rash, Abscess Neurological: Denies: Headache Physical Exam Inital Vital Signs reviewed: Yes General: Well nourished, No Acute Distress Head: Normocephalic, Atraumatic Eyes: Perrl, EOMI ENT: Moist mucous membranes, No rhinorrhea Cardiovascular: Regular rate, Regular rhythm Respiratory: No distress, CTA bilaterally. Negative for: Wheezing Abdomen: Soft, Nontender, Nondistended Back: Nontender Extremities: Nontender, Edema Skin: Normal color, No rash Neurological: Alert, Oriented x3 Psychological: Normal affect, Normal Mood Diagnostic/Tx/Re-eval Clinical Impression(s) from Imaging Studies Chest X-Ray 12/17/19 11:10 IMPRESSION: Paramedian CHF. Electronically Signed: Joey Avila, at 11:57 EDT , Service support , Laboratory Data 12/17/19 12/17/19 12/17/19 10:58 10:58 10:58 WBC 8.5 RBC 3.96 L Hgb 11.4 L Hct 36.2 L MCV 91.4 MCH 28.8 MCHC 31.5 L RDW Std Deviation 54.2 H RDW Coeff of Jacob 16.5 H Plt Count 127 L MPV 9.7 Immature Gran % (Auto) 0.800 Neut % (Auto) 66.1 Lymph % (Auto) 10.2 L Cotton % (Auto) 8.4 Eos % (Auto) 13.8 H Baso % (Auto) 0.7 Absolute Neuts (auto) 5.6 Absolute Lymphs (auto) 0.86 Nucleated RBC % 0 PT 25.2 H INR 2.3 Sodium 133 L Potassium 4.8 Chloride 103 Carbon Dioxide 21.0 Anion Gap 9 BUN 49 H Creatinine 2.27 H Estim Creat Clear Calc 15.16 Est GFR (MDRD) Af Amer 27 L Est GFR (MDRD) Non-Af 22 L BUN/Creatinine Ratio 21.6 H Glucose 93 Calcium 9.5 Magnesium 2.8 H Troponin I < 0.015 B-Natriuretic Peptide Urine Color Urine Clarity Urine pH Ur Specific [place] Urine Protein Urine Glucose (UA) Urine Ketones Urine Occult Blood Urine Nitrite Urine Bilirubin Urine Urobilinogen Ur Leukocyte Esterase Urine RBC Urine WBC Ur Squamous Epith Cells Urine Bacteria Urine Mucus 12/17/19 12/17/19 10:58 12:00 WBC RBC Hgb Hct MCV MCH MCHC RDW Std Deviation RDW Coeff of Jacob Plt Count MPV Immature Gran % (Auto) Neut % (Auto) Lymph % (Auto) Cotton % (Auto) Eos % (Auto) Baso % (Auto) Absolute Neuts (auto) Absolute Lymphs (auto) Nucleated RBC % PT INR Sodium Potassium Chloride Carbon Dioxide Anion Gap BUN Creatinine Estim Creat Clear Calc Est GFR (MDRD) Af Amer Est GFR (MDRD) Non-Af BUN/Creatinine Ratio Glucose Calcium Magnesium Troponin I B-Natriuretic Peptide 2360.3 H Urine Color Yellow Urine Clarity Sl. Cloudy Urine pH 5.0 Ur Specific [place] 1.015 Urine Protein Negative Urine Glucose (UA) Normal Urine Ketones Negative Urine Occult Blood Negative Urine Nitrite Negative Urine Bilirubin Negative Urine Urobilinogen Normal Ur Leukocyte Esterase Negative Urine RBC 0 SEEN Urine WBC 0 SEEN Ur Squamous Epith Cells 0-5 SEEN Urine Bacteria 2+ Urine Mucus 0 SEEN - EKG Initial EKG Interpretation: - - paced rhythm at 70 BPM. - Medical Decision Making Was seen and evaluated on arrival. Her vital signs are stable on her baseline oxygen however if she gets up to move she is too short of breath. She does have lower extremity edema. Her blood work does show that she has worsening kidney function in the previous week. Her INR is now therapeutic however. Her chest x-ray shows CHF. Her BNP is elevated. Troponin is negative. Given that she has been trying to handle this on an outpatient basis over the last couple of weeks and is having increased difficulty I will a add her for CHF exacerbation. Impression: CHF exacerbation ED Disposition - Plan for ED Patient: Disposition: [facility]
--- NOTE | 2019-12-17 10:31 | EKG12_ITS ---
Test Reason : SOB Blood Pressure : / mmHG Vent. Rate : 070 BPM Atrial Rate : 073 BPM P-R Int : 000 ms QRS Dur : 168 ms QT Int : 486 ms P-R-T Axes : 000 196 064 degrees QTc Int : 524 ms Ventricular-paced rhythm Abnormal ECG Confirmed by KANU CABRERA, NICOLE ([id number]), school photograph editor MERYL FOLEY ([id number]) on 12/18/2019 1:28:11 PM Referred By: ANSON/KATELYN Confirmed By:NICOLE BOBBY MD
[2019-12-17 11:03] LABS: Absolute Lymphocyte Count 0.86 X10^3/uL (0.83-4.51); Absolute Neutrophil Count 5.6 X10^3/uL (2.0-7.7); Basophil# 0.06 X10^3/uL; Basophil% 0.7 % (0-1); Eosinophil# 1.17 X10^3/uL; Eosinophils% 13.8 % (0-5); Hematocrit 36.2 % (37-47); Hemoglobin 11.4 g/dL (12.0-15.0); Lymphocyte # 0.86 X10^3/ul (4.0); Lymphocyte % 10.2 % (19-41); Mean Corp Hgb Conc 31.5 g/dL (32-36); Mean Corpuscular Hgb 28.8 pg (27.0-32.0); Mean Corpuscular Volume 91.4 fL (81-99); Mean Platelet Vol. 9.7 fl (6.2-12.0); Monocyte# 0.71 X10^3/uL; Monocyte% 8.4 % (0-10); NRBC Flagged by Analyzer 0 % (0-5); Neutrophil # 5.58 X10^3/uL (2.7-7.7); Neutrophil % 66.1 % (47-70); Platelet Count 127 K/mm3 (150-450); RBC Distribution Width CV 16.5 % (11.6-14.6); RBC Distribution Width SD 54.2 fl (35.1-43.9); Red Blood Count 3.96 M/mm3 (4.2-5.4); White Blood Count 8.5 K/mm3 (4.4-11.0)
--- NOTE | 2019-12-17 11:10 | RAD_ITS ---
STUDY: X-RAY CHEST REASON FOR EXAM: Female, 79 years old. SOB x 2 weeks, CHF, HTN, COPD, right breast cancer TECHNIQUE: Single AP portable view of the chest. COMPARISON: Comparison is made with prior study dated 08/22/2019. FINDINGS: EKG electrodes are seen. Thoracic congestion and mild CHF. Blunting of both costophrenic angles. Scarring at the lung apices. Sternal cerclage wires and vascular clips are present from a prior sternotomy and coronary artery bypass graft procedure (CABG). Moderate cardiomegaly. A left-sided pacemaker is seen. Normal mediastinum and bj. Normal visualized pulmonary arteries. Normal visualized aortic arch and descending thoracic aorta. There are degenerative changes of the visualized thoracic spine. Normal visualized ribs, clavicles, and shoulders. There is no demonstrated abnormality of the visualized soft tissue structures of the upper abdomen. RAD/Chest 1 View (Portable) IMPRESSION: Paramedian CHF. Electronically Signed: Joey Avila, at 11:57 EDT , Service support ,
[2019-12-17 11:13] LABS: International Normalized Ratio 2.3; Prothrombin Time (Protime)PT. 25.2 SECONDS (11.7-14.9)
[2019-12-17 11:21] LABS: Anion Gap 9 (5-15); BUN 49 mg/dL (7-18); BUN/Creat Ratio 21.6 RATIO (10-20); Calcium,Total 9.5 mg/dL (8.5-10.1); Chloride 103 mmol/L (98-107); Creatinine, Serum 2.27 mg/dL (0.55-1.02); EST Glomerular Filtration Rate 22 mL/min (>60); Est Glom Filt Rate - Afr Amer 27 mL/min (>60); Estimated Creatinine Clearance 15.16 ml/min; Glucose 93 mg/dL (74-106); Magnesium 2.8 mg/dL (1.6-2.6); Potassium 4.8 mmol/L (3.5-5.1); Sodium Level 133 mmol/L (136-145)
[2019-12-17 12:09] LABS: Mucous, Urine 0 SEEN /hpf (<or=2+); Red Blood Cells-Urine 0 SEEN /hpf (0-5); White Blood Cells 0 SEEN /hpf (0-5)
[2019-12-17 12:11] LABS: Color, Urine Yellow (Yellow); Glucose, Dipstick Normal (Normal); Ketone-Dipstick Negative (Negative); Leukocyte Esterase-Dipstick Negative /ul (Negative); Nitrite-Dipstick Negative (Negative); Occult Blood-Urine Negative /ul (Negative); Protein-Dipstick Negative (Negative); Specific Gravity, Urine 1.015 (1.002-1.030); Urine Bilirubin Dipstick Negative (Negative); Urine Clarity Sl. Cloudy (Clear); Urine Urobilinogen Normal (Normal)
[2019-12-17 12:18] LABS: Bacteria 2+ /hpf (None Seen); Squamous Epithelial Cells - UA 0-5 SEEN /hpf (5-10)
--- NOTE | 2019-12-17 12:38 | HP.PCM_ITS ---
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 (7) History of breast cancer in female Status: Chronic (8) Pure hypercholesterolemia Status: Chronic (9) Essential hypertension Status: Chronic (10) Prosthetic aortic valve stenosis Status: Chronic (11) Nonrheumatic mitral valve regurgitation Status: Chronic Comment: S/P valve repair with a 28 mm G04 annuloplasty ring in October 2011; (12) Nonrheumatic tricuspid (valve) insufficiency Status: Chronic Comment: S/P repair with a 30 mm MC3 ring angioplasty system in October 2011 (13) Cardiac pacemaker in situ Status: Chronic Comment: pacemaker implant 08/08 (14) Presence of prosthetic heart valve Status: Chronic Comment: 11/06, Mitral valve repair with 28mm GeoForm annuloplasty, tricuspid repair with 30mm MC ring annuloplasty (15) Nonrheumatic aortic (valve) insufficiency Status: Chronic Comment: S/P TAVR with [employer] 23 mm low dense valve in May 2013 at [facility]; (16) Subendocardial myocardial infarction Status: Chronic (17) Cardiomyopathy, dilated Status: Chronic (18) S/P AVR (aortic valve replacement) Status: Chronic Comment: TAVR [facility] [employer] 23 mm Kandice valve Aortic Valve 06/09 (19) History of bacterial endocarditis Status: Chronic (20) Thrombocytopenia Status: Chronic (21) Contusion of left upper arm, initial encounter Status: Chronic (22) Iron deficiency anemia Status: Chronic (23) Chronic atrial fibrillation Status: Chronic (24) Congestive heart failure Status: Chronic Qualifiers: Heart failure type: diastolic Heart failure chronicity: acute Qualified Code(s): I50.31 - Acute diastolic (congestive) heart failure (25) Pulmonary hypertension Status: Chronic (26) Coronary artery disease Status: Chronic Qualifiers: (27) Interstitial lung disease Status: Chronic (28) Hypothyroidism Status: Chronic (29) Acute on chronic heart failure with preserved ejection fraction Status: Acute History of Present Illness Date of Admission: 12/17/19 Chief Complaint: SOB FOR 1 MONTH The patient is a 79 year old F with extensive cardiac history including coronary artery disease, multiple valvular heart disease status post CABG in 2011 with mitral and tricuspid valve repair and then [facility] came to ER with progressive worsening of shortness of breath for about 1 month along with gain of weight, leg swelling and generalized weakness. Patient follows Dr. Neri and has recently seen FELECIA Hoffman in cardiology office. She also wakes up few times in the middle of night to catch breath. She sleeps on BiPAP with 2-1/2 L at night and 2 L of oxygen during the daytime. She denies chest tightness/chest pain but has dyspnea at rest for few days which get worse even on minimal to mild exertion. She claims 10 pound weight gain in last couple days. In ED, respiratory rate was 38/min, heart rate 92/min, pulse ox 90% on 3 L of oxygen, BP 123/73. Chest x-ray shows bilateral interstitial edema and obliteration of bilateral CP angle. Left-sided dual-chamber pacemaker. EKG ventricular paced rhythm at 70 bpm. Patient got Lasix 40 mg IV and further admitted. INR 2.3. BNP 2360. Sodium 133. BUN/creatinine elevated 49/2.27, last 1 creatinine one-point in December 12, 2019 Past Medical History Past Medical History (Chronic Problems): Chronic Problems (Last Reviewed 11/01/19 @ 16:54 by Yasmin IZQUIERDO, PA) Breast cancer (Chronic) Bronchiectasis (Chronic) Hyponatremia (Chronic) Severe back pain (Chronic) MDS (myelodysplastic syndrome) (Chronic) Anemia (Chronic) History of breast cancer in female (Chronic) Pure hypercholesterolemia (Chronic) Essential hypertension (Chronic) Prosthetic aortic valve stenosis (Chronic) Nonrheumatic mitral valve regurgitation (Chronic) S/P valve repair with a 28 mm G04 annuloplasty ring in October 2011; Nonrheumatic tricuspid (valve) insufficiency (Chronic) S/P repair with a 30 mm MC3 ring angioplasty system in October 2011 Cardiac pacemaker in situ (Chronic) pacemaker implant 08/08 Presence of prosthetic heart valve (Chronic) 11/06, Mitral valve repair with 28mm GeoForm annuloplasty, tricuspid repair with 30mm MC ring annuloplasty Nonrheumatic aortic (valve) insufficiency (Chronic) S/P TAVR with [employer] 23 mm low dense valve in May 2013 at [facility]; 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, dilated (Chronic) S/P AVR (aortic valve replacement) (Chronic ~05/2014) TAVR witih [employer] 23 mm Kandice valve Aortic Valve 06/09 History of bacterial endocarditis (Chronic) Thrombocytopenia (Chronic) Contusion of left upper arm, initial encounter (Chronic) Iron deficiency anemia (Chronic) Chronic atrial fibrillation (Chronic) Congestive heart failure (Chronic) Pulmonary hypertension (Chronic) Coronary artery disease (Chronic) Interstitial lung disease (Chronic) Hypothyroidism (Chronic) Medical History: Medical History (Last Reviewed 11/01/19 @ 16:54 by Yasmin IZQUIERDO, PA) Pure hypercholesterolemia (Chronic) E78.00 Essential hypertension (Chronic) I10 Prosthetic aortic valve stenosis (Chronic) T82.857A Nonrheumatic mitral valve regurgitation (Chronic) I34.0 S/P valve repair with a 28 mm G04 annuloplasty ring in October 2011; Nonrheumatic tricuspid (valve) insufficiency (Chronic) I36.1 S/P repair with a 30 mm MC3 ring angioplasty system in October 2011 Cardiac pacemaker in situ (Chronic) Z95.0 pacemaker implant 08/08 Nonrheumatic aortic (valve) insufficiency (Chronic) I35.1 S/P TAVR with [employer] 23 mm low dense valve in May 2013 at [facility]; Subendocardial myocardial infarction (Chronic) I21.4 Cardiomyopathy, dilated (Chronic) I42.0 History of bacterial endocarditis (Chronic) Z86.79 Thrombocytopenia (Chronic) D69.6 Iron deficiency anemia (Chronic) D50.9 Chronic atrial fibrillation (Chronic) I48.2 Congestive heart failure (Chronic) I50.9 Pulmonary hypertension (Chronic) I27.2 Coronary artery disease (Chronic) I25.10 Interstitial lung disease (Chronic) J84.9 Hypothyroidism (Chronic) E03.9 Breast cancer C50.919 COPD (chronic obstructive pulmonary disease) J44.9 Left ventricular systolic dysfunction I51.9 Allergies GERA Inhibitors Allergy (Verified 12/17/19 10:15) Angioedema amiodarone Allergy (Verified 12/17/19 10:15) Other doxycycline Allergy (Verified 12/17/19 10:15) Other rosuvastatin calcium [From Crestor] Allergy (Verified 12/17/19 10:15) Other Sulfa (Sulfonamide Antibiotics) Allergy (Verified 12/17/19 10:15) Nausea tiotropium bromide [From Spiriva with HandiHaler] Allergy (Verified 12/17/19 10:15) Nausea codeine Adverse Reaction (Verified 12/17/19 10:15) Vomiting hydrocodone bitartrate [From Vicodin] Adverse Reaction (Verified 12/17/19 10:15) Vomiting Home Medications: Ambulatory Orders Medication Instructions Recorded Ferrous Sulfate [Iron] 65 mg PO DAILY 06/23/16 Meclizine HCl [Antivert] 12.5 mg PO 4X/DAY PRN PRN 06/23/16 Nitroglycerin [Nitrostat] 0.4 mg SL DAILY PRN 06/23/16 lactobacillus combination no.8 3 3,000 mmu cells PO QDAY 04/08/17 billion cell capsule levothyroxine 75 mcg tablet 75 mcg PO DAILY tab 04/08/17 folic acid 800 mcg tablet 800 mcg PO QDAY 04/11/17 diltiazem HCl 240 mg 240 mg PO DAILY #90 cap 05/14/19 capsule,extended release 24 hr B-Complex with Vitamin C [Super B 1 tab PO DAILY 08/22/19 Complex-Vitamin C] Calcium Carbonate/Vitamin D3 1 tab PO DAILY 08/22/19 [Os-Kem 500-Vit D3 600 Caplet] Cholecalciferol (Vitamin D3) 2,000 unit PO DAILY 08/22/19 [Vitamin D3] Esomeprazole Magnesium [Nexium 22.3 mg PO DAILY 08/22/19 24Hr] Fexofenadine HCl [Adriana Allergy] 180 mg PO DAILY 08/22/19 Fluticasone Propion/Salmeterol 1 puff INHALATION BID 08/22/19 [Wixela 250-50 Inhub] Furosemide 80 mg PO BID 08/22/19 Magnesium Oxide [Magnesium] 250 mg PO DAILY 08/22/19 Mineral Oil/Petrolatum,White 1 drp EACH EYE QHS 08/22/19 [Refresh P.m. Ointment] [place]-3S/Dha/Epa/Fish Oil [Fish 1,200 mg PO DAILY 08/22/19 Oil 1,200 mg Softgel] Polyvinyl Alcohol/Povidone/Pf 1 drp EACH EYE TID 08/22/19 [Refresh Classic Eye Drops] Spironolactone [Aldactone] 25 mg PO DAILY 08/22/19 Ipratropium/Albuterol Sulfate 3 ml INHALATION Q6H #120 ampul.neb 08/24/19 [Duoneb] Acetaminophen [Tylenol] 1,000 mg PO Q8H tab 08/26/19 Capsaicin [Zostrix] 56.6 gm TP TID #1 tube 08/26/19 Dicyclomine HCl [Bentyl] 10 mg PO BID cap 08/26/19 Lidocaine 2% Jelly [Xylocaine 2% 1 applic TOPICAL TID #1 tube 08/26/19 Jelly] Nystatin Powder [Mycostatin Powder] 1 applic TOPICAL TID bottle 08/26/19 clotrimazole 1 % topical cream 1 applic TOPICAL BID 09/21/19 atorvastatin 10 mg tablet 10 mg PO QHS #90 tab 11/23/19 Tamoxifen Citrate [Nolvadex] 20 mg PO DAILY 90 Days #90 tab 11/29/19 warfarin 3 mg tablet 3 mg PO DAILY #30 tab 12/05/19 metolazone 5 mg tablet 5 mg PO .ON HOLD tab 12/06/19 potassium chloride 20 mEq 20 meq PO DAILY #30 tab 12/06/19 tablet,extended release Surgical History: Surgical History (Last Reviewed 11/01/19 @ 16:54 by Yasmin IZQUIERDO, PA) S/P AVR (aortic valve replacement) (Chronic) Onset Date: ~05/[address] [facility] [employer] 23 mm Kandice valve Aortic Valve 06/09 History of breast biopsy Onset Date: ~05/2019 Z98.890 History of bilateral knee replacement Z98.890, Z96.653 History of total hysterectomy Z98.890, Z90.710 History of mitral valve replacement (Inactive) Onset Date: ~10/2011 Z95.2 06/09 History of tricuspid valve replacement (Inactive) Onset Date: ~10/2011 Z95.2 06/09 Surgical History: cataract, hysterectomy, total knee arthroplasty, - - Mitral and tricuspid valve replacement, pacemaker implantation 2013 Psychiatric History: No pertinent psych hx [employer]Y [employer] MANAGER History: 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 Denies: Head Aches, Sinus Congestion, Sinus Drainage Cardiovascular: Reports: Edema, Orthopnea, Paroxysmal Noc. Dyspnea. Denies: Chest Pain, Palpitations Respiratory: Reports: Shortness of Breath, Shortness of breath at rest, Shortness of breath upon exertion. Denies: Cough, Sputum production Gastrointestinal: Denies: Abdominal Pain, Nausea, Vomiting Genitourinary: Denies: Dysuria, Frequency Musculoskeletal: Reports: Joint Pain, Joint stiffness. Denies: Joint Tenderness Skin: Denies: Rash, Wounds Neurological: Reports: Balance problems. Denies: Focal weakness, Numbness, Tingling Psychiatric: Denies: Anxiety, Depression, Homicidal Ideations, Suicidal Ideations Hematologic/ Lymphatic: Denies: Easy Bruising, Easy Bleeding VTE Information - Inpt Only VTE Present on Admission: No VTE Mechan Device Prophylaxis: None VTE Pharm Prophylaxis ordered?: No Reason prophylaxis not ordered:: Procedure Not Indicated - Already on Coumadin, INR 2.3 Patient Problems: Active and Suspected Problems (Last Reviewed 11/01/19 @ 16:54 by Yasmin IZQUIERDO, PA) Acute on chronic heart failure with preserved ejection fraction (Acute) - Physical Exam Vitals/I&O's: Vital Signs Temp Pulse Resp BP Pulse Ox 97.6 F L 70 24 H 124/75 H 94 12/17/19 11:17 12/17/19 12:07 12/17/19 12:07 12/17/19 12:07 12/17/19 12:07 Oxygen Flow Rate (L/min) 3 Oxygen Delivery Method Nasal Cannula Weight: 120 lb Body Mass Index (BMI) 22.6 General: Alert, Oriented x3, Cooperative HEENT: Atraumatic, PERRLA, EOMI, Normocephalic Oral: No Gingival or Mucosal Lesions/ Ulcerations Neck: Supple, No JVD, Negative Carotid Bruits Lungs: Diminished - Air entry diminished in bilateral lung bases, Rales - Bilateral fine rales present, Short of Breath, Tachypneic Cardiovascular: Regular rate - Ventricular paced rhythm., Normal S1, Normal S2, Murmur - Systolic murmur present over left lower sternal border, pansystolic murmur over mitral area. Abdomen: Bowel Sounds Present, Soft, Non Tender, Non-Distended Extremities: Capillary Refill Less than 3 Seconds, Edema Skin: No rashes, No breakdown Musculoskeletal: No Tenderness to Palpation of Joints or Extremities, Arthritic Changes - Knee replacement scar Neurological: Cranial nerves II-XII grossly intact, Deep Tendon Reflexes 2+/4 and Symmetrical, Neuro grossly intact Psych/Mental Status: Normal Affect, Appropriate Laboratory Results 12/17/19 10:58: WBC 8.5, RBC 3.96 L, Hgb 11.4 L, Hct 36.2 L, MCV 91.4, MCH 28.8, MCHC 31.5 L, RDW Std Deviation 54.2 H, RDW Coeff of Jacob 16.5 H, Plt Count 127 L , MPV 9.7, Immature Gran % (Auto) 0.800, Neut % (Auto) 66.1, Lymph % (Auto) 10.2 L, Christian % (Auto) 8.4, Eos % (Auto) 13.8 H, Baso % (Auto) 0.7, Absolute Neuts (auto) 5.6, Absolute Lymphs (auto) 0.86, Nucleated RBC % 0 12/17/19 10:58: PT 25.2 H, INR 2.3 12/17/19 10:58: Sodium 133 L, Potassium 4.8, Chloride 103, Carbon Dioxide 21.0, Anion Gap 9, BUN 49 H, Creatinine 2.27 H, Estim Creat Clear Calc 15.16, Est GFR (MDRD) Af Amer 27 L, Est GFR (MDRD) Non-Af 22 L, BUN/Creatinine Ratio 21.6 H, Glucose 93, Calcium 9.5, Magnesium 2.8 H, Troponin I < 0.015 12/17/19 10:58: B-Natriuretic Peptide 2360.3 H 12/17/19 12:00: Urine Color Yellow, Urine Clarity Sl. Cloudy, Urine pH 5.0, Ur Specific [place] 1.015, Urine Protein Negative, Urine Glucose (UA) Normal, Urine Ketones Negative, Urine Occult Blood Negative, Urine Nitrite Negative, Urine Bilirubin Negative, Urine Urobilinogen Normal, Ur Leukocyte Esterase Negative, Urine RBC 0 SEEN, Urine WBC 0 SEEN, Ur Squamous Epith Cells 0-5 SEEN, Urine Bacteria 2+, Urine Mucus 0 SEEN Assessment/Plan All Active Problems (Last Reviewed 11/01/19 @ 16:54 by Yasmin Singleton PA, PA) Acute on chronic heart failure with preserved ejection fraction (Acute) The patient is a 79 year old F with extensive cardiac history is being admitted with progressive worsening of shortness of breath for about 1 month along with gain of weight, leg swelling and generalized weakness. Diagnosis is consistent of CHF exacerbation Chest x-ray shows bilateral interstitial edema and obliteration of bilateral CP angle. Left-sided dual-chamber pacemaker. EKG ventricular paced rhythm at 70 bpm. Patient got Lasix 40 mg IV and further admitted. INR 2.3. BNP 2360. Sodium 133. BUN/creatinine elevated 49/2.27, last 1 creatinine one-point in December 12, 2019 1. Acute hypoxic respiratory insufficiency on chronic hypoxic respiratory failure due to acute on chronic diastolic, biventricular heart failure, most probably due to multiple valvular heart disease status post mitral and tricuspid valve repair and TAVR replacement moderately severe pulmonary hypertension: Patient has gradual worsening of heart failure. The patient is being admitted in PCU floor. Serial cardiac enzymes to rule out ACS. Patient received for Lasix 40 mg IV in ED and will start on furosemide drip at 10 mg/h. CHF core measures with fluid restriction, daily weight checking, Gera wrap bandage. Consult Dr. Neri, her lab head. Resume her home cardiac medications diltiazem 240 mg daily if blood pressure and heart rate permits and, atorvastatin. Fasting profile tomorrow a.m. patient had last echo in April 2019 reported as mentioned below Left ventricular systolic function is normal. The estimated ejection fraction is 60 %. Mildly dilated right ventricle. Mild global right ventricular systolic dysfunction. The left atrium is moderately enlarged. The right atrium is moderately enlarged. An annuloplasty ring is noted in the mitral position. Mild diffuse mitral valve thickening. The mitral valve chordae are thickened and/or calcified. Trivial transvalvular insufficiency of the mitral valve. An annuloplasty ring is noted in the tricuspid position. Moderate transvalvular insufficiency of the tricuspid valve. Stable appearing bioprosthetic aortic valve apparatus. Trivial perivalvular insufficiency of the aortic valve. Moderate (2+) pulmonic valve insufficiency. Right ventricular systolic pressure estimated to be 60 mmHg. 2. Arrhythmia including paroxysmal A. fib on Coumadin: Patient had history of proximal A. fib and has dual-chamber pacemaker. Patient had pacemaker check in November 28, 2019. INR is 2.3, therapeutic on Coumadin 3 mg daily. 3. Coronary artery disease status post CABG with dilated cardiomyopathy, history of bacterial endocarditis: 4. Chronic hypoxic respiratory failure with other multiple comorbidities include iron deficiency anemia, hypertension, and interstitial lung disease, hypothyroidism,dyslipidemia and bilateral knee replacement: Patient follows Dr. Molina. No PFT available in the chart. Bronchodilator DuoNeb every 6 hourly. At home, patient was on fluticasone/salmeterol. DVT prophylaxis: On Coumadin. Living will/advanced directive/end of life care: Patient does have living will or advanced directive. After discussion of procedures involved with full code, DNR CC arrest and DNR CC, the patient and her daughter states she wants one- time CPR and DC shock if needed without intubation, ventilator, vasopressor, CVC catheter. I tried to convince her that this is usually does not work as all the life support measures have to work in synchronization and together for effective result. Patient still adamant about her decision and states if one time CPR does not work, does not try to revive her. Therefore, technically she will be full code without intubation/ventilator Total time spent in [id number] encounter in discussion of advanced directive 16 minutes. Inpatient E&M: 47892 Init Hosp L3 Procedures: 26996 Advncd Care Plan 30 Min
--- NOTE | 2019-12-17 13:18 | ED.RN ---
PUREWICK PLACED, PT VOIDED [id number].
[2019-12-17] MEDS: Furosemide 40 MG/4 ML Vial IV (13:21)
--- NOTE | 2019-12-17 14:40 | PCM.CONS.C ---
Problem List (1) Acute on chronic heart failure with preserved ejection fraction Status: Acute (2) Valvular heart disease Status: Chronic (3) Chronic atrial fibrillation Status: Chronic (4) Cardiac pacemaker in situ Status: Chronic Comment: pacemaker implant 08/08 (5) Pure hypercholesterolemia Status: Chronic (6) Pulmonary hypertension Status: Chronic (7) Interstitial lung disease Status: Chronic (8) Renal insufficiency Status: Chronic Reason for Consult Date of Consultation: 12/17/19 History of Present Illness: The patient is a 79 year old white female with a past medical history of underlying valvular heart disease status post mitral valve repair, tricuspid valve repair, TAVR, atrial fibrillation status post AV node ablation and permanent pacemaker placement, hyperlipidemia, hypertension, interstitial pulmonary fibrosis, pulmonary hypertension, anemia, thrombocytopenia, and breast carcinoma, who presents for recurrent acute on chronic diastolic mediated CHF/pulmonary edema. She has been having increasing episodes of shortness of breath/dyspnea. She states recently this became more problematic both at rest and especially with exertion. This is despite wearing her O2 nasal cannula support. She does not recall ongoing chest discomfort but does state that she felt somewhat orthopneic yesterday evening. She has noted some edema of her lower extremities more so in the knee area. There is been no nausea or emesis or diaphoresis reported. She has not reported near syncope or syncope. She noted based upon her recent exacerbation of her shortness of breath and dyspnea she elected to present to the hospital for further evaluation. She was thought to have signs and symptoms and objective findings compatible with acute on chronic diastolic mediated CHF. She was brought into the hospital for further evaluation and care. He had a troponin I level performed. It was considered negative. Her BNP level was elevated. Her chest x-ray suggested post open heart surgery changes as well as evidence of increased pulmonary vascularity. She was placed in the PCU for further evaluation and care. She has been started on medical management with IV continuous infusion furosemide. [] Past Medical History Allergies/Adverse Reactions: Allergies GERI Inhibitors Allergy (Verified 12/17/19 10:15) Angioedema amiodarone Allergy (Verified 12/17/19 10:15) Other doxycycline Allergy (Verified 12/17/19 10:15) Other rosuvastatin calcium [From Crestor] Allergy (Verified 12/17/19 10:15) Other Sulfa (Sulfonamide Antibiotics) Allergy (Verified 12/17/19 10:15) Nausea tiotropium bromide [From Spiriva with HandiHaler] Allergy (Verified 12/17/19 10:15) Nausea codeine Adverse Reaction (Verified 12/17/19 10:15) Vomiting hydrocodone bitartrate [From Vicodin] Adverse Reaction (Verified 12/17/19 10:15) Vomiting Home Medications: Ambulatory Orders Medication Instructions Recorded Meclizine HCl [Antivert] 12.5 mg PO 4X/DAY PRN PRN 06/23/16 Nitroglycerin [Nitrostat] 0.4 mg SL DAILY PRN 06/23/16 levothyroxine 75 mcg tablet 75 mcg PO DAILY tab 04/08/17 diltiazem HCl 240 mg 240 mg PO DAILY #90 cap 05/14/19 capsule,extended release 24 hr Esomeprazole Magnesium [Nexium 22.3 mg PO DAILY 08/22/19 24Hr] Fexofenadine HCl [Adriana Allergy] 180 mg PO DAILY 08/22/19 Fluticasone Propion/Salmeterol 1 puff INHALATION BID 08/22/19 [Wixela 250-50 Inhub] Furosemide 80 mg PO BID 08/22/19 Polyvinyl Alcohol/Povidone/Pf 1 drp EACH EYE TID 08/22/19 [Refresh Classic Eye Drops] Spironolactone [Aldactone] 25 mg PO DAILY 08/22/19 atorvastatin 10 mg tablet 10 mg PO QHS #90 tab 11/23/19 Acetaminophen [Tylenol] 650 mg PO Q4H PRN PRN 12/17/19 Ipratropium/Albuterol Sulfate 3 ml INHALATION Q6H 12/17/19 [Duoneb] Multivitamin with Minerals 1 ea PO DAILY 12/17/19 [Multiple Vitamin] Potassium Chloride [K-Tab ER] 20 meq PO DAILY 12/17/19 Tamoxifen Citrate [Nolvadex] 20 mg PO DAILY 12/17/19 Warfarin Sodium 3 mg PO DAILY 12/17/19 Past Medical History (Chronic Problems): Chronic Problems (Last Reviewed 11/01/19 @ 16:54 by Yasmin Singleton PA, PA) Breast cancer (Chronic) Valvular heart disease (Chronic) Renal insufficiency (Chronic) Bronchiectasis (Chronic) Hyponatremia (Chronic) Severe back pain (Chronic) MDS (myelodysplastic syndrome) (Chronic) Anemia (Chronic) History of breast cancer in female (Chronic) Pure hypercholesterolemia (Chronic) Essential hypertension (Chronic) Prosthetic aortic valve stenosis (Chronic) Nonrheumatic mitral valve regurgitation (Chronic) S/P valve repair with a 28 mm G04 annuloplasty ring in October 2011; Nonrheumatic tricuspid (valve) insufficiency (Chronic) S/P repair with a 30 mm MC3 ring angioplasty system in October 2011 Cardiac pacemaker in situ (Chronic) pacemaker implant 08/08 Presence of prosthetic heart valve (Chronic) 11/06, Mitral valve repair with 28mm GeoForm annuloplasty, tricuspid repair with 30mm MC ring annuloplasty Nonrheumatic aortic (valve) insufficiency (Chronic) S/P TAVR with [employer] 23 mm low dense valve in May 2013 at [facility]; 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, dilated (Chronic) S/P AVR (aortic valve replacement) (Chronic ~05/2014) TAVR witih [employer] 23 mm Kandice valve Aortic Valve 06/09 History of bacterial endocarditis (Chronic) Thrombocytopenia (Chronic) Contusion of left upper arm, initial encounter (Chronic) Iron deficiency anemia (Chronic) Chronic atrial fibrillation (Chronic) Congestive heart failure (Chronic) Pulmonary hypertension (Chronic) Coronary artery disease (Chronic) Interstitial lung disease (Chronic) Hypothyroidism (Chronic) Surgical History: cataract, hysterectomy, total knee arthroplasty, - - Mitral and tricuspid valve replacement, pacemaker implantation 2013 Psychiatric History: No pertinent psych hx 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: No pertinent 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 TRIMMER history - *Family History Maternal Family History: Family History (Last Reviewed 11/01/19 @ 16:54 by Yasmin IZQUIERDO, PA) Father CAD (coronary artery disease) Myocardial infarction History Items: No pertinent history Paternal Family History: Family History (Last Reviewed 11/01/19 @ 16:54 by Yasmin IZQUIERDO, PA) Father CAD (coronary artery disease) Myocardial infarction History Items: No pertinent history Lives: Alone Smoking Status: Never smoker Tobacco Use: Non-smoker Alcohol: None Drugs: None Review of Systems - Review of Systems General: Denies: Fever, Night Sweats, Fatigue Cardiovascular: Reports: Shortness of Breath, Shortness of Breath at Rest, Shortness of Breath with Exertion, Peripheral Edema. Denies: Chest Discomfort, Orthopnea, PND, Palpitations, Lightheadedness, Dizziness, Near Syncope, Syncope Respiratory: Reports: Shortness of Breath. Denies: Cough, Sputum Production, Hemoptysis Gastrointestinal: Denies: Hematemesis, Hematochezia, Melena Genitourinary: Denies: Dysuria, Hematuria Skin: Denies: Rash Subjectve: This is a pleasant 79-year-old white female who appears to be short of breath, wearing O2 nasal cannula, but in no acute distress at this time. Objective: Vital Signs Temp Pulse Resp BP Pulse Ox 97.6 F L 70 24 H 124/75 H 94 12/17/19 11:17 12/17/19 12:07 12/17/19 12:07 12/17/19 12:07 12/17/19 12:07 Oxygen Flow Rate (L/min) 3 Oxygen Delivery Method Nasal Cannula Weight: 126 lb 5.198 oz Body Mass Index (BMI) 24.6 General: Awake, Alert, Oriented x 3, Cooperative, No Acute Distress HEENT: Atraumatic, Normocephalic, PERRL, EOMI, Sclera Non Icteric Neck: Supple, Good ROM, Positive JVD Lungs: Rales - Carl Bases Cardiovascular: Regular Rhythm, Normal S1, Normal S2 Murmur Murmur: Grade 3/6, Harsh, Mid Systolic, LLSB, LVOT, Sternal Notch Abdomen: Bowel Sounds Present, Soft Extremities: Mild RLE Edema, Mild LLE Edema Neurological: No Focal Motor or Sensory Deficit Psych/Mental Status: Appropriate 12/17/19 10:58: WBC 8.5, RBC 3.96 L, Hgb 11.4 L, Hct 36.2 L, MCV 91.4, MCH 28.8, MCHC 31.5 L, Plt Count 127 L, MPV 9.7, Immature Gran % (Auto) 0.800, Neut % (Auto) 66.1, Lymph % (Auto) 10.2 L, Lawrence % (Auto) 8.4, Eos % (Auto) 13.8 H, Baso % (Auto) 0.7, Absolute Neuts (auto) 5.6, Nucleated RBC % 0 12/17/19 10:58: PT 25.2 H, INR 2.3 12/17/19 10:58: Sodium 133 L, Potassium 4.8, Chloride 103, Carbon Dioxide 21.0, Anion Gap 9, BUN 49 H, Creatinine 2.27 H, Est GFR (MDRD) Af Amer 27 L, Est GFR (MDRD) Non-Af 22 L, BUN/Creatinine Ratio 21.6 H, Glucose 93, Calcium 9.5, Magnesium 2.8 H, Troponin I < 0.015 12/17/19 10:58: B-Natriuretic Peptide 2360.3 H 12/17/19 12:00: Urine Color Yellow, Urine Clarity Sl. Cloudy, Urine pH 5.0, Ur Specific [place] 1.015, Urine Protein Negative, Urine Glucose (UA) Normal, Urine Ketones Negative, Urine Occult Blood Negative, Urine Nitrite Negative, Urine Bilirubin Negative, Urine Urobilinogen Normal, Ur Leukocyte Esterase Negative, Urine RBC 0 SEEN, Urine WBC 0 SEEN Rhythm: EKG: ECHO: 05-04-2019 Interpretation Summary The study was technically difficult. Left ventricular systolic function is normal. The estimated ejection fraction is 60 %. D shaped septum in systole and diastole. Paradoxical septal wall motion compatible with a post open heart surgery state and/or an underlying electronic ventricular pacemaker. Mildly dilated right ventricle. Mild global right ventricular systolic dysfunction. The left atrium is moderately enlarged. The right atrium is moderately enlarged. An annuloplasty ring is noted in the mitral position. Mild diffuse mitral valve thickening. The mitral valve chordae are thickened and/or calcified. Trivial transvalvular insufficiency of the mitral valve. An annuloplasty ring is noted in the tricuspid position. Moderate transvalvular insufficiency of the tricuspid valve. Stable appearing bioprosthetic aortic valve apparatus. Trivial perivalvular insufficiency of the aortic valve. Moderate (2+) pulmonic valve insufficiency. Right ventricular systolic pressure estimated to be 60 mmHg. Unable to assess diastolic dysfunction. ICD or pacer leads identified within the right atrium ICD or pacer leads identified within the right ventricle. Stress Test: 07/17/2013 Pharmacologic stress nuclear imaging study: Impression: Peak pharmacologic ECG with continued ectopic atrial rhythm with continued nonspecific ST/T wave abnormality Frequent PACs/PVCs during pretest, infusion, and recovery Repetitive PACs during pretesting recovery Nuclear images demonstrating myocardial perfusion changes compatible with physiologic apical thinning although an area of previous myocardial injury/infarction in the very distal inferior-inferior apical segments cannot necessarily be excluded No myocardial perfusion changes consider diagnostic for stress-induced myocardial ischemia A gated Cardiolite study was not obtained Cardiac Cath: 12-13-2014: [facility] Impression: Normal LV filling pressure Angiographically normal coronary arteries CT Surgery: 11-08-2011: [facility] Mitral valve repair with a 28 mm GeoForm annuloplasty ring Tricuspid valve repair with a 30 mm MC3 ring annuloplasty system Cryo-Maze procedure CT surgery: 06-07-2014: [facility] Transcatheter aortic valve replacement with a [employer] 23 mm Kandice valve via a right iliofemoral approach Holter monitor: 09-30-2010 Normal sinus rhythm with rare episodes of wandering atrial pacer PACs; probable ectopic atrial tachycardia Rare isolated PVCs; one ventricular couplet; no runs EPS: 08-22-2013: [facility] Successful AV node radiofrequency ablation Successful dual-chamber PPM PPM: [employer]: Johna DR: Model number: ADD RL 101: Serial number: [id number]: Implanted: 08-22-2013: Dual-chamber pacemaker CXR: Preliminary evaluation: Post open heart surgery changes: Increased pulmonary vascularity compatible with CHF/pulmonary edema: Please see official repor Assessment/Plan 1. Acute on chronic diastolic mediated CHF The present time she does have evidence of acute on chronic diastolic mediated CHF. She will continue to be monitored. She will continue medical therapy with her diuretics. Her renal function will be followed. 2. Valvular heart disease She does have a history of valvular heart disease as previously described. She is undergone noninvasive study of her valvular heart disease in April of this year as noted. It may not be unreasonable to repeat this to look for significant changes that would be contributing to her progressive symptoms and events. In the past, with respect to her TAVR procedure, she has not been thought to be a candidate by [facility] for a repeat aortic valve intervention. She does need to continue AHA antibiotic prophylaxis. 3. Atrial fibrillation status post AV node ablation and permanent pacemaker placement She does have a history of atrial fibrillation and AV node ablation. She has permanent pacemaker dependent. She has continued medical management in the interim as deemed appropriate. 4. Permanent pacemaker Her pacemaker has been functioning appropriately in the past. It can be reassessed as needed. 5. Hyperlipidemia She will continue medical management as deemed appropriate. 6. Pulmonary hypertension This can be secondary to her cardiopulmonary issues. It can be reassessed with an echocardiogram. In the interim she continues medical therapy and O2 support. 7. Interstitial lung disease She does have a longstanding history of interstitial lung disease for which she is followed with pulmonology both locally and at [facility]. Certainly this can be a contributing factor her to her progressive pulmonary disease process and elevated right-sided pressures. She will continue her medical management and follow-up. 8. Renal insufficiency She has been noted to have an element of renal insufficiency. There is a concern as to whether or not she is developing a cardiorenal syndrome. She will need to continue medical therapy although her renal function will have to be taken into consideration with her medications. She may need nephrology input as well. Comment: Overall at the present time the plan is for continued evaluation/medical management. There are no immediate plans for any aggressive invasive evaluation/care. Depending upon her clinical course she may need to be considered for future palliative/hospice care therapy as well. The above was discussed was with the patients daughter via telephone. This note was generated using a voice recognition system and there may be incorrect words, spelling or punctuation that were not noted when reviewing the office note prior to saving.
[2019-12-17 15:48] LABS: Magnesium 2.7 mg/dL (1.6-2.6)
[2019-12-17] MEDS: Ipratropium/Albuterol Sulfate 3 ML AMPUL.NEB INHALATION (18:49)
[2019-12-17] MEDS: Atorvastatin Calcium 10 MG Tablet PO (21:51)
[2019-12-18] VITALS (17 sets, daily range): BP systolic 98–119; BP diastolic 49–71; PULSE 69–77; RESP 12–30; TEMP 36.4–36.7; O2SAT 81–99
[2019-12-18] MEDS: Ipratropium/Albuterol Sulfate 3 ML AMPUL.NEB INHALATION ×4 (00:42→19:57)
--- NOTE | 2019-12-18 00:45 | CPS ---
Patient's BiPAP settings increased to 18/8 for low tidal volumes on previous settings. FiO2 was decreased for pulse ox of 98% on 35%. FiO2 decreased to 30%. RN aware of changes.
[2019-12-18] MEDS: Levothyroxine 75 MCG Tablet PO (05:36)
[2019-12-18 06:21] LABS: Absolute Lymphocyte Count 1.02 X10^3/uL (0.83-4.51); Basophil# 0.05 X10^3/uL; Basophil% 0.7 % (0-1); Eosinophil# 0.25 X10^3/uL; Eosinophils% 3.6 % (0-5); Hematocrit 32.2 % (37-47); Hemoglobin 10.3 g/dL (12.0-15.0); Lymphocyte # 1.02 X10^3/ul (4.0); Lymphocyte % 14.5 % (19-41); Mean Corpuscular Hgb 29.3 pg (27.0-32.0); Mean Corpuscular Volume 91.7 fL (81-99); Mean Platelet Vol. 9.8 fl (6.2-12.0); Monocyte# 0.63 X10^3/uL; NRBC Flagged by Analyzer 0 % (0-5); Neutrophil # 5.04 X10^3/uL (2.7-7.7); Neutrophil % 71.6 % (47-70); Platelet Count 111 K/mm3 (150-450); RBC Distribution Width CV 16.7 % (11.6-14.6); RBC Distribution Width SD 55.3 fl (35.1-43.9); Red Blood Count 3.51 M/mm3 (4.2-5.4)
[2019-12-18 06:52] LABS: Anion Gap 9 (5-15); BUN 51 mg/dL (7-18); BUN/Creat Ratio 25.8 RATIO (10-20); Calcium,Total 8.9 mg/dL (8.5-10.1); Chloride 103 mmol/L (98-107); Cholesterol 76 mg/dL (200); Creatinine, Serum 1.98 mg/dL (0.55-1.02); EST Glomerular Filtration Rate 26 mL/min (>60); Est Glom Filt Rate - Afr Amer 31 mL/min (>60); Estimated Creatinine Clearance 16.55 ml/min; Glucose 90 mg/dL (74-106); High Density Lipoprotein 31 mg/dL; Sodium Level 135 mmol/L (136-145); Thyroid Stim Hormone (TSH) 3.54 uIU/mL (0.358-3.74); Triglycerides 55 mg/dL; Very Low Density Lipoprotein 11 mg/dL (5-40)
--- NOTE | 2019-12-18 07:40 | ECHOD_ITS ---
Reason For Study: CHF Procedure This was a 2D Doppler, Color Flow transthoracic echocardiogram. The study was technically difficult. Exam performed portable in patient room. Left Ventricle Normal LV size. D shaped septum in systole and diastole. Left ventricular systolic function is normal. The estimated ejection fraction is 60 %. There is evidence of diastolic dysfunction. No regional wall motion abnormalities noted. Right Ventricle Severely dilated right ventricle. ICD or pacer leads identified within the right ventricle. Moderately severe global right ventricular systolic dysfunction. Atria The left atrium is severely enlarged. The right atrium is severely enlarged. ICD or pacer leads identified within the right atrium. No doppler evidence for ASD. Mitral Valve Mild diffuse mitral valve thickening. The mitral valve chordae are thickened and/or calcified. Trivial mitral valve insufficiency. An annuloplasty ring is noted in the mitral position. Tricuspid Valve Poor coaptation of the tricuspid valve leaflets. Right ventricular systolic pressure estimated to be 112 mmHg. An annuloplasty ring is noted in the tricuspid position. Moderate to Severe transvalvular insufficiency of the tricuspid valve. Aortic Valve Moderate aortic stenosis. Stable appearing bioprosthetic aortic valve apparatus. Trivial transvalvular insufficiency of the aortic valve. Pulmonic Valve The pulmonic valve is not well visualized. Mild (1+) pulmonic valve insufficiency. Great Vessels Mildly dilated aortic root. Pericardium/Pleural No pericardial effusion. MMode/2D Measurements & Calculations LVIDd: 4.0 cm IVSd: 1.5 cm LVOT diam: 2.0 cm LVIDs: 2.0 cm LVPWd: 0.99 cm LVOT area: 3.1 cm2 RVDd: 5.3 cm FS: 50.2 % Ao root diam: 4.0 cm LAV(MOD-sp4): 88.8 ml LA A4 area: 27.0 cm2 LA dimension: 5.3 cm RA A4 area: 30.9 cm2 Time Measurements MV dec time: 0.36 sec Doppler Measurements & Calculations MV E max jerardo: 189.3 cm/sec Lat Peak E' Jerardo: 9.6 cm/sec Med Peak E' Jerardo: 3.7 cm/sec E/E' lat: 19.8 E/E' med: 50.6 MV V2 max: 193.4 cm/sec MV P1/2t max jerardo: 193.4 cm/sec Ao V2 max: 371.5 cm/sec MV max P.0 mmHg MV P1/2t: 105.7 msec Ao max P.2 mmHg MV V2 mean: 100.9 cm/sec Ao V2 mean: 252.5 cm/sec MV mean P.9 mmHg MV dec slope: 535.9 cm/sec2 Ao mean P.2 mmHg MV V2 VTI: 50.5 cm MVA(P1/2t): 2.1 cm2 Ao V2 VTI: 77.1 cm MVA(VTI): 3.1 cm2 CECIL(I,D): 2.0 cm2 CECIL(V,D): 1.8 cm2 AI max jerardo: 374.5 cm/sec LV V1 max: 224.0 cm/sec MR max jerardo: 493.1 cm/sec AI max P.1 mmHg LV V1 max P.1 mmHg MR max P.2 mmHg AI dec slope: 262.3 cm/sec2 LV V1 mean P.5 mmHg AI P1/2t: 418.2 msec LV V1 mean: 158.1 cm/sec LV V1 VTI: 51.6 cm SV(LVOT): 157.7 ml PA V2 max: 152.4 cm/sec PI dec slope: 356.3 cm/sec2 TR max jerardo: 492.6 cm/sec TR max P.1 mmHg Interpretation Summary The study was technically difficult. Left ventricular systolic function is normal. The estimated ejection fraction is 60 %. D shaped septum in systole and diastole. Severely dilated right ventricle. Moderately severe global right ventricular systolic dysfunction. The left atrium is severely enlarged. The right atrium is severely enlarged. An annuloplasty ring is noted in the mitral position. Mild diffuse mitral valve thickening. The mitral valve chordae are thickened and/or calcified. Trivial mitral valve insufficiency. An annuloplasty ring is noted in the tricuspid position. Poor coaptation of the tricuspid valve leaflets. Moderate to Severe transvalvular insufficiency of the tricuspid valve. Stable appearing bioprosthetic aortic valve apparatus. Moderate aortic stenosis. Trivial transvalvular insufficiency of the aortic valve. Mild (1+) pulmonic valve insufficiency. Mildly dilated aortic root. Right ventricular systolic pressure estimated to be 112 mmHg. There is evidence of diastolic dysfunction. ICD or pacer leads identified within the right atrium ICD or pacer leads identified within the right ventricle. Ordering Physician: Jason Neri Referring Physician: Abby Pendleton Performed By: Venancio Jett RCS
[2019-12-18] MEDS: Pantoprazole Sodium 40 MG Tablet PO (09:44)
[2019-12-18] MEDS: dilTIAZem CD 240 MG Capsule PO (09:44)
[2019-12-18] MEDS: Spironolactone 25 MG Tablet PO (09:44)
[2019-12-18] MEDS: Tamoxifen 10 MG Tablet 20 MG PO (09:45)
[2019-12-18] MEDS: Fluticasone 0.05% 1 SPRAY NASAL.SRY 2 SPRAY NASAL (09:45)
[2019-12-18] MEDS: Loratadine 10 MG Tablet PO (09:47)
--- NOTE | 2019-12-18 10:55 | CASEMGMT ---
PADMINI LOPEZ assessment: Face to Face with patient for initial transition planning/care coordination assessment. PADMINI LOPEZ introduced self and role at [facility], pt voices understanding and consents to assessment at this time. Pt is sitting up in bed in no distress at this time. Pt is A/Ox4 at this time and answers all questions appropriately at this time. Care providers, pharmacy, and demographics verified at this time. Presentation: SOB [id number] 3L O2 at home Admitting dx: CHF exac PCP: Keerthi Specialists: Halle, cardio; Jesse, pulm; Prah, onc Preferred Pharmacy: [facility] Insurance: [facility] A/B, A[employer] Prescription Benefit: [facility] Living Will/HPOA: Pt states has LW/HPOA and is aware that they are not on file at [facility] at this time. Pt states her daughter, Antonia Pruitt, is HPOA. LNOK: Antonia Pruitt, daughter/HPOA; Shemar Stewart, son Living Arrangements: Pt states lives alone in 1 story condo with 1 step in thru garage or front with a rail/grab bar in place and states no concerns at home at this time. Pt is independent with ADL's. Transportation: Pt states daughter drives and states no transportation concerns at this time. DME/HHC: Pt states has the following DME: cane, walker, w/c, medical alert, raised toilet seat, grab bars, shower chair, nebulizer, bipap, and 3liters of home oxygen continuous, 2.5liters at bedtime thru bipap thru [facility]. Pt states no need for any further need for DME at this time. Pt states has been to [facility] and [facility] in the past and has had [facility] previously. Pt states no need for HHC or SNF at this time but states Dr. Neri did recommend palliative care for pt at this time. Pt is interested in [facility] palliative/[facility] and would like to speak with them with daughter present. Jacob wilkerson, voices understanding and referral to be sent at this time. Pt states no concerns with going home at time of discharge. Pt is retired. Pt states does not smoke cigarettes(and never has) and does not drink ETOH. Pt states no further concerns/needs at this time. CM to follow for any further discharge planning/needs. Advised pt to ask for CM if any further questions/concerns/needs arise, voices understanding. Pt Goal: Home Plan: Home Jos [place] CM
--- NOTE | 2019-12-18 13:07 | CASEMGMT ---
Physician asked that SW make a referral to Palliative Care. SW spoke with patient, introduced self and role at [facility]. She confirmed that she would like a referral to Palliative Care. She would like her daughter present for the conversation. Her daughter is not aware of the referral yet. She will be in today at 130 today. SW will talk with patient's daughter when she arrives. SW did call Palliative Care with referral and asked that they not call the daughter until SW call them back. SW faxed information to Palliative Care. Ana GUZMAN MSW
--- NOTE | 2019-12-18 13:41 | CASEMGMT ---
SW spoke with patient's daughter when she arrived. Introduced self and role at [facility]. She confirmed Dr Neri mentioned Palliative Care to her. SW explained a little bit about Palliative and that they would call her and set up a time to discuss their services. TOVA called [facility] and let Cristin know to tell Kirstin that they can call patient's daughter to arrange a meeting. Ana GUZMAN MSW
--- NOTE | 2019-12-18 13:48 | CPS ---
Pt was placed back on Bipap for increased work of breathing and decreased saturations. Saturation up to 96% on Bipap. Pt's nurse aware of change
--- NOTE | 2019-12-18 13:50 | PCM.PN.HOSP ---
Patient Problems: Active and Suspected Problems (Last Reviewed 11/01/19 @ 16:54 by Yasmin Singleton PA, PA) Acute on chronic heart failure with preserved ejection fraction (Acute) Reason for Visit: CHF exacerbation. Acute on chronic hypoxic respiratory failure Objective: Patient lower extremity edema and abdominal swelling/distention has improved. She still gets intermittently short of breath even on walking from one side of the bed to the other or going to bathroom. Patient pulse ox dropped to 81% on 2 L of oxygen was put on BiPAP. Tachypneic, RR 24 to 30/min. Interdisciplinary rounds was done with charge nurse, nursing staff, PT, product ambassador, continuous pillowcase cutter, social media coordinator with patient's daughter near the bedside. Physical exam General: Alert, Oriented x3, Cooperative HEENT: Atraumatic, PERRLA, EOMI, Normocephalic Oral: No Gingival or Mucosal Lesions/ Ulcerations Neck: Supple, No JVD, Negative Carotid Bruits Lungs: Air entry diminished in bilateral lung bases, Bilateral fine rales present, Short of Breath on mild exertion, Tachypneic Cardiovascular: Ventricular paced rhythm., Normal S1, Normal S2, Murmur - Systolic murmur present over left lower sternal border, pansystolic murmur over mitral area. Abdomen: Bowel Sounds Present, Soft, Non Tender, Non-Distended : No renal angle tenderness or suprapubic tenderness present. Denies new lower urinary tract symptoms or dysuria. Extremities: Capillary Refill Less than 3 Seconds, Edema Skin: No rashes, No breakdown Musculoskeletal: No Tenderness to Palpation of Joints or Extremities, Arthritic Changes - Knee replacement scar. Mild muscle atrophy, chronic Neurological: Cranial nerves II-XII grossly intact, Deep Tendon Reflexes 2+/4 and Symmetrical, Neuro grossly intact Psych/Mental Status: Normal Affect, Appropriate Vitals/I&O's: Vital Signs Temp Pulse Resp BP Pulse Ox 98.0 F 70 30 H 107/55 L 96 12/18/19 09:26 12/18/19 13:12 12/18/19 13:12 12/18/19 09:42 12/18/19 13:12 Oxygen Flow Rate (L/min) 2 Oxygen Delivery Method Nasal Cannula Weight: 123 lb 10.869 oz Body Mass Index (BMI) 24.6 Intake and Output for Last 24 Hours 0912/17/19 12/18/19 23:59 23:59 23:59 Intake Total 360 / 360 120 / 120 Output Total 400 / 400 200 / 200 Balance -40 / -40 -80 / -80 Laboratory Results 12/17/19 15:00: Magnesium 2.7 H, Troponin I 0.023 12/17/19 17:31: Troponin I 0.025 12/18/19 06:12: WBC 7.0, RBC 3.51 L, Hgb 10.3 L, Hct 32.2 L, MCV 91.7, MCH 29.3, MCHC 32.0, RDW Std Deviation 55.3 H, RDW Coeff of Jacob 16.7 H, Plt Count 111 L, MPV 9.8, Immature Gran % (Auto) 0.600, Neut % (Auto) 71.6 H, Lymph % (Auto) 14.5 L, [place] % (Auto) 9.0, Eos % (Auto) 3.6, Baso % (Auto) 0.7, Absolute Neuts (auto) 5.0, Absolute Lymphs (auto) 1.02, Nucleated RBC % 0 12/18/19 06:12: Sodium 135 L, Potassium 4.0, Chloride 103, Carbon Dioxide 23.0, Anion Gap 9, BUN 51 H, Creatinine 1.98 H, Estim Creat Clear Calc 16.55, Est GFR (MDRD) Af Amer 31 L, Est GFR (MDRD) Non-Af 26 L, BUN/Creatinine Ratio 25.8 H, Glucose 90, Calcium 8.9, Triglycerides 55, Cholesterol 76, LDL Cholesterol 34, VLDL Cholesterol 11, HDL Cholesterol 31 L, TSH 3.54 Current Medications Acetaminophen (Tylenol) 650 mg PO Q6H PRN PRN PRN Reason: Pain Score 1-10/Temp > 100.7 F Al Hydroxide/Mg Hydroxide (Mylanta Ii) 30 ml PO Q6H PRN PRN PRN Reason: Gastric Burning Albuterol Sulfate (Ventolin Aerosols) 2.5 mg INHALATION Q2H PRN PRN PRN Reason: SOB/Wheezing Albuterol/Ipratropium (Duoneb) 3 ml INHALATION Q6H.RT RADHA Last Admin: 12/18/19 13:12 Dose: 3 ml Documented by: Atorvastatin Calcium (Lipitor) 10 mg PO QHS RADHA Last Admin: 12/17/19 21:51 Dose: 10 mg Documented by: Diltiazem HCl (Cardizem Cd) 240 mg PO DAILY [facility] Last Admin: 12/18/19 09:44 Dose: 240 mg Documented by: Fluticasone Propionate (Flonase Nasal [place]) 2 spray NASAL DAILY [facility] Last Admin: 12/18/19 09:45 Dose: 2 u Documented by: Furosemide 500 mg/ (Miscellaneous Information) 50 mls @ 1 mls/hr CONT INF .Q50H [facility] Last Admin: 12/17/19 15:28 Dose: 10 mg/hr, 1 mls/hr Documented by: Levothyroxine Sodium (Synthroid) 75 mcg PO DAILY@0600 [facility] Last Admin: 12/18/19 05:36 Dose: 75 mcg Documented by: Loratadine (Claritin) 10 mg PO DAILY [facility] Last Admin: 12/18/19 09:47 Dose: 10 mg Documented by: Meclizine HCl (Antivert) 12.5 mg PO 4X/DAY PRN PRN PRN Reason: VERTIGO Melatonin (Melatonin) 3 mg PO QHS PRN PRN PRN Reason: INSOMNIA Morphine Sulfate () 2 mg IV Q3H PRN PRN PRN Reason: Pain Score 6-10/10 Nitroglycerin (Nitrostat) 0.4 mg SUBLINGUAL Q5M PRN PRN Reason: CARDIAC/CHEST PAIN Oxycodone HCl (Oxyir) 5 mg PO Q4H PRN PRN PRN Reason: Pain Score 4-5/10 Pantoprazole Sodium (Protonix) 40 mg PO DAILY [facility] Last Admin: 12/18/19 09:44 Dose: 40 mg Documented by: Potassium Chloride (K-Dur) 20 meq PO DAILY [facility] Last Admin: 12/18/19 09:45 Dose: 20 meq Documented by: Prochlorperazine Edisylate (Compazine Iv) 5 mg IV Q4H PRN PRN PRN Reason: Breakthrough Nausea/Vomiting Senna/Docusate Sodium (Senokot-S, [place]-Colace) 2 tablet PO BID PRN PRN PRN Reason: Constipation Sodium Chloride () 10 - 40 ml IV UD PRN PRN Reason: SALINE FLUSH Spironolactone (Aldactone) 25 mg PO DAILY [facility] Last Admin: 09/22/20 09:44 Dose: 25 mg Documented by: Tamoxifen Citrate (Nolvadex) 20 mg PO DAILY [facility] Last Admin: 12/18/19 09:45 Dose: 20 mg Documented by: Warfarin Sodium (Jantoven) 3 mg PO DAILY@1700 [facility]; Protocol Last Admin: 12/17/19 18:00 Dose: 3 mg Documented by: STROKE Vital Signs/Narrative: Vital Signs Pulse Resp Pulse Ox 12/18/19 13:12 70 30 H 81 Medical Necessity - Tobacco Use Smoking Status: Never smoker Tobacco Use: Non-smoker Assessment/Plan All Active Problems (Last Reviewed 11/01/19 @ 16:54 by Yasmin Singleton PA, PA) Acute on chronic heart failure with preserved ejection fraction (Acute) The patient is a 79 year old F with extensive cardiac history is being admitted with progressive worsening of shortness of breath for about 1 month along with gain of weight, leg swelling and generalized weakness. Diagnosis is consistent of CHF exacerbation Chest x-ray shows bilateral interstitial edema and obliteration of bilateral CP angle. Left-sided dual-chamber pacemaker. EKG ventricular paced rhythm at 70 bpm. Patient got Lasix 40 mg IV and further admitted. INR 2.3. BNP 2360. Sodium 133. BUN/creatinine elevated 49/2.27, last 1 creatinine one-point in December 12, 2019 1. Acute on chronic hypoxic respiratory failure, on BiPAP due to acute on chronic diastolic, biventricular heart failure, most probably due to multiple valvular heart disease status post mitral and tricuspid valve repair and TAVR replacement moderately severe pulmonary hypertension: Patient has gradual worsening of heart failure. The patient is being admitted in PCU floor. Serial troponins enzymes are negative. Currently patient is on Lasix drip at 10 mg/h. Lost 3 pounds since admission. Seen by sheet finisher and discussed with him, Dr. Neri. CHF core measures with fluid restriction, daily weight checking, Gera wrap bandage. Continue home cardiac medications diltiazem 240 mg daily if blood pressure and heart rate permits and, atorvastatin. Lipid profile is within normal limit except HDL 31. TSH 3.54. Patient had repeat echo today, 12/18/2019 reported as EF 60%. Left ventricular systolic function is normal. The estimated ejection fraction is 60 %. Severely dilated right ventricle. Moderately severe global right ventricular systolic dysfunction. The left atrium is severely enlarged. The right atrium is severely enlarged. An annuloplasty ring is noted in the mitral position. Mild diffuse mitral valve thickening. The mitral valve chordae are thickened and/or calcified. Trivial mitral valve insufficiency. An annuloplasty ring is noted in the tricuspid position. Poor coaptation of the tricuspid valve leaflets. Moderate to Severe transvalvular insufficiency of the tricuspid valve. Stable appearing bioprosthetic aortic valve apparatus. Moderate aortic stenosis. Trivial transvalvular insufficiency of the aortic valve. Mild (1+) pulmonic valve insufficiency. Mildly dilated aortic root. Right ventricular systolic pressure estimated to be 112 mmHg. As compared to the previous echo of April 2019, pulmonary artery pressure has increased 212 from 60 mmHg with moderate to severe TR. 2. Arrhythmia including paroxysmal A. fib on Coumadin: Patient had history of proximal A. fib and has dual-chamber pacemaker. Patient had pacemaker check in November 28, 2019. INR is 2.3, therapeutic on Coumadin 3 mg daily. 3. Coronary artery disease status post CABG with dilated cardiomyopathy, history of bacterial endocarditis: 4. Acute kidney injury on CKD stage IV: Patient baseline creatinine runs around 1.6 to 1.8. Was admitted with 2.27. Discussed with the [place] quality improvement specialist. Interdisciplinary rounds was done. Patient and her daughter agreed for change of CODE STATUS to DNR CC arrest with no intubation. Palliative care consulted. Poor prognosis explained to the patient. other multiple comorbidities include iron deficiency anemia, hypertension, and interstitial lung disease, hypothyroidism,dyslipidemia and bilateral knee replacement: Patient follows Dr. Molina. No PFT available in the chart. Bronchodilator DuoNeb every 6 hourly. At home, patient was on fluticasone/salmeterol. DVT prophylaxis: On Coumadin. Inpatient E&M: [id number] [facility] L3
--- NOTE | 2019-12-18 14:58 | CASEMGMT ---
Patient has a Healthcare Power of Pet Training Instructor and a Healthcare Living Will. RN CM notified her that they are not on file at [facility]. Her daughter Antonia is her POA. Ana GUZMAN MSW
--- NOTE | 2019-12-18 15:04 | NURSING ---
new lasix bag hung at this time. barcode would not scan. unable to document on may. new bag hung bc old bag 12/17 [id number]
--- NOTE | 2019-12-18 15:27 | CASEMGMT ---
Kin from [facility] is here to talk with patient and her daughter. Ana GUZMAN MSW
--- NOTE | 2019-12-18 16:01 | CPS ---
Pt was placed back on Bipap for decreased saturation on nasal cannula. Pt's nurse aware of change
--- NOTE | 2019-12-18 18:10 | PN.CARD_ITS ---
Subjectve: The patient was evaluated earlier this day. She stated she felt improved with respect to her overall breathing and her sensation of fluid retention in both her abdomen and her lower extremities. Objective: Vital Signs Temp Pulse Resp BP Pulse Ox 97.7 F L 70 28 H 119/71 93 12/18/19 14:15 12/18/19 15:45 12/18/19 15:45 12/18/19 14:15 12/18/19 15:45 Oxygen Flow Rate (L/min) 3 Oxygen Delivery Method Bi-pap Weight: 123 lb 10.869 oz Body Mass Index (BMI) 24.6 Intake and Output for Last 24 Hours 12/16/19 12/17/19 12/18/19 23:59 23:59 23:59 Intake Total 360 / 360 120 / 120 Output Total 400 / 400 900 / 900 Balance -40 / -40 -780 / -780 General: Awake, Alert, Oriented x 3, Cooperative HEENT: Atraumatic, Normocephalic, PERRL, EOMI, Sclera Non Icteric Neck: Supple, Good ROM, No JVD Lungs: Rales - Carl Bases - Wet and dry rales Cardiovascular: Regular Rhythm, Normal S1, Normal S2 Murmur Murmur: Grade 3/6, Harsh, Mid Systolic, LLSB, LVOT, Sternal Notch Abdomen: Bowel Sounds Present, Soft Extremities: Trace RLE Edema, Trace LLE Edema Psych/Mental Status: Depressed 12/17/19 17:31: Troponin I 0.025 12/18/19 06:12: WBC 7.0, RBC 3.51 L, Hgb 10.3 L, Hct 32.2 L, MCV 91.7, MCH 29.3, MCHC 32.0, Plt Count 111 L, MPV 9.8, Immature Gran % (Auto) 0.600, Neut % (Auto) 71.6 H, Lymph % (Auto) 14.5 L, [place] % (Auto) 9.0, Eos % (Auto) 3.6, Baso % (Auto) 0.7, Absolute Neuts (auto) 5.0, Nucleated RBC % 0 12/18/19 06:12: Sodium 135 L, Potassium 4.0, Chloride 103, Carbon Dioxide 23.0, Anion Gap 9, BUN 51 H, Creatinine 1.98 H, Est GFR (MDRD) Af Amer 31 L, Est GFR (MDRD) Non-Af 26 L, BUN/Creatinine Ratio 25.8 H, Glucose 90, Calcium 8.9, Triglycerides 55, Cholesterol 76, LDL Cholesterol 34, VLDL Cholesterol 11, HDL Cholesterol 31 L Rhythm: Electronic ventricular paced rhythm ECHO: Interpretation Summary The study was technically difficult. Left ventricular systolic function is normal. The estimated ejection fraction is 60 %. D shaped septum in systole and diastole. Severely dilated right ventricle. Moderately severe global right ventricular systolic dysfunction. The left atrium is severely enlarged. The right atrium is severely enlarged. An annuloplasty ring is noted in the mitral position. Mild diffuse mitral valve thickening. The mitral valve chordae are thickened and/or calcified. Trivial mitral valve insufficiency. An annuloplasty ring is noted in the tricuspid position. Poor coaptation of the tricuspid valve leaflets. Moderate to Severe transvalvular insufficiency of the tricuspid valve. Stable appearing bioprosthetic aortic valve apparatus. Moderate aortic stenosis. Trivial transvalvular insufficiency of the aortic valve. Mild (1+) pulmonic valve insufficiency. Mildly dilated aortic root. Right ventricular systolic pressure estimated to be 112 mmHg. There is evidence of diastolic dysfunction. ICD or pacer leads identified within the right atrium ICD or pacer leads identified within the right ventricle. Medical Necessity - Tobacco Use Smoking Status: Never smoker Tobacco Use: Non-smoker Assessment/Plan 1. Acute on chronic diastolic mediated CHF The present time she does have evidence of acute on chronic diastolic mediated CHF. She states she feels somewhat improved today status post initiation of her IV continuous infusion diuretics. She will continue to be monitored. She will continue medical therapy with her diuretics. Her renal function will be followed. 2. Valvular heart disease She does have a history of valvular heart disease as previously described. In the past, with respect to her TAVR procedure, she has not been thought to be a candidate by [facility] for a repeat aortic valve intervention. Her valvular heart disease was reassessed with a transthoracic echocardiogram with the results as noted. At the present time she will continue medical therapy and AHA antibiotic prophylaxis. As noted in the past she has been deemed not a candidate for repeat valvular intervention/surgery at [facility]. 3. Atrial fibrillation status post AV node ablation and permanent pacemaker placement She does have a history of atrial fibrillation and AV node ablation. She has permanent pacemaker dependent. She has continued medical management in the interim as deemed appropriate. 4. Permanent pacemaker Her pacemaker has been functioning appropriately in the past. It can be reassessed as needed. 5. Hyperlipidemia She will continue medical management as deemed appropriate. 6. Pulmonary hypertension Her estimated RV systolic pressure was reassessed with transthoracic echocardiogram. Based upon the findings her estimated RV systolic pressure was 112 mmHg-compatible with severe pulmonary hypertension. This may be secondary to a combination of her cardiac and pulmonary history/condition. At the moment she will need continued supportive medical therapy from both a cardiopulmonary standpoint. This most likely will require continued O2 support and diuretic support. She may need to be considered by her interactive media marketing strategist as to whether or not she is a candidate for vasodilator therapy. 7. Interstitial lung disease She does have a longstanding history of interstitial lung disease for which she is followed with pulmonology both locally and at [facility]. Certainly this can be a contributing factor her to her progressive pulmonary disease process and elevated right-sided pressures. She will continue her medical management and follow-up. 8. Renal insufficiency She has been noted to have an element of renal insufficiency. There is a concern as to whether or not she is developing a cardiorenal syndrome. She will need to continue medical therapy although her renal function will have to be taken into consideration with her medications. She may need nephrology input as well. This note was generated using a voice recognition system and there may be incorrect words, spelling or punctuation that were not noted when reviewing the office note prior to saving.
[2019-12-18] MEDS: Atorvastatin Calcium 10 MG Tablet PO (21:06)
[2019-12-19] VITALS (13 sets, daily range): BP systolic 103–112; BP diastolic 57–73; PULSE 70–72; RESP 18–22; TEMP 36.6–36.9; O2SAT 93–99
--- NOTE | 2019-12-19 02:36 | CPS ---
pt wearing own bipap with o2 bled in
[2019-12-19] MEDS: Levothyroxine 75 MCG Tablet PO (05:27)
[2019-12-19 05:48] LABS: Anion Gap 9 (5-15); BUN 53 mg/dL (7-18); BUN/Creat Ratio 27.3 RATIO (10-20); Calcium,Total 8.9 mg/dL (8.5-10.1); Chloride 102 mmol/L (98-107); Creatinine, Serum 1.94 mg/dL (0.55-1.02); EST Glomerular Filtration Rate 26 mL/min (>60); Est Glom Filt Rate - Afr Amer 32 mL/min (>60); Estimated Creatinine Clearance 16.89 ml/min; Glucose 110 mg/dL (74-106); Potassium 4.1 mmol/L (3.5-5.1); Sodium Level 135 mmol/L (136-145)
[2019-12-19] MEDS: Ipratropium/Albuterol Sulfate 3 ML AMPUL.NEB INHALATION ×3 (07:18→19:38)
--- NOTE | 2019-12-19 08:54 | PN.CARD_ITS ---
Subjectve: The patient notes that her breathing has improved overall since her hospitalization. She still feels bloated and feels that her legs are tight . However she notes she has weak and has difficulty getting out of bed and walking across the floor without assistance. Objective: Vital Signs Temp Pulse Resp BP Pulse Ox 98.0 F 70 18 110/64 93 12/19/19 03:10 12/19/19 07:18 12/19/19 07:18 12/19/19 03:10 12/19/19 07:18 Oxygen Flow Rate (L/min) 3.5 Oxygen Delivery Method Nasal Cannula Weight: 123 lb 14.397 oz Body Mass Index (BMI) 24.6 Intake and Output for Last 24 Hours 12/17/19 12/18/19 12/19/19 23:59 23:59 23:59 Intake Total 360 / 360 263.28 / 263.28 120 / 120 Output Total 400 / 400 1100 / 1100 300 / 300 Balance -40 / -40 -836.72 / -836.72 -180 / -180 General: Awake, Alert, Oriented x 3, Cooperative HEENT: Atraumatic, Normocephalic, PERRL, EOMI, Sclera Non Icteric Neck: Supple, Good ROM Lungs: Rales - Carl Bases - Improved compared to admission Cardiovascular: Regular Rhythm, Normal S1, Normal S2 Murmur Murmur: Grade 3/6, Harsh, Mid Systolic, LLSB, LVOT, Sternal Notch Abdomen: Bowel Sounds Present, Soft Extremities: Trace RLE Edema, Trace LLE Edema Psych/Mental Status: Depressed 12/19/19 05:05: Sodium 135 L, Potassium 4.1, Chloride 102, Carbon Dioxide 24.0, Anion Gap 9, BUN 53 H, Creatinine 1.94 H, Est GFR (MDRD) Af Amer 32 L, Est GFR (MDRD) Non-Af 26 L, BUN/Creatinine Ratio 27.3 H, Glucose 110 H, Calcium 8.9 Rhythm: Electronic ventricular paced rhythm ECHO: Interpretation Summary The study was technically difficult. Left ventricular systolic function is normal. The estimated ejection fraction is 60 %. D shaped septum in systole and diastole. Severely dilated right ventricle. Moderately severe global right ventricular systolic dysfunction. The left atrium is severely enlarged. The right atrium is severely enlarged. An annuloplasty ring is noted in the mitral position. Mild diffuse mitral valve thickening. The mitral valve chordae are thickened and/or calcified. Trivial mitral valve insufficiency. An annuloplasty ring is noted in the tricuspid position. Poor coaptation of the tricuspid valve leaflets. Moderate to Severe transvalvular insufficiency of the tricuspid valve. Stable appearing bioprosthetic aortic valve apparatus. Moderate aortic stenosis. Trivial transvalvular insufficiency of the aortic valve. Mild (1+) pulmonic valve insufficiency. Mildly dilated aortic root. Right ventricular systolic pressure estimated to be 112 mmHg. There is evidence of diastolic dysfunction. ICD or pacer leads identified within the right atrium ICD or pacer leads identified within the right ventricle. Medical Necessity - Tobacco Use Smoking Status: Never smoker Tobacco Use: Non-smoker Assessment/Plan 1. Acute on chronic diastolic mediated CHF The present time she does have evidence of acute on chronic diastolic mediated CHF. Is demonstrated clinical improvement status post IV continuous infusion furosemide. An attempt will be made to discontinue her IV continuous infusion furosemide and place her on oral diuretic therapy. It may be reasonable to attempt a different oral diuretic therapy with potentially increased absorption such as torsemide/Demadex. She will need continued follow-up of her clinical course and her renal function. 2. Valvular heart disease She does have a history of valvular heart disease as previously described. In the past, with respect to her TAVR procedure, she has not been thought to be a candidate by [facility] for a repeat aortic valve intervention. Her valvular heart disease was reassessed with a transthoracic echocardiogram with the results as noted. At the present time she will continue medical therapy and AHA antibiotic prophylaxis. As noted in the past she has been deemed not a candidate for repeat valvular intervention/surgery at [facility]. 3. Atrial fibrillation status post AV node ablation and permanent pacemaker placement She does have a history of atrial fibrillation and AV node ablation. She has permanent pacemaker dependent. She has continued medical management in the interim as deemed appropriate. 4. Permanent pacemaker Her pacemaker has been functioning appropriately in the past. It can be reassessed as needed. 5. Hyperlipidemia She will continue medical management as deemed appropriate. 6. Pulmonary hypertension Her estimated RV systolic pressure was reassessed with transthoracic echocardiogram. Based upon the findings her estimated RV systolic pressure was 112 mmHg-compatible with severe pulmonary hypertension. This may be secondary to a combination of her cardiac and pulmonary history/condition. At the moment she will need continued supportive medical therapy from both a cardiopulmonary standpoint. This most likely will require continued O2 support and diuretic support. Her attending team was asked to consider consulting her primary gallery assistant--for input on additional evaluation/care including vasodilator therapy. 7. Interstitial lung disease She does have a longstanding history of interstitial lung disease for which she is followed with pulmonology both locally and at [facility]. Certainly this can be a contributing factor her to her progressive pulmonary disease process and elevated right-sided pressures. She will continue her medical management and follow-up. 8. Renal insufficiency She has been noted to have an element of renal insufficiency. There is a concern as to whether or not she is developing a cardiorenal syndrom e. She will need to continue medical therapy although her renal function will have to be taken into consideration with her medications. She may need nephrology input as well ending upon her ongoing clinical course. Comment: The above information was conveyed to Dr. Elizalde. This note was generated using a voice recognition system and there may be incorrect words, spelling or punctuation that were not noted when reviewing the office note prior to saving.
--- NOTE | 2019-12-19 09:04 | CASEMGMT ---
SW called [facility] and inquired how discussion went with patient and family yesterday. Per Taisha they are following up with patient and family today to discuss what they would like to do. Ana GUZMAN MSW
[2019-12-19] MEDS: dilTIAZem CD 240 MG Capsule PO (10:35)
[2019-12-19] MEDS: Fluticasone 0.05% 1 SPRAY NASAL.SRY 2 SPRAY NASAL (10:35)
[2019-12-19] MEDS: Spironolactone 25 MG Tablet PO (10:35)
[2019-12-19] MEDS: Furosemide 40 MG Tablet PO (10:36)
[2019-12-19] MEDS: Loratadine 10 MG Tablet PO (10:36)
[2019-12-19] MEDS: Pantoprazole Sodium 40 MG Tablet PO (10:37)
[2019-12-19] MEDS: Tamoxifen 10 MG Tablet 20 MG PO (10:37)
--- NOTE | 2019-12-19 11:09 | CON.PCM_ITS ---
Consultation - Renal PCP/ Referring MD: Requesting physician: [] Primary care physician: Dr. Abby Pendleton, DO - History of Present Illness History of Present Illness: The patient is a 79 year old F PMH of CKD stage with baseline Cr 1.3-2.0 mg/dl, CHF , s/p TAVR, CAD s/p CABG., and CRF with BiPAP/NC at home Patient presented with progressive SOB, weight gain and legs edema for one month period. Patient was admitted with CHF exacerbation and started on lasix drip. Renal team was consulted for RONNIE on CKD. Patient presented with SCr 2.2 mg/dl. Patient responded well to IV lasix drip .today she was switched to lasix 40 mg IV BID. weight dropped a little to 56.6 mg from 57.6 when she presented Patient said her breathing is better. edema is better No NSAIDs use. No IV contrast exposure. No skin rash ROS: 12 systems review is negative except SOB which is better [] - Allergies Allergies: Allergies GERI Inhibitors Allergy (Verified 12/17/19 10:15) Angioedema amiodarone Allergy (Verified 12/17/19 10:15) Other doxycycline Allergy (Verified 12/17/19 10:15) Other rosuvastatin calcium [From Crestor] Allergy (Verified 12/17/19 10:15) Other Sulfa (Sulfonamide Antibiotics) Allergy (Verified 12/17/19 10:15) Nausea tiotropium bromide [From Spiriva with HandiHaler] Allergy (Verified 12/17/19 10:15) Nausea codeine Adverse Reaction (Verified 12/17/19 10:15) Vomiting hydrocodone bitartrate [From Vicodin] Adverse Reaction (Verified 12/17/19 10:15) Vomiting - Current Medications Current Medications: Current Medications Acetaminophen (Tylenol) 650 mg PO Q6H PRN PRN PRN Reason: Pain Score 1-10/Temp > 100.7 F Al Hydroxide/Mg Hydroxide (Mylanta Ii) 30 ml PO Q6H PRN PRN PRN Reason: Gastric Burning Albuterol Sulfate (Ventolin Aerosols) 2.5 mg INHALATION Q2H PRN PRN PRN Reason: SOB/Wheezing Albuterol/Ipratropium (Duoneb) 3 ml INHALATION Q6H.RT [facility] Last Admin: 12/19/19 07:18 Dose: 3 ml Documented by: Atorvastatin Calcium (Lipitor) 10 mg PO QHS [facility] Last Admin: 12/18/19 21:06 Dose: 10 mg Documented by: Diltiazem HCl (Cardizem Cd) 240 mg PO DAILY [facility] Last Admin: 12/19/19 10:35 Dose: 240 mg Documented by: Fluticasone Propionate (Flonase Nasal Benson) 2 spray NASAL DAILY [facility] Last Admin: 12/19/19 10:35 Dose: 2 u Documented by: Furosemide (Lasix) 40 mg PO BIDLX [facility] Last Admin: 12/19/19 10:36 Dose: 40 mg Documented by: Levothyroxine Sodium (Synthroid) 75 mcg PO DAILY@0600 [facility] Last Admin: 12/19/19 05:27 Dose: 75 mcg Documented by: Loratadine (Claritin) 10 mg PO DAILY [facility] Last Admin: 12/19/19 10:36 Dose: 10 mg Documented by: Meclizine HCl (Antivert) 12.5 mg PO 4X/DAY PRN PRN PRN Reason: VERTIGO Melatonin (Melatonin) 3 mg PO QHS PRN PRN PRN Reason: INSOMNIA Morphine Sulfate () 2 mg IV Q3H PRN PRN PRN Reason: Pain Score 6-10/10 Nitroglycerin (Nitrostat) 0.4 mg SUBLINGUAL Q5M PRN PRN Reason: CARDIAC/CHEST PAIN Oxycodone HCl (Oxyir) 5 mg PO Q4H PRN PRN PRN Reason: Pain Score 4-5/10 Pantoprazole Sodium (Protonix) 40 mg PO DAILY [facility] Last Admin: 12/19/19 10:37 Dose: 40 mg Documented by: Potassium Chloride (K-Dur) 20 meq PO DAILY [facility] Last Admin: 12/19/19 10:36 Dose: 20 meq Documented by: Prochlorperazine Edisylate (Compazine Iv) 5 mg IV Q4H PRN PRN PRN Reason: Breakthrough Nausea/Vomiting Senna/Docusate Sodium (Senokot-S, Onelia-Colace) 2 tablet PO BID PRN PRN PRN Reason: Constipation Sodium Chloride () 10 - 40 ml IV UD PRN PRN Reason: SALINE FLUSH Spironolactone (Aldactone) 25 mg PO DAILY [facility] Last Admin: 12/19/19 10:35 Dose: 25 mg Documented by: Tamoxifen Citrate (Nolvadex) 20 mg PO DAILY [facility] Last Admin: 12/19/19 10:37 Dose: 20 mg Documented by: Warfarin Sodium (Jantoven) 3 mg PO DAILY@1700 [facility]; Protocol Last Admin: 12/18/19 17:45 Dose: 3 mg Documented by: - Past Medical History Past Medical History (Chronic Problems): Chronic Problems (Last Reviewed 11/01/19 @ 16:54 by Yasmin IZQUIERDO, PA) Breast cancer (Chronic) Valvular heart disease (Chronic) Renal insufficiency (Chronic) Bronchiectasis (Chronic) Hyponatremia (Chronic) Severe back pain (Chronic) MDS (myelodysplastic syndrome) (Chronic) Anemia (Chronic) History of breast cancer in female (Chronic) Pure hypercholesterolemia (Chronic) Essential hypertension (Chronic) Prosthetic aortic valve stenosis (Chronic) Nonrheumatic mitral valve regurgitation (Chronic) S/P valve repair with a 28 mm G04 annuloplasty ring in October 2011; Nonrheumatic tricuspid (valve) insufficiency (Chronic) S/P repair with a 30 mm MC3 ring angioplasty system in October 2011 Cardiac pacemaker in situ (Chronic) pacemaker implant 08/08 Presence of prosthetic heart valve (Chronic) 11/06, Mitral valve repair with 28mm GeoForm annuloplasty, tricuspid repair with 30mm MC ring annuloplasty Nonrheumatic aortic (valve) insufficiency (Chronic) S/P TAVR with [employer] 23 mm low dense valve in May 2013 at [facility]; 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, dilated (Chronic) S/P AVR (aortic valve replacement) (Chronic ~05/2014) TAVR wit [employer] 23 mm Kandice valve Aortic Valve 06/09 History of bacterial endocarditis (Chronic) Thrombocytopenia (Chronic) Contusion of left upper arm, initial encounter (Chronic) Iron deficiency anemia (Chronic) Chronic atrial fibrillation (Chronic) Congestive heart failure (Chronic) Pulmonary hypertension (Chronic) Coronary artery disease (Chronic) Interstitial lung disease (Chronic) Hypothyroidism (Chronic) - Past Surgical History Surgical History: cataract, hysterectomy, total knee arthroplasty, - - Mitral and tricuspid valve replacement, pacemaker implantation 2013 - Social History Smoking Status: Never smoker Alcohol: None Drugs: None - Family History Maternal Family History: Family History (Last Reviewed 11/01/19 @ 16:54 by Yasmin IZQUIERDO, PA) Father CAD (coronary artery disease) Myocardial infarction History Items: No pertinent history Paternal Family History: Family History (Last Reviewed 11/01/19 @ 16:54 by Yasmin Singleton PA, PA) Father CAD (coronary artery disease) Myocardial infarction History Items: No pertinent history Patient Problems: Active and Suspected Problems (Last Reviewed 11/01/19 @ 16:54 by Yasmin IZQUIERDO, PA) Acute on chronic heart failure with preserved ejection fraction (Acute) - Physical Exam Vitals/I&O's: Vital Signs Temp Pulse Resp BP Pulse Ox 98.4 F 70 18 110/58 L 97 12/19/19 09:10 12/19/19 09:10 12/19/19 09:10 12/19/19 09:10 12/19/19 09:10 Oxygen Flow Rate (L/min) 3 Oxygen Delivery Method Nasal Cannula Weight: 56.2 kg Body Mass Index (BMI) 24.6 Intake and Output for Last 24 Hours 12/17/19 12/18/19 12/19/19 23:59 23:59 23:59 Intake Total 360 / 360 263.28 / 263.28 139.98 / 139.98 Output Total 400 / 400 1100 / 1100 300 / 300 Balance -40 / -40 -836.72 / -836.72 -160.02 / -160.02 General: Alert, Oriented x3 HEENT: Atraumatic Oral: Moist Mucosa Neck: Supple, No JVD Lungs: Clear to auscultation, Normal air movement, No rhonchi, No wheeze Cardiovascular: Regular rate, Normal S1, Normal S2 Abdomen: Bowel Sounds Present, Soft, Non Tender, Non-Distended Extremities: No clubbing, No cyanosis, Edema - +1 edema of LE Skin: No rashes Lymphatic: No Cervical, Supraclavicular, or Inguinal Adenopathy Neurological: Cranial nerves II-XII grossly intact, Neuro grossly intact Psych/Mental Status: Appropriate Laboratory Results 12/19/19 05:05: Sodium 135 L, Potassium 4.1, Chloride 102, Carbon Dioxide 24.0, Anion Gap 9, BUN 53 H, Creatinine 1.94 H, Estim Creat Clear Calc 16.89, Est GFR (MDRD) Af Amer 32 L, Est GFR (MDRD) Non-Af 26 L, BUN/Creatinine Ratio 27.3 H, Glucose 110 H, Calcium 8.9 Current Medications Acetaminophen (Tylenol) 650 mg PO Q6H PRN PRN PRN Reason: Pain Score 1-10/Temp > 100.7 F Al Hydroxide/Mg Hydroxide (Mylanta Ii) 30 ml PO Q6H PRN PRN PRN Reason: Gastric Burning Albuterol Sulfate (Ventolin Aerosols) 2.5 mg INHALATION Q2H PRN PRN PRN Reason: SOB/Wheezing Albuterol/Ipratropium (Duoneb) 3 ml INHALATION Q6H.RT [facility] Last Admin: 12/19/19 07:18 Dose: 3 ml Documented by: Atorvastatin Calcium (Lipitor) 10 mg PO QHS [facility] Last Admin: 12/18/19 21:06 Dose: 10 mg Documented by: Diltiazem HCl (Cardizem Cd) 240 mg PO DAILY [facility] Last Admin: 12/19/19 10:35 Dose: 240 mg Documented by: Fluticasone Propionate (Flonase Nasal Benson) 2 spray NASAL DAILY [facility] Last Admin: 12/19/19 10:35 Dose: 2 u Documented by: Furosemide (Lasix) 40 mg PO BIDLX [facility] Last Admin: 12/19/19 10:36 Dose: 40 mg Documented by: Levothyroxine Sodium (Synthroid) 75 mcg PO DAILY@0600 [facility] Last Admin: 12/19/19 05:27 Dose: 75 mcg Documented by: Loratadine (Claritin) 10 mg PO DAILY [facility] Last Admin: 12/19/19 10:36 Dose: 10 mg Documented by: Meclizine HCl (Antivert) 12.5 mg PO 4X/DAY PRN PRN PRN Reason: VERTIGO Melatonin (Melatonin) 3 mg PO QHS PRN PRN PRN Reason: INSOMNIA Morphine Sulfate () 2 mg IV Q3H PRN PRN PRN Reason: Pain Score 6-10/10 Nitroglycerin (Nitrostat) 0.4 mg SUBLINGUAL Q5M PRN PRN Reason: CARDIAC/CHEST PAIN Oxycodone HCl (Oxyir) 5 mg PO Q4H PRN PRN PRN Reason: Pain Score 4-5/10 Pantoprazole Sodium (Protonix) 40 mg PO DAILY [facility] Last Admin: 12/19/19 10:37 Dose: 40 mg Documented by: Potassium Chloride (K-Dur) 20 meq PO DAILY [facility] Last Admin: 12/19/19 10:36 Dose: 20 meq Documented by: Prochlorperazine Edisylate (Compazine Iv) 5 mg IV Q4H PRN PRN PRN Reason: Breakthrough Nausea/Vomiting Senna/Docusate Sodium (Senokot-S, Onelia-Colace) 2 tablet PO BID PRN PRN PRN Reason: Constipation Sodium Chloride () 10 - 40 ml IV UD PRN PRN Reason: SALINE FLUSH Spironolactone (Aldactone) 25 mg PO DAILY [facility] Last Admin: 12/19/19 10:35 Dose: 25 mg Documented by: Tamoxifen Citrate (Nolvadex) 20 mg PO DAILY [facility] Last Admin: 12/19/19 10:37 Dose: 20 mg Documented by: Warfarin Sodium (Jantoven) 3 mg PO DAILY@1700 [facility]; Protocol Last Admin: 12/18/19 17:45 Dose: 3 mg Documented by: Assessment/Plan All Active Problems (Last Reviewed 11/01/19 @ 16:54 by Yasmin Singleton PA, PA) Acute on chronic heart failure with preserved ejection fraction (Acute) 1- RONNIE on CKD stage 3. baseline SCr ~ 1.3-2.0 mgdl this year RONNIE is likely CRS in patient . Kidney function improved with diuresis. SCr peaked at 2.2 mg/dl SCr 1.9 mg/dl. UOP ~ 1100 cc. will aim for 2L UOP daily Will increase lasix dose to 40 mg IV TID No indication for COUNTER CUTTER Monitor RFP 2- Hyponatremia with FO. improved with diuresis Keep O>I. monitor Na level 3- CHF exacerbation Improved with diuresis will increase lasix dose to 40 gm TID CHF core measures as per cardiology service Thank you for the consult Renal team will continue to follow. Please call if any question at [phone] d/w Dr. Tonio Hogan MD
--- NOTE | 2019-12-19 14:19 | CASEMGMT ---
Addendum entered by Ana Chavez 12/19/19 15:40: SW received a call from Kin at [facility] Palliative[facility]ice. Patient and her daughter did talk about both services, but did not decide on either one. Kin explained more detail about both services and the daughter asked Kin to call her tomorrow (12-20-19) around 4p. Ana BAIRES Original Note: SW received a call from Kin with [facility] Palliative[facility]Hospice. She was asking for an update on patient. TOVA let her know patient is on 3L, she was extremely short of breath with therapy today and could only go 3 feet. TOVA also told her Dr Molina came in to see patient today. She will call patient's daughter as her daughter asked her to call her back between 2 and 230 today. Ana BAIRES
[2019-12-19] MEDS: 0.9% Saline Lock 10 ML Syringe IV ×2 (15:00→22:45)
[2019-12-19] MEDS: Furosemide 40 MG/4 ML Vial IV ×2 (15:00→22:40)
--- NOTE | 2019-12-19 16:09 | PCM.PN.HOSP ---
Patient Problems: Active and Suspected Problems (Last Reviewed 11/01/19 @ 16:54 by Yasmin IZQUIERDO, PA) Acute on chronic heart failure with preserved ejection fraction (Acute) Reason for Visit: Patient sitting in the chair. Blood pressure systolic in 100. Irregular heartbeat. Physical exam General: Alert, Oriented x3, Cooperative HEENT: Atraumatic, PERRLA, EOMI, Normocephalic Oral: No Gingival or Mucosal Lesions/ Ulcerations Neck: Supple, No JVD, Negative Carotid Bruits Lungs: Air entry diminished in bilateral lung bases. No crepitation/rhonchi. Pulse ox 99% on 3 L of oxygen no tachypnea. Cardiovascular: Ventricular paced rhythm. Normal S1, Normal S2, systolic murmur present over aortic area, left lower sternal border and cardiac apex Abdomen: Bowel Sounds Present, Soft, Non Tender, Abdominal tension/swelling has much improved. : No renal angle tenderness. No suprapubic tenderness. Extremities: Capillary Refill Less than 3 Seconds. Edema present around the knees and thigh has improved. Skin: No rashes, No breakdown Musculoskeletal: No Tenderness to Palpation of Joints or Extremities Neurological: Cranial nerves II-XII grossly intact, Deep Tendon Reflexes 2+/4 and Symmetrical, Neuro grossly intact Psych/Mental Status: Normal Affect, Appropriate. Vitals/I&O's: Vital Signs Temp Pulse Resp BP Pulse Ox 98.0 F 70 18 103/57 L 99 12/19/19 14:55 12/19/19 14:55 12/19/19 14:55 12/19/19 14:55 12/19/19 14:55 Oxygen Flow Rate (L/min) 3 Oxygen Delivery Method Nasal Cannula Weight: 123 lb 14.397 oz Body Mass Index (BMI) 24.6 Intake and Output for Last 24 Hours 12/17/19 12/18/19 12/19/19 23:59 23:59 23:59 Intake Total 360 / 360 263.28 / 263.28 379.98 / 379.98 Output Total 400 / 400 1100 / 1100 575 / 575 Balance -40 / -40 -836.72 / -836.72 -195.02 / -195.02 Laboratory Results 12/19/19 05:05: Sodium 135 L, Potassium 4.1, Chloride 102, Carbon Dioxide 24.0, Anion Gap 9, BUN 53 H, Creatinine 1.94 H, Estim Creat Clear Calc 16.89, Est GFR (MDRD) Af Amer 32 L, Est GFR (MDRD) Non-Af 26 L, BUN/Creatinine Ratio 27.3 H, Glucose 110 H, Calcium 8.9 Current Medications Acetaminophen (Tylenol) 650 mg PO Q6H PRN PRN PRN Reason: Pain Score 1-10/Temp > 100.7 F Al Hydroxide/Mg Hydroxide (Mylanta Ii) 30 ml PO Q6H PRN PRN PRN Reason: Gastric Burning Albuterol Sulfate (Ventolin Aerosols) 2.5 mg INHALATION Q2H PRN PRN PRN Reason: SOB/Wheezing Albuterol/Ipratropium (Duoneb) 3 ml INHALATION Q6H.RT [facility] Last Admin: 12/19/19 13:09 Dose: 3 ml Documented by: Atorvastatin Calcium (Lipitor) 10 mg PO QHS [facility] Last Admin: 12/18/19 21:06 Dose: 10 mg Documented by: Diltiazem HCl (Cardizem Cd) 240 mg PO DAILY [facility] Last Admin: 12/19/19 10:35 Dose: 240 mg Documented by: Fluticasone Propionate (Flonase Nasal [place]) 2 spray NASAL DAILY [facility] Last Admin: 12/19/19 10:35 Dose: 2 u Documented by: Furosemide (Lasix) 40 mg IV Q8 [facility] Last Admin: 12/19/19 15:00 Dose: 40 mg Documented by: Levothyroxine Sodium (Synthroid) 75 mcg PO DAILY@0600 [facility] Last Admin: 12/19/19 05:27 Dose: 75 mcg Documented by: Loratadine (Claritin) 10 mg PO DAILY [facility] Last Admin: 12/19/19 10:36 Dose: 10 mg Documented by: Meclizine HCl (Antivert) 12.5 mg PO 4X/DAY PRN PRN PRN Reason: VERTIGO Melatonin (Melatonin) 3 mg PO QHS PRN PRN PRN Reason: INSOMNIA Morphine Sulfate () 2 mg IV Q3H PRN PRN PRN Reason: Pain Score 6-10/10 Nitroglycerin (Nitrostat) 0.4 mg SUBLINGUAL Q5M PRN PRN Reason: CARDIAC/CHEST PAIN Oxycodone HCl (Oxyir) 5 mg PO Q4H PRN PRN PRN Reason: Pain Score 4-5/10 Pantoprazole Sodium (Protonix) 40 mg PO DAILY [facility] Last Admin: 12/19/19 10:37 Dose: 40 mg Documented by: Potassium Chloride (K-Dur) 20 meq PO DAILY [facility] Last Admin: 12/19/19 10:36 Dose: 20 meq Documented by: Prochlorperazine Edisylate (Compazine Iv) 5 mg IV Q4H PRN PRN PRN Reason: Breakthrough Nausea/Vomiting Senna/Docusate Sodium (Senokot-S, Onelia-Colace) 2 tablet PO BID PRN PRN PRN Reason: Constipation Sodium Chloride () 10 - 40 ml IV UD PRN PRN Reason: SALINE FLUSH Last Admin: 12/19/19 15:00 Dose: 10 ml Documented by: Spironolactone (Aldactone) 25 mg PO DAILY [facility] Last Admin: 12/19/19 10:35 Dose: 25 mg Documented by: Tamoxifen Citrate (Nolvadex) 20 mg PO DAILY [facility] Last Admin: 12/19/19 10:37 Dose: 20 mg Documented by: Warfarin Sodium (Jantoven) 3 mg PO DAILY@1700 [facility]; Protocol Last Admin: 12/18/19 17:45 Dose: 3 mg Documented by: STROKE Vital Signs/Narrative: Vital Signs Temp Pulse Resp BP Pulse Ox 12/19/19 14:55 98.0 F 70 18 103/57 L 99 12/19/19 13:09 71 20 H Medical Necessity - Tobacco Use Smoking Status: Never smoker Tobacco Use: Non-smoker Assessment/Plan All Active Problems (Last Reviewed 11/01/19 @ 16:54 by Yasmin IZQUIERDO, PA) Acute on chronic heart failure with preserved ejection fraction (Acute) The patient is a 79 year old F with extensive cardiac history is being admitted with progressive worsening of shortness of breath for about 1 month along with gain of weight, leg swelling and generalized weakness. Diagnosis is consistent of CHF exacerbation Chest x-ray shows bilateral interstitial edema and obliteration of bilateral CP angle. Left-sided dual-chamber pacemaker. EKG ventricular paced rhythm at 70 bpm. Patient got Lasix 40 mg IV and further admitted. INR 2.3. BNP 2360. Sodium 133. BUN/creatinine elevated 49/2.27, last 1 creatinine one-point in December 12, 2019 1. Acute on chronic hypoxic respiratory failure, on BiPAP due to acute on chronic diastolic, biventricular heart failure, most probably due to multiple valvular heart disease status post mitral and tricuspid valve repair and TAVR replacement moderately severe pulmonary hypertension: Patient has gradual worsening of heart failure. The patient is being admitted in PCU floor. Serial troponins enzymes are negative. Seen by stem setter and discussed with him, Dr. Neri. 12/18. On 3 L of oxygen. -1 L of fluid balance. Lasix drip is discontinued AND changed to 40 mg IV every 8 hourly. CHF core measures with fluid restriction, daily weight checking, Gera wrap bandage. Continue home cardiac medications diltiazem 240 mg daily if blood pressure and heart rate permits and, atorvastatin. Lipid profile is within normal limit except HDL 31. TSH 3.54. Patient had repeat echo today, 12/18/2019 reported as EF 60%. Left ventricular systolic function is normal. The estimated ejection fraction is 60 %. Severely dilated right ventricle. Moderately severe global right ventricular systolic dysfunction. The left atrium is severely enlarged. The right atrium is severely enlarged. An annuloplasty ring is noted in the mitral position. Mild diffuse mitral valve thickening. The mitral valve chordae are thickened and/or calcified. Trivial mitral valve insufficiency. An annuloplasty ring is noted in the tricuspid position. Poor coaptation of the tricuspid valve leaflets. Moderate to Severe transvalvular insufficiency of the tricuspid valve. Stable appearing bioprosthetic aortic valve apparatus. Moderate aortic stenosis. Trivial transvalvular insufficiency of the aortic valve. Mild (1+) pulmonic valve insufficiency. Mildly dilated aortic root. Right ventricular systolic pressure estimated to be 112 mmHg. As compared to the previous echo of April 2019, pulmonary artery pressure has increased 212 from 60 mmHg with moderate to severe TR. 2. Arrhythmia including paroxysmal A. fib on Coumadin: Patient had history of proximal A. fib and has dual-chamber pacemaker. Patient had pacemaker check in November 28, 2019. INR is 2.3, therapeutic on Coumadin 3 mg daily. 3. Coronary artery disease status post CABG with dilated cardiomyopathy, history of bacterial endocarditis: 4. Acute kidney injury on CKD stage IV: Patient baseline creatinine runs around 1.6 to 1.8. Was admitted with 2.27. 12/18: Slight improvement in the kidney function with diuresis. [facility] nephrology consult reviewed. Discussed with team. Because most probably cardiorenal syndrome. 5. Interstitial lung disease with severe pulmonary hypertension and biventricular heart failure: Discussed with the city planning teacher Dr. Molina he agreed to see the patient. On BiPAP. Patient and her daughter agreed for change of CODE STATUS to DNR CC arrest with no intubation. Palliative care consulted. Poor prognosis explained to the patient. [facility] care was involved. other multiple comorbidities include iron deficiency anemia, hypertension, and interstitial lung disease, hypothyroidism,dyslipidemia and bilateral knee replacement: Patient follows Dr. Molina. No PFT available in the chart. Bronchodilator DuoNeb every 6 hourly. At home, patient was on fluticasone/salmeterol. DVT prophylaxis: On Coumadin. Total time of the visit including total time spent in counseling or coordination of care, (more than 50% of the total time, spent in obtaining medical information from nurses and other ancillary care providers), discussion with consultants, stem setter, heel slicker and city planning teacher, review of labs and imaging is 30 minutes. Inpatient E&M: [id number] [facility] L3
--- NOTE | 2019-12-19 21:42 | CPS ---
pt on own bipap with 2.5L bled in
[2019-12-19] MEDS: Atorvastatin Calcium 10 MG Tablet PO (22:41)
[2019-12-20] VITALS (15 sets, daily range): BP systolic 103–121; BP diastolic 57–74; PULSE 67–76; RESP 15–20; TEMP 36.3–36.8; O2SAT 95–98
[2019-12-20] MEDS: Acetaminophen 325 MG Tablet 650 MG PO (02:53)
[2019-12-20] MEDS: Furosemide 40 MG/4 ML Vial IV (05:27)
[2019-12-20] MEDS: Levothyroxine 75 MCG Tablet PO (05:28)
[2019-12-20] MEDS: 0.9% Saline Lock 10 ML Syringe IV (05:28)
[2019-12-20 05:50] LABS: Anion Gap 7 (5-15); BUN 49 mg/dL (7-18); BUN/Creat Ratio 26.9 RATIO (10-20); Calcium,Total 8.6 mg/dL (8.5-10.1); Chloride 102 mmol/L (98-107); Creatinine, Serum 1.82 mg/dL (0.55-1.02); EST Glomerular Filtration Rate 28 mL/min (>60); Est Glom Filt Rate - Afr Amer 34 mL/min (>60); Glucose 100 mg/dL (74-106); Potassium 4.6 mmol/L (3.5-5.1); Sodium Level 131 mmol/L (136-145)
[2019-12-20] MEDS: Ipratropium/Albuterol Sulfate 3 ML AMPUL.NEB INHALATION ×3 (07:15→19:15)
[2019-12-20] MEDS: dilTIAZem CD 240 MG Capsule PO (08:41)
[2019-12-20] MEDS: Tamoxifen 10 MG Tablet 20 MG PO (08:41)
[2019-12-20] MEDS: Loratadine 10 MG Tablet PO (08:42)
[2019-12-20] MEDS: Spironolactone 25 MG Tablet PO (08:42)
[2019-12-20] MEDS: Fluticasone 0.05% 1 SPRAY NASAL.SRY 2 SPRAY NASAL (08:42)
[2019-12-20] MEDS: Pantoprazole Sodium 40 MG Tablet PO (08:42)
--- NOTE | 2019-12-20 09:55 | PCM.PN.CARD ---
Objective: Vital Signs Temp Pulse Resp BP Pulse Ox 97.4 F L 70 20 H 103/57 L 97 12/20/19 08:45 12/20/19 08:45 12/20/19 08:45 12/20/19 08:45 12/20/19 08:45 Oxygen Flow Rate (L/min) 3 Oxygen Delivery Method Nasal Cannula Weight: 119 lb 11.376 oz Body Mass Index (BMI) 24.6 Intake and Output for Last 24 Hours 12/18/19 12/19/19 12/20/19 23:59 23:59 23:59 Intake Total 263.28 / 263.28 619.98 / 619.98 750 / 750 Output Total 1100 / 1100 575 / 575 300 / 300 Balance -836.72 / -836.72 44.98 / 44.98 450 / 450 General: Awake, Alert, Oriented x 3, Cooperative HEENT: Atraumatic, Normocephalic, PERRL, Sclera Non Icteric Neck: Supple, Good ROM Lungs: Rales - Carl Bases - Dry Rales Cardiovascular: Regular Rhythm, Normal S1, Normal S2 Murmur Murmur: Grade 3/6, Harsh, Mid Systolic, LLSB, LVOT, Sternal Notch Abdomen: Bowel Sounds Present, Soft Extremities: No edema Psych/Mental Status: Appropriate 12/20/19 05:28: Sodium 131 L, Potassium 4.6, Chloride 102, Carbon Dioxide 22.0, Anion Gap 7, BUN 49 H, Creatinine 1.82 H, Est GFR (MDRD) Af Amer 34 L, Est GFR (MDRD) Non-Af 28 L, BUN/Creatinine Ratio 26.9 H, Glucose 100, Calcium 8.6 Rhythm: electronic ventricular pacemaker Medical Necessity - Tobacco Use Smoking Status: Never smoker Tobacco Use: Non-smoker Assessment/Plan 1. Acute on chronic diastolic mediated CHF The present time she does have evidence of acute on chronic diastolic mediated CHF. Her diuretics are being adjusted from IV continuous infusion to IV pulse dose to oral diuretics. 2. Valvular heart disease She does have a history of valvular heart disease as previously described. In the past, with respect to her TAVR procedure, she has not been thought to be a candidate by [facility] for a repeat aortic valve intervention. Her valvular heart disease was reassessed with a transthoracic echocardiogram with the results as noted. At the present time she will continue medical therapy and AHA antibiotic prophylaxis. As noted in the past she has been deemed not a candidate for repeat valvular intervention/surgery at [facility]. 3. Atrial fibrillation status post AV node ablation and permanent pacemaker placement She does have a history of atrial fibrillation and AV node ablation. She has permanent pacemaker dependent. She has continued medical management in the interim as deemed appropriate. 4. Permanent pacemaker Her pacemaker has been functioning appropriately in the past. It can be reassessed as needed. 5. Hyperlipidemia She will continue medical management as deemed appropriate. 6. Pulmonary hypertension Her estimated RV systolic pressure was reassessed with transthoracic echocardiogram. Based upon the findings her estimated RV systolic pressure was 112 mmHg-compatible with severe pulmonary hypertension. This may be secondary to a combination of her cardiac and pulmonary history/condition. At the moment she will need continued supportive medical therapy from both a cardiopulmonary standpoint. This most likely will require continued O2 support and diuretic support. She has been evaluated by her tile power shear operator. According to a conversation with him there are no plans, as she is also been evaluated both at [facility] and [facility] for this issue, for any further diagnostic studies/medical interventions at this time. 7. Interstitial lung disease She does have a longstanding history of interstitial lung disease for which she is followed with pulmonology both locally and at [facility]. Certainly this can be a contributing factor her to her progressive pulmonary disease process and elevated right-sided pressures. She will continue her medical management and follow-up. 8. Renal insufficiency She has been noted to have an element of renal insufficiency. There is a concern as to whether or not she is developing a cardiorenal syndrome. She will need to continue medical therapy although her renal function will have to be taken into consideration with her medications. Her case was also discussed with nephrology this morning. Their assistance with evaluating her renal function and adjusting her diuretics is most appreciated. Comment: The patient's case was also discussed via telephone this morning with the patient's daughter. She was informed the overall plan is for continued conservative medical management and the need for at minimum home health nursing and consideration for palliative care therapy. This note was generated using a voice recognition system and there may be incorrect words, spelling or punctuation that were not noted when reviewing the office note prior to saving.
--- NOTE | 2019-12-20 10:07 | US_ITS ---
STUDY: ULTRASOUND BREAST - RIGHT REASON FOR EXAM: Female, 79 years old. Palpable lump in the right breast. TECHNIQUE: Axial and longitudinal images of the RIGHT breast were performed with a high resolution ultrasound transducer. # OF IMAGES: 30 COMPARISON: Comparison is made with prior ultrasound of the right breast. If every 22,020 and prior mammogram dated 05/14/2019. FINDINGS: RIGHT Breast: There is a 1.1 cm x 1.4 cm x 0.8 cm hypoechoic irregular mass at the 12 o''clock position of the breast at 1 cm from the nipple. A tissue clip marker is seen within it. US/Breast Limited Unilateral IMPRESSION: Stable appearance of the 1.1 cm x 1.4 cm x 0.8 cm hypoechoic irregular mass at the 12 o''clock position of the breast at 1 cm from the nipple. A tissue clip marker from prior biopsy is seen within. ASSESSMENT CATEGORY: BIRADS Category 4: Suspicious - Biopsy Should Be Considered. A letter regarding these results will be sent to the patient by the facility within 30 days. Electronically Signed: Joey Avila, at 13:29 EDT , Service support ,
--- NOTE | 2019-12-20 10:28 | PCM.PN.REN ---
Patient Problems: Active and Suspected Problems (Last Reviewed 11/01/19 @ 16:54 by Yasmin Singleton PA, PA) Acute on chronic heart failure with preserved ejection fraction (Acute) Subjective: Patient is doing Ok. No worsening breathing. No CP No nausea No vomiting - Physical Exam Vitals/I&O's: Vital Signs Temp Pulse Resp BP Pulse Ox 97.4 F L 70 20 H 103/57 L 97 12/20/19 08:45 12/20/19 08:45 12/20/19 08:45 12/20/19 08:45 12/20/19 08:45 Oxygen Flow Rate (L/min) 3 Oxygen Delivery Method Nasal Cannula Weight: 54.3 kg Body Mass Index (BMI) 24.6 Intake and Output for Last 24 Hours 12/18/19 12/19/19 12/20/19 23:59 23:59 23:59 Intake Total 263.28 / 263.28 619.98 / 619.98 750 / 750 Output Total 1100 / 1100 575 / 575 300 / 300 Balance -836.72 / -836.72 44.98 / 44.98 450 / 450 General: Alert, Oriented x3 HEENT: Atraumatic Oral: Moist Mucosa Neck: Supple, No JVD Lungs: No wheeze, Diminished Abdomen: Bowel Sounds Present, Non Tender, Non-Distended Extremities: No clubbing, No cyanosis, Edema - +1 edema of LE Skin: No rashes Musculoskeletal: No Tenderness to Palpation of Joints or Extremities Lymphatic: No Cervical, Supraclavicular, or Inguinal Adenopathy Neurological: Cranial nerves II-XII grossly intact, Neuro grossly intact Psych/Mental Status: Appropriate Laboratory Results 12/20/19 05:28: Sodium 131 L, Potassium 4.6, Chloride 102, Carbon Dioxide 22.0, Anion Gap 7, BUN 49 H, Creatinine 1.82 H, Estim Creat Clear Calc 18.00, Est GFR (MDRD) Af Amer 34 L, Est GFR (MDRD) Non-Af 28 L, BUN/Creatinine Ratio 26.9 H, Glucose 100, Calcium 8.6 12/20/19 09:05: Miscellaneous Test Pending Current Medications Acetaminophen (Tylenol) 650 mg PO Q6H PRN PRN PRN Reason: Pain Score 1-10/Temp > 100.7 F Last Admin: 12/20/19 02:53 Dose: 650 mg Documented by: Al Hydroxide/Mg Hydroxide (Mylanta Ii) 30 ml PO Q6H PRN PRN PRN Reason: Gastric Burning Albuterol Sulfate (Ventolin Aerosols) 2.5 mg INHALATION Q2H PRN PRN PRN Reason: SOB/Wheezing Albuterol/Ipratropium (Duoneb) 3 ml INHALATION Q6H.RT [facility] Last Admin: 12/20/19 07:15 Dose: 3 ml Documented by: Atorvastatin Calcium (Lipitor) 10 mg PO QHS [facility] Last Admin: 12/19/19 22:41 Dose: 10 mg Documented by: Diltiazem HCl (Cardizem Cd) 240 mg PO DAILY [facility] Last Admin: 12/20/19 08:41 Dose: 240 mg Documented by: Fluticasone Propionate (Flonase Nasal [place]) 2 spray NASAL DAILY [facility] Last Admin: 12/20/19 08:42 Dose: 2 u Documented by: Levothyroxine Sodium (Synthroid) 75 mcg PO DAILY@0600 [facility] Last Admin: 12/20/19 05:28 Dose: 75 mcg Documented by: Loratadine (Claritin) 10 mg PO DAILY [facility] Last Admin: 12/20/19 08:42 Dose: 10 mg Documented by: Meclizine HCl (Antivert) 12.5 mg PO 4X/DAY PRN PRN PRN Reason: VERTIGO Melatonin (Melatonin) 3 mg PO QHS PRN PRN PRN Reason: INSOMNIA Morphine Sulfate () 2 mg IV Q3H PRN PRN PRN Reason: Pain Score 6-10/10 Nitroglycerin (Nitrostat) 0.4 mg SUBLINGUAL Q5M PRN PRN Reason: CARDIAC/CHEST PAIN Oxycodone HCl (Oxyir) 5 mg PO Q4H PRN PRN PRN Reason: Pain Score 4-5/10 Pantoprazole Sodium (Protonix) 40 mg PO DAILY [facility] Last Admin: 12/20/19 08:42 Dose: 40 mg Documented by: Potassium Chloride (K-Dur) 20 meq PO DAILY [facility] Last Admin: 12/20/19 08:42 Dose: 20 meq Documented by: Prochlorperazine Edisylate (Compazine Iv) 5 mg IV Q4H PRN PRN PRN Reason: Breakthrough Nausea/Vomiting Senna/Docusate Sodium (Senokot-S, Onelia-Colace) 2 tablet PO BID PRN PRN PRN Reason: Constipation Sodium Chloride () 10 - 40 ml IV UD PRN PRN Reason: SALINE FLUSH Last Admin: 12/20/19 05:28 Dose: 10 ml Documented by: Spironolactone (Aldactone) 25 mg PO DAILY [facility] Last Admin: 12/20/19 08:42 Dose: 25 mg Documented by: Tamoxifen Citrate (Nolvadex) 20 mg PO DAILY [facility] Last Admin: 12/20/19 08:41 Dose: 20 mg Documented by: Torsemide (Demadex) 100 mg PO DAILY [facility] Warfarin Sodium (Jantoven) 3 mg PO DAILY@1700 [facility]; Protocol Last Admin: 12/19/19 18:00 Dose: 3 mg Documented by: Medical Necessity - Tobacco Use Smoking Status: Never smoker Tobacco Use: Non-smoker Assessment/Plan All Active Problems (Last Reviewed 11/01/19 @ 16:54 by Yasmin Singleton PA, PA) Acute on chronic heart failure with preserved ejection fraction (Acute) 1- RONNIE on CKD stage 3. baseline SCr ~ 1.3-2.0 mgdl this year. Patient has severe pulmonary HTN RONNIE is likely CRS . SCr peaked at 2.2 mg/dl lasix drip was switched to intermittent lasix infection 40 mg IV TID on 12/18 UOP is not adequate ~ 600 cc Will stop lasix injection and start torsemide 100 mg PO daily will aim for 2L UOP daily Keep MAP > 65 Will continue to monitor RFP, and volume status No indication for COMPUTER SYSTEM TECHNICIAN 2- Hyponatremia with FO. Na level dropped with reduced UOP Keep O>I. monitor Na level 3- CHF exacerbation Improved with diuresis Will change diuretic as above CHF core measures as per cardiology service Renal team will continue to follow. Please call if any question at [phone] d/w Dr. Neri and Dr. Tonio Hogan MD
--- NOTE | 2019-12-20 10:52 | PCM.PN.HOSP ---
Patient Problems: Active and Suspected Problems (Last Reviewed 11/01/19 @ 16:54 by Yasmin Singleton PA, PA) Acute on chronic heart failure with preserved ejection fraction (Acute) Reason for Visit: CHF exacerbation, pulmonary hypertension respiratory failure Objective: Blood pressure 103/57, map 72 respiratory rate 20. Patient still gets short of breath even on transfer from bed to chair. Dr. Hatch called me to order right breast ultrasound for history of right breast cancer status post needle core biopsy which was reported as invasive lobular carcinoma nuclear grade 1+ for ER, OR and HER-2/yashira on 05/30/2019. As per physical therapist, she is not a good candidate for rehab because of shortness of breath and severe pulmonary hypertension. Physical exam General: Alert, Oriented x3, Cooperative HEENT: Atraumatic, PERRLA, EOMI, Normocephalic Oral: No Gingival or Mucosal Lesions/ Ulcerations Neck: Supple, No JVD, Negative Carotid Bruits Lungs: Air entry diminished in bilateral lung bases. No crepitation/rhonchi. Dyspnea on mild exertion Cardiovascular: Ventricular paced rhythm. Normal S1, Normal S2, systolic murmur present over aortic area, left lower sternal border and cardiac apex Abdomen: Bowel Sounds Present, Soft, Non Tender, Abdominal tension/swelling has much improved. : No renal angle tenderness. No suprapubic tenderness. Extremities: Capillary Refill Less than 3 Seconds. Edema present around the knees and thigh has improved. Skin: No rashes, No breakdown Musculoskeletal: No Tenderness to Palpation of Joints or Extremities Neurological: Cranial nerves II-XII grossly intact, Deep Tendon Reflexes 2+/4 and Symmetrical, Neuro grossly intact Psych/Mental Status: Normal Affect, Appropriate. Vitals/I&O's: Vital Signs Temp Pulse Resp BP Pulse Ox 97.4 F L 70 20 H 103/57 L 97 12/20/19 08:45 12/20/19 08:45 12/20/19 08:45 12/20/19 08:45 12/20/19 08:45 Oxygen Flow Rate (L/min) 3 Oxygen Delivery Method Nasal Cannula Weight: 119 lb 11.376 oz Body Mass Index (BMI) 24.6 Intake and Output for Last 24 Hours 12/18/19 12/19/19 12/20/19 23:59 23:59 23:59 Intake Total 263.28 / 263.28 619.98 / 619.98 750 / 750 Output Total 1100 / 1100 575 / 575 300 / 300 Balance -836.72 / -836.72 44.98 / 44.98 450 / 450 Laboratory Results 12/20/19 05:28: Sodium 131 L, Potassium 4.6, Chloride 102, Carbon Dioxide 22.0, Anion Gap 7, BUN 49 H, Creatinine 1.82 H, Estim Creat Clear Calc 18.00, Est GFR (MDRD) Af Amer 34 L, Est GFR (MDRD) Non-Af 28 L, BUN/Creatinine Ratio 26.9 H, Glucose 100, Calcium 8.6 12/20/19 09:05: Miscellaneous Test Pending Current Medications Acetaminophen (Tylenol) 650 mg PO Q6H PRN PRN PRN Reason: Pain Score 1-10/Temp > 100.7 F Last Admin: 12/20/19 02:53 Dose: 650 mg Documented by: Al Hydroxide/Mg Hydroxide (Mylanta Ii) 30 ml PO Q6H PRN PRN PRN Reason: Gastric Burning Albuterol Sulfate (Ventolin Aerosols) 2.5 mg INHALATION Q2H PRN PRN PRN Reason: SOB/Wheezing Albuterol/Ipratropium (Duoneb) 3 ml INHALATION Q6H.RT [facility] Last Admin: 12/20/19 07:15 Dose: 3 ml Documented by: Atorvastatin Calcium (Lipitor) 10 mg PO QHS [facility] Last Admin: 12/19/19 22:41 Dose: 10 mg Documented by: Diltiazem HCl (Cardizem Cd) 240 mg PO DAILY [facility] Last Admin: 12/20/19 08:41 Dose: 240 mg Documented by: Fluticasone Propionate (Flonase Nasal [place]) 2 spray NASAL DAILY [facility] Last Admin: 12/20/19 08:42 Dose: 2 u Documented by: Levothyroxine Sodium (Synthroid) 75 mcg PO DAILY@0600 [facility] Last Admin: 12/20/19 05:28 Dose: 75 mcg Documented by: Loratadine (Claritin) 10 mg PO DAILY [facility] Last Admin: 12/20/19 08:42 Dose: 10 mg Documented by: Meclizine HCl (Antivert) 12.5 mg PO 4X/DAY PRN PRN PRN Reason: VERTIGO Melatonin (Melatonin) 3 mg PO QHS PRN PRN PRN Reason: INSOMNIA Morphine Sulfate () 2 mg IV Q3H PRN PRN PRN Reason: Pain Score 6-10/10 Nitroglycerin (Nitrostat) 0.4 mg SUBLINGUAL Q5M PRN PRN Reason: CARDIAC/CHEST PAIN Oxycodone HCl (Oxyir) 5 mg PO Q4H PRN PRN PRN Reason: Pain Score 4-5/10 Pantoprazole Sodium (Protonix) 40 mg PO DAILY [facility] Last Admin: 12/20/19 08:42 Dose: 40 mg Documented by: Potassium Chloride (K-Dur) 20 meq PO DAILY [facility] Last Admin: 12/20/19 08:42 Dose: 20 meq Documented by: Prochlorperazine Edisylate (Compazine Iv) 5 mg IV Q4H PRN PRN PRN Reason: Breakthrough Nausea/Vomiting Senna/Docusate Sodium (Senokot-S, Onelia-Colace) 2 tablet PO BID PRN PRN PRN Reason: Constipation Sodium Chloride () 10 - 40 ml IV UD PRN PRN Reason: SALINE FLUSH Last Admin: 12/20/19 05:28 Dose: 10 ml Documented by: Spironolactone (Aldactone) 25 mg PO DAILY [facility] Last Admin: 12/20/19 08:42 Dose: 25 mg Documented by: Tamoxifen Citrate (Nolvadex) 20 mg PO DAILY [facility] Last Admin: 12/20/19 08:41 Dose: 20 mg Documented by: Torsemide (Demadex) 100 mg PO DAILY [facility] Warfarin Sodium (Jantoven) 3 mg PO DAILY@1700 [facility]; Protocol Last Admin: 12/19/19 18:00 Dose: 3 mg Documented by: STROKE Vital Signs/Narrative: Vital Signs Temp Pulse Resp BP Pulse Ox 12/20/19 08:45 97.4 F L 70 20 H 103/57 L 97 12/20/19 07:27 76 12/20/19 07:15 74 15 95 Medical Necessity - Tobacco Use Smoking Status: Never smoker Tobacco Use: Non-smoker Assessment/Plan All Active Problems (Last Reviewed 11/01/19 @ 16:54 by Yasmin Singleton PA, PA) Acute on chronic heart failure with preserved ejection fraction (Acute) The patient is a 79 year old F with extensive cardiac history is being admitted with progressive worsening of shortness of breath for about 1 month along with gain of weight, leg swelling and generalized weakness. Diagnosis is consistent of CHF exacerbation Chest x-ray shows bilateral interstitial edema and obliteration of bilateral CP angle. Left-sided dual-chamber pacemaker. EKG ventricular paced rhythm at 70 bpm. Patient got Lasix 40 mg IV and further admitted. INR 2.3. BNP 2360. Sodium 133. BUN/creatinine elevated 49/2.27, last 1 creatinine one-point in December 12, 2019 1. Acute on chronic hypoxic respiratory failure, on BiPAP due to acute on chronic diastolic, biventricular heart failure, most probably due to multiple valvular heart disease status post mitral and tricuspid valve repair and TAVR replacement moderately severe pulmonary hypertension: Patient has gradual worsening of heart failure. The patient is being admitted in PCU floor. Serial troponins enzymes are negative. Seen by traffic engineering technician and discussed with him, Dr. Neri. 12/18. On 3 L of oxygen. -1 L of fluid balance. Lasix drip is discontinued AND changed to 40 mg IV every 8 hourly. CHF core measures with fluid restriction, daily weight checking, Gera wrap bandage. Continue home cardiac medications diltiazem 240 mg daily if blood pressure and heart rate permits and, atorvastatin. Lipid profile is within normal limit except HDL 31. TSH 3.54. 12/19: Patient did not had much urine output on Lasix 40 mg IV 3 times daily therefore changed to torsemide 100 mg daily. Discussed with the cryptozoologist. Patient had repeat echo 12/18/2019 reported as EF 60%. Left ventricular systolic function is normal. The estimated ejection fraction is 60 %. Severely dilated right ventricle. Moderately severe global right ventricular systolic dysfunction. The left atrium is severely enlarged. The right atrium is severely enlarged. An annuloplasty ring is noted in the mitral position. Mild diffuse mitral valve thickening. The mitral valve chordae are thickened and/or calcified. Trivial mitral valve insufficiency. An annuloplasty ring is noted in the tricuspid position. Poor coaptation of the tricuspid valve leaflets. Moderate to Severe transvalvular insufficiency of the tricuspid valve. Stable appearing bioprosthetic aortic valve apparatus. Moderate aortic stenosis. Trivial transvalvular insufficiency of the aortic valve. Mild (1+) pulmonic valve insufficiency. Mildly dilated aortic root. Right ventricular systolic pressure estimated to be 112 mmHg. As compared to the previous echo of April 2019, pulmonary artery pressure has increased 212 from 60 mmHg with moderate to severe TR. 2. Arrhythmia including paroxysmal A. fib on Coumadin: Patient had history of proximal A. fib and has dual-chamber pacemaker. Patient had pacemaker check in November 28, 2019. INR is 2.3, therapeutic on Coumadin 3 mg daily. 3. Coronary artery disease status post CABG with dilated cardiomyopathy, history of bacterial endocarditis: 4. Acute kidney injury on CKD stage IV: Patient baseline creatinine runs around 1.6 to 1.8. Was admitted with 2.27. 12/18: Slight improvement in the kidney function with diuresis. [place] nephrology consult reviewed. Discussed with team. Because most probably cardiorenal syndrome. 5. Interstitial lung disease with severe pulmonary hypertension and biventricular heart failure: Discussed with the jewelry store manager Dr. Molina he agreed to see the patient. On BiPAP. 12/19 discussed with jewelry store manager Dr. Molina. He said she was referred to [facility] 3 years ago and they did not do right heart cath because of high risk for procedure for high wedge pressure and patient not candidate for pulmonary hypertension medication trial like PDE?5 inhibitor or endothelin receptor antagonist. As compared to 3 years, pulmonary artery pressure has much worsened and she is short of breath even on conversation therefore any medication trial or repeat right heart cath breath is out of question. As per him, hospice care is appropriate 6. Invasive right invasive lobular carcinoma nuclear grade 1+ for ER, OR and HER-2/yashira on 05/30/2019. Patient follows Dr. Puckett. Right breast ultrasound ordered as per his request. Patient and her daughter agreed for change of CODE STATUS to DNR CC arrest with no intubation. Palliative care consulted. Poor prognosis explained to the patient. [facility] palliative/hospice care was involved. Hospice care was discussed with the patient in presence of his daughter. As per the daughter, she wants to keep her doctors, traffic engineering technician, jewelry store manager, oncologist and PCP. [place] social services coordinator tried to convince that she is not cleared for SNF or home hospice care. With home hospice care, nursing services available every 4 to 6 weeks which definitely will not be appropriate for for her. Currently she needs 24/7 nursing care. other multiple comorbidities include iron deficiency anemia, hypertension, and interstitial lung disease, hypothyroidism,dyslipidemia and bilateral knee replacement: Patient follows Dr. Molina. No PFT available in the chart. Bronchodilator DuoNeb every 6 hourly. At home, patient was on fluticasone/salmeterol. DVT prophylaxis: On Coumadin. Total time of the visit including total time spent in counseling or coordination of care, (more than 50% of the total time, spent in obtaining medical information from nurses and other ancillary care providers), discussion with consultants, traffic engineering technician, cryptozoologist and jewelry store manager, review of labs and imaging is 30 minutes. Inpatient E&M: [id number] [facility] L[facility]
[2019-12-20] MEDS: Torsemide 100 MG Tablet PO (11:55)
--- NOTE | 2019-12-20 14:05 | CASEMGMT ---
SW and physician spoke with patient and her daughter regarding Palliative vs Hospice and d/c plan. The big hold up is patient does not want to stop seeing her regular doctors, Holden Neri, and Jesse. SW encouraged them to ask Kin from Hospice how this works. Patient wants to go home. However, patient's daughter did call a friend that works in TCU and inquire about availability. Patient's daughter does not see the benefit of Palliative since a nurse or HEALTH CARE RECRUITER only comes once every 4-6 weeks. It seems like they may agree patient needs Hospice, but she wants to keep her doctors and wants to go home. SW explained Hospice does not provide daily care and family/private duty aides would be responsible for her daily care at home. Discussed the Inpatient Hospice Unit, but not sure she would qualify at this time. Therapy said she would be okay at home, but it would be nice if someone stayed with her for a few days. Unsure if daughter is willing to do this. Patient wanted to keep the Purewick in so she would not have to get up to use the bathroom. SW encouraged her to not use the Purewick and to get up to use the bathroom as this will help her keep her strength. She will not have the Purewick at home and will have to get up to use the bathroom. (Therapy also spoke with patient about getting up and not using the Purewick) Patient's daughter said they have a friend that has both Hospice and Palliative and she wants to talk with her to see how things are going for her. TOVA asked if it would be ok for Kin to call her earlier than 4p today and she said that is fine. TOVA called Kin and explained the issue with wanting to keep her regular doctors. Kin will address this with them. TOVA let patient's daughter know that Kin will call her and TOVA will follow up with them tomorrow as SW has to leave earlier today for an appt. Awhile later TOVA received a voice mail from Kin and patient's daughter did not ask many questions and when someone came into the room she said she had to go. Kin will follow up again tomorrow. Ana GUZMAN CLINICAL SUPPORT TECH
[2019-12-20 17:25] LABS: International Normalized Ratio 3.3; Prothrombin Time (Protime)PT. 33.4 SECONDS (11.7-14.9)
[2019-12-20] MEDS: Atorvastatin Calcium 10 MG Tablet PO (21:03)
[2019-12-21] VITALS (13 sets, daily range): BP systolic 113–133; BP diastolic 61–72; PULSE 68–75; RESP 15–19; TEMP 36.6–37.1; O2SAT 95–100
[2019-12-21] MEDS: Ipratropium/Albuterol Sulfate 3 ML AMPUL.NEB INHALATION ×3 (01:05→13:34)
[2019-12-21] MEDS: Levothyroxine 75 MCG Tablet PO (07:53)
[2019-12-21] MEDS: dilTIAZem CD 240 MG Capsule PO (09:56)
[2019-12-21] MEDS: Loratadine 10 MG Tablet PO (09:56)
[2019-12-21] MEDS: Torsemide 100 MG Tablet PO (09:56)
[2019-12-21] MEDS: Spironolactone 25 MG Tablet PO (09:56)
[2019-12-21] MEDS: Tamoxifen 10 MG Tablet 20 MG PO (09:57)
[2019-12-21] MEDS: Pantoprazole Sodium 40 MG Tablet PO (09:57)
[2019-12-21] MEDS: Fluticasone 0.05% 1 SPRAY NASAL.SRY 2 SPRAY NASAL (09:58)
--- NOTE | 2019-12-21 11:50 | DCINST_ITS ---
- Discharge Diagnoses Current Active Problems: Current Active and Chronic Problems (Last Reviewed 11/01/19 @ 16:54 by Yasmin IZQUIERDO, PA) Acute on chronic heart failure with preserved ejection fraction (Acute) Valvular heart disease (Chronic) Renal insufficiency (Chronic) You will use the following diet at home:: Cardiac Your food should be the consistency of: Regular Discharge Activity: May Not Drive Weight Bearing Status: Weight bearing as tolerated Call your doctor if you observe: Fever of 101 or Higher, Coldness, Increased Pain, Change in Color, Inability to urinate, Inability to have a bowel movement, Using more than one pad per hour, Shortness of breath, Dizziness, Fainting spells, Swelling in the ankles, Chest pain, Prolonged hiccoughing, Increased palpitations (irregular heartbeat), Calf discomfort, Uncontrolled pain Allergies/Adverse Reactions: Allergies GERI Inhibitors Allergy (Verified 12/17/19 10:15) Angioedema amiodarone Allergy (Verified 12/17/19 10:15) Other doxycycline Allergy (Verified 12/17/19 10:15) Other rosuvastatin calcium [From Crestor] Allergy (Verified 12/17/19 10:15) Other Sulfa (Sulfonamide Antibiotics) Allergy (Verified 12/17/19 10:15) Nausea tiotropium bromide [From Spiriva with HandiHaler] Allergy (Verified 12/17/19 10:15) Nausea codeine Adverse Reaction (Verified 12/17/19 10:15) Vomiting hydrocodone bitartrate [From Vicodin] Adverse Reaction (Verified 12/17/19 10:15) Vomiting Medications to take at Discharge Meclizine HCl [Antivert] 12.5 mg PO 4X/DAY PRN PRN 06/23/16 Nitroglycerin [Nitrostat] 0.4 mg SL DAILY PRN 06/23/16 levothyroxine 75 mcg tablet 75 mcg PO DAILY tab 04/08/17 diltiazem HCl 240 mg capsule,extended release 24 hr 240 mg PO DAILY #90 cap 05/14/19 Esomeprazole Magnesium [Nexium 24Hr] 22.3 mg PO DAILY 08/22/19 Fexofenadine HCl [Adriana Allergy] 180 mg PO DAILY 08/22/19 Fluticasone Propion/Salmeterol [Wixela 250-50 Inhub] 1 puff INHALATION BID 08/22/19 Polyvinyl Alcohol/Povidone/Pf [Refresh Classic Eye Drops] 1 drp EACH EYE TID 08/22/19 Spironolactone [Aldactone] 25 mg PO DAILY 08/22/19 atorvastatin 10 mg tablet 10 mg PO QHS #90 tab 11/23/19 Acetaminophen [Tylenol Tablet] 650 mg PO Q4H PRN PRN 12/17/19 Ipratropium/Albuterol Sulfate [Duoneb] 3 ml INHALATION Q6H 12/17/19 Multivitamin with Minerals [Multiple Vitamin] 1 ea PO DAILY 12/17/19 Tamoxifen Citrate [Nolvadex] 20 mg PO DAILY 12/17/19 Senna/Docusate Sodium [Senokot-S] 2 tab PO BID PRN PRN tab 12/21/19 Torsemide [Demadex] 100 mg PO DAILY #30 tab 12/21/19 Warfarin [Coumadin] 2 mg PO DAILY #30 tab 12/21/19 The following prescriptions were given: Warfarin [Coumadin] 2 mg PO DAILY #30 tab Transmission Status: Received by [facility] [place] [address] Torsemide [Demadex] 100 mg PO DAILY #30 tab Transmission Status: Received by [facility] Primary Care Physician: Abby Pendleton DO [Primary Care Provider] - Please follow up with your Primary Care Physician in: in 1 week with PT/INR on 12/24/2019 Test Results: Test results from this visit will be discussed in further detail at your follow- up appointment, if applicable. Please Follow Up With: Jason Neri MD When: in 2 weeks Please Follow Up With: Eleuterio Molina MD When: in 2 weeks Please Follow Up With: Marisabel Márquez MD When: in 2-3 weeks Please Follow Up With: Shimon Hatch MD When: on 12/26/2019
--- NOTE | 2019-12-21 12:23 | CASEMGMT ---
SW received a call from Rizwana with [facility]. She said that she will be at [facility] at 3 for patient and family to sign Palliative Care. TOVA told her the goal is to get patient home today with home health. TOVA met with patient, introduced self and role at [facility]. SW asked patient how she feels about going home with home health. TOVA explained that nursing, PT, and OT will be coming to see her. She said she thinks that will be fine. Her daughter will be in later today. She is fine with [facility]. TOVA called [facility] and made a referral and they will be able to take patient and see her tomorrow. TOVA called patient's daughter. She said she will be in at 3 to sign papers with Palliative Care. TOVA explained to her that the physician would like to d/c patient today. TOVA explained that SW did get [facility] set up, nursing, PT, and OT. SW explained what they would be doing and that they could be out tomorrow. She said she could take patient home when she comes in, but she is supposed to be going away with her until Tuesday evening. She would like to talk with TOVA when she comes in and TOVA told her SW will be here. TOVA asked charge lpn to notify physician of plan. Plan: Home with [facility] assisted, PT, and OT and [facility]. However, this could change when the daughter comes in today at 3p to TCU. Ana BAIRES
--- NOTE | 2019-12-21 14:37 | CHAPLAIN ---
Type of Pastoral Visit _x__ Initial Visit ___ Follow-up Visit ___ On-call Visit ___ General Patient Visit ___ Spiritual Assessment ___ Family Conference ___ Bereavement ___ Rapid Response ___ Code Blue ___ Other (describe below) Pastoral Care Referral From _x__ Patient ___ Family ___ Nurse ___ Physician ___ It Infrastructure Engineer ___ Sandfill Operator Surface ___ Other (describe below) Sacrament/Intervention _x__ Active listening ___ Anointing ___ Quaker ___ Bereavement ___ Communion _x__ Camille exploration ___ ___ Life review _x__ Prayer ___ Reconciliation ___ Sacrament of Sick _x__ Supportive presence ___ Wedding ___ Other (describe below) Pastoral Comments found patient to be welcoming and pleasant; pt states that she will be going home; pt states that she will be home alone and says I'll just have to manage; pt describes her health issues of last years and says that I've been told I have about six months left; pt says that I'm ok with that because God will decide; Pt states she is not afraid of dying because of her strong camille; pt says her goal is to be a witness of camille to those around her; pt concern is for her daughter that has to do so much for her and her family; pt welcomes the spiritual care support and prayers
--- NOTE | 2019-12-21 14:49 | NURSING ---
Read and reviewed SN documentation
--- NOTE | 2019-12-21 14:59 | PCM.PN.REN ---
Patient Problems: Active and Suspected Problems (Last Reviewed 11/01/19 @ 16:54 by Yasmin Singleton PA, PA) Acute on chronic heart failure with preserved ejection fraction (Acute) Subjective: Following for RONNIE on CKD. Pt feels better. Less SOB. Was able to walk to restroom to urinate. Edema is better. - Physical Exam Vitals/I&O's: Vital Signs Temp Pulse Resp BP Pulse Ox 97.9 F 69 17 113/61 98 12/21/19 14:16 12/21/19 14:25 12/21/19 14:25 12/21/19 14:16 12/21/19 14:16 Oxygen Flow Rate (L/min) 3 Oxygen Delivery Method Nasal Cannula Weight: 58.6 kg Body Mass Index (BMI) 24.6 Intake and Output for Last 24 Hours 12/19/19 12/20/19 12/21/19 23:59 23:59 23:59 Intake Total 619.98 / 619.98 1230 / 1470 840 / 840 Output Total 575 / 575 500 / 600 350 / 350 Balance 44.98 / 44.98 730 / 870 490 / 490 General: Alert, Oriented x3 HEENT: Atraumatic, PERRLA Oral: Moist Mucosa Neck: Supple Lungs: Diminished - R>L Cardiovascular: Normal S1, Normal S2, No murmurs Abdomen: Bowel Sounds Present, Soft, Non Tender Extremities: Edema - 1+ Laboratory Results 12/20/19 16:56: PT 33.4 H, INR 3.3 12/21/19 07:11: PT 31.0 H, INR 3.0 Current Medications Acetaminophen (Tylenol) 650 mg PO Q6H PRN PRN PRN Reason: Pain Score 1-10/Temp > 100.7 F Last Admin: 12/20/19 02:53 Dose: 650 mg Documented by: Al Hydroxide/Mg Hydroxide (Mylanta Ii) 30 ml PO Q6H PRN PRN PRN Reason: Gastric Burning Albuterol Sulfate (Ventolin Aerosols) 2.5 mg INHALATION Q2H PRN PRN PRN Reason: SOB/Wheezing Albuterol/Ipratropium (Duoneb) 3 ml INHALATION Q6H.RT RADHA Last Admin: 12/21/19 13:34 Dose: 3 ml Documented by: Atorvastatin Calcium (Lipitor) 10 mg PO QHS [facility] Last Admin: 12/20/19 21:03 Dose: 10 mg Documented by: Diltiazem HCl (Cardizem Cd) 240 mg PO DAILY [facility] Last Admin: 12/21/19 09:56 Dose: 240 mg Documented by: Fluticasone Propionate (Flonase Nasal [place]) 2 spray NASAL DAILY [facility] Last Admin: 12/21/19 09:58 Dose: 2 u Documented by: Levothyroxine Sodium (Synthroid) 75 mcg PO DAILY@0600 [facility] Last Admin: 12/21/19 07:53 Dose: 75 mcg Documented by: Loratadine (Claritin) 10 mg PO DAILY [facility] Last Admin: 12/21/19 09:56 Dose: 10 mg Documented by: Meclizine HCl (Antivert) 12.5 mg PO 4X/DAY PRN PRN PRN Reason: VERTIGO Melatonin (Melatonin) 3 mg PO QHS PRN PRN PRN Reason: INSOMNIA Morphine Sulfate () 2 mg IV Q3H PRN PRN PRN Reason: Pain Score 6-10/10 Nitroglycerin (Nitrostat) 0.4 mg SUBLINGUAL Q5M PRN PRN Reason: CARDIAC/CHEST PAIN Oxycodone HCl (Oxyir) 5 mg PO Q4H PRN PRN PRN Reason: Pain Score 4-5/10 Pantoprazole Sodium (Protonix) 40 mg PO DAILY [facility] Last Admin: 12/21/19 09:57 Dose: 40 mg Documented by: Potassium Chloride (K-Dur) 20 meq PO DAILY [facility] Last Admin: 12/21/19 09:57 Dose: 20 meq Documented by: Prochlorperazine Edisylate (Compazine Iv) 5 mg IV Q4H PRN PRN PRN Reason: Breakthrough Nausea/Vomiting Senna/Docusate Sodium (Senokot-S, Onelia-Colace) 2 tablet PO BID PRN PRN PRN Reason: Constipation Sodium Chloride () 10 - 40 ml IV UD PRN PRN Reason: SALINE FLUSH Last Admin: 12/20/19 05:28 Dose: 10 ml Documented by: Spironolactone (Aldactone) 25 mg PO DAILY [facility] Last Admin: 12/21/19 09:56 Dose: 25 mg Documented by: Tamoxifen Citrate (Nolvadex) 20 mg PO DAILY [facility] Last Admin: 12/21/19 09:57 Dose: 20 mg Documented by: Torsemide (Demadex) 100 mg PO DAILY [facility] Last Admin: 12/21/19 09:56 Dose: 100 mg Documented by: Warfarin Sodium (Jantoven) 3 mg PO DAILY@1700 [facility]; Protocol Last Admin: 12/20/19 17:46 Dose: Not Given Documented by: Medical Necessity - Tobacco Use Smoking Status: Never smoker Tobacco Use: Non-smoker Assessment/Plan All Active Problems (Last Reviewed 11/01/19 @ 16:54 by Yasmin Singleton PA, PA) Acute on chronic heart failure with preserved ejection fraction (Acute) 1- RONNIE on CKD stage 3. baseline SCr ~ 1.3-2.0 mgdl this year. Patient has severe pulmonary HTN RONNIE is likely CRS . SCr peaked at 2.2 mg/dl. Better SCr today at 1.82 mg/dl. lasix drip was switched to intermittent lasix infection 40 mg IV TID on 12/18 Started on torsemide 100 mg PO daily instead of lasix IV yesterday. OK to discharge. Keep MAP > 65 Will continue to monitor RFP, and volume status. Will arrange for outpt follow up in [place] office. No indication for RHIT 2- Hyponatremia with FO. Na level low but asxtic. This is likely due to RONNIE/CKD and HF. Will watch Na as outpt. Keep O>I. monitor Na level 3- CHF exacerbation Improved with diuresis Continue current diuretic as above. CHF core measures as per cardiology service Renal team will continue to follow. Please call if any question at [phone] d/w Dr. Elizalde
--- NOTE | 2019-12-21 15:15 | PCM.DC.SUM ---
Discharge Date and Diagnosis - Problem List Patient Problems: Active and Suspected Problems (Last Reviewed 11/01/19 @ 16:54 by Yasmin IZQUIERDO, PA) Acute on chronic heart failure with preserved ejection fraction (Acute) Date of Admission: 12/17/19 Date of Discharge: 12/21/19 - Primary Discharge Diagnosis Acute Problems: Active Problems (Last Reviewed 11/01/19 @ 16:54 by Yasmin IZQUIERDO, PA) Acute on chronic heart failure with preserved ejection fraction (Acute) Acute on chronic heart failure with preserved EF due to multiple valvular disease, diastolic dysfunction/heart failure, severe pulmonary hypertension - Secondary Discharge Diagnosis Chronic Problems: Chronic Problems (Last Reviewed 11/01/19 @ 16:54 by Yasmin IZQUIERDO, PA) Breast cancer (Chronic) Valvular heart disease (Chronic) Renal insufficiency (Chronic) Bronchiectasis (Chronic) Hyponatremia (Chronic) Severe back pain (Chronic) MDS (myelodysplastic syndrome) (Chronic) Anemia (Chronic) History of breast cancer in female (Chronic) Pure hypercholesterolemia (Chronic) Essential hypertension (Chronic) Prosthetic aortic valve stenosis (Chronic) Nonrheumatic mitral valve regurgitation (Chronic) S/P valve repair with a 28 mm G04 annuloplasty ring in October 2011; Nonrheumatic tricuspid (valve) insufficiency (Chronic) S/P repair with a 30 mm MC3 ring angioplasty system in October 2011 Cardiac pacemaker in situ (Chronic) pacemaker implant 08/08 Presence of prosthetic heart valve (Chronic) 11/06, Mitral valve repair with 28mm GeoForm annuloplasty, tricuspid repair with 30mm MC ring annuloplasty Nonrheumatic aortic (valve) insufficiency (Chronic) S/P TAVR with [employer] 23 mm low dense valve in May 2013 at [facility]; 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, dilated (Chronic) S/P AVR (aortic valve replacement) (Chronic ~05/2014) TAVR wit [employer] 23 mm Kandice valve Aortic Valve 06/09 History of bacterial endocarditis (Chronic) Thrombocytopenia (Chronic) Contusion of left upper arm, initial encounter (Chronic) Iron deficiency anemia (Chronic) Chronic atrial fibrillation (Chronic) Congestive heart failure (Chronic) Pulmonary hypertension (Chronic) Coronary artery disease (Chronic) Interstitial lung disease (Chronic) Hypothyroidism (Chronic) Hospital Course and Treatment Operations: None Summary of Care Provided: [] The patient is a 79 year old F with extensive cardiac history is being admitted with progressive worsening of shortness of breath for about 1 month along with gain of weight, leg swelling and generalized weakness. Diagnosis is consistent of CHF exacerbation Chest x-ray shows bilateral interstitial edema and obliteration of bilateral CP angle. Left-sided dual-chamber pacemaker. EKG ventricular paced rhythm at 70 bpm. Patient got Lasix 40 mg IV and further admitted. INR 2.3. BNP 2360. Sodium 133. BUN/creatinine elevated 49/2.27, last 1 creatinine one-point in December 12, 2019 1. Acute on chronic hypoxic respiratory failure, on BiPAP due to acute on chronic diastolic, biventricular heart failure, most probably due to multiple valvular heart disease status post mitral and tricuspid valve repair and TAVR replacement moderately severe pulmonary hypertension: Patient has gradual worsening of heart failure. The patient is being admitted in PCU floor. Serial troponins enzymes are negative. Seen by baster hand and discussed with him, Dr. Neri. Patient was initially started on IV Lasix drip which was changed to pulsed Lasix 40 mg IV every 8 hourly but patient did not had much urine output therefore changed to torsemide 100 mg daily. CHF core measures with fluid restriction, daily weight checking, Gera wrap bandage. Continue home cardiac medications diltiazem 240 mg daily if blood pressure and heart rate permits and, atorvastatin. Lipid profile is within normal limit except HDL 31. TSH 3.54. Discussed with the head animal trainer. Follow-up with [facility] with renal function profile as an outpatient. Patient had repeat echo 12/18/2019 reported as EF 60%. Left ventricular systolic function is normal. The estimated ejection fraction is 60 %. Severely dilated right ventricle. Moderately severe global right ventricular systolic dysfunction. The left atrium is severely enlarged. The right atrium is severely enlarged. An annuloplasty ring is noted in the mitral position. Mild diffuse mitral valve thickening. The mitral valve chordae are thickened and/or calcified. Trivial mitral valve insufficiency. An annuloplasty ring is noted in the tricuspid position. Poor coaptation of the tricuspid valve leaflets. Moderate to Severe transvalvular insufficiency of the tricuspid valve. Stable appearing bioprosthetic aortic valve apparatus. Moderate aortic stenosis. Trivial transvalvular insufficiency of the aortic valve. Mild (1+) pulmonic valve insufficiency. Mildly dilated aortic root. Right ventricular systolic pressure estimated to be 112 mmHg. As compared to the previous echo of April 2019, pulmonary artery pressure has increased 212 from 60 mmHg with moderate to severe TR. 2. Arrhythmia including paroxysmal A. fib on Coumadin: Patient had history of proximal A. fib and has dual-chamber pacemaker. Patient had pacemaker check in November 28, 2019. INR went up to 3.3, decreased to 3 mg today. Coumadin decreased to 2 mg daily. Follow-up PT/INR on 12/24/2019 and titrate the dose of Coumadin accordingly. 3. Coronary artery disease status post CABG with dilated cardiomyopathy, history of bacterial endocarditis: 4. Acute kidney injury on CKD stage IV: Patient baseline creatinine runs around 1.6 to 1.8. Was admitted with 2.27. Creatinine improved to baseline 1.8. 12/18: Slight improvement in the kidney function with diuresis. [facility] consult reviewed. Discussed with team. Because most probably cardiorenal syndrome. 5. Interstitial lung disease with severe pulmonary hypertension and biventricular heart failure: Discussed with the signal worker helper Dr. Molina he agreed to see the patient. On BiPAP. 12/19 discussed with signal worker helper Dr. Molina. He said she was referred to [facility] 3 years ago and they did not do right heart cath because of high risk for procedure for high wedge pressure and patient not candidate for pulmonary hypertension medication trial like PDE?5 inhibitor or endothelin receptor antagonist. As compared to 3 years, pulmonary artery pressure has much worsened and she is short of breath even on conversation therefore any medication trial or repeat right heart cath breath is out of question. As per him, hospice care is appropriate 6. Invasive right invasive lobular carcinoma nuclear grade 1+ for ER, [place] and HER-2/yashira on 05/30/2019. Patient follows Dr. Puckett. Right breast ultrasound ordered as per his request. other multiple comorbidities include iron deficiency anemia, hypertension, and interstitial lung disease, hypothyroidism,dyslipidemia and bilateral knee replacement: Poor prognosis as explained above DVT prophylaxis: On Coumadin. Patient and her daughter agreed for change of CODE STATUS to DNR CC arrest with no intubation. Poor prognosis explained to the patient. [facility] care was involved. Hospice care was discussed with the patient in presence of his daughter. As per the daughter, she wants to keep her doctors, baster hand, signal worker helper, oncologist and PCP. I discussed with patient's daughter, Antonia along with social media marketing analystAna. Overall discharge plan is made with home with home health care. Discharge medication reconciliation done. Discharge follow-up instructions completed. Discharge process discussed with the patient and all questions were answered to patient's satisfaction. New scripts of torsemide and warfarin 2 mg daily sent to patient's pharmacy. Total time spent, exact 35 minutes on discharge meds reconciliation, examination, coordination of care with nurses and ancillary staff, review of imaging and blood test and discussion with the patient on follow-up instructions Patient Problems: Active and Suspected Problems (Last Reviewed 11/01/19 @ 16:54 by Yasmin IZQUIERDO, PA) Acute on chronic heart failure with preserved ejection fraction (Acute) Objective: Blood pressure is 113/61. Heart rate controlled. On 3 L of oxygen. No tachypnea. Patient still gets short of breath on walking and has to stop to take a breath. Physical exam General: Alert, Oriented x3, Cooperative HEENT: Atraumatic, PERRLA, EOMI, Normocephalic Oral: No Gingival or Mucosal Lesions/ Ulcerations Neck: Supple, No JVD, Negative Carotid Bruits Lungs: Air entry diminished in bilateral lung bases. No crepitation/rhonchi. Dyspnea on mild exertion Cardiovascular: Ventricular paced rhythm. Normal S1, Normal S2, systolic murmur present over aortic area, left lower sternal border and cardiac apex Abdomen: Bowel Sounds Present, Soft, Non Tender, Abdominal tension/swelling has much improved. : No renal angle tenderness. No suprapubic tenderness. Extremities: Capillary Refill Less than 3 Seconds. Edema present around the knees and thigh has improved. Skin: No rashes, No breakdown Musculoskeletal: No Tenderness to Palpation of Joints or Extremities. Mild to moderate chronic muscle atrophy of extremities Neurological: Cranial nerves II-XII grossly intact, Deep Tendon Reflexes 2+/4 and Symmetrical, Neuro grossly intact Psych/Mental Status: Normal Affect, Appropriate. - Physical Exam Vitals/I&O's: Vital Signs Temp Pulse Resp BP Pulse Ox 98.6 F 70 18 133/70 H 98 12/21/19 12:00 12/21/19 12:00 12/21/19 12:00 12/21/19 12:00 12/21/19 12:00 Oxygen Flow Rate (L/min) 3 Oxygen Delivery Method Nasal Cannula Weight: 129 lb 3.054 oz Body Mass Index (BMI) 24.6 Intake and Output for Last 24 Hours 12/19/19 12/20/19 12/21/19 23:59 23:59 23:59 Intake Total 619.98 / 619.98 1230 / 1470 840 / 840 Output Total 575 / 575 500 / 600 350 / 350 Balance 44.98 / 44.98 730 / 870 490 / 490 Laboratory Results 12/20/19 16:56: PT 33.4 H, INR 3.3 12/21/19 07:11: PT 31.0 H, INR 3.0 Current Medications Acetaminophen (Tylenol) 650 mg PO Q6H PRN PRN PRN Reason: Pain Score 1-10/Temp > 100.7 F Last Admin: 12/20/19 02:53 Dose: 650 mg Documented by: Al Hydroxide/Mg Hydroxide (Mylanta Ii) 30 ml PO Q6H PRN PRN PRN Reason: Gastric Burning Albuterol Sulfate (Ventolin Aerosols) 2.5 mg INHALATION Q2H PRN PRN PRN Reason: SOB/Wheezing Albuterol/Ipratropium (Duoneb) 3 ml INHALATION Q6H.RT [facility] Last Admin: 12/21/19 07:30 Dose: 3 ml Documented by: Atorvastatin Calcium (Lipitor) 10 mg PO QHS [facility] Last Admin: 12/20/19 21:03 Dose: 10 mg Documented by: Diltiazem HCl (Cardizem Cd) 240 mg PO DAILY [facility] Last Admin: 12/21/19 09:56 Dose: 240 mg Documented by: Fluticasone Propionate (Flonase Nasal [place]) 2 spray NASAL DAILY [facility] Last Admin: 12/21/19 09:58 Dose: 2 u Documented by: Levothyroxine Sodium (Synthroid) 75 mcg PO DAILY@0600 [facility] Last Admin: 12/21/19 07:53 Dose: 75 mcg Documented by: Loratadine (Claritin) 10 mg PO DAILY [facility] Last Admin: 12/21/19 09:56 Dose: 10 mg Documented by: Meclizine HCl (Antivert) 12.5 mg PO 4X/DAY PRN PRN PRN Reason: VERTIGO Melatonin (Melatonin) 3 mg PO QHS PRN PRN PRN Reason: INSOMNIA Morphine Sulfate () 2 mg IV Q3H PRN PRN PRN Reason: Pain Score 6-10/10 Nitroglycerin (Nitrostat) 0.4 mg SUBLINGUAL Q5M PRN PRN Reason: CARDIAC/CHEST PAIN Oxycodone HCl (Oxyir) 5 mg PO Q4H PRN PRN PRN Reason: Pain Score 4-5/10 Pantoprazole Sodium (Protonix) 40 mg PO DAILY [facility] Last Admin: 12/21/19 09:57 Dose: 40 mg Documented by: Potassium Chloride (K-Dur) 20 meq PO DAILY [facility] Last Admin: 12/21/19 09:57 Dose: 20 meq Documented by: Prochlorperazine Edisylate (Compazine Iv) 5 mg IV Q4H PRN PRN PRN Reason: Breakthrough Nausea/Vomiting Senna/Docusate Sodium (Senokot-S, Onelia-Colace) 2 tablet PO BID PRN PRN PRN Reason: Constipation Sodium Chloride () 10 - 40 ml IV UD PRN PRN Reason: SALINE FLUSH Last Admin: 12/20/19 05:28 Dose: 10 ml Documented by: Spironolactone (Aldactone) 25 mg PO DAILY [facility] Last Admin: 12/21/19 09:56 Dose: 25 mg Documented by: Tamoxifen Citrate (Nolvadex) 20 mg PO DAILY [facility] Last Admin: 12/21/19 09:57 Dose: 20 mg Documented by: Torsemide (Demadex) 100 mg PO DAILY [facility] Last Admin: 12/21/19 09:56 Dose: 100 mg Documented by: Warfarin Sodium (Jantoven) 3 mg PO DAILY@1700 [facility]; Protocol Last Admin: 12/20/19 17:46 Dose: Not Given Documented by: Discharge Activity: May Not Drive Weight Bearing Status: Weight bearing as tolerated Call your doctor if you observe: Fever of 101 or Higher, Coldness, Increased Pain, Change in Color, Inability to urinate, Inability to have a bowel movement, Using more than one pad per hour, Shortness of breath, Dizziness, Fainting spells, Swelling in the ankles, Chest pain, Prolonged hiccoughing, Increased palpitations (irregular heartbeat), Calf discomfort, Uncontrolled pain Home Medications: Medications to take at Discharge Meclizine HCl [Antivert] 12.5 mg PO 4X/DAY PRN PRN 06/23/16 Nitroglycerin [Nitrostat] 0.4 mg SL DAILY PRN 06/23/16 levothyroxine 75 mcg tablet 75 mcg PO DAILY tab 04/08/17 diltiazem HCl 240 mg capsule,extended release 24 hr 240 mg PO DAILY #90 cap 05/14/19 Esomeprazole Magnesium [Nexium 24Hr] 22.3 mg PO DAILY 08/22/19 Fexofenadine HCl [Adriana Allergy] 180 mg PO DAILY 08/22/19 Fluticasone Propion/Salmeterol [Wixela 250-50 Inhub] 1 puff INHALATION BID 08/22/19 Polyvinyl Alcohol/Povidone/Pf [Refresh Classic Eye Drops] 1 drp EACH EYE TID 08/22/19 Spironolactone [Aldactone] 25 mg PO DAILY 08/22/19 atorvastatin 10 mg tablet 10 mg PO QHS #90 tab 11/23/19 Acetaminophen [Tylenol Tablet] 650 mg PO Q4H PRN PRN 12/17/19 Ipratropium/Albuterol Sulfate [Duoneb] 3 ml INHALATION Q6H 12/17/19 Multivitamin with Minerals [Multiple Vitamin] 1 ea PO DAILY 12/17/19 Tamoxifen Citrate [Nolvadex] 20 mg PO DAILY 12/17/19 Senna/Docusate Sodium [Senokot-S] 2 tab PO BID PRN PRN tab 12/21/19 Torsemide [Demadex] 100 mg PO DAILY #30 tab 12/21/19 Warfarin [Coumadin] 2 mg PO DAILY #30 tab 12/21/19 Following Prescriptions Were Given to Patient: Warfarin [Coumadin] 2 mg PO DAILY #30 tab Transmission Status: Received by [facility] Torsemide [Demadex] 100 mg PO DAILY #30 tab Transmission Status: Received by [facility] Primary Care Physician: Abby Pendleton DO [Primary Care Provider] - Please follow up with your Primary Care Physician in: in 1 week with PT/INR on 12/24/2019 Please Follow Up With: Jason Neri MD When: in 2 weeks Please Follow Up With: Eleuterio Molina MD When: in 2 weeks Please Follow Up With: Marisabel Márquez MD When: in 2-3 weeks Medical Necessity - Tobacco Use Smoking Status: Never smoker Tobacco Use: Non-smoker Meaningful Use Info Meaningful Use Diagnoses (Choose all that apply): CHF - CHF GERA/ARB ordered at discharge?: No Reason GERA/ARB not ordered?: Allergy Documented LVEF (%): 60 Inpatient E&M: 61612 Disch Hosp
--- NOTE | 2019-12-21 15:17 | CASEMGMT ---
TOVA met with patient and her daughter. Answered their questions. TOVA gave patient's daughter a pamphlet for [facility]. Patient's daughter ask that they call her to set up appt. TOVA told her they will call her today or tomorrow. TOVA went over with patient and her daughter what therapy kept emphasizing.. walk slowly, take rest breaks. Rizwana from Palliative Care then came to the room. TOVA let patient's daughter know that SW is here till 4p if she has more questions. Plan: d/c home with [facility] Detention, PT, and OT. She also signed with [facility]. Ana GUZMAN AIRPORT ATTENDANT
--- NOTE | 2019-12-21 17:04 | PCM.PN.CARD ---
Subjectve: The patient was evaluated earlier this day. She appeared to be resting comfortably at that time. She noted overall her breathing had improved. Objective: Vital Signs Temp Pulse Resp BP Pulse Ox 97.9 F 71 17 113/61 98 12/21/19 14:16 12/21/19 15:00 12/21/19 14:25 12/21/19 14:16 12/21/19 14:16 Oxygen Flow Rate (L/min) 3 Oxygen Delivery Method Nasal Cannula Weight: 129 lb 3.054 oz Body Mass Index (BMI) 24.6 Intake and Output for Last 24 Hours 12/19/19 12/20/19 12/21/19 23:59 23:59 23:59 Intake Total 619.98 / 619.98 1230 / 1470 840 / 840 Output Total 575 / 575 500 / 600 350 / 350 Balance 44.98 / 44.98 730 / 870 490 / 490 General: Awake, Alert, Oriented x 3, Cooperative, No Acute Distress HEENT: Atraumatic, Normocephalic, PERRL, EOMI, Sclera Non Icteric Neck: No JVD Lungs: Rales - Carl Bases - Fibrotic sounding Cardiovascular: Regular Rhythm, Normal S1, Normal S2 Abdomen: Bowel Sounds Present, Soft Extremities: No edema Neurological: No Focal Motor or Sensory Deficit Psych/Mental Status: Appropriate 12/20/19 16:56: PT 33.4 H, INR 3.3 12/21/19 07:11: PT 31.0 H, INR 3.0 Rhythm: Electronic ventricular paced rhythm Medical Necessity - Tobacco Use Smoking Status: Never smoker Tobacco Use: Non-smoker Assessment/Plan 1. Acute on chronic diastolic mediated CHF The present time she does have evidence of acute on chronic diastolic mediated CHF. Her diuretics have been changed from IV diuretics to oral diuretics with torsemide/Demadex. 2. Valvular heart disease She does have a history of valvular heart disease as previously described. In the past, with respect to her TAVR procedure, she has not been thought to be a candidate by [facility] for a repeat aortic valve intervention. Her valvular heart disease was reassessed with a transthoracic echocardiogram with the results as noted. At the present time she will continue medical therapy and AHA antibiotic prophylaxis. As noted in the past she has been deemed not a candidate for repeat valvular intervention/surgery at [facility]. 3. Atrial fibrillation status post AV node ablation and permanent pacemaker placement She does have a history of atrial fibrillation and AV node ablation. She has permanent pacemaker dependent. She has continued medical management in the interim as deemed appropriate. 4. Permanent pacemaker Her pacemaker has been functioning appropriately in the past. It can be reassessed as needed. 5. Hyperlipidemia She will continue medical management as deemed appropriate. 6. Pulmonary hypertension Her estimated RV systolic pressure was reassessed with transthoracic echocardiogram. Based upon the findings her estimated RV systolic pressure was 112 mmHg-compatible with severe pulmonary hypertension. This may be secondary to a combination of her cardiac and pulmonary history/condition. At the moment she will need continued supportive medical therapy from both a cardiopulmonary standpoint. This most likely will require continued O2 support and diuretic support. She has been evaluated by her developing machine operator. According to a conversation with him there are no plans, as she is also been evaluated both at [facility] and [facility] for this issue, for any further diagnostic studies/medical interventions at this time. 7. Interstitial lung disease She does have a longstanding history of interstitial lung disease for which she is followed with pulmonology both locally and at [facility]. Certainly this can be a contributing factor her to her progressive pulmonary disease process and elevated right-sided pressures. She will continue her medical management and follow-up. 8. Renal insufficiency She has been noted to have an element of renal insufficiency. There is a concern as to whether or not she is developing a cardiorenal syndrome. She will need to continue medical therapy although her renal function will have to be taken into consideration with her medications. This note was generated using a voice recognition system and there may be incorrect words, spelling or punctuation that were not noted when reviewing the office note prior to saving.
--- NOTE | 2019-12-24 09:01 | PCA ---
Discharge paper work faxed to Brittney at [facility],
--- NOTE | 2019-12-24 14:18 | CASEMGMT ---
[facility] PHONE CALL DC DATE: 12/21/2019 DC Disposition: Home with [facility] Diagnosis on Discharge: CHF LACE/STRATA:07/06 Call to [facility] to verify services. Start of care was on Tuesday, Nov. Call to patient deferred. Larry JUNG RN ACM
== END 2019-12-21 16:56 | disposition home health service (06) | DRG 291 ==
LOC: ED 11:09 → PCU 12:53
PROVIDERS: Internal Medicine Cardiovascular Disease; Admitting Provider Internal Medicine; Emergency Provider Student in an Organized Health Care Education/Training Program; PCP Family Medicine; Visit Provider Internal Medicine
DX: I13.0 Hypertensive heart and chronic kidney disease with heart failure and stage 1 through stage 4 chronic kidney disease, or unspecified chronic kidney disease (principal); I50.33 Acute on chronic diastolic (congestive) heart failure; J96.21 Acute and chronic respiratory failure with hypoxia; E87.1 Hypo-osmolality and hyponatremia; T82.857A Stenosis of other cardiac prosthetic devices, implants and grafts, initial encounter; N17.9 Acute kidney failure, unspecified; N18.4 Chronic kidney disease, stage 4 (severe); I35.0 Nonrheumatic aortic (valve) stenosis; I34.0 Nonrheumatic mitral (valve) insufficiency; I37.1 Nonrheumatic pulmonary valve insufficiency; I50.82 Biventricular heart failure; I42.0 Dilated cardiomyopathy; Y83.1 Surgical operation with implant of artificial internal device as the cause of abnormal reaction of the patient, or of later complication, without mention of misadventure at the time of the procedure; J47.9 Bronchiectasis, uncomplicated; I27.20 Pulmonary hypertension, unspecified; I48.0 Paroxysmal atrial fibrillation; I25.10 Atherosclerotic heart disease of native coronary artery without angina pectoris; D50.9 Iron deficiency anemia, unspecified; E78.5 Hyperlipidemia, unspecified; E03.9 Hypothyroidism, unspecified; Z79.01 Long term (current) use of anticoagulants; Z79.890 Hormone replacement therapy; Z79.899 Other long term (current) drug therapy; I25.2 Old myocardial infarction; Z85.3 Personal history of malignant neoplasm of breast; Z92.21 Personal history of antineoplastic chemotherapy; Z95.2 Presence of prosthetic heart valve; Z95.0 Presence of cardiac pacemaker; Z95.1 Presence of aortocoronary bypass graft; Z96.653 Presence of artificial knee joint, bilateral
CPT/HCPCS: 36415; 71045; 76642; 80048; 80061; 81001; 83735; 83880; 84443; 84484; 85025; 85610; 93005; 93306; 94002; 94003; 94640; 97110; 97116; 97162; 97166; 97530; 97535; 97802; 99251; 99283; A4216; G0463; J1940

== ENCOUNTER 2019-12-24 15:26 | Outpatient (RCR) | payer MEDICARE, OTHER, SELFPAY ==
[2019-10-30 10:06] VITALS: BMI 23.2
[2019-11-28 16:19] LABS: Anion Gap 10 (5-15); BUN 61 mg/dL (7-18); BUN/Creat Ratio 27.5 RATIO (10-20); Calcium,Total 9.4 mg/dL (8.5-10.1); Chloride 96 mmol/L (98-107); Creatinine, Serum 2.22 mg/dL (0.55-1.02); EST Glomerular Filtration Rate 23 mL/min (>60); Est Glom Filt Rate - Afr Amer 27 mL/min (>60); Glucose 84 mg/dL (74-106); Potassium 2.9 mmol/L (3.5-5.1); Sodium Level 132 mmol/L (136-145)
[2019-11-28 16:42] LABS: International Normalized Ratio 1.4; Prothrombin Time (Protime)PT. 16.1 SECONDS (11.7-14.9)
[2019-12-05 15:50] LABS: International Normalized Ratio 1.3; Prothrombin Time (Protime)PT. 15.8 SECONDS (11.7-14.9)
[2019-12-05 15:55] LABS: Anion Gap 11 (5-15); BUN 63 mg/dL (7-18); BUN/Creat Ratio 28.1 RATIO (10-20); Calcium,Total 9.3 mg/dL (8.5-10.1); Chloride 96 mmol/L (98-107); Creatinine, Serum 2.24 mg/dL (0.55-1.02); EST Glomerular Filtration Rate 22 mL/min (>60); Est Glom Filt Rate - Afr Amer 27 mL/min (>60); Glucose 89 mg/dL (74-106); Potassium 3.5 mmol/L (3.5-5.1); Sodium Level 132 mmol/L (136-145)
[2019-12-12 16:19] LABS: International Normalized Ratio 1.9; Prothrombin Time (Protime)PT. 21.6 SECONDS (11.7-14.9)
[2019-12-12 16:32] LABS: Anion Gap 7 (5-15); BUN 42 mg/dL (7-18); BUN/Creat Ratio 22.6 RATIO (10-20); Calcium,Total 9.3 mg/dL (8.5-10.1); Chloride 104 mmol/L (98-107); Creatinine, Serum 1.86 mg/dL (0.55-1.02); EST Glomerular Filtration Rate 28 mL/min (>60); Est Glom Filt Rate - Afr Amer 34 mL/min (>60); Glucose 84 mg/dL (74-106); Potassium 4.6 mmol/L (3.5-5.1); Sodium Level 133 mmol/L (136-145)
[2019-12-24 17:23] LABS: International Normalized Ratio 1.9; Prothrombin Time (Protime)PT. 21.3 SECONDS (11.7-14.9)
== END 2019-12-24 18:00 | disposition home or self-care (01) ==
LOC: MTLAB 15:26
PROVIDERS: Physician Assistant Medical; Family Provider Family Medicine; PCP Family Medicine; Referring Provider Internal Medicine Cardiovascular Disease; Visit Provider Internal Medicine Cardiovascular Disease
DX: I50.31 Acute diastolic (congestive) heart failure (principal); I48.20 Chronic atrial fibrillation, unspecified; Z79.01 Long term (current) use of anticoagulants
CPT/HCPCS: 36415; 80048; 85610

== ENCOUNTER 2020-01-24 14:59 | Outpatient (RCR) | payer MEDICARE, OTHER, SELFPAY ==
[2019-12-17 14:19] VITALS: BMI 24.6
[2019-12-31 15:38] LABS: International Normalized Ratio 1.8; Prothrombin Time (Protime)PT. 20.3 SECONDS (11.7-14.9)
[2020-01-04 12:51] LABS: Color, Urine Yellow (Yellow); Glucose, Dipstick Normal (Normal); Ketone-Dipstick Negative (Negative); Leukocyte Esterase-Dipstick Negative /ul (Negative); Nitrite-Dipstick Negative (Negative); Occult Blood-Urine Negative /ul (Negative); Protein-Dipstick Negative (Negative); Urine Bilirubin Dipstick Negative (Negative); Urine Clarity Clear (Clear); Urine Urobilinogen Normal (Normal)
[2020-01-04 13:25] LABS: ALB/GLOB Ratio 0.9 RATIO (0.9-2.4); AST(SGOT) 24 U/L (15-37); Alanine Aminotransfer ALT/SGPT 25 U/L (13-56); Albumin, Serum 3.4 g/dL (3.2-5.0); Alkaline Phosphatase 62 U/L (45-117); Anion Gap 9 (5-15); BUN 56 mg/dL (7-18); BUN/Creat Ratio 24.1 RATIO (10-20); Chloride 103 mmol/L (98-107); Creatinine, Serum 2.32 mg/dL (0.55-1.02); EST Glomerular Filtration Rate 22 mL/min (>60); Est Glom Filt Rate - Afr Amer 26 mL/min (>60); Globulin 3.6 g/dL (2.2-4.2); Glucose 100 mg/dL (74-106); Potassium 3.5 mmol/L (3.5-5.1); Sodium Level 137 mmol/L (136-145)
[2020-01-08 11:14] LABS: Anion Gap 11 (5-15); BUN 70 mg/dL (7-18); BUN/Creat Ratio 28.9 RATIO (10-20); Calcium,Total 9.4 mg/dL (8.5-10.1); Chloride 98 mmol/L (98-107); Creatinine, Serum 2.42 mg/dL (0.55-1.02); EST Glomerular Filtration Rate 21 mL/min (>60); Est Glom Filt Rate - Afr Amer 25 mL/min (>60); Glucose 140 mg/dL (74-106); Potassium 3.5 mmol/L (3.5-5.1); Sodium Level 133 mmol/L (136-145)
[2020-01-08 11:19] LABS: International Normalized Ratio 1.7; Prothrombin Time (Protime)PT. 19.2 SECONDS (11.7-14.9)
[2020-01-16 14:02] LABS: International Normalized Ratio 2.1; Prothrombin Time (Protime)PT. 23.3 SECONDS (11.7-14.9)
== END 2020-01-24 18:00 | disposition home or self-care (01) ==
LOC: HHLAB 14:59
PROVIDERS: Family Provider Family Medicine; PCP Family Medicine; Referring Provider Internal Medicine Cardiovascular Disease; Visit Provider Internal Medicine Cardiovascular Disease
DX: I13.0 Hypertensive heart and chronic kidney disease with heart failure and stage 1 through stage 4 chronic kidney disease, or unspecified chronic kidney disease (principal); I50.33 Acute on chronic diastolic (congestive) heart failure; N18.4 Chronic kidney disease, stage 4 (severe); Z79.01 Long term (current) use of anticoagulants
CPT/HCPCS: 80048; 80053; 81002; 85610

== ENCOUNTER 2020-01-30 18:58 | Outpatient (RCR) | payer MEDICARE, OTHER, SELFPAY ==
[2019-12-17 14:19] VITALS: BMI 24.6
[2020-01-30 19:33] LABS: Absolute Lymphocyte Count 0.68 X10^3/uL (0.83-4.51); Absolute Neutrophil Count 6.3 X10^3/uL (2.0-7.7); Basophil# 0.04 X10^3/uL; Basophil% 0.5 % (0-1); Eosinophil# 0.09 X10^3/uL; Eosinophils% 1.1 % (0-5); Hematocrit 32.6 % (37-47); Hemoglobin 10.4 g/dL (12.0-15.0); Lymphocyte # 0.68 X10^3/ul (4.0); Lymphocyte % 8.6 % (19-41); Mean Corp Hgb Conc 31.9 g/dL (32-36); Mean Corpuscular Hgb 29.1 pg (27.0-32.0); Mean Corpuscular Volume 91.1 fL (81-99); Mean Platelet Vol. 10.4 fl (6.2-12.0); Monocyte# 0.76 X10^3/uL; Monocyte% 9.7 % (0-10); NRBC Flagged by Analyzer 0 % (0-5); Neutrophil # 6.26 X10^3/uL (2.7-7.7); Neutrophil % 79.6 % (47-70); Platelet Count 119 K/mm3 (150-450); RBC Distribution Width CV 18.8 % (11.6-14.6); RBC Distribution Width SD 62.4 fl (35.1-43.9); Red Blood Count 3.58 M/mm3 (4.2-5.4); White Blood Count 7.9 K/mm3 (4.4-11.0)
[2020-01-30 19:39] LABS: International Normalized Ratio 1.7; Prothrombin Time (Protime)PT. 19.7 SECONDS (11.7-14.9)
[2020-01-30 19:43] LABS: Anion Gap 10 (5-15); BUN 63 mg/dL (7-18); BUN/Creat Ratio 25.5 RATIO (10-20); Calcium,Total 8.9 mg/dL (8.5-10.1); Chloride 98 mmol/L (98-107); Creatinine, Serum 2.47 mg/dL (0.55-1.02); EST Glomerular Filtration Rate 20 mL/min (>60); Est Glom Filt Rate - Afr Amer 24 mL/min (>60); Glucose 106 mg/dL (74-106); Potassium 4.5 mmol/L (3.5-5.1); Sodium Level 129 mmol/L (136-145)
== END 2020-01-30 19:00 | disposition home or self-care (01) ==
LOC: HHLAB 18:58
PROVIDERS: PCP Family Medicine; Visit Provider Internal Medicine Cardiovascular Disease
DX: I13.0 Hypertensive heart and chronic kidney disease with heart failure and stage 1 through stage 4 chronic kidney disease, or unspecified chronic kidney disease (principal); I50.33 Acute on chronic diastolic (congestive) heart failure; N18.4 Chronic kidney disease, stage 4 (severe); Z79.01 Long term (current) use of anticoagulants
CPT/HCPCS: 80048; 85025; 85610

== ENCOUNTER 2020-02-12 13:34 | Outpatient (RCR) | payer MEDICARE, OTHER, SELFPAY ==
[2019-12-17 14:19] VITALS: BMI 24.6
[2020-02-05 15:13] LABS: International Normalized Ratio 1.8; Prothrombin Time (Protime)PT. 20.3 SECONDS (11.7-14.9)
[2020-02-05 15:20] LABS: AST(SGOT) 30 U/L (15-37); Alanine Aminotransfer ALT/SGPT 28 U/L (13-56); Albumin, Serum 3.7 g/dL (3.2-5.0); Alkaline Phosphatase 64 U/L (45-117); Anion Gap 9 (5-15); BUN 69 mg/dL (7-18); BUN/Creat Ratio 28.5 RATIO (10-20); Calcium,Total 8.8 mg/dL (8.5-10.1); Chloride 94 mmol/L (98-107); Creatinine, Serum 2.42 mg/dL (0.55-1.02); EST Glomerular Filtration Rate 21 mL/min (>60); Est Glom Filt Rate - Afr Amer 25 mL/min (>60); Globulin 3.8 g/dL (2.2-4.2); Glucose 84 mg/dL (74-106); Potassium 3.7 mmol/L (3.5-5.1); Protein, Total 7.5 g/dL (6.4-8.2); Sodium Level 131 mmol/L (136-145)
[2020-02-12 14:13] LABS: International Normalized Ratio 2.1; Prothrombin Time (Protime)PT. 23.1 SECONDS (11.7-14.9)
== END 2020-02-12 18:00 | disposition home or self-care (01) ==
LOC: HHLAB 13:34
PROVIDERS: Family Provider Family Medicine; PCP Family Medicine; Referring Provider Internal Medicine Cardiovascular Disease; Visit Provider Internal Medicine Cardiovascular Disease
DX: I13.0 Hypertensive heart and chronic kidney disease with heart failure and stage 1 through stage 4 chronic kidney disease, or unspecified chronic kidney disease (principal); I50.33 Acute on chronic diastolic (congestive) heart failure; N18.4 Chronic kidney disease, stage 4 (severe); Z79.01 Long term (current) use of anticoagulants
CPT/HCPCS: 80053; 85610

== ENCOUNTER 2020-02-15 12:37 | Inpatient (IN) | payer MEDICARE, OTHER, SELFPAY ==
[2020-02-11 14:37] VITALS: BMI 22.9
[2020-02-15] VITALS (8 sets, daily range): BP systolic 108–122; BP diastolic 60–73; PULSE 69–70; RESP 18–25; TEMP 36.7–37.1; O2SAT 94–98; BMI 23.4; BMI 23.5; BMI 22.0
--- NOTE | 2020-02-15 13:07 | EKG12_ITS ---
Test Reason : Blood Pressure : / mmHG Vent. Rate : 070 BPM Atrial Rate : 070 BPM P-R Int : 000 ms QRS Dur : 176 ms QT Int : 486 ms P-R-T Axes : 042 244 078 degrees QTc Int : 524 ms Ventricular-paced rhythm Abnormal ECG Confirmed by NICOLE BOBBY MD ([id number]), state editor NÉSTOR MONTIEL ([id number]) on 02/18/2020 9:48:10 AM Referred By: BLANE Confirmed By:NICOLE BOBBY MD
--- NOTE | 2020-02-15 13:21 | ED.DCSUM_ITS ---
History of Present Illness Informant: Patient, Relative, EMS Onset: Days - 2 days Activity at onset: Exertion, Light Activity Timing: Continuous Quality: Dyspnea on exertion Current Severity: Severe Maximum Severity: Severe Worsened by: Exertion Relieved by: Oxygen Associated Symptoms: Negative for: Bloody Sputum, Chills, Clear sputum, Cough, Ear pain, Fever, Green sputum, Post-nasal drainage, Rhinorrhea, Sore throat, Sweats, White sputum, Yellow sputum Chest Pain: None Narrative: 79-year-old female oxygen dependent COPD at 3 L history of multi valvular heart disease and CHF as well as breast cancer and myelodysplastic syndrome presents to the emergency department complaining of shortness of breath it has been really worsening for the last 2 days. She has shortness of breath exertion but minimally with rest. No cough or fever. No chest pain. She is not lightheaded or dizzy. No leg pain or swelling. Denies weight gain. Denies orthopnea. Denies paroxysmal nocturnal dyspnea. She does wear BiPAP at night. Last admission was about 2 months ago. She denies sick contacts. She denies contacts of anyone with Covid. She denies any abdominal pain nausea vomiting or diarrhea. Prior similar symptoms: Yes Recent Illness/Hospitalization: Yes <Cullen Carbone - Last Filed: 02/15/20 14:47> <Amarjit Mcguire - Last Filed: 02/15/20 22:23> Chief Complaint: Shortness of Breath Past Medical History Prior records reviewed: Yes Past Medical History: - - COPD CHF CAD multi valvular heart disease myelodysplastic syndrome breast cancer Surgical History: cataract, hysterectomy, total knee arthroplasty, - - Mitral and tricuspid valve replacement, pacemaker implantation 2013 Lives: With Family Smoking Status: Never smoker Alcohol: None Drugs: None - Family History Maternal Family History: Family History (Last Reviewed 02/11/20 @ 14:40 by Yasmin Agee) Father CAD (coronary artery disease) Myocardial infarction Family History: Reports: No pertinent history Paternal Family History: Family History (Last Reviewed 02/11/20 @ 14:40 by Yasmin Agee) Father CAD (coronary artery disease) Myocardial infarction Family History: Reports: No pertinent history <Cullen Carbone - Last Filed: 02/15/20 14:47> - Family History Maternal Family History: Family History (Last Reviewed 02/11/20 @ 14:40 by Yasmin Agee) Father CAD (coronary artery disease) Myocardial infarction Paternal Family History: Family History (Last Reviewed 02/11/20 @ 14:40 by Yasmin Agee) Father CAD (coronary artery disease) Myocardial infarction <Amarjit Mcguire - Last Filed: 02/15/20 22:23> - Allergies and Home Meds Allergies/Adverse Reactions: Allergies GERI Inhibitors Allergy (Verified 02/15/20 12:38) Angioedema amiodarone Allergy (Verified 02/15/20 12:38) Other doxycycline Allergy (Verified 02/15/20 12:38) Other rosuvastatin calcium [From Crestor] Allergy (Verified 02/15/20 12:38) Other Sulfa (Sulfonamide Antibiotics) Allergy (Verified 02/15/20 12:38) Nausea tiotropium bromide [From Spiriva with HandiHaler] Allergy (Verified 02/15/20 12: 38) Nausea oxycodone Adverse Reaction (Severe, Verified 02/15/20 12:38) confusion codeine Adverse Reaction (Verified 02/15/20 12:38) Vomiting hydrocodone bitartrate [From Vicodin] Adverse Reaction (Verified 02/15/20 12:38) Vomiting Review of Systems General: Denies: Chills, Fever, Sweats Eyes: Denies: Visual changes - bilaterally, Diplopia ENT: Denies: Rhinorrhea, Sore throat Cardiovascular: Denies: Chest pain, Palpitations Respiratory: Reports: Sputum, Dyspnea on exertion, Orthopnea. Denies: Dyspnea, Cough, Paroxysmal nocturnal dyspnea Gastrointestinal: Denies: Abdominal pain, Nausea, Vomiting, Diarrhea, Melena, Hematochezia Genitourinary: Denies: Dysuria, Hematuria, Frequency Musculoskeletal: Denies: Back pain, Swelling, Extremity Pain Skin: Denies: Rash, Wounds Neurological: Denies: Headache, Weakness, Numbness <Cullen Carbone - Last Filed: 02/15/20 14:47> Physical Exam Vital Signs/Narrative: Vital Signs Temp Pulse Resp BP Pulse Ox 02/15/20 13:05 70 22 H 120/65 97 02/15/20 12:39 98.1 F 70 25 H 122/73 H 95 Inital Vital Signs reviewed: Yes General: Well nourished, Well developed, No Acute Distress Head: Normocephalic, Atraumatic Eyes: Perrl, EOMI ENT: Moist mucous membranes, No rhinorrhea Neck: Supple, Nontender Cardiovascular: Regular rate, Regular rhythm, No murmurs Respiratory: No distress, Chest nontender, Diminished, Decreased Air Movement. Negative for: Retractions, Chest tenderness Abdomen: Soft, Nontender, Nondistended, Normal bowel sounds Back: Nontender, Normal Inspection Extremities: Nontender, No edema. Negative for: Tenderness Skin: Normal color, No rash Neurological: Alert, Oriented x3, Cranial nerves II-XII grossly intact, Normal Strength, Normal Sensation Psychological: Normal affect, Normal Mood <Cullen Carbone - Last Filed: 02/15/20 14:47> Diagnostic/Tx/Re-eval Chest X-Ray - ED: 1 View, Read by ED Physician, Read by Radiologist, CHF, Right Effusion, Left Effusion Impressions Chest X-Ray 02/15/20 13:57 IMPRESSION: Cardiomegaly. CHF. Electronically Signed: Joey Margarita, at 14:33 EST , Service support , 02/15/20 13:57 Chest 1 View (Portable) [RAD] Stat 02/15/20 13:30 Mucosa - Nose SARS-CoV-2 Antigen (Rapid) - Final SARS-CoV-2 (COVID 19) Laboratory Results 02/15/20 02/15/20 02/15/20 13:00 13:00 13:00 WBC 9.7 RBC 3.55 L Hgb 10.9 L Hct 31.9 L MCV 89.9 MCH 30.7 MCHC 34.2 RDW Std Deviation 61.4 H RDW Coeff of Jacob 18.6 H Plt Count 158 MPV 9.9 Immature Gran % (Auto) 0.400 Neut % (Auto) 82.0 H Lymph % (Auto) 6.5 L [place] % (Auto) 8.6 Eos % (Auto) 2.0 Baso % (Auto) 0.5 Absolute Neuts (auto) 8.0 H Absolute Lymphs (auto) 0.63 L Nucleated RBC % 0 PT INR Sodium 128 L Potassium 4.8 Chloride 93 L Carbon Dioxide 26.0 Anion Gap 9 BUN 75 H Creatinine 2.85 H Estim Creat Clear Calc 11.50 Est GFR (MDRD) Af Amer 21 L Est GFR (MDRD) Non-Af 17 L BUN/Creatinine Ratio 26.3 H Glucose 116 H Calcium 9.2 Troponin I < 0.015 B-Natriuretic Peptide 1875.6 H Urine Color Urine Clarity Urine pH Ur Specific [place] Urine Protein Urine Glucose (UA) Urine Ketones Urine Occult Blood Urine Nitrite Urine Bilirubin Urine Urobilinogen Ur Leukocyte Esterase Urine RBC Urine WBC Ur Squamous Epith Cells Urine Bacteria Urine Mucus 02/15/20 02/15/20 13:00 13:20 WBC RBC Hgb Hct MCV MCH MCHC RDW Std Deviation RDW Coeff of Jacob Plt Count MPV Immature Gran % (Auto) Neut % (Auto) Lymph % (Auto) [place] % (Auto) Eos % (Auto) Baso % (Auto) Absolute Neuts (auto) Absolute Lymphs (auto) Nucleated RBC % PT 27.9 H INR 2.7 Sodium Potassium Chloride Carbon Dioxide Anion Gap BUN Creatinine Estim Creat Clear Calc Est GFR (MDRD) Af Amer Est GFR (MDRD) Non-Af BUN/Creatinine Ratio Glucose Calcium Troponin I B-Natriuretic Peptide Urine Color Yellow Urine Clarity Clear Urine pH 6.5 Ur Specific [place] 1.010 Urine Protein Negative Urine Glucose (UA) Normal Urine Ketones Negative Urine Occult Blood Negative Urine Nitrite Negative Urine Bilirubin Negative Urine Urobilinogen Normal Ur Leukocyte Esterase 25 H Urine RBC 0 SEEN Urine WBC 0-5 SEEN Ur Squamous Epith Cells 0 SEEN Urine Bacteria 1+ Urine Mucus Not Reportable - Rhythm Strip Rhythm Strip: Sinus Rhythm Rate: 70 Ectopy: None - EKG Initial EKG Interpretation: Sinus Rhythm, No Acute Injury Pattern Prior: Unchanged Treatment - Dyspnea: Oxygen, Steroid Repeat Evaluation: No change - Medical Decision Making Patient presents with shortness of breath. She is on her baseline 3 L of oxygen mildly tachypneic. She was given Solu-Medrol to treat her COPD. Laboratory work-up shows chronic anemia, her creatinine is around her baseline, per BNP is elevated. Chest x-ray shows CHF with cardiomegaly. Covid is positive. Patient is still short of breath. Because of the patient's weakness we will not ambulate her but we do feel that if she were ambulated she would likely desaturate. With the patient's significant comorbidities and positive Covid we feel she would benefit from admission. Vital signs are stable and we do not feel she needs ICU admission at this time <Cullen Carbone - Last Filed: 02/15/20 14:47> - Medical Decision Making Attending note: Patient seen and evaluated talent acquisition administrator. I performed on [id number] evaluation. I agree with plan and work-up. Worsening dyspnea over 2 days. History of COPD CHF chronic 3 L of oxygen. History of breast cancer o n tamoxifen for which she states is a pea-sized. She states her digester cook told her she has 6 months to live due to her comorbidities. Exam vital stable, lungs are clear however she did have occasional gasping during evaluation. Work-up with a paced rhythm. She is on Coumadin for history of atrial fibrillation, labs with a therapeutic INR. Chest x-ray notes signs of CHF with cardiomegaly. Covid test positive. With her comorbidities, she is admitted to the hospitalist service for inpatient management. Diuretics were given in the ED. <Amarjit Mcguire - Last Filed: 02/15/20 22:23> ED Disposition <Cullen Carbone - Last Filed: 02/15/20 14:47> <Amarjit Mcguire - Last Filed: 02/15/20 22:23> - Plan for ED Patient: Disposition: Acute Care Hospital [facility] Diagnosis: COVID-19, Acute on chronic heart failure with preserved ejection fraction, intermediate current use of anticoagulant, Breast cancer, Anemia, Cardiomyopathy, dilated, Cardiac pacemaker in situ, MDS (myelodysplastic syndrome)
[2020-02-15 13:22] LABS: Absolute Lymphocyte Count 0.63 X10^3/uL (0.83-4.51); Basophil# 0.05 X10^3/uL; Basophil% 0.5 % (0-1); Eosinophil# 0.19 X10^3/uL; Hematocrit 31.9 % (37-47); Hemoglobin 10.9 g/dL (12.0-15.0); Lymphocyte # 0.63 X10^3/ul (4.0); Lymphocyte % 6.5 % (19-41); Mean Corp Hgb Conc 34.2 g/dL (32-36); Mean Corpuscular Hgb 30.7 pg (27.0-32.0); Mean Corpuscular Volume 89.9 fL (81-99); Mean Platelet Vol. 9.9 fl (6.2-12.0); Monocyte# 0.84 X10^3/uL; Monocyte% 8.6 % (0-10); NRBC Flagged by Analyzer 0 % (0-5); Neutrophil # 7.98 X10^3/uL (2.7-7.7); Platelet Count 158 K/mm3 (150-450); RBC Distribution Width CV 18.6 % (11.6-14.6); RBC Distribution Width SD 61.4 fl (35.1-43.9); Red Blood Count 3.55 M/mm3 (4.2-5.4); White Blood Count 9.7 K/mm3 (4.4-11.0)
[2020-02-15 13:31] LABS: Red Blood Cells-Urine 0 SEEN /hpf (0-5); Squamous Epithelial Cells - UA 0 SEEN /hpf (5-10)
[2020-02-15 13:38] LABS: Color, Urine Yellow (Yellow); Glucose, Dipstick Normal (Normal); Ketone-Dipstick Negative (Negative); Leukocyte Esterase-Dipstick 25 /ul (Negative); Nitrite-Dipstick Negative (Negative); Occult Blood-Urine Negative /ul (Negative); Protein-Dipstick Negative (Negative); Urine Bilirubin Dipstick Negative (Negative); Urine Clarity Clear (Clear); Urine Urobilinogen Normal (Normal); Urine pH 6.5 (5.0 - 8.0)
[2020-02-15 13:48] LABS: Anion Gap 9 (5-15); BUN 75 mg/dL (7-18); BUN/Creat Ratio 26.3 RATIO (10-20); Calcium,Total 9.2 mg/dL (8.5-10.1); Chloride 93 mmol/L (98-107); Creatinine, Serum 2.85 mg/dL (0.55-1.02); EST Glomerular Filtration Rate 17 mL/min (>60); Est Glom Filt Rate - Afr Amer 21 mL/min (>60); Glucose 116 mg/dL (74-106); Potassium 4.8 mmol/L (3.5-5.1); Sodium Level 128 mmol/L (136-145)
--- NOTE | 2020-02-15 13:57 | RAD_ITS ---
STUDY: X-RAY CHEST REASON FOR EXAM: Female, 79 years old. INCREASED SOB -- HX OF CHF TECHNIQUE: Single AP portable view of the chest. COMPARISON: Comparison is made with prior study dated 12/17/2019. FINDINGS: EKG electrodes are seen. Stable vascular congestion and a mild degree of CHF. Blunting of both contract angles. Sternal cerclage wires are present from a prior sternotomy. Prior mitral valve replacement. A left-sided dual-chamber pacemaker is seen. Cardiomegaly. Normal mediastinum and bj. Normal visualized pulmonary arteries. There is atherosclerotic calcification of the aortic arch with tortuosity. Normal visualized thoracic spine. Normal visualized ribs, clavicles, and shoulders. There is no demonstrated abnormality of the visualized soft tissue structures of the upper abdomen. RAD/Chest 1 View (Portable) IMPRESSION: Cardiomegaly. CHF. Electronically Signed: Joey Avila, at 14:33 EST , Service support ,
[2020-02-15 14:10] LABS: Bacteria 1+ /hpf (None Seen); White Blood Cells 0-5 SEEN /hpf (0-5)
[2020-02-15] MEDS: MethylPREDNISolone 125 MG/2 ML Vial IV (14:24)
[2020-02-15 14:29] LABS: International Normalized Ratio 2.7; Prothrombin Time (Protime)PT. 27.9 SECONDS (11.7-14.9)
--- NOTE | 2020-02-15 14:40 | NURSING ---
MS2 COVID KORAM COVID, PNEUMONIA
[2020-02-15] MEDS: Furosemide 40 MG/4 ML Vial IV ×2 (15:02→18:08)
--- NOTE | 2020-02-15 15:24 | HP.PCM_ITS ---
History of Present Illness Date of Admission: 02/15/20 Chief Complaint: shortness of breath The patient is a 79 year old F with an extensive PMH as outlined. She was admitted with a complaint of shortness of breath for the past 2 days. She said symptoms started 2 days ago. She says shortness of breath was both present at rest and with exertion and she had a set of apnea but no PND. She denied any edema in her legs though her daughter says she has some mild edema but that got better. She denied any chest pain or palpitations, dizziness, nausea vomiting. She also denied any cough. She was 3 L of oxygen during the day due to COPD and wears BiPAP with 2 L of oxygen at night. She does have a history of heart failure and has been compliant with her diuresis. Previous times otherwise negative. In the ED, vitals showed temperature of 98.7 blood pressure 121/64, pulse rate of 70 and respiratory rate of 18. She was saturating at 98% on 3 L of oxygen. Chemistry showed sodium of 128 but she does have chronic hyponatremia. Creatinine was 2.85 and BNP was 1875.6. CBC showed hemoglobin of 10.9 with WBC of 9.7 and platelets of 158. X-ray showed cardiomegaly and CHF and EKG showed no acute ST changes. Initial troponin was negative. Covid antigen test done was positive. She has been admitted to be managed for acute on chronic heart failure as well as COVID-19 infection. [] Past Medical History Past Medical History (Chronic Problems): Chronic Problems (Last Updated 02/12/20 @ 14:39 by Yasmin Agee) Longstanding persistent atrial fibrillation (Chronic) Breast cancer (Chronic) Valvular heart disease (Chronic) Renal insufficiency (Chronic) Bronchiectasis (Chronic) Hyponatremia (Chronic) Severe back pain (Chronic) MDS (myelodysplastic syndrome) (Chronic) Anemia (Chronic) History of breast cancer in female (Chronic) Pure hypercholesterolemia (Chronic) Essential hypertension (Chronic) Prosthetic aortic valve stenosis (Chronic) Nonrheumatic mitral valve regurgitation (Chronic) S/P valve repair with a 28 mm G04 annuloplasty ring in October 2011; Nonrheumatic tricuspid (valve) insufficiency (Chronic) S/P repair with a 30 mm MC3 ring angioplasty system in October 2011 Cardiac pacemaker in situ (Chronic) pacemaker implant 08/08 Presence of prosthetic heart valve (Chronic) 11/06, Mitral valve repair with 28mm GeoForm annuloplasty, tricuspid repair with 30mm MC ring annuloplasty Nonrheumatic aortic (valve) insufficiency (Chronic) S/P TAVR with [employer] 23 mm low dense valve in May 2013 at [facility]; 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, dilated (Chronic) S/P AVR (aortic valve replacement) (Chronic ~05/2014) TAVR wit [employer] 23 mm Kandice valve Aortic Valve 06/09 History of bacterial endocarditis (Chronic) Thrombocytopenia (Chronic) Contusion of left upper arm, initial encounter (Chronic) Iron deficiency anemia (Chronic) Chronic atrial fibrillation (Chronic) Congestive heart failure (Chronic) Pulmonary hypertension (Chronic) Coronary artery disease (Chronic) Interstitial lung disease (Chronic) Hypothyroidism (Chronic) Medical History: Medical History (Last Updated 02/12/20 @ 14:39 by Yasmin Agee) 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) Z79.01 Longstanding persistent atrial fibrillation (Chronic) I48.11 Pure hypercholesterolemia (Chronic) E78.00 Essential hypertension (Chronic) I10 Prosthetic aortic valve stenosis (Chronic) T82.857A Nonrheumatic mitral valve regurgitation (Chronic) I34.0 S/P valve repair with a 28 mm G04 annuloplasty ring in October 2011; Nonrheumatic tricuspid (valve) insufficiency (Chronic) I36.1 S/P repair with a 30 mm MC3 ring angioplasty system in October 2011 Cardiac pacemaker in situ (Chronic) Z95.0 pacemaker implant 08/08 Nonrheumatic aortic (valve) insufficiency (Chronic) I35.1 S/P TAVR with [employer] 23 mm low dense valve in May 2013 at [facility]; Subendocardial myocardial infarction (Chronic) I21.4 Cardiomyopathy, dilated (Chronic) I42.0 History of bacterial endocarditis (Chronic) Z86.79 Thrombocytopenia (Chronic) D69.6 Iron deficiency anemia (Chronic) D50.9 Chronic atrial fibrillation (Chronic) I48.2 Congestive heart failure (Chronic) I50.9 Pulmonary hypertension (Chronic) I27.2 Coronary artery disease (Chronic) I25.10 Interstitial lung disease (Chronic) J84.9 Hypothyroidism (Chronic) E03.9 Breast cancer C50.919 COPD (chronic obstructive pulmonary disease) J44.9 Left ventricular systolic dysfunction I51.9 Allergies GERI Inhibitors Allergy (Verified 02/15/20 12:38) Angioedema amiodarone Allergy (Verified 02/15/20 12:38) Other doxycycline Allergy (Verified 02/15/20 12:38) Other rosuvastatin calcium [From Crestor] Allergy (Verified 02/15/20 12:38) Other Sulfa (Sulfonamide Antibiotics) Allergy (Verified 02/15/20 12:38) Nausea tiotropium bromide [From Spiriva with HandiHaler] Allergy (Verified 02/15/20 12:38) Nausea oxycodone Adverse Reaction (Severe, Verified 02/15/20 12:38) confusion codeine Adverse Reaction (Verified 02/15/20 12:38) Vomiting hydrocodone bitartrate [From Vicodin] Adverse Reaction (Verified 02/15/20 12:38) Vomiting Home Medications: Ambulatory Orders Medication Instructions Recorded Nitroglycerin [Nitrostat] 0.4 mg SL DAILY PRN 06/23/16 diltiazem HCl 240 mg 240 mg PO DAILY #90 cap 05/14/19 capsule,extended release 24 hr Fexofenadine HCl [Adriana Allergy] 180 mg PO DAILY 08/22/19 Fluticasone Propion/Salmeterol 1 puff INHALATION BID 08/22/19 [Wixela 250-50 Inhub] Polyvinyl Alcohol/Povidone/Pf 1 drp EACH EYE TID 08/22/19 [Refresh Classic Eye Drops] Spironolactone [Aldactone] 25 mg PO DAILY 08/22/19 Acetaminophen [Tylenol Tablet] 325 mg PO Q4H PRN PRN 12/17/19 Ipratropium/Albuterol Sulfate 3 ml INHALATION Q6H 12/17/19 [Duoneb] Multivitamin with Minerals 1 ea PO DAILY 12/17/19 [Multiple Vitamin] atorvastatin 10 mg tablet 10 mg PO QHS #90 tab 12/25/19 potassium chloride 20 mEq 20 meq PO DAILY 01/04/20 tablet,extended release Esomeprazole Mag Trihydrate 20 mg PO DAILY 02/15/20 [Nexium] Levothyroxine Sodium [Synthroid] 75 mcg PO DAILY 02/15/20 Metolazone [Zaroxolyn] 5 mg PO MOTH 02/15/20 Tamoxifen Citrate [Nolvadex] 20 mg PO DAILY 02/15/20 Torsemide 150 mg PO DAILY 02/15/20 Warfarin [Coumadin (PBKC)] 3 mg PO MOTUWETH 02/15/20 Warfarin [Coumadin] 2 mg PO SUFRSA 02/15/20 Surgical History: Surgical History (Last Reviewed 02/11/20 @ 14:40 by Yasmin Agee) S/P AVR (aortic valve replacement) (Chronic) Onset Date: ~05/2014 Z95.2 TAVR [facility] [employer] 23 mm Kandice valve Aortic Valve 06/09 History of breast biopsy Onset Date: ~05/2019 Z98.890 History of bilateral knee replacement Z98.890, Z96.653 History of total hysterectomy Z98.890, Z90.710 History of mitral valve replacement (Inactive) Onset Date: ~10/2011 Z95.2 06/09 History of tricuspid valve replacement (Inactive) Onset Date: ~10/2011 Z95.2 06/09 Surgical History: cataract, hysterectomy, total knee arthroplasty, - - Mitral and tricuspid valve replacement, pacemaker implantation 2013 Psychiatric History: No pertinent psych hx 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 Denies: Chills, Fever, Weight Change Eyes: Denies: Blurred vision HEENT: Denies: Head Aches, Sinus Congestion, Sinus Drainage Cardiovascular: Reports: Edema, Orthopnea. Denies: Chest Pain, Chest Pressure, Heaviness, Light Headedness, Palpitations, Paroxysmal Noc. Dyspnea, Syncope Respiratory: Reports: Shortness of Breath, Shortness of breath at rest, Shortness of breath upon exertion, Wheezing. Denies: Cough, Sputum production Gastrointestinal: Denies: Abdominal Pain, Nausea, Vomiting Genitourinary: Denies: Dysuria Musculoskeletal: Denies: Joint Pain, Joint Tenderness Skin: Denies: Rash, Wounds Neurological: Denies: Numbness, Tingling, Focal weakness Psychiatric: Denies: Anxiety, Depression, Homicidal Ideations, Suicidal Ideations Hematologic/ Lymphatic: Denies: Easy Bruising, Easy Bleeding VTE Information - Inpt Only VTE Present on Admission: No VTE Pharm Prophylaxis ordered?: Yes Patient Problems: Active and Suspected Problems (Last Updated 02/12/20 @ 14:39 by Yasmin Agee) COVID-19 (Acute) senior care current use of anticoagulant (Acute) Acute on chronic heart failure with preserved ejection fraction (Acute) - Physical Exam Vitals/I&O's: Vital Signs Temp Pulse Resp BP Pulse Ox 98.7 F 70 18 121/64 H 98 02/15/20 15:21 02/15/20 15:21 02/15/20 15:21 02/15/20 15:21 02/15/20 15:21 Oxygen Flow Rate (L/min) 3 Oxygen Delivery Method Nasal Cannula Weight: 120 lb 2.431 oz Body Mass Index (BMI) 23.4 General: Alert, Oriented x3, Cooperative, No apparent distress HEENT: Atraumatic, PERRLA, EOMI, Normocephalic Oral: Dry Mucosa Neck: Supple, No JVD, Negative Carotid Bruits Lungs: - - diminished breath sounds bibasally, no wheezes or crackles. on 3L of oxygen. Cardiovascular: Regular rate, Regular Rhythm, Normal S1, Normal S2, No murmurs Abdomen: Bowel Sounds Present, Soft, Non Tender, Non-Distended, No Hepato- splenomegaly Extremities: No clubbing, No cyanosis, No edema, Capillary Refill Less than 3 Seconds Skin: No rashes, No breakdown Musculoskeletal: No Tenderness to Palpation of Joints or Extremities Lymphatic: No Cervical, Supraclavicular, or Inguinal Adenopathy Neurological: Cranial nerves II-XII grossly intact Psych/Mental Status: Normal Affect, Appropriate, Alert and oriented to time, place, person, mood and affect Microbiology Past 72 Hours 02/15/20 13:30 Mucosa - Nose SARS-CoV-2 Antigen (Rapid) - Final SARS-CoV-2 (COVID 19) Laboratory Results 02/15/20 13:00: WBC 9.7, RBC 3.55 L, Hgb 10.9 L, Hct 31.9 L, MCV 89.9, MCH 30.7, MCHC 34.2, RDW Std Deviation 61.4 H, RDW Coeff of Jacob 18.6 H, Plt Count 158, MPV 9.9, Immature Gran % (Auto) 0.400, Neut % (Auto) 82.0 H, Lymph % (Auto) 6.5 L, [place] % (Auto) 8.6, Eos % (Auto) 2.0, Baso % (Auto) 0.5, Absolute Neuts (auto) 8.0 H, Absolute Lymphs (auto) 0.63 L, Nucleated RBC % 0 02/15/20 13:00: Sodium 128 L, Potassium 4.8, Chloride 93 L, Carbon Dioxide 26.0, Anion Gap 9, BUN 75 H, Creatinine 2.85 H, Estim Creat Clear Calc 11.50, Est GFR (MDRD) Af Amer 21 L, Est GFR (MDRD) Non-Af 17 L, BUN/Creatinine Ratio 26.3 H, Glucose 116 H, Calcium 9.2, Troponin I < 0.015 02/15/20 13:00: B-Natriuretic Peptide 1875.6 H 02/15/20 13:00: PT 27.9 H, INR 2.7 02/15/20 13:20: Urine Color Yellow, Urine Clarity Clear, Urine pH 6.5, Ur Specific [place] 1.010, Urine Protein Negative, Urine Glucose (UA) Normal, Urine Ketones Negative, Urine Occult Blood Negative, Urine Nitrite Negative, Urine Bilirubin Negative, Urine Urobilinogen Normal, Ur Leukocyte Esterase 25 H, Urine RBC 0 SEEN, Urine WBC 0-5 SEEN, Ur Squamous Epith Cells 0 SEEN, Urine Bacteria 1+, Urine Mucus Not Reportable Diagnostic Data Chest X-Ray 02/15/20 13:57 IMPRESSION: Cardiomegaly. CHF. 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 #Acute on chronic HFrEF * Admit to Covid unit on account of positive Covid test. * BNP is over thousand 800. * Chest x-ray showed evidence of cardiomegaly and CHF. * Start on IV Lasix 40 mg twice daily. Continue metolazone which she takes 2 times weekly. * Monitor intake and output. Fluid restriction to 1500 cc daily. * 2D echo: EF of 60% with severely dilated right ventricle and moderately severe right ventricular systolic dysfunction with severely enlarged left and right atrium. RVSP of 1 1 2 mmHg * Continue spironolactone. Hold torsemide. #COVID-19 infection * Started IV Decadron 6 mg daily. * Breathing treatments with bronchodilators. * Titrate oxygen to maintain saturation above 90%. * Consult ID * Patient already anticoagulated on account of valvular replacement. INR therapeutic at 2.7. We will therefore not order D-dimer. Will check CRP and pro calcitonin as well as LDH. * ID to determine if patient will benefit from the severe or convalescent plasma. * #Hyponatremia: This is chronic. Likely due to fluid overload from heart fail ure. Will trend and should improve with diuresis. #History of breast cancer: * On tamoxifen. Daughter states she has not had any surgery or chemotherapy and has only been on tamoxifen. Follow-up with oncologist on outpatient basis. #Chronic atrial fibrillation: On Cardizem and metoprolol. On Coumadin. INR was therapeutic. #Chronic hypoxic respiratory failure due to COPD: On her baseline 3 L of oxygen. BiPAP nightly. #History of aortic and mitral valve as well as tricuspid valve replacement: Stable. Follow-up with cardiology on outpatient basis. #Hyperlipidemia: On statin #History of interstitial lung disease and pulmonary hypertension: #History of CAD: On atorvastatin #CKD stage III: Creatinine is 2.85. Baseline creatinine is around 2.4. Will trend *Hypothyroidism: On Synthroid DVT prophylaxis: coumadin. Code Status: DNR CCA * Patient and daughter counseled extensively about different types of CODE STATUS including full code, DNR CCA and DNR CCA. Patient elects to be DNRCCA- no intubation * Total [id number] time 16 minutes. Inpatient E&M: 58834 Init Hosp L3 Procedures: 18069 Advncd Care Plan 30 Min
--- NOTE | 2020-02-15 16:51 | PCM.HP.ID ---
Problem List (1) COVID-19 Status: Acute Reason for Consult: riddhi Consulted by: Dr. Lim History of Present Illness: The patient is a 79 year old F with ILD, CHF, breast cancer, MDS, CKD, presented to ED today with 2 days of cough, dyspnea, aches, diarrhea. She lives alone, no sick contacts. No fever, no n/v, no change in taste or smell. In ED, covid Ag (+), high BNP. Given solumedrol, admitted on her home O2 of 3L. Full ROS performed and neg except as noted above. - Medical History Past Medical History (Chronic Problems): Chronic Problems (Last Updated 02/12/20 @ 14:39 by Yasmin Agee) Longstanding persistent atrial fibrillation (Chronic) Breast cancer (Chronic) Valvular heart disease (Chronic) Renal insufficiency (Chronic) Bronchiectasis (Chronic) Hyponatremia (Chronic) Severe back pain (Chronic) MDS (myelodysplastic syndrome) (Chronic) Anemia (Chronic) History of breast cancer in female (Chronic) Pure hypercholesterolemia (Chronic) Essential hypertension (Chronic) Prosthetic aortic valve stenosis (Chronic) Nonrheumatic mitral valve regurgitation (Chronic) S/P valve repair with a 28 mm G04 annuloplasty ring in October 2011; Nonrheumatic tricuspid (valve) insufficiency (Chronic) S/P repair with a 30 mm MC3 ring angioplasty system in October 2011 Cardiac pacemaker in situ (Chronic) pacemaker implant 08/08 Presence of prosthetic heart valve (Chronic) 11/06, Mitral valve repair with 28mm GeoForm annuloplasty, tricuspid repair with 30mm MC ring annuloplasty Nonrheumatic aortic (valve) insufficiency (Chronic) S/P TAVR with [employer] 23 mm low dense valve in May 2013 at [facility]; 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, dilated (Chronic) S/P AVR (aortic valve replacement) (Chronic ~05/2014) TAVR wit [employer] 23 mm Kandice valve Aortic Valve 06/09 History of bacterial endocarditis (Chronic) Thrombocytopenia (Chronic) Contusion of left upper arm, initial encounter (Chronic) Iron deficiency anemia (Chronic) Chronic atrial fibrillation (Chronic) Congestive heart failure (Chronic) Pulmonary hypertension (Chronic) Coronary artery disease (Chronic) Interstitial lung disease (Chronic) Hypothyroidism (Chronic) Allergies/Adverse Reactions: Allergies GERI Inhibitors Allergy (Verified 02/15/20 12:38) Angioedema amiodarone Allergy (Verified 02/15/20 12:38) Other doxycycline Allergy (Verified 02/15/20 12:38) Other rosuvastatin calcium [From Crestor] Allergy (Verified 02/15/20 12:38) Other Sulfa (Sulfonamide Antibiotics) Allergy (Verified 02/15/20 12:38) Nausea tiotropium bromide [From Spiriva with HandiHaler] Allergy (Verified 02/15/20 12:38) Nausea oxycodone Adverse Reaction (Severe, Verified 02/15/20 12:38) confusion codeine Adverse Reaction (Verified 02/15/20 12:38) Vomiting hydrocodone bitartrate [From Vicodin] Adverse Reaction (Verified 02/15/20 12:38) Vomiting Home Medications: Ambulatory Orders Medication Instructions Recorded Nitroglycerin [Nitrostat] 0.4 mg SL DAILY PRN 06/23/16 diltiazem HCl 240 mg 240 mg PO DAILY #90 cap 05/14/19 capsule,extended release 24 hr Fexofenadine HCl [Adriana Allergy] 180 mg PO DAILY 08/22/19 Fluticasone Propion/Salmeterol 1 puff INHALATION BID 08/22/19 [Wixela 250-50 Inhub] Polyvinyl Alcohol/Povidone/Pf 1 drp EACH EYE TID 08/22/19 [Refresh Classic Eye Drops] Spironolactone [Aldactone] 25 mg PO DAILY 08/22/19 Acetaminophen [Tylenol Tablet] 325 mg PO Q4H PRN PRN 12/17/19 Ipratropium/Albuterol Sulfate 3 ml INHALATION Q6H 12/17/19 [Duoneb] Multivitamin with Minerals 1 ea PO DAILY 12/17/19 [Multiple Vitamin] atorvastatin 10 mg tablet 10 mg PO QHS #90 tab 12/25/19 potassium chloride 20 mEq 20 meq PO DAILY 01/04/20 tablet,extended release Esomeprazole Mag Trihydrate 20 mg PO DAILY 02/15/20 [Nexium] Levothyroxine Sodium [Synthroid] 75 mcg PO DAILY 02/15/20 Metolazone [Zaroxolyn] 5 mg PO MOTH 02/15/20 Tamoxifen Citrate [Nolvadex] 20 mg PO DAILY 02/15/20 Torsemide 150 mg PO DAILY 02/15/20 Warfarin [Coumadin (PBKC)] 3 mg PO MOTUWETH 02/15/20 Warfarin [Coumadin] 2 mg PO SUFRSA 02/15/20 - Social History Tobacco Use: non-smoker Vital Signs Temp Pulse Resp BP Pulse Ox 98.7 F 70 24 H 118/69 94 02/15/20 15:37 02/15/20 15:37 02/15/20 15:37 02/15/20 15:37 02/15/20 15:37 Oxygen Flow Rate (L/min) 3 Oxygen Delivery Method Nasal Cannula Weight: 51.256 kg Body Mass Index (BMI) 22.0 Microbiology Past 72 Hours 02/15/20 13:30 SARS-CoV-2 Antigen (Rapid) - Final Mucosa - Nose SARS-CoV-2 (COVID 19) Laboratory Tests Past 24 Hrs 02/15/20 02/15/20 02/15/20 13:00 13:00 13:00 WBC 9.7 RBC 3.55 L Hgb 10.9 L Hct 31.9 L MCV 89.9 MCH 30.7 MCHC 34.2 RDW Std Deviation 61.4 H RDW Coeff of Jacob 18.6 H Plt Count 158 MPV 9.9 Immature Gran % (Auto) 0.400 Neut % (Auto) 82.0 H Lymph % (Auto) 6.5 L [place] % (Auto) 8.6 Eos % (Auto) 2.0 Baso % (Auto) 0.5 Absolute Neuts (auto) 8.0 H Absolute Lymphs (auto) 0.63 L Nucleated RBC % 0 PT INR Sodium 128 L Potassium 4.8 Chloride 93 L Carbon Dioxide 26.0 Anion Gap 9 BUN 75 H Creatinine 2.85 H Estim Creat Clear Calc 11.50 Est GFR (MDRD) Af Amer 21 L Est GFR (MDRD) Non-Af 17 L BUN/Creatinine Ratio 26.3 H Glucose 116 H Calcium 9.2 Lactate Dehydrogenase Total Creatine Kinase Troponin I < 0.015 C-React Prot Ext Range B-Natriuretic Peptide 1875.6 H Urine Color Urine Clarity Urine pH Ur Specific [place] Urine Protein Urine Glucose (UA) Urine Ketones Urine Occult Blood Urine Nitrite Urine Bilirubin Urine Urobilinogen Ur Leukocyte Esterase Urine RBC Urine WBC Ur Squamous Epith Cells Urine Bacteria Urine Mucus 02/15/20 02/15/20 02/15/20 13:00 13:00 13:20 WBC RBC Hgb Hct MCV MCH MCHC RDW Std Deviation RDW Coeff of Jacob Plt Count MPV Immature Gran % (Auto) Neut % (Auto) Lymph % (Auto) [place] % (Auto) Eos % (Auto) Baso % (Auto) Absolute Neuts (auto) Absolute Lymphs (auto) Nucleated RBC % PT 27.9 H INR 2.7 Sodium Potassium Chloride Carbon Dioxide Anion Gap BUN Creatinine Estim Creat Clear Calc Est GFR (MDRD) Af Amer Est GFR (MDRD) Non-Af BUN/Creatinine Ratio Glucose Calcium Lactate Dehydrogenase Pending Total Creatine Kinase Pending Troponin I C-React Prot Ext Range Pending B-Natriuretic Peptide Urine Color Yellow Urine Clarity Clear Urine pH 6.5 Ur Specific [place] 1.010 Urine Protein Negative Urine Glucose (UA) Normal Urine Ketones Negative Urine Occult Blood Negative Urine Nitrite Negative Urine Bilirubin Negative Urine Urobilinogen Normal Ur Leukocyte Esterase 25 H Urine RBC 0 SEEN Urine WBC 0-5 SEEN Ur Squamous Epith Cells 0 SEEN Urine Bacteria 1+ Urine Mucus Not Reportable - Other Studies Radiology: [] reviewed Other Studies: [] Route of nutrition/ use of supplements: [] Nutritional Intake: [] IV Site: [] Tabor Catheter: [] - Physical Exam General: Alert, Cooperative, No apparent distress HEENT: Atraumatic, PERRLA, EOMI Neck: Supple, No Nodes Lungs: Diminished Cardiovascular: Regular rate, Regular Rhythm Abdomen: Soft, Non Tender, Non-Distended Extremities: No edema Skin: No rashes IV Site: Peripheral, without redness Musculoskeletal: No Tenderness to Palpation of Joints or Extremities Neurological: Cranial nerves II-XII grossly intact - Assessment/Plan Antibiotics: [] Assessment/Plan: [] Active and Suspected Problems (Last Updated 02/12/20 @ 14:39 by Yasmin Agee) 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 Sat 94 on 3L. Sx started 02/12. Given risk of severe disease, will do 10 day course of decadron. Reviewed EUA and risks/benefits of plasma, and we agree to start. Not a candidate for remdesivir based on GFR. Coumadin is therapeutic. Getting diuresis. Will follow, thank you.
[2020-02-15 17:15] LABS: CPK Total, Creatine Kinase 72 U/L (26-192); LDH 415 U/L (84-246)
[2020-02-15] MEDS: INHALER, ASSIST DEVICES 1 EACH SPACER INHALATION ×2 (18:09→20:59)
[2020-02-15] MEDS: Jantoven 2 MG Tablet PO (18:10)
[2020-02-15 18:38] LABS: Procalcitonin 0.17 ng/mL (0.00-0.09)
[2020-02-15] MEDS: Atorvastatin Calcium 10 MG Tablet PO (20:58)
[2020-02-16] VITALS (17 sets, daily range): BP systolic 99–112; BP diastolic 58–67; PULSE 69–85; RESP 18–24; TEMP 36.3–36.6; O2SAT 91–95
[2020-02-16] MEDS: 0.9% Saline Lock 10 ML Syringe IV ×3 (03:50→22:57)
[2020-02-16] MEDS: INHALER, ASSIST DEVICES 1 EACH SPACER INHALATION ×5 (04:53→22:57)
[2020-02-16 07:48] LABS: Absolute Lymphocyte Count 0.45 X10^3/uL (0.83-4.51); Absolute Neutrophil Count 5.6 X10^3/uL (2.0-7.7); Basophil# 0.01 X10^3/uL; Basophil% 0.2 % (0-1); Hematocrit 29.9 % (37-47); Hemoglobin 9.6 g/dL (12.0-15.0); Lymphocyte # 0.45 X10^3/ul (4.0); Lymphocyte % 7.2 % (19-41); Mean Corp Hgb Conc 32.1 g/dL (32-36); Mean Corpuscular Volume 90.3 fL (81-99); Mean Platelet Vol. 9.9 fl (6.2-12.0); Monocyte# 0.19 X10^3/uL; NRBC Flagged by Analyzer 0 % (0-5); Neutrophil % 89.3 % (47-70); POSITIVE DIFFERENTIAL YES; Platelet Count 129 K/mm3 (150-450); RBC Distribution Width CV 18.4 % (11.6-14.6); RBC Distribution Width SD 60.9 fl (35.1-43.9); Red Blood Count 3.31 M/mm3 (4.2-5.4); White Blood Count 6.3 K/mm3 (4.4-11.0)
[2020-02-16 08:25] LABS: Anion Gap 10 (5-15); BUN 78 mg/dL (7-18); BUN/Creat Ratio 32.4 RATIO (10-20); Calcium,Total 9.2 mg/dL (8.5-10.1); Chloride 94 mmol/L (98-107); Creatinine, Serum 2.41 mg/dL (0.55-1.02); EST Glomerular Filtration Rate 21 mL/min (>60); Est Glom Filt Rate - Afr Amer 25 mL/min (>60); Glucose 133 mg/dL (74-106); Magnesium 2.5 mg/dL (1.6-2.6); Potassium 3.7 mmol/L (3.5-5.1); Sodium Level 129 mmol/L (136-145)
[2020-02-16] MEDS: Furosemide 40 MG/4 ML Vial IV ×3 (08:57→22:56)
[2020-02-16] MEDS: Tamoxifen 10 MG Tablet 20 MG PO (08:58)
[2020-02-16] MEDS: dexAMETHasone 4 MG Tablet 6 MG PO (08:58)
[2020-02-16] MEDS: dilTIAZem CD 240 MG Capsule PO (08:58)
[2020-02-16] MEDS: Spironolactone 25 MG Tablet PO (08:58)
[2020-02-16] MEDS: Pantoprazole Sodium 20 MG Tablet PO (08:59)
[2020-02-16] MEDS: Levothyroxine 75 MCG Tablet PO (08:59)
--- NOTE | 2020-02-16 09:08 | NURSING ---
O2 SAT 94% ON 4L NC, O2 DECREASED TO 3L - WILL MONITOR.
[2020-02-16 09:36] LABS: Differential Comment SCANNED
[2020-02-16 12:18] LABS: Probe Check PASS; Specimen Processing Control PASS
--- NOTE | 2020-02-16 12:48 | NURSING ---
THIS AM'S REPEAT COVID NEGATIVE - CORTEXT SAME TO DR ALVAREZ
--- NOTE | 2020-02-16 13:44 | NURSING ---
CORTEX TO DR ALVAREZ ASKING HE CALL PT'S DAUGHTER, HUNG WITH UPDATE WHEN POSSIBLE.
--- NOTE | 2020-02-16 15:16 | PCM.PROGNOTE ---
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 I ordered a COVID-19 PCR test on the patient today which resulted as negative, I am suspicious that her antigen test which was positive was a false positive but I cannot be sure that the patient does not have Covid. I discussed this extensively with her daughter and advised her daughter to quarantine from the patient for 10 days-her daughter has a history of asthma. I talked with infectious diseases by phone today who recommended that I continue to treat as a Covid diagnosis. - Physical Exam Vitals/I&O's: Vital Signs Temp Pulse Resp BP Pulse Ox 97.4 F L 70 24 H 107/59 L 93 02/16/20 14:25 02/16/20 14:25 02/16/20 14:25 02/16/20 14:25 02/16/20 14:25 Oxygen Flow Rate (L/min) 3 Oxygen Delivery Method Nasal Cannula Weight: 51.256 kg Body Mass Index (BMI) 22.0 Intake and Output for Last 24 Hours 02/14/20 02/15/20 02/16/20 23:59 23:59 23:59 Intake Total 350 / 350 Balance 350 / 350 General: Alert, Oriented x3, Cooperative, No apparent distress, Well developed, Well nourished HEENT: Atraumatic, PERRLA, EOMI, Normocephalic Oral: Moist Mucosa Neck: Supple, No JVD, Trachea Midline, Thyroid Normal Size and Texture Lungs: No rhonchi, No wheeze, Diminished Cardiovascular: Regular rate, Regular Rhythm, Normal S1, Normal S2, No murmurs, PMI Normal, No rub noted, No Gallop Abdomen: Bowel Sounds Present, Soft, Non Tender, Non-Distended Extremities: No clubbing, No cyanosis, Capillary Refill Less than 3 Seconds Skin: No rashes, No breakdown Musculoskeletal: No Tenderness to Palpation of Joints or Extremities Neurological: Cranial nerves II-XII grossly intact, Neuro grossly intact, Muscle tone normal, Sensory exam intact to light touch and pain Psych/Mental Status: Normal Affect, Appropriate, Alert and oriented to time, place, person, mood and affect Microbiology Past 72 Hours 02/15/20 13:30 Mucosa - Nose SARS-CoV-2 Antigen (Rapid) - Final SARS-CoV-2 (COVID 19) Laboratory Results 02/15/20 13:00: Lactate Dehydrogenase 415 H, Total Creatine Kinase 72, C-React Prot Ext Range 48.50 H 02/15/20 17:15: Procalcitonin 0.17 H 02/15/20 17:15: Blood Type O POSITIVE 02/15/20 17:15: Troponin I 0.018 02/15/20 20:15: Troponin I < 0.015 02/15/20 23:50: Troponin I < 0.015 02/16/20 07:05: WBC 6.3, RBC 3.31 L, Hgb 9.6 L, Hct 29.9 L, MCV 90.3, MCH 29.0, MCHC 32.1 D, RDW Std Deviation 60.9 H, RDW Coeff of Jacob 18.4 H, Plt Count 129 L, MPV 9.9, Immature Gran % (Auto) 0.300, Neut % (Auto) 89.3 H, Lymph % (Auto) 7.2 L, Grady % (Auto) 3.0, Eos % (Auto) 0.0, Baso % (Auto) 0.2, Absolute Neuts (auto) 5.6, Absolute Lymphs (auto) 0.45 L, Nucleated RBC % 0, Differential Comment SCANNED 02/16/20 07:05: Sodium 129 L, Potassium 3.7, Chloride 94 L, Carbon Dioxide 25.0, Anion Gap 10, BUN 78 H, Creatinine 2.41 H, Estim Creat Clear Calc 13.60, Est GFR (MDRD) Af Amer 25 L, Est GFR (MDRD) Non-Af 21 L, BUN/Creatinine Ratio 32.4 H, Glucose 133 H, Calcium 9.2, Magnesium 2.5 02/16/20 09:45: COVID-19 (DON) Negative Current Medications Acetaminophen (Acetaminophen 325 Mg Tablet) 325 mg PO Q4H PRN PRN PRN Reason: Pain Score 1-10 Albuterol Sulfate (Albuterol Sulfate 8gm 60 Dose Inhaler (Floor Use-With Spacer)) 1 puff INHALATION Q4HWA RAD[facility] Last Admin: 02/16/20 14:16 Dose: 1 puff Documented by: Artificial Tears (Dextran 70/He-Cell 15ml Bottle) 1 drop EACH EYE TID@1000,1400,1700 [facility] Last Admin: 02/16/20 14:16 Dose: 1 drop Documented by: Atorvastatin Calcium (Atorvastatin Calcium 10 Mg Tablet) 10 mg PO DAILY@1700 [facility] Last Admin: 02/15/20 20:58 Dose: 10 mg Documented by: Dexamethasone (Dexamethasone 4 Mg Tablet) 6 mg PO DAILY [facility] Stop: 02/24/20 10:01 Last Admin: 02/16/20 08:58 Dose: 6 mg Documented by: Diltiazem HCl (Diltiazem Cd 240 Mg Capsule) 240 mg PO DAILY [facility] Last Admin: 02/16/20 08:58 Dose: 240 mg Documented by: Furosemide (Furosemide 40 Mg/4 Ml Vial) 40 mg IV Q8 [facility] Levothyroxine Sodium (Levothyroxine 75 Mcg Tablet) 75 mcg PO DAILY [facility] Last Admin: 02/16/20 08:59 Dose: 75 mcg Documented by: Metolazone (Metolazone 5 Mg Tablet) 5 mg PO MoTh@1000 [facility] Miscellaneous Information (Inhaler, Assist Devices 1 Each Spacer) [facility] Last Admin: 02/16/20 14:19 Dose: 1 each Documented by: Multivitamins/Minerals (Multivitamins,Ther W-Minerals Tablet) 1 tablet PO DAILY@1700 [facility] Ondansetron HCl (Ondansetron 4 Mg/2 Ml Vial) 4 mg IV Q8H PRN PRN PRN Reason: NAUSEA/VOMITING Pantoprazole Sodium (Pantoprazole Sodium 20 Mg Tablet) 20 mg PO DAILY [facility] Last Admin: 02/16/20 08:59 Dose: 20 mg Documented by: Potassium Chloride (Potassium Chloride 20 Meq Tablet) 20 meq PO DAILY [facility] Last Admin: 02/16/20 08:58 Dose: 20 meq Documented by: Sodium Chloride (0.9% Saline Lock 10 Ml Syringe) 10 - 40 ml IV UD PRN PRN Reason: SALINE FLUSH Last Admin: 02/16/20 08:57 Dose: 10 ml Documented by: Spironolactone (Spironolactone 25 Mg Tablet) 25 mg PO DAILY [facility] Last Admin: 02/16/20 08:58 Dose: 25 mg Documented by: Tamoxifen Citrate (Tamoxifen 10 Mg Tablet) 20 mg PO DAILY [facility] Last Admin: 02/16/20 08:58 Dose: 20 mg Documented by: Warfarin Sodium (Jantoven 2 Mg Tablet) 2 mg PO SuFrSa@1700 [facility] Last Admin: 02/15/20 18:10 Dose: 2 mg Documented by: Warfarin Sodium (Warfarin 3 Mg Tablet) 3 mg PO MoTuWeTh@1700 [facility] Medical Necessity - Tobacco Use Smoking Status: Never smoker Tobacco Use: Non-smoker Assessment/Plan All Active Problems (Last Updated 02/12/20 @ 14:39 by Yasmin Agee) 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
--- NOTE | 2020-02-16 15:21 | CM.UR ---
PADMINI LOPEZ assessment: Spoke with patient via phone for initial transition planning/care coordination assessment. PADMINI LOPEZ introduced self and role at [facility], pt voices understanding and consents to assessment at this time. Pt is A/Ox4 at this time and answers all questions appropriately at this time. Care providers, pharmacy, and demographics verified at this time. Presentation: Shortness of breath Admitting dx: + covid PCP: Keerthi Specialists: Moodispaw, cardio; Sibilia, pulm; Prah, onc Preferred Pharmacy: [facility] Insurance: [facility] A/B, A[employer] Prescription Benefit: [facility] Living Will/HPOA: Pt states has LW/HPOA and is aware that they are not on file at [facility] at this time. Pt states her daughter, Antonia Pruitt, is HPOA. LNOK: Antonia Pruitt, daughter/HPOA; Shmear Stewart, son Living Arrangements: Pt states lives alone in 1 story condo with 1 step in thru garage or front with a rail/grab bar in place and states no concerns at home at this time. Pt is independent with ADL's. Transportation: Pt states daughter normally drives her but she is currently quarantined. DME: Pt states has the following DME: cane, walker, w/c, medical alert, raised toilet seat, grab bars, shower chair, nebulizer, bipap, and 3liters of home oxygen continuous, 2.5liters at bedtime thru bipap thru [facility]. Pt states no need for any further need for DME at this time. SNF/HHC: Pt states has been to [facility] and [facility] in the past and has had [facility] HHC previously. Pt states no need for HHC or SNF at this time. Active with [facility]. Pt states no concerns with going home at time of discharge. CM to follow for any further discharge planning/needs. Advised pt to ask for CM if any further questions/concerns/needs arise, voices understanding. Pt Goal: Home Plan: Home Jack Cohen RN,CCM.
[2020-02-16] MEDS: Atorvastatin Calcium 10 MG Tablet PO (17:16)
[2020-02-16] MEDS: Jantoven 2 MG Tablet PO (17:16)
[2020-02-16] MEDS: Multivitamins,Ther W-Minerals Tablet 1 TABLET PO (17:16)
[2020-02-17] VITALS (16 sets, daily range): BP systolic 106–125; BP diastolic 64–69; PULSE 69–71; RESP 20–24; TEMP 35.1–36.4; O2SAT 94–97
[2020-02-17] MEDS: Furosemide 40 MG/4 ML Vial IV ×2 (04:08→14:26)
[2020-02-17] MEDS: INHALER, ASSIST DEVICES 1 EACH SPACER INHALATION ×5 (04:21→20:43)
[2020-02-17 07:31] LABS: Anion Gap 12 (5-15); BUN 93 mg/dL (7-18); BUN/Creat Ratio 32.6 RATIO (10-20); Calcium,Total 9.5 mg/dL (8.5-10.1); Chloride 92 mmol/L (98-107); Creatinine, Serum 2.85 mg/dL (0.55-1.02); EST Glomerular Filtration Rate 17 mL/min (>60); Est Glom Filt Rate - Afr Amer 21 mL/min (>60); Glucose 122 mg/dL (74-106); Potassium 4.5 mmol/L (3.5-5.1); Sodium Level 128 mmol/L (136-145)
[2020-02-17] MEDS: dilTIAZem CD 240 MG Capsule PO (07:50)
[2020-02-17] MEDS: Spironolactone 25 MG Tablet PO (07:50)
[2020-02-17] MEDS: dexAMETHasone 4 MG Tablet 6 MG PO (07:50)
[2020-02-17] MEDS: Levothyroxine 75 MCG Tablet PO (07:52)
[2020-02-17] MEDS: Tamoxifen 10 MG Tablet 20 MG PO (07:52)
[2020-02-17] MEDS: Pantoprazole Sodium 20 MG Tablet PO (07:52)
[2020-02-17] MEDS: 0.9% Saline Lock 10 ML Syringe IV ×2 (14:26→20:38)
--- NOTE | 2020-02-17 15:41 | NURSING ---
LATE ENTRY - 1430 - PT RESTING IN BED. BREATHING APPEARS MORE LABORED THAN EARLIER IN SHIFT. O2 SAT 95% 3L NC. PT STATES THIS IS NORMAL BREATHING FOR HER. STATES SHE TENDS TO BE MORE LABORED LATER IN THE DAY. PT ALSO STATES SHE IS VERY TIRED WHICH SHE SAYS IS AFFECTING HER BREATHING.
--- NOTE | 2020-02-17 16:12 | PN_ITS ---
Patient Problems: Active and Suspected Problems (Last Updated 02/12/20 @ 14:39 by Yasmin Agee) COVID-19 (Acute) halfway current use of anticoagulant (Acute) Acute on chronic heart failure with preserved ejection fraction (Acute) Subjective: Patient was seen and examined today, she is on 3 L of nasal cannula oxygen, she does not complain of any increased shortness of breath, chest pain, fever or chills. Objective: General: Alert, Oriented x3, Cooperative, No apparent distress, Well developed, Well nourished HEENT: Atraumatic, PERRLA, EOMI, Normocephalic Oral: Moist Mucosa Neck: Supple, No JVD, Trachea Midline, Thyroid Normal Size and Texture Lungs: No rhonchi, No wheeze, Diminished Cardiovascular: Regular rate, Regular Rhythm, Normal S1, Normal S2, No murmurs, PMI Normal, No rub noted, No Gallop Abdomen: Bowel Sounds Present, Soft, Non Tender, Non-Distended Extremities: No clubbing, No cyanosis, Capillary Refill Less than 3 Seconds Skin: No rashes, No breakdown Musculoskeletal: No Tenderness to Palpation of Joints or Extremities Neurological: Cranial nerves II-XII grossly intact, Neuro grossly intact, Muscle tone normal, Sensory exam intact to light touch and pain Psych/Mental Status: Normal Affect, Appropriate, Alert and oriented to time, place, person, mood and affect - Physical Exam Vitals/I&O's: Vital Signs Temp Pulse Resp BP Pulse Ox 97.4 F L 70 22 H 116/67 95 02/17/20 14:00 02/17/20 15:45 02/17/20 14:00 02/17/20 14:00 02/17/20 14:00 Oxygen Flow Rate (L/min) 3 Oxygen Delivery Method Nasal Cannula Weight: 51.256 kg Body Mass Index (BMI) 22.0 Intake and Output for Last 24 Hours 02/15/20 02/16/20 02/17/20 23:59 23:59 23:59 Intake Total 590 / 640 390 / 390 Output Total 525 / 525 Balance 590 / 640 -135 / -135 Microbiology Past 72 Hours 02/15/20 13:30 Mucosa - Nose SARS-CoV-2 Antigen (Rapid) - Final SARS-CoV-2 (COVID 19) Laboratory Results 02/17/20 05:20: Sodium 128 L, Potassium 4.5, Chloride 92 L, Carbon Dioxide 24.0, Anion Gap 12, BUN 93 H, Creatinine 2.85 H, Estim Creat Clear Calc 11.50, Est GFR (MDRD) Af Amer 21 L, Est GFR (MDRD) Non-Af 17 L, BUN/Creatinine Ratio 32.6 H, Glucose 122 H, Calcium 9.5 Current Medications Acetaminophen (Acetaminophen 325 Mg Tablet) 325 mg PO Q4H PRN PRN PRN Reason: Pain Score 1-10 Albuterol Sulfate (Albuterol Sulfate 8gm 60 Dose Inhaler (Floor Use-With Spacer)) 1 puff INHALATION Q4HWA [facility] Last Admin: 02/17/20 14:26 Dose: 1 puff Documented by: Artificial Tears (Dextran 70/He-Cell 15ml Bottle) 1 drop EACH EYE TID@1000,1400,1700 [facility] Last Admin: 02/17/20 14:26 Dose: 1 drop Documented by: Atorvastatin Calcium (Atorvastatin Calcium 10 Mg Tablet) 10 mg PO DAILY@1700 [facility] Last Admin: 02/16/20 17:16 Dose: 10 mg Documented by: Dexamethasone (Dexamethasone 4 Mg Tablet) 6 mg PO DAILY [facility] Stop: 02/24/20 10:01 Last Admin: 02/17/20 07:50 Dose: 6 mg Documented by: Diltiazem HCl (Diltiazem Cd 240 Mg Capsule) 240 mg PO DAILY [facility] Last Admin: 02/17/20 07:50 Dose: 240 mg Documented by: Furosemide (Furosemide 40 Mg/4 Ml Vial) 40 mg IV Q8 [facility] Last Admin: 02/17/20 14:26 Dose: 40 mg Documented by: Levothyroxine Sodium (Levothyroxine 75 Mcg Tablet) 75 mcg PO DAILY [facility] Last Admin: 02/17/20 07:52 Dose: 75 mcg Documented by: Metolazone (Metolazone 5 Mg Tablet) 5 mg PO MoTh@1000 [facility] Miscellaneous Information (Inhaler, Assist Devices 1 Each Spacer) 1 each INHALATION Q4HWA [facility] Last Admin: 02/17/20 14:26 Dose: 1 each Documented by: Multivitamins/Minerals (Multivitamins,Ther W-Minerals Tablet) 1 tablet PO DAILY@1700 [facility] Last Admin: 02/16/20 17:16 Dose: 1 tablet Documented by: Ondansetron HCl (Ondansetron 4 Mg/2 Ml Vial) 4 mg IV Q8H PRN PRN PRN Reason: NAUSEA/VOMITING Pantoprazole Sodium (Pantoprazole Sodium 20 Mg Tablet) 20 mg PO DAILY [facility] Last Admin: 02/17/20 07:52 Dose: 20 mg Documented by: Potassium Chloride (Potassium Chloride 20 Meq Tablet) 20 meq PO DAILY [facility] Last Admin: 02/17/20 07:51 Dose: 20 meq Documented by: Sodium Chloride (0.9% Saline Lock 10 Ml Syringe) 10 - 40 ml IV UD PRN PRN Reason: SALINE FLUSH Last Admin: 02/17/20 14:26 Dose: 10 ml Documented by: Spironolactone (Spironolactone 25 Mg Tablet) 25 mg PO DAILY [facility] Last Admin: 02/17/20 07:50 Dose: 25 mg Documented by: Tamoxifen Citrate (Tamoxifen 10 Mg Tablet) 20 mg PO DAILY [facility] Last Admin: 02/17/20 07:52 Dose: 20 mg Documented by: Warfarin Sodium (Jantoven 2 Mg Tablet) 2 mg PO SuFrSa@1700 [facility] Last Admin: 02/16/20 17:16 Dose: 2 mg Documented by: Warfarin Sodium (Warfarin 3 Mg Tablet) 3 mg PO MoTuWeTh@1700 [facility] Medical Necessity - Tobacco Use Smoking Status: Never smoker Tobacco Use: Non-smoker Assessment/Plan All Active Problems (Last Updated 02/12/20 @ 14:39 by Yasmin Agee) COVID-19 (Acute) halfway current use of anticoagulant (Acute) Acute on chronic heart failure with preserved ejection fraction (Acute) #1 acute on chronic diastolic congestive heart failure-I have decided to decrease the patient's Lasix to every 12 hours at this time due to an increased creatinine this morning. #2 + COVID-19 antigen test with negative COVID-19 PCR test-presumed COVID-19 pneumonia-patient will remain on dexamethasone, she has already been given convalescent plasma. 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
--- NOTE | 2020-02-17 16:21 | NURSING ---
CALLED PTS DAUGHTER HUNG TO SEE IF WAS ABLE TO BRING IN PT'S BIPAP MACHINE. HUNG STATES WILL BRING IN THIS AFTERNOON.
[2020-02-17] MEDS: Jantoven 2 MG Tablet PO (17:00)
[2020-02-17] MEDS: Atorvastatin Calcium 10 MG Tablet PO (17:00)
[2020-02-17] MEDS: Multivitamins,Ther W-Minerals Tablet 1 TABLET PO (17:01)
[2020-02-18] VITALS (20 sets, daily range): BP systolic 109–120; BP diastolic 60–72; PULSE 67–70; RESP 18–22; TEMP 36.3–36.6; O2SAT 93–100
[2020-02-18] MEDS: INHALER, ASSIST DEVICES 1 EACH SPACER INHALATION ×5 (03:24→20:30)
[2020-02-18 06:39] LABS: Anion Gap 9 (5-15); BUN 103 mg/dL (7-18); BUN/Creat Ratio 35.4 RATIO (10-20); Calcium,Total 9.2 mg/dL (8.5-10.1); Chloride 94 mmol/L (98-107); Creatinine, Serum 2.91 mg/dL (0.55-1.02); EST Glomerular Filtration Rate 17 mL/min (>60); Est Glom Filt Rate - Afr Amer 20 mL/min (>60); Estimated Creatinine Clearance 11.26 ml/min; Glucose 114 mg/dL (74-106); Potassium 5.3 mmol/L (3.5-5.1); Sodium Level 126 mmol/L (136-145)
[2020-02-18] MEDS: metOLazone 5 MG Tablet PO (10:54)
[2020-02-18] MEDS: dexAMETHasone 4 MG Tablet 6 MG PO (10:54)
[2020-02-18] MEDS: Levothyroxine 75 MCG Tablet PO (10:57)
[2020-02-18] MEDS: Spironolactone 25 MG Tablet PO (10:57)
[2020-02-18] MEDS: dilTIAZem CD 240 MG Capsule PO (10:57)
[2020-02-18] MEDS: Tamoxifen 10 MG Tablet 20 MG PO (10:57)
[2020-02-18] MEDS: Pantoprazole Sodium 20 MG Tablet PO (10:58)
[2020-02-18] MEDS: Furosemide 40 MG Tablet PO ×2 (11:03→17:12)
--- NOTE | 2020-02-18 17:11 | PN_ITS ---
Patient Problems: Active and Suspected Problems (Last Updated 02/12/20 @ 14:39 by Yasmin Agee) COVID-19 (Acute) halfway current use of anticoagulant (Acute) Acute on chronic heart failure with preserved ejection fraction (Acute) Reason for Visit: COVID Subjective: Breathing well. Vitals/I&O's: Vital Signs Temp Pulse Resp BP Pulse Ox 36.5 C L 70 18 117/60 99 02/18/20 09:00 02/18/20 09:59 02/18/20 10:00 02/18/20 09:00 02/18/20 11:49 Oxygen Flow Rate (L/min) 2.5 Oxygen Delivery Method Nasal Cannula Weight: 51.256 kg Body Mass Index (BMI) 22.0 Intake and Output for Last 24 Hours 02/16/20 02/17/20 02/18/20 23:59 23:59 23:59 Intake Total 590 / 640 530 / 530 Output Total 775 / 775 350 / 350 Balance 590 / 640 -245 / -245 -350 / -350 General: Alert, Cooperative, No apparent distress HEENT: Atraumatic, Normocephalic Oral: Moist Mucosa, No Gingival or Mucosal Lesions/ Ulcerations Neck: No Nodes, Thyroid Normal Size and Texture Lungs: Clear to auscultation, Normal air movement, No rhonchi, No wheeze, No rales Cardiovascular: Regular rate, Regular Rhythm, Normal S1, Normal S2, No murmurs Abdomen: Bowel Sounds Present, Soft, Non Tender, Non-Distended, No Hepato- splenomegaly Extremities: No edema, No Calf Tenderness Skin: No rashes, No breakdown Psych/Mental Status: Normal Affect, Appropriate Microbiology Past 72 Hours 02/15/20 13:30 Mucosa - Nose SARS-CoV-2 Antigen (Rapid) - Final SARS-CoV-2 (COVID 19) Laboratory Results 02/18/20 05:34: Sodium 126 L, Potassium 5.3 H, Chloride 94 L, Carbon Dioxide 23.0, Anion Gap 9, BUN 103 H*, Creatinine 2.91 H, Estim Creat Clear Calc 11.26, Est GFR (MDRD) Af Amer 20 L, Est GFR (MDRD) Non-Af 17 L, BUN/Creatinine Ratio 35.4 H, Glucose 114 H, Calcium 9.2 Current Medications Acetaminophen (Acetaminophen 325 Mg Tablet) 325 mg PO Q4H PRN PRN PRN Reason: Pain Score 1-10 Albuterol Sulfate (Albuterol Sulfate 8gm 60 Dose Inhaler (Floor Use-With Spacer)) 1 puff INHALATION Q4HWA [facility] Last Admin: 02/18/20 14:34 Dose: 1 puff Documented by: Artificial Tears (Dextran 70/He-Cell 15ml Bottle) 1 drop EACH EYE TID@1000,1400,1700 [facility] Last Admin: 02/18/20 14:35 Dose: 1 drop Documented by: Atorvastatin Calcium (Atorvastatin Calcium 10 Mg Tablet) 10 mg PO DAILY@1700 [facility] Last Admin: 02/17/20 17:00 Dose: 10 mg Documented by: Dexamethasone (Dexamethasone 4 Mg Tablet) 6 mg PO DAILY [facility] Stop: 02/24/20 10:01 Last Admin: 02/18/20 10:54 Dose: 6 mg Documented by: Diltiazem HCl (Diltiazem Cd 240 Mg Capsule) 240 mg PO DAILY [facility] Last Admin: 02/18/20 10:57 Dose: 240 mg Documented by: Furosemide (Furosemide 40 Mg Tablet) 40 mg PO BID@1000,1800 [facility] Last Admin: 02/18/20 11:03 Dose: 40 mg Documented by: Levothyroxine Sodium (Levothyroxine 75 Mcg Tablet) 75 mcg PO DAILY [facility] Last Admin: 02/18/20 10:57 Dose: 75 mcg Documented by: Metolazone (Metolazone 5 Mg Tablet) 5 mg PO MoTh@1000 [facility] Last Admin: 02/18/20 10:54 Dose: 5 mg Documented by: Miscellaneous Information (Inhaler, Assist Devices 1 Each Spacer) 1 each INHALATION Q4HWA [facility] Last Admin: 02/18/20 14:34 Dose: 1 each Documented by: Multivitamins/Minerals (Multivitamins,Ther W-Minerals Tablet) 1 tablet PO DAILY@1700 [facility] Last Admin: 02/17/20 17:01 Dose: 1 tablet Documented by: Ondansetron HCl (Ondansetron 4 Mg/2 Ml Vial) 4 mg IV Q8H PRN PRN PRN Reason: NAUSEA/VOMITING Pantoprazole Sodium (Pantoprazole Sodium 20 Mg Tablet) 20 mg PO DAILY [facility] Last Admin: 02/18/20 10:58 Dose: 20 mg Documented by: Potassium Chloride (Potassium Chloride 20 Meq Tablet) 20 meq PO DAILY [facility] Last Admin: 02/18/20 10:57 Dose: 20 meq Documented by: Sodium Chloride (0.9% Saline Lock 10 Ml Syringe) 10 - 40 ml IV UD PRN PRN Reason: SALINE FLUSH Last Admin: 02/17/20 20:38 Dose: 10 ml Documented by: Spironolactone (Spironolactone 25 Mg Tablet) 25 mg PO DAILY [facility] Last Admin: 02/18/20 10:57 Dose: 25 mg Documented by: Tamoxifen Citrate (Tamoxifen 10 Mg Tablet) 20 mg PO DAILY [facility] Last Admin: 02/18/20 10:57 Dose: 20 mg Documented by: Warfarin Sodium (Jantoven 2 Mg Tablet) 2 mg PO SuFrSa@1700 [facility] Last Admin: 02/17/20 17:00 Dose: 2 mg Documented by: Warfarin Sodium (Warfarin 3 Mg Tablet) 3 mg PO MoTuWeTh@1700 [facility] Medical Necessity - Tobacco Use Smoking Status: Never smoker Tobacco Use: Non-smoker Assessment/Plan All Active Problems (Last Updated 02/12/20 @ 14:39 by Yasmin Agee) COVID-19 (Acute) halfway current use of anticoagulant (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 COVID 19 Ag + PCR - on dexamethasone not candidate for remdesivir 2. RONNIE likely due to overdiuresis change furosemide to PO and monitor 3. ILD, pulmonary HTN, chronic respiratory failure stable complicates overall care and recovery 4. VTE prophylaxis: anticoagulated. Inpatient E&M: 98122 Subs Hosp L2
[2020-02-18] MEDS: Atorvastatin Calcium 10 MG Tablet PO (17:12)
[2020-02-18] MEDS: Multivitamins,Ther W-Minerals Tablet 1 TABLET PO (17:13)
[2020-02-18] MEDS: 0.9% Saline Lock 10 ML Syringe IV (20:30)
--- NOTE | 2020-02-18 21:07 | PN.ID_ITS ---
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 - Physical Exam Vitals/I&O's: Vital Signs Temp Pulse Resp BP Pulse Ox 97.3 F L 67 20 H 109/68 99 02/18/20 20:22 02/18/20 20:22 02/18/20 20:34 02/18/20 20:22 02/18/20 20:34 Oxygen Flow Rate (L/min) 2.5 Oxygen Delivery Method Bi-pap Weight: 51.256 kg Body Mass Index (BMI) 22.0 Intake and Output for Last 24 Hours 02/16/20 02/17/20 02/18/20 23:59 23:59 23:59 Intake Total 590 / 640 530 / 530 Output Total 775 / 775 750 / 750 Balance 590 / 640 -245 / -245 -750 / -750 General: Alert, Cooperative, No apparent distress Lungs: Clear to auscultation, Diminished Cardiovascular: Regular rate, Regular Rhythm Abdomen: Soft, Non Tender, Non-Distended Skin: No rashes Laboratory Results 02/18/20 05:34: Sodium 126 L, Potassium 5.3 H, Chloride 94 L, Carbon Dioxide 23.0, Anion Gap 9, BUN 103 H*, Creatinine 2.91 H, Estim Creat Clear Calc 11.26, Est GFR (MDRD) Af Amer 20 L, Est GFR (MDRD) Non-Af 17 L, BUN/Creatinine Ratio 35.4 H, Glucose 114 H, Calcium 9.2 Current Medications Acetaminophen (Acetaminophen 325 Mg Tablet) 325 mg PO Q4H PRN PRN PRN Reason: Pain Score 1-10 Albuterol Sulfate (Albuterol Sulfate 8gm 60 Dose Inhaler (Floor Use-With Spacer) ) [facility] Last Admin: 02/18/20 20:30 Dose: 1 puff Documented by: Artificial Tears (Dextran 70/He-Cell 15ml Bottle) 1 drop EACH EYE TID@1000,1400,1700 [facility] Last Admin: 02/18/20 17:12 Dose: 1 drop Documented by: Atorvastatin Calcium (Atorvastatin Calcium 10 Mg Tablet) 10 mg PO DAILY@1700 [facility] Last Admin: 02/18/20 17:12 Dose: 10 mg Documented by: Dexamethasone (Dexamethasone 4 Mg Tablet) 6 mg PO DAILY [facility] Stop: 02/24/20 10:01 Last Admin: 02/18/20 10:54 Dose: 6 mg Documented by: Diltiazem HCl (Diltiazem Cd 240 Mg Capsule) 240 mg PO DAILY [facility] Last Admin: 02/18/20 10:57 Dose: 240 mg Documented by: Furosemide (Furosemide 40 Mg Tablet) 40 mg PO BID@1000,1800 [facility] Last Admin: 02/18/20 17:12 Dose: 40 mg Documented by: Levothyroxine Sodium (Levothyroxine 75 Mcg Tablet) 75 mcg PO DAILY [facility] Last Admin: 02/18/20 10:57 Dose: 75 mcg Documented by: Metolazone (Metolazone 5 Mg Tablet) 5 mg PO MoTh@1000 [facility] Last Admin: 02/18/20 10:54 Dose: 5 mg Documented by: Miscellaneous Information (Inhaler, Assist Devices 1 Each Spacer) 1 each INHALATION Q4HWA [facility] Last Admin: 02/18/20 17:13 Dose: 1 each Documented by: Multivitamins/Minerals (Multivitamins,Ther W-Minerals Tablet) 1 tablet PO DAILY@1700 [facility] Last Admin: 02/18/20 17:13 Dose: 1 tablet Documented by: Ondansetron HCl (Ondansetron 4 Mg/2 Ml Vial) 4 mg IV Q8H PRN PRN PRN Reason: NAUSEA/VOMITING Pantoprazole Sodium (Pantoprazole Sodium 20 Mg Tablet) 20 mg PO DAILY [facility] Last Admin: 02/18/20 10:58 Dose: 20 mg Documented by: Potassium Chloride (Potassium Chloride 20 Meq Tablet) 20 meq PO DAILY [facility] Last Admin: 02/18/20 10:57 Dose: 20 meq Documented by: Sodium Chloride (0.9% Saline Lock 10 Ml Syringe) 10 - 40 ml IV UD PRN PRN Reason: SALINE FLUSH Last Admin: 02/18/20 20:30 Dose: 10 ml Documented by: Spironolactone (Spironolactone 25 Mg Tablet) 25 mg PO DAILY [facility] Last Admin: 02/18/20 10:57 Dose: 25 mg Documented by: Tamoxifen Citrate (Tamoxifen 10 Mg Tablet) 20 mg PO DAILY [facility] Last Admin: 02/18/20 10:57 Dose: 20 mg Documented by: Warfarin Sodium (Jantoven 2 Mg Tablet) 2 mg PO SuFrSa@1700 [facility] Last Admin: 02/17/20 17:00 Dose: 2 mg Documented by: Warfarin Sodium (Warfarin 3 Mg Tablet) 3 mg PO MoTuWeTh@1700 [facility] Last Admin: 02/18/20 17:12 Dose: 3 mg Documented by: Medical Necessity - Tobacco Use Smoking Status: Never smoker Tobacco Use: Non-smoker Route of nutrition/ use of supplements: [] Nutritional Intake: [] IV Site: [] Tabor Catheter: [] - Assessment/Plan Antibiotics: [] Assessment/Plan: [] Active and Suspected Problems (Last Updated 02/12/20 @ 14:39 by Yasmin Agee) 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 Sat 94 on 3L. Sx started 02/12. Ok for discharge on O2 as needed to complete 10 day course of decadron. Got plasma 02/15. On coumadin. Feeling much better. Will follow as needed
[2020-02-19] VITALS (8 sets, daily range): BP systolic 113–120; BP diastolic 60–66; PULSE 69–71; RESP 18–20; TEMP 36.3–36.6; O2SAT 99
[2020-02-19] MEDS: INHALER, ASSIST DEVICES 1 EACH SPACER INHALATION ×3 (03:33→13:56)
[2020-02-19 07:23] LABS: Anion Gap 11 (5-15); BUN 110 mg/dL (7-18); BUN/Creat Ratio 36.2 RATIO (10-20); Chloride 94 mmol/L (98-107); Creatinine, Serum 3.04 mg/dL (0.55-1.02); EST Glomerular Filtration Rate 16 mL/min (>60); Est Glom Filt Rate - Afr Amer 19 mL/min (>60); Estimated Creatinine Clearance 10.78 ml/min; Glucose 111 mg/dL (74-106); Potassium 5.6 mmol/L (3.5-5.1); Sodium Level 127 mmol/L (136-145)
[2020-02-19] MEDS: Furosemide 40 MG Tablet PO (10:10)
[2020-02-19] MEDS: Levothyroxine 75 MCG Tablet PO (10:10)
[2020-02-19] MEDS: Pantoprazole Sodium 20 MG Tablet PO (10:10)
[2020-02-19] MEDS: dilTIAZem CD 240 MG Capsule PO (10:11)
[2020-02-19] MEDS: dexAMETHasone 4 MG Tablet 6 MG PO (10:11)
[2020-02-19] MEDS: Tamoxifen 10 MG Tablet 20 MG PO (10:11)
[2020-02-19] MEDS: Spironolactone 25 MG Tablet PO (10:11)
--- NOTE | 2020-02-19 11:12 | NURSING ---
DAUGHTER, HUNG, CALLED ASKING RESULTS OF 3RD COVID TEST. NO 3RD TEST NOTED. SHE REPORTED SHE NEEDED A SECOND (-) RESULT REPORTED TO THE HEALTH DEPARTMENT SO SHE CAN COME OUT OF ISOLATION. DR VERA NOTIFIED, ADDITIONAL TEST WILL NOT BE ORDERED AT THIS TIME HE FEELS PT IS (+) D/T PTS S&S
--- NOTE | 2020-02-19 11:17 | CASEMGMT ---
PADMINI LOPEZ Note: Call from [facility]. They are discharging the patient as her certification dated is completed. Reviewed chart and patient does not need home therapy and she will be going home on same oxygen as she has @ home. -Call to patient's room. Patient states she is scared to return home as she will be alone. PADMINI LOPEZ reviewed her activity and oxygen needs. Also discussed that home care has completed. Discussed with patient that she can speak with her family via phone and have them check on her. Family can bring groceries. -Patient states she will need a ride home. Anticipate will need a wheelchair van to take her home, but would need to speak with her daughter first to see if anyone would be willing to pick her up. Larry JUNG RN [facility]
--- NOTE | 2020-02-19 11:53 | DCINST_ITS ---
- Discharge Diagnoses Current Active Problems: Current Active and Chronic Problems (Last Updated 02/12/20 @ 14:39 by Yasmin Agee) COVID-19 (Acute) jail current use of anticoagulant (Acute) Breast cancer (Chronic) Acute on chronic heart failure with preserved ejection fraction (Acute) MDS (myelodysplastic syndrome) (Chronic) Anemia (Chronic) Cardiac pacemaker in situ (Chronic) pacemaker implant 08/08 Cardiomyopathy, dilated (Chronic) You will use the following diet at home:: No restrictions Your food should be the consistency of: Regular Your liquids should be the consistency of: Regular/Thin Discharge Activity: Return to Normal Activity Call your doctor if you observe: Fever of 101 or Higher, Shortness of breath Additional Instructions: Self isolate for at least 21 days since symptoms began or the first postive COVID-19 test AND at least one day (24 hours) have passed since resolution of fever without the use of fever-reducing agents AND improvement of symptoms (e.g., cough, shortness of breath) When around people in the same room, wear a face mask. Individuals also in the room should wear a mask. If possible, use a different bathroom and bedroom. Perform adequate hand hygiene. Avoid sharing dishes, glasses, etc. Family members with close contact with you and/or postive for COVID-19 should follow these instructions and contact their primary care physician for additional recommendations. Allergies/Adverse Reactions: Allergies GERI Inhibitors Allergy (Verified 02/15/20 12:38) Angioedema amiodarone Allergy (Verified 02/15/20 12:38) Other doxycycline Allergy (Verified 02/15/20 12:38) Other rosuvastatin calcium [From Crestor] Allergy (Verified 02/15/20 12:38) Other Sulfa (Sulfonamide Antibiotics) Allergy (Verified 02/15/20 12:38) Nausea tiotropium bromide [From Spiriva with HandiHaler] Allergy (Verified 02/15/20 12:38) Nausea oxycodone Adverse Reaction (Severe, Verified 02/15/20 12:38) confusion codeine Adverse Reaction (Verified 02/15/20 12:38) Vomiting hydrocodone bitartrate [From Vicodin] Adverse Reaction (Verified 02/15/20 12:38) Vomiting Medications to take at Discharge Nitroglycerin [Nitrostat] 0.4 mg SL DAILY PRN 06/23/16 diltiazem HCl 240 mg capsule,extended release 24 hr 240 mg PO DAILY #90 cap 05/14/19 Fexofenadine HCl [Adriana Allergy] 180 mg PO DAILY 08/22/19 Fluticasone Propion/Salmeterol [Wixela 250-50 Inhub] 1 puff INHALATION BID 08/22/19 Polyvinyl Alcohol/Povidone/Pf [Refresh Classic Eye Drops] 1 drp EACH EYE TID 08/22/19 Spironolactone [Aldactone] 25 mg PO DAILY 08/22/19 Acetaminophen [Tylenol Tablet] 325 mg PO Q4H PRN PRN 12/17/19 Ipratropium/Albuterol Sulfate [Duoneb] 3 ml INHALATION Q6H 12/17/19 Multivitamin with Minerals [Multiple Vitamin] 1 ea PO DAILY 12/17/19 atorvastatin 10 mg tablet 10 mg PO QHS #90 tab 12/25/19 potassium chloride 20 mEq tablet,extended release 20 meq PO DAILY 01/04/20 Esomeprazole Mag Trihydrate [Nexium] 20 mg PO DAILY 02/15/20 Levothyroxine Sodium [Synthroid] 75 mcg PO DAILY 02/15/20 Metolazone [Zaroxolyn] 5 mg PO MOTH 02/15/20 Tamoxifen Citrate [Nolvadex] 20 mg PO DAILY 02/15/20 Torsemide 150 mg PO DAILY 02/15/20 Warfarin [Coumadin] 2 mg PO SUFRSA 02/15/20 Warfarin [Coumadin] 3 mg PO MOTUWETH 02/15/20 Dexamethasone [Decadron] 6 mg PO DAILY #5 tab 02/19/20 The following prescriptions were given: Dexamethasone [Decadron] 6 mg PO DAILY #5 tab Transmission Status: Pending to [email or web address]1954 [facility] Primary Care Physician: Abby Pendleton DO [Primary Care Provider] - Within 2 Weeks Test Results: Test results from this visit will be discussed in further detail at your follow- up appointment, if applicable. Please Follow Up With: Lilian Quiles When: 03/12/2020, already scheduled Please Follow Up With: Jason Neri MD When: 05/08/2020, already scheduled. Proposed Discharge Date: 02/19/20
--- NOTE | 2020-02-19 11:57 | DS.PCM_ITS ---
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) Acute on chronic heart failure with preserved ejection fraction (Acute) - Secondary Discharge Diagnosis Chronic Problems: Chronic Problems (Last Updated 02/12/20 @ 14:39 by Yasmin Agee) Longstanding persistent atrial fibrillation (Chronic) Breast cancer (Chronic) Valvular heart disease (Chronic) Renal insufficiency (Chronic) Bronchiectasis (Chronic) Hyponatremia (Chronic) Severe back pain (Chronic) MDS (myelodysplastic syndrome) (Chronic) Anemia (Chronic) History of breast cancer in female (Chronic) Pure hypercholesterolemia (Chronic) Essential hypertension (Chronic) Prosthetic aortic valve stenosis (Chronic) Nonrheumatic mitral valve regurgitation (Chronic) S/P valve repair with a 28 mm G04 annuloplasty ring in October 2011; Nonrheumatic tricuspid (valve) insufficiency (Chronic) S/P repair with a 30 mm MC3 ring angioplasty system in October 2011 Cardiac pacemaker in situ (Chronic) pacemaker implant 08/08 Presence of prosthetic heart valve (Chronic) 11/06, Mitral valve repair with 28mm GeoForm annuloplasty, tricuspid repair with 30mm MC ring annuloplasty Nonrheumatic aortic (valve) insufficiency (Chronic) S/P TAVR with [employer] 23 mm low dense valve in May 2013 at [facility]; 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, dilated (Chronic) S/P AVR (aortic valve replacement) (Chronic ~05/2014) TAVR wit [employer] 23 mm Kandice valve Aortic Valve 06/09 History of bacterial endocarditis (Chronic) Thrombocytopenia (Chronic) Contusion of left upper arm, initial encounter (Chronic) Iron deficiency anemia (Chronic) Chronic atrial fibrillation (Chronic) Congestive heart failure (Chronic) Pulmonary hypertension (Chronic) Coronary artery disease (Chronic) Interstitial lung disease (Chronic) Hypothyroidism (Chronic) Hospital Course and Treatment Imaging Results: Clinical Impression(s) from Imaging Studies Chest X-Ray 02/15/20 13:57 IMPRESSION: Cardiomegaly. CHF. Electronically Signed: Joey Avila, at 14:33 EST , Service support , Operations: None Summary of Care Provided: The patient is a 79 year old F with shortness of breath. She had antigen was positive but the PCR was negative. Seen by infectious disease who but patient was a true positive they recommend continue with the dexamethasone. Patient also treated for heart failure as chest x-ray was suggestive of that. Patient did develop some renal insufficiency on top of her chronic kidney disease the Lasix was changed over to p.o. and patient was further monitored. Patient will resume her torsemide upon discharge. Overall patient is feeling better and is back on her oxygen. Infectious disease is recommending continuation of dexamethasone upon discharge complete a 10-day course. Patient will have 5 more days of the dexamethasone. Patient is already on oxygen at home and will continue with oxygen as she is at her home 2 to 3 L/min. 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) Acute on chronic heart failure with preserved ejection fraction (Acute) - Physical Exam Vitals/I&O's: Vital Signs Temp Pulse Resp BP Pulse Ox 36.6 C 70 18 113/60 99 02/19/20 10:00 02/19/20 10:00 02/19/20 10:00 02/19/20 10:00 02/19/20 10:00 Oxygen Flow Rate (L/min) 3 Oxygen Delivery Method Nasal Cannula Weight: 54.3 kg Body Mass Index (BMI) 22.0 Intake and Output for Last 24 Hours 02/17/20 02/18/20 02/19/20 23:59 23:59 23:59 Intake Total 530 / 530 50 / 50 Output Total 775 / 775 800 / 800 375 / 375 Balance -245 / -245 -800 / -800 -325 / -325 General: Alert, No apparent distress HEENT: Atraumatic, Normocephalic Oral: Moist Mucosa, No Gingival or Mucosal Lesions/ Ulcerations Neck: No Nodes, Thyroid Normal Size and Texture Lungs: Clear to auscultation, Normal air movement, No rhonchi, No wheeze, No rales Cardiovascular: Regular rate, Regular Rhythm, Normal S1, Normal S2, No murmurs Abdomen: Bowel Sounds Present, Soft, Non Tender, Non-Distended, No Hepato- splenomegaly Extremities: No edema, No Calf Tenderness Laboratory Results 02/19/20 06:46: Sodium 127 L, Potassium 5.6 H, Chloride 94 L, Carbon Dioxide 22.0, Anion Gap 11, BUN 110 H*, Creatinine 3.04 H, Estim Creat Clear Calc 10.78, Est GFR (MDRD) Af Amer 19 L, Est GFR (MDRD) Non-Af 16 L, BUN/Creatinine Ratio 36.2 H, Glucose 111 H, Calcium 9.0 Current Medications Acetaminophen (Acetaminophen 325 Mg Tablet) 325 mg PO Q4H PRN PRN PRN Reason: Pain Score 1-10 Albuterol Sulfate (Albuterol Sulfate 8gm 60 Dose Inhaler (Floor Use-With Spacer)) 1 puff INHALATION Q4HWA [facility] Last Admin: 02/19/20 10:11 Dose: 1 puff Documented by: Artificial Tears (Dextran 70/He-Cell 15ml Bottle) 1 drop EACH EYE TID@1000,1400,1700 [facility] Last Admin: 02/19/20 10:11 Dose: 1 drop Documented by: Atorvastatin Calcium (Atorvastatin Calcium 10 Mg Tablet) 10 mg PO DAILY@1700 [facility] Last Admin: 02/18/20 17:12 Dose: 10 mg Documented by: Dexamethasone (Dexamethasone 4 Mg Tablet) 6 mg PO DAILY [facility] Stop: 02/24/20 10:01 Last Admin: 02/19/20 10:11 Dose: 6 mg Documented by: Diltiazem HCl (Diltiazem Cd 240 Mg Capsule) 240 mg PO DAILY [facility] Last Admin: 02/19/20 10:11 Dose: 240 mg Documented by: Furosemide (Furosemide 40 Mg Tablet) 40 mg PO BID@1000,1800 [facility] Last Admin: 02/19/20 10:10 Dose: 40 mg Documented by: Levothyroxine Sodium (Levothyroxine 75 Mcg Tablet) 75 mcg PO DAILY [facility] Last Admin: 02/19/20 10:10 Dose: 75 mcg Documented by: Metolazone (Metolazone 5 Mg Tablet) 5 mg PO MoTh@1000 [facility] Last Admin: 02/18/20 10:54 Dose: 5 mg Documented by: Miscellaneous Information (Inhaler, Assist Devices 1 Each Spacer) 1 each INHALATION Q4HWA [facility] Last Admin: 02/19/20 10:12 Dose: 1 each Documented by: Multivitamins/Minerals (Multivitamins,Ther W-Minerals Tablet) 1 tablet PO DAILY@1700 [facility] Last Admin: 02/18/20 17:13 Dose: 1 tablet Documented by: Ondansetron HCl (Ondansetron 4 Mg/2 Ml Vial) 4 mg IV Q8H PRN PRN PRN Reason: NAUSEA/VOMITING Pantoprazole Sodium (Pantoprazole Sodium 20 Mg Tablet) 20 mg PO DAILY [facility] Last Admin: 02/19/20 10:10 Dose: 20 mg Documented by: Potassium Chloride (Potassium Chloride 20 Meq Tablet) 20 meq PO DAILY [facility] Last Admin: 02/19/20 10:11 Dose: 20 meq Documented by: Sodium Chloride (0.9% Saline Lock 10 Ml Syringe) 10 - 40 ml IV UD PRN PRN Reason: SALINE FLUSH Last Admin: 02/18/20 20:30 Dose: 10 ml Documented by: Spironolactone (Spironolactone 25 Mg Tablet) 25 mg PO DAILY [facility] Last Admin: 02/19/20 10:11 Dose: 25 mg Documented by: Tamoxifen Citrate (Tamoxifen 10 Mg Tablet) 20 mg PO DAILY [facility] Last Admin: 02/19/20 10:11 Dose: 20 mg Documented by: Warfarin Sodium (Jantoven 2 Mg Tablet) 2 mg PO SuFrSa@1700 [facility] Last Admin: 02/17/20 17:00 Dose: 2 mg Documented by: Warfarin Sodium (Warfarin 3 Mg Tablet) 3 mg PO MoTuWeTh@1700 [facility] Last Admin: 02/18/20 17:12 Dose: 3 mg Documented by: Discharge Diet: No Restrictions Discharge Activity: Return to Normal Activity Call your doctor if you observe: Fever of 101 or Higher, Shortness of breath Home Medications: Medications to take at Discharge Nitroglycerin [Nitrostat] 0.4 mg SL DAILY PRN 06/23/16 diltiazem HCl 240 mg capsule,extended release 24 hr 240 mg PO DAILY #90 cap 05/14/19 Fexofenadine HCl [Adriana Allergy] 180 mg PO DAILY 08/22/19 Fluticasone Propion/Salmeterol [Wixela 250-50 Inhub] 1 puff INHALATION BID 08/22/19 Polyvinyl Alcohol/Povidone/Pf [Refresh Classic Eye Drops] 1 drp EACH EYE TID 08/22/19 Spironolactone [Aldactone] 25 mg PO DAILY 08/22/19 Acetaminophen [Tylenol Tablet] 325 mg PO Q4H PRN PRN 12/17/19 Ipratropium/Albuterol Sulfate [Duoneb] 3 ml INHALATION Q6H 12/17/19 Multivitamin with Minerals [Multiple Vitamin] 1 ea PO DAILY 12/17/19 atorvastatin 10 mg tablet 10 mg PO QHS #90 tab 12/25/19 potassium chloride 20 mEq tablet,extended release 20 meq PO DAILY 01/04/20 Esomeprazole Mag Trihydrate [Nexium] 20 mg PO DAILY 02/15/20 Levothyroxine Sodium [Synthroid] 75 mcg PO DAILY 02/15/20 Metolazone [Zaroxolyn] 5 mg PO MOTH 02/15/20 Tamoxifen Citrate [Nolvadex] 20 mg PO DAILY 02/15/20 Torsemide 150 mg PO DAILY 02/15/20 Warfarin [Coumadin] 2 mg PO SUFRSA 02/15/20 Warfarin [Coumadin] 3 mg PO MOTUWETH 02/15/20 Dexamethasone [Decadron] 6 mg PO DAILY #5 tab 02/19/20 Following Prescriptions Were Given to Patient: Dexamethasone [Decadron] 6 mg PO DAILY #5 tab Transmission Status: Pending to [facility] [facility] Primary Care Physician: Abby Pendleton DO [Primary Care Provider] - Within 2 Weeks Please Follow Up With: Lilian Quiles When: 03/12/2020, already scheduled Please Follow Up With: Jason Neri MD When: 05/08/2020, already scheduled. Disposition: Home Minutes spent on discharge:: 32 Patient Condition:: Fair Medical Necessity - Tobacco Use Smoking Status: Never smoker Tobacco Use: Non-smoker Meaningful Use Info Meaningful Use Diagnoses (Choose all that apply): None applicable Inpatient E&M: 60848 [facility]
--- NOTE | 2020-02-19 12:10 | CASEMGMT ---
PADMINI LOPEZ Note: Call from [facility]. They are discharging the patient as her certification dated is completed. Reviewed chart and patient does not need home therapy and she will be going home on same oxygen as she has @ home. -Call to patient's room. Patient states she is scared to return home as she will be alone. PADMINI LOPEZ reviewed her activity and oxygen needs. Also discussed that home care has completed. Discussed with patient that she can speak with her family via phone and have them check on her. Patient states that only her daughter is available and she is quarantined and unable to come to her home. Pt states she does not have a ride home and will need transportation. -Call to Daughter who states she will not be able to help patient once she goes home, and she does not feel patient is safe to be home alone. Daughter has health issues which put her at risk and there is not other family who can assist on discharge. Daughter stated she was told a social professionals would call and she has not heard from them. -Leona updated and will speak with patient re: homegoing. Larry JUNG RN [facility]
[2020-02-19 12:23] LABS: Prothrombin Time (Protime)PT. 35.2 SECONDS (11.7-14.9)
[2020-02-19 12:31] LABS: International Normalized Ratio 3.5
--- NOTE | 2020-02-19 12:33 | CASEMGMT ---
Addendum entered by Kyra Egan 02/19/20 14:01: SW faxed over palliative information to [facility], called and left a message to let them know pt was here and discharged today. TEETEE Ravi Original Note: Pt and daughter voicing concerns to CM about pt going home. SW called pt in room in regard to discharge plan. Pt states she plans to go home, she just needs her daughter to unlock the door. SW asked if she feels she can care for herself at home, pt states that yes, she can care for herself at home. SW asked what she will do for food, pt states she has food in the freezer. SW asked if she would want to consider going to a senior living for rehab. Pt is adamant that she will go home and manage at home, all she needs is for her daughter to unlock the door. SW explained CM spoke to daughter and daughter was concerned, as pt will be alone. Pt confirmed she will be alone. Pt states she just spoke to her daughter and told her daughter she just needs her to unlock the door, does not understand why her daughter won't unlock the door. Pt gave SW permission to call daughter. SW also asked about transportation, pt states can get up her steps herself. SW called [facility] to confirm they can take pts home w/COVID, can wheel pt to steps, and cost is $85 plus $25 for oxygen plus $7 per mile. SW called daughter Antonia. SW explained to Antonia that pt is stating she can go home, is not agreeable to going to a rehab facility. SW explained that pt is concerned about daughter unlocking her door. SW explained that pt states can manage at home. Daughter expressing frustration, as she has been helping pt since May, helping her with breakfast, cleaning, laundry, groceries. Daughter asked SW about how long she needs to quarantine, as she's been told different things. SW explained that the Department of Health may make the most sense as far as how long she needs to quarantine. We discussed daughter breaking quarantine to help care for pt. We discussed her own health and if this is a risk she wants to take, and also the need to quarantine to protect others. Daughter states understanding. She states will open the door for the pt, seems undecided about whether or not to help pt. SW again explained pt thinks she will be fine, states she has food in the freezer. SW asked daughter if pt would want MOW, she states no, pt would not, but can ask. SW also spoke w/daughter about transportation, explained the safest way for pt to get home would be ambulette, explained they can wheel her to her steps and she needs to be able to get up them, pt had said she could do this. SW told daughter cost, she is in agreement with cost though states pt will be upset about it. SW explained will call pt to explain this to her, in regard to the transport. Daughter also asked if transport can take her bags in, SW explained will find out. Daughter was going now to unlock the door. SW called [facility] back, they can help pt with her bags. SW called pt in the room, explained daughter will open the door for her. SW explained the safest way to get her home will be ambulette, told her cost as outlined above. Pt agreeable. SW also let her know that they will help her with her bags. Pt agreeable to [facility] setting up transport. [facility] offered to set up MOW, pt declined. [facility] spoke to pt about hiring private hire aides, pt declined. SW called [facility], they will be here w/ambulette at 3pm, will have O2 on the wheelchair for pt. [facility] called daughter back, let her know that pt will be picked up at 3pm. SW also let her know that pt declined MOW and hiring extra help. [facility] advised daughter to call the Department of Health with any questions regarding quarantine, and can also call the PCP. Daughter states understanding. She would like pt to have home health again. CM called and [facility] will call pt or daughter to start services again. Daughter also confirmed pt has palliative care. SW will called palliative care and send clinical information. SW let RN know of 3pm pickup time, he will let pt know as pt is not answering the phone. TEETEE Ravi
--- NOTE | 2020-02-20 11:41 | CASEMGMT ---
RN CM DC PHONE CALL DC DATE: 02/20/2020 DC DISPOSITION: Home DC DIAGNOSIS: COVID-19 LACE/STRATA: 14/4 F/U APPTS MADE PRIOR TO DC: yes PRESCRIPTIONS ACQUIRED BY PT: yes Attempted call to phone. No answer and no messaging picked up. SW/Nursing worked at length yesterday with patient and daughter re: homegoing. Larry GUERRERON RN ACM
== END 2020-02-19 15:40 | disposition home or self-care (01) | DRG 177 ==
LOC: ED 14:50 → MS2 14:51
PROVIDERS: Internal Medicine; Admitting Provider Student in an Organized Health Care Education/Training Program; Emergency Provider Physician Assistant Medical; PCP Family Medicine
DX: U07.1 COVID-19 (principal); J47.0 Bronchiectasis with acute lower respiratory infection; J12.89 Other viral pneumonia; I13.0 Hypertensive heart and chronic kidney disease with heart failure and stage 1 through stage 4 chronic kidney disease, or unspecified chronic kidney disease; I50.33 Acute on chronic diastolic (congestive) heart failure; N18.4 Chronic kidney disease, stage 4 (severe); I42.0 Dilated cardiomyopathy; E87.1 Hypo-osmolality and hyponatremia; J96.11 Chronic respiratory failure with hypoxia; I48.11 Longstanding persistent atrial fibrillation; N17.9 Acute kidney failure, unspecified; T50.1X5A Adverse effect of loop [high-ceiling] diuretics, initial encounter; Y92.239 Unspecified place in hospital as the place of occurrence of the external cause; D46.9 Myelodysplastic syndrome, unspecified; I27.20 Pulmonary hypertension, unspecified; I25.10 Atherosclerotic heart disease of native coronary artery without angina pectoris; E78.5 Hyperlipidemia, unspecified; E03.9 Hypothyroidism, unspecified; Z99.81 Dependence on supplemental oxygen; Z79.810 Long term (current) use of selective estrogen receptor modulators (SERMs); Z79.01 Long term (current) use of anticoagulants; Z79.890 Hormone replacement therapy; Z79.899 Other long term (current) drug therapy; I25.2 Old myocardial infarction; Z85.3 Personal history of malignant neoplasm of breast; Z95.2 Presence of prosthetic heart valve; Z95.0 Presence of cardiac pacemaker; Z96.653 Presence of artificial knee joint, bilateral
CPT/HCPCS: 36415; 71045; 80048; 81001; 82550; 83615; 83735; 83880; 84145; 84484; 85025; 85610; 86140; 86900; 86901; 87426; 87635; 93005; 97162; 97166; 99251; 99285; P9612; A4216; G0463; J1940; U0002

== ENCOUNTER 2020-02-22 16:44 | Inpatient (IN) | payer MEDICARE, OTHER, SELFPAY ==
[2020-02-15 15:34] VITALS: BMI 22.0
[2020-02-22] VITALS (10 sets, daily range): BP systolic 138–158; BP diastolic 73–84; PULSE 70–74; RESP 16–20; TEMP 36.4–36.9; O2SAT 86–99; BMI 20.1; BMI 18.4; BMI 18.5
--- NOTE | 2020-02-22 17:02 | EKG12_ITS ---
Test Reason : Blood Pressure : / mmHG Vent. Rate : 070 BPM Atrial Rate : 344 BPM P-R Int : 000 ms QRS Dur : 180 ms QT Int : 492 ms P-R-T Axes : 000 222 071 degrees QTc Int : 531 ms Ventricular-paced rhythm Atrial Flutter: Ventricular Pacing Abnormal ECG Confirmed by KANU CABRERA, NICOLE ([id number]), technical writer and editor NÉSTOR MONTIEL ([id number]) on 02/26/2020 9:10:50 AM Referred By: FRANCISCA Confirmed By:NICOLE BOBBY MD
--- NOTE | 2020-02-22 17:06 | ED.VISSUMM ---
- ER Visit Summary Date of Service: 02/22/20 Chief Complaint: [Weakness] History of Present Illness: The patient is a 80 F [presents to the emergency department generalized weakness. Patient was recently discharged from this hospital after being admitted for CHF and resume Covid infection. Patient states she is not eaten or drank or got not of her bed since going home. Today she was found by visiting nurse and apparently was covered in urine and stool. Patient denies any chest pain. She is normally on 3 L home O2. She denies significant shortness of breath. She denies abdominal pain. Patient does have history of hypertension, high cholesterol, history of MDS, hypothyroidism, A. fib, and cardiomyopathy. On warfarin.] Physical Examination: [HEENT-PERRLA, EOMI. Cranial nerves II through XII grossly intact. TMs clear. Mucous membranes moist. No adenopathy. Cardiovascular-regular rate and 2 out of 6 stock ejection murmur noted. Lungs-good aeration bilaterally with diffuse coarse rhonchi and some faint expiratory wheezes. No accessory muscle use or retractions. Abdomen-normoactive bowel sounds, soft, nontender, no rebound or rigidity, no peritoneal signs. Back exam-patient does have a bluish discoloration to her sacrum and coccyx suspicious for a grade 1 pressure ulcer. Extremities-intact ?4, normal range of motion, normal pulses, atraumatic] Test Results: [] Emergency Department Course and Treatment: [] Treatment Plan: [] Disposition: [] Impression: [] This note was generated with Advisity dictation software. It may contain incorrect words, spelling, and punctuation that were not noted in review of the chart prior to signing ED Disposition - Plan for ED Patient: Referrals: Abby Pendleton DO [Primary Care Provider] -
[2020-02-22 17:20] LABS: Absolute Lymphocyte Count 0.63 X10^3/uL (0.83-4.51); Absolute Neutrophil Count 15.8 X10^3/uL (2.0-7.7); Basophil# 0.02 X10^3/uL; Basophil% 0.1 % (0-1); Eosinophils% 0.6 % (0-5); Hematocrit 39.3 % (37-47); Hemoglobin 12.5 g/dL (12.0-15.0); Lymphocyte # 0.63 X10^3/ul (4.0); Lymphocyte % 3.6 % (19-41); Mean Corp Hgb Conc 31.8 g/dL (32-36); Mean Corpuscular Volume 91.2 fL (81-99); Mean Platelet Vol. 10.6 fl (6.2-12.0); Monocyte% 5.1 % (0-10); NRBC Flagged by Analyzer 0 % (0-5); Neutrophil # 15.84 X10^3/uL (2.7-7.7); Neutrophil % 89.9 % (47-70); Platelet Count 133 K/mm3 (150-450); RBC Distribution Width CV 17.9 % (11.6-14.6); Red Blood Count 4.31 M/mm3 (4.2-5.4); White Blood Count 17.6 K/mm3 (4.4-11.0)
--- NOTE | 2020-02-22 17:23 | RAD_ITS ---
STUDY: X-RAY CHEST REASON FOR EXAM: Female, 80 years old. RECENTLY HOSPITALIZED FOR COVID AT [facility], O2 AT HOME, HAS NOT BEEN ABLE TO CARE FOR HERSELF FOR SEVERAL DAYS. TECHNIQUE: Frontal view COMPARISON: 02/15/2020 FINDINGS: Stable sternotomy wires and left-sided pacemaker. The lungs are expanded. There is a right upper lobe nodular density along the periphery. Persistent significant cardiomegaly. Normal mediastinum and bj. Normal visualized pulmonary arteries. Calcified aortic arch and descending thoracic aorta. Degenerative changes and scoliosis of the thoracic spine. Degenerative changes at the shoulders. There is no demonstrated abnormality of the visualized soft tissue structures of the upper abdomen. RAD/Chest 1 View (Portable) IMPRESSION: Possible right upper lobe nodular density. Cardiomegaly. Electronically Signed: Chan Ferrara DO at 17:43 EST Tel [phone], Service support ,
[2020-02-22 17:28] LABS: Prothrombin Time (Protime)PT. 41.3 SECONDS (11.7-14.9)
[2020-02-22 17:31] LABS: International Normalized Ratio 4.3
[2020-02-22 17:39] LABS: ALB/GLOB Ratio 0.8 RATIO (0.9-2.4); AST(SGOT) 81 U/L (15-37); Alanine Aminotransfer ALT/SGPT 105 U/L (13-56); Albumin, Serum 3.2 g/dL (3.2-5.0); Alkaline Phosphatase 60 U/L (45-117); Anion Gap 10 (5-15); BUN 80 mg/dL (7-18); BUN/Creat Ratio 44.7 RATIO (10-20); Calcium,Total 9.2 mg/dL (8.5-10.1); Chloride 103 mmol/L (98-107); Creatinine, Serum 1.79 mg/dL (0.55-1.02); EST Glomerular Filtration Rate 29 mL/min (>60); Est Glom Filt Rate - Afr Amer 35 mL/min (>60); Estimated Creatinine Clearance 20.42 ml/min; Globulin 3.9 g/dL (2.2-4.2); Glucose 142 mg/dL (74-106); Potassium 4.6 mmol/L (3.5-5.1); Protein, Total 7.1 g/dL (6.4-8.2); Sodium Level 136 mmol/L (136-145)
[2020-02-22 17:45] LABS: CPK Total, Creatine Kinase 78 U/L (26-192)
[2020-02-22 17:47] LABS: Mucous, Urine 0 SEEN /hpf (<or=2+); Squamous Epithelial Cells - UA 0 SEEN /hpf (5-10)
[2020-02-22 17:48] LABS: Lactic Acid 2.3 mmol/L (0.4-1.9)
[2020-02-22 17:53] LABS: Color, Urine Yellow (Yellow); Glucose, Dipstick Normal (Normal); Ketone-Dipstick Negative (Negative); Leukocyte Esterase-Dipstick 100 /ul (Negative); Nitrite-Dipstick Negative (Negative); Occult Blood-Urine 25 /ul (Negative); Protein-Dipstick 15 mg/dl (Negative); Specific Gravity, Urine 1.015 (1.002-1.030); Urine Bilirubin Dipstick Negative (Negative); Urine Clarity Clear (Clear); Urine Urobilinogen Normal (Normal)
[2020-02-22] MEDS: 0.9% Normal Saline 1,000 ML 150 ML IV (17:58)
[2020-02-22 18:12] LABS: Bacteria 4+ /hpf (None Seen); Red Blood Cells-Urine 0-5 SEEN /hpf (0-5); White Blood Cells 10-25 SEEN /hpf (0-5)
--- NOTE | 2020-02-22 18:22 | ED.RN ---
PTS DAUGHTER UPDATED ON PT ADMISSION
--- NOTE | 2020-02-22 18:24 | HP.PCM_ITS ---
History of Present Illness Date of Admission: 02/22/20 Chief Complaint: Weakness The patient is a 80 year old F with PMH as below was recently here in the hospital for Covid and was discharged by 3 days ago. She went home and laid in bed and did not get out of bed. And now she is too weak to ambulate or take care of herself. She has an inability to complete ADLs. It also appears that she might have a little bit of a UTI as well as she was found in her bed by her home health nurse covered in stool and urine. She denies any fevers or chills but says that she is just too weak to do anything. She denies any lightheadedness or dizziness, and denies any chest pain or increased shortness of breath. She does not have a cough either. Her troponin in the ER was a little bit elevated to 0.130, her lactic acid was elevated to 2.3, she does have a leukocytosis however this could be secondary to the dexamethasone that she has been on for the Covid. Her creatinine is 1.79 which is lower than the 3.04 she was on her previous discharge. Past Medical History Past Medical History (Chronic Problems): Chronic Problems (Last Updated 02/12/20 @ 14:39 by Yasmin Agee) Longstanding persistent atrial fibrillation (Chronic) Breast cancer (Chronic) Valvular heart disease (Chronic) Renal insufficiency (Chronic) Bronchiectasis (Chronic) Hyponatremia (Chronic) Severe back pain (Chronic) MDS (myelodysplastic syndrome) (Chronic) Anemia (Chronic) History of breast cancer in female (Chronic) Pure hypercholesterolemia (Chronic) Essential hypertension (Chronic) Prosthetic aortic valve stenosis (Chronic) Nonrheumatic mitral valve regurgitation (Chronic) S/P valve repair with a 28 mm G04 annuloplasty ring in October 2011; Nonrheumatic tricuspid (valve) insufficiency (Chronic) S/P repair with a 30 mm MC3 ring angioplasty system in October 2011 Cardiac pacemaker in situ (Chronic) pacemaker implant 08/08 Presence of prosthetic heart valve (Chronic) 11/06, Mitral valve repair with 28mm GeoForm annuloplasty, tricuspid repair with 30mm MC ring annuloplasty Nonrheumatic aortic (valve) insufficiency (Chronic) S/P TAVR with [place] [employer] 23 mm low dense valve in May 2013 at [facility]; 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, dilated (Chronic) S/P AVR (aortic valve replacement) (Chronic ~05/2014) TAVR [facility] [employer] 23 mm Kandice valve Aortic Valve 06/09 History of bacterial endocarditis (Chronic) Thrombocytopenia (Chronic) Contusion of left upper arm, initial encounter (Chronic) Iron deficiency anemia (Chronic) Chronic atrial fibrillation (Chronic) Congestive heart failure (Chronic) Pulmonary hypertension (Chronic) Coronary artery disease (Chronic) Interstitial lung disease (Chronic) Hypothyroidism (Chronic) Medical History: Medical History (Last Updated 02/12/20 @ 14:39 by Yasmin Agee) 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 (Acute) Z79.01 Longstanding persistent atrial fibrillation (Chronic) I48.11 Pure hypercholesterolemia (Chronic) E78.00 Essential hypertension (Chronic) I10 Prosthetic aortic valve stenosis (Chronic) T82.857A Nonrheumatic mitral valve regurgitation (Chronic) I34.0 S/P valve repair with a 28 mm G04 annuloplasty ring in October 2011; Nonrheumatic tricuspid (valve) insufficiency (Chronic) I36.1 S/P repair with a 30 mm MC3 ring angioplasty system in October 2011 Cardiac pacemaker in situ (Chronic) Z95.0 pacemaker implant 08/08 Nonrheumatic aortic (valve) insufficiency (Chronic) I35.1 S/P TAVR with [employer] [employer] 23 mm low dense valve in May 2013 at [facility]; Subendocardial myocardial infarction (Chronic) I21.4 Cardiomyopathy, dilated (Chronic) I42.0 History of bacterial endocarditis (Chronic) Z86.79 Thrombocytopenia (Chronic) D69.6 Iron deficiency anemia (Chronic) D50.9 Chronic atrial fibrillation (Chronic) I48.2 Congestive heart failure (Chronic) I50.9 Pulmonary hypertension (Chronic) I27.2 Coronary artery disease (Chronic) I25.10 Interstitial lung disease (Chronic) J84.9 Hypothyroidism (Chronic) E03.9 Breast cancer C50.919 COPD (chronic obstructive pulmonary disease) J44.9 Left ventricular systolic dysfunction I51.9 Allergies GERI Inhibitors Allergy (Verified 02/22/20 17:03) Angioedema amiodarone Allergy (Verified 02/22/20 17:03) Other doxycycline Allergy (Verified 02/22/20 17:03) Other rosuvastatin calcium [From Crestor] Allergy (Verified 02/22/20 17:03) Other Sulfa (Sulfonamide Antibiotics) Allergy (Verified 02/22/20 17:03) Nausea tiotropium bromide [From Spiriva with HandiHaler] Allergy (Verified 02/22/20 17:03) Nausea oxycodone Adverse Reaction (Severe, Verified 02/22/20 17:03) confusion codeine Adverse Reaction (Verified 02/22/20 17:03) Vomiting hydrocodone bitartrate [From Vicodin] Adverse Reaction (Verified 02/22/20 17:03) Vomiting Home Medications: Ambulatory Orders Medication Instructions Recorded Nitroglycerin [Nitrostat] 0.4 mg SL DAILY PRN 06/23/16 diltiazem HCl 240 mg 240 mg PO DAILY #90 cap 05/14/19 capsule,extended release 24 hr Fexofenadine HCl [Adriana Allergy] 180 mg PO DAILY 08/22/19 Fluticasone Propion/Salmeterol 1 puff INHALATION BID 08/22/19 [Wixela 250-50 Inhub] Polyvinyl Alcohol/Povidone/Pf 1 drp EACH EYE TID 08/22/19 [Refresh Classic Eye Drops] Spironolactone [Aldactone] 25 mg PO DAILY 08/22/19 Acetaminophen [Tylenol Tablet] 325 mg PO Q4H PRN PRN 12/17/19 Ipratropium/Albuterol Sulfate 3 ml INHALATION Q6H 12/17/19 [Duoneb] Multivitamin with Minerals 1 ea PO DAILY 12/17/19 [Multiple Vitamin] atorvastatin 10 mg tablet 10 mg PO QHS #90 tab 12/25/19 potassium chloride 20 mEq 20 meq PO DAILY 01/04/20 tablet,extended release Esomeprazole Mag Trihydrate 20 mg PO DAILY 02/15/20 [Nexium] Levothyroxine Sodium [Synthroid] 75 mcg PO DAILY 02/15/20 Metolazone [Zaroxolyn] 5 mg PO MOTH 02/15/20 Tamoxifen Citrate [Nolvadex] 20 mg PO DAILY 02/15/20 Torsemide 150 mg PO DAILY 02/15/20 Warfarin [Coumadin] 2 mg PO SUFRSA 02/15/20 Dexamethasone [Decadron] 6 mg PO DAILY #5 tab 02/19/20 Warfarin [Coumadin] 3 mg PO MOTUWETH #0 02/19/20 Surgical History: Surgical History (Last Reviewed 02/11/20 @ 14:40 by Yasmin Agee) S/P AVR (aortic valve replacement) (Chronic) Onset Date: ~05/2014 Z95.2 TAVR [facility] [employer] 23 mm Kandice valve Aortic Valve 06/09 History of breast biopsy Onset Date: ~05/2019 Z98.890 History of bilateral knee replacement Z98.890, Z96.653 History of total hysterectomy Z98.890, Z90.710 History of mitral valve replacement (Inactive) Onset Date: ~10/2011 Z95.2 06/09 History of tricuspid valve replacement (Inactive) Onset Date: ~10/2011 Z95.2 06/09 Surgical History: cataract, hysterectomy, total knee arthroplasty, - - Mitral and tricuspid valve replacement, pacemaker implantation 2013 Psychiatric History: No pertinent psych hx NNPS History: No pertinent NNPS history Smoking Status: Never smoker Alcohol: None Drugs: None - *Family History Maternal Family History: Family History (Last Reviewed 02/11/20 @ 14:40 by Yasmin Agee) Father CAD (coronary artery disease) Myocardial infarction History Items: No pertinent history Paternal Family History: Family History (Last Reviewed 02/11/20 @ 14:40 by Yasmin Agee) Father CAD (coronary artery disease) Myocardial infarction History Items: No pertinent history Review of Systems Constitutional: Reports: Weakness. Denies: Chills, Fever, Weight Change HEENT: Denies: Head Aches, Sinus Congestion, Sinus Drainage Cardiovascular: Denies: Chest Pain, Palpitations Respiratory: Denies: Cough, Shortness of breath at rest, Sputum production Gastrointestinal: Denies: Abdominal Pain, Nausea, Vomiting Genitourinary: Denies: Dysuria Musculoskeletal: Denies: Joint Pain, Joint Tenderness Skin: Denies: Rash, Wounds Neurological: Denies: Numbness, Tingling, Focal weakness Psychiatric: Denies: Anxiety, Depression Hematologic/ Lymphatic: Denies: Easy Bruising, Easy Bleeding VTE Information - Inpt Only VTE Present on Admission: No - Physical Exam Vitals/I&O's: Vital Signs Temp Pulse Resp BP Pulse Ox 97.8 F 70 18 140/81 H 99 02/22/20 17:57 02/22/20 17:57 02/22/20 17:57 02/22/20 17:57 02/22/20 17:57 Oxygen Flow Rate (L/min) 3 Oxygen Delivery Method Nasal Cannula Weight: 113 lb 12.136 oz Body Mass Index (BMI) 20.1 Intake and Output for Last 24 Hours 02/20/20 02/21/20 02/22/20 23:59 23:59 23:59 Intake Total 150 / 150 Balance 150 / 150 General: Alert, Oriented x3, Cooperative, No apparent distress HEENT: Atraumatic, PERRLA, EOMI, Normocephalic Oral: Dry Mucosa Neck: Supple, No JVD Lungs: Normal air movement, No rhonchi, No wheeze, No rales, Diminished Cardiovascular: Regular rate, Regular Rhythm, Normal S1, Normal S2, No murmurs Abdomen: Soft, Non Tender, Non-Distended, No Hepato-splenomegaly Extremities: No edema, Capillary Refill Less than 3 Seconds Skin: No rashes, No breakdown Neurological: Neuro grossly intact, Sensory exam intact to light touch and pain Psych/Mental Status: Normal Affect, Appropriate Laboratory Results 02/22/20 16:55: WBC 17.6 H, RBC 4.31, Hgb 12.5, Hct 39.3, MCV 91.2, MCH 29.0, MCHC 31.8 L, RDW Std Deviation 60.0 H, RDW Coeff of Jacob 17.9 H, Plt Count 133 L, MPV 10.6, Immature Gran % (Auto) 0.700, Neut % (Auto) 89.9 H, Lymph % (Auto) 3.6 L, Calloway % (Auto) 5.1, Eos % (Auto) 0.6, Baso % (Auto) 0.1, Absolute Neuts (auto) 15.8 H, Absolute Lymphs (auto) 0.63 L, Nucleated RBC % 0 02/22/20 16:55: Sodium 136, Potassium 4.6, Chloride 103, Carbon Dioxide 23.0, Anion Gap 10, BUN 80 H, Creatinine 1.79 H, Estim Creat Clear Calc 20.42, Est GFR (MDRD) Af Amer 35 L, Est GFR (MDRD) Non-Af 29 L, BUN/Creatinine Ratio 44.7 H, Glucose 142 H, Calcium 9.2, Total Bilirubin 2.10 H, AST 81 H, ALT 105 H, Alkaline Phosphatase 60, Troponin I 0.130 H, Total Protein 7.1, Albumin 3.2, Globulin 3.9, Albumin/Globulin Ratio 0.8 L 02/22/20 16:55: Lactic Acid 2.3 H* 02/22/20 16:55: Total Creatine Kinase 78 02/22/20 16:55: PT 41.3 H, INR 4.3 H* 02/22/20 17:35: Urine Color Yellow, Urine Clarity Clear, Urine pH 5.0, Ur Specific [place] 1.015, Urine Protein 15 H, Urine Glucose (UA) Normal, Urine Ketones Negative, Urine Occult Blood 25 H, Urine Nitrite Negative, Urine Bilirubin Negative, Urine Urobilinogen Normal, Ur Leukocyte Esterase 100 H, Urine RBC 0-5 SEEN, Urine WBC 10-25 SEEN, Ur Squamous Epith Cells 0 SEEN, Urine Bacteria 4+, Urine Mucus 0 SEEN Current Medications Sodium Chloride () 1,000 mls @ 150 mls/hr IV .Q6H40M [facility] Last Admin: 02/22/20 17:58 Dose: 150 mls/hr Documented by: Assessment/Plan All Active Problems (Last Updated 02/12/20 @ 14:39 by Yasmin Agee) COVID-19 (Acute) care home current use of anticoagulant (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 Weakness secondary to UTI -Lactic acid is 2.3 however she does not have any sirs criteria other than the leukocytosis and unfortunate that can also be confounded by the dexamethasone that she is on -She no longer requires isolation secondary to Covid as its been about 10 days since onset of symptoms, her initial Covid antigen test was positive however her PCR test was negative. She no longer has any symptoms she is on chronic 3 L of oxygen for COPD -We will continue with Rocephin and send out a urine culture -PT/OT for evaluation -Consult to case management for placement 2. Elevated troponin/chronic diastolic CHF/HTN/HLD/chronic A. fib -Her elevated troponin is likely demand ischemia. Will admit to PCU and obtain serial troponins. If she develops chest pain or her troponins continue to rise would consider starting her on a heparin drip and consulting cardiology for evaluation -Continue with her Cardizem, Lipitor, Aldactone -We will hold her Zaroxolyn and torsemide as she is getting IV fluids secondary to her lactic acid -INR is 4.3, will hold Coumadin 3. COPD/recent Covid -Not currently in exacerbation -We will continue with her home inhalers -She has 2 more days of dexamethasone -Continue with her home O2 at 3 L nasal cannula 4. Hypothyroidism -Stable -Continue with Synthroid DVT: Supratherapeutic INR Inpatient E&M: [id number] Init Hosp L3
--- NOTE | 2020-02-22 19:02 | NURSING ---
Patient had home medication oxycodone HCL 5mg tablets with her in two different bottles. One bottle with 6.5 tablets and second bottle with 12 tablets. Counted medication with Tri Santacruz RN
--- NOTE | 2020-02-22 19:19 | NURSING ---
Antonia Pruitt called at home (daughter). PMH and Home med list obtained from . She reports pt has not taken any meds since DC home on tuesday but INR is elevated. Pt agrees she has not had any pills. Pt tested positive for COVID 10 days ago per daughter.
[2020-02-22] MEDS: Ceftriaxone 1 GM/50 ML BAG IV (20:01)
[2020-02-22] MEDS: 0.9% Normal Saline 1,000 ML 100 ML IV (20:04)
[2020-02-22] MEDS: Atorvastatin Calcium 10 MG Tablet PO (20:54)
[2020-02-22 21:06] LABS: Reflex Lactate? Y
[2020-02-22] MEDS: Ipratropium/Albuterol Sulfate 3 ML AMPUL.NEB INHALATION (21:12)
[2020-02-22 22:07] LABS: Lactic Acid 2.9 mmol/L (0.4-1.9)
[2020-02-23] VITALS (12 sets, daily range): BP systolic 131–138; BP diastolic 69–76; PULSE 70–77; RESP 16–22; TEMP 36.5–36.7; O2SAT 95–97
[2020-02-23] MEDS: Levothyroxine 75 MCG Tablet PO (05:27)
[2020-02-23 05:31] LABS: Absolute Neutrophil Count 11.5 X10^3/uL (2.0-7.7); Basophil# 0.01 X10^3/uL; Basophil% 0.1 % (0-1); Eosinophil# 0.33 X10^3/uL; Eosinophils% 2.4 % (0-5); Hematocrit 34.6 % (37-47); Hemoglobin 11.2 g/dL (12.0-15.0); Lymphocyte % 5.9 % (19-41); Mean Corp Hgb Conc 32.4 g/dL (32-36); Mean Corpuscular Hgb 29.8 pg (27.0-32.0); Mean Platelet Vol. 10.4 fl (6.2-12.0); Monocyte# 0.81 X10^3/uL; NRBC Flagged by Analyzer 0 % (0-5); Neutrophil # 11.45 X10^3/uL (2.7-7.7); Platelet Count 100 K/mm3 (150-450); RBC Distribution Width CV 17.8 % (11.6-14.6); RBC Distribution Width SD 61.1 fl (35.1-43.9); Red Blood Count 3.76 M/mm3 (4.2-5.4); White Blood Count 13.5 K/mm3 (4.4-11.0)
[2020-02-23 05:48] LABS: Anion Gap 8 (5-15); BUN 68 mg/dL (7-18); BUN/Creat Ratio 52.7 RATIO (10-20); Calcium,Total 8.7 mg/dL (8.5-10.1); Chloride 108 mmol/L (98-107); Creatinine, Serum 1.29 mg/dL (0.55-1.02); EST Glomerular Filtration Rate 42 mL/min (>60); Est Glom Filt Rate - Afr Amer 51 mL/min (>60); Estimated Creatinine Clearance 25.97 ml/min; Glucose 103 mg/dL (74-106); Potassium 3.6 mmol/L (3.5-5.1); Sodium Level 139 mmol/L (136-145)
[2020-02-23 05:57] LABS: Lactic Acid 1.3 mmol/L (0.4-1.9)
[2020-02-23] MEDS: 0.9% Normal Saline 1,000 ML 100 ML IV ×2 (06:16→16:17)
[2020-02-23 06:19] LABS: Prothrombin Time (Protime)PT. 47.2 SECONDS (11.7-14.9)
[2020-02-23 06:23] LABS: International Normalized Ratio 5.1
[2020-02-23] MEDS: Ipratropium/Albuterol Sulfate 3 ML AMPUL.NEB INHALATION ×3 (07:13→19:38)
[2020-02-23] MEDS: dilTIAZem CD 240 MG Capsule PO (10:58)
[2020-02-23] MEDS: dexAMETHasone 4 MG Tablet 6 MG PO (10:58)
[2020-02-23] MEDS: Loratadine 10 MG Tablet PO (10:58)
[2020-02-23] MEDS: Pantoprazole Sodium 20 MG Tablet PO (10:58)
[2020-02-23] MEDS: Ceftriaxone 1 GM/50 ML BAG IV (11:00)
[2020-02-23] MEDS: Menthol/Lanolin/Calamine/Znox 113 GM Tube 1 APPLIC TOPICAL ×2 (11:07→21:23)
--- NOTE | 2020-02-23 11:31 | CASEMGMT ---
Social Work Consult: [facility] placement Informant: paper reel operator Met with patient in room. Introduced self and social service technician role. Patient agreeable to speak with this social service technician. Patient familiar to [facility]. Per chart review patient lives alone, has home health through [facility], and home oxygen set up through [place]. Patient daughterAntonia (HCPOA) has been helping patient with laundry, transportation, cleaning, medication management, and grocery shopping. Patient confirming all information from chart review. Patient daughter with recent discharge from [facility] on 02/19/2020. Patient aware of recommendation for snf placement as patient lives alone and patient daughter is unable to assist due to currently being on quarantine for 14 days. Patient agreeable to snf placement for short-term. Patient first choice is [facility] ([facility]). Patient unsure of a second option and states I would need to think about it. Patient open to this social service technician providing patient with list of nursing homes in the area. Patient to look over list and have a second snf in mind. PT/OT recommending snf placement for patient. Patient agreeable to this social service technician calling patient [facility]. Telephone call to patient [facility]. This social service technician updated Antonia on above. Antonia is also agreeable to snf placement. Antonia voices that a possible section option for patient would be [facility]. Antonia aware that social work will continue to follow case. PLAN: Jail Placement Social Work to continue to follow. Toro BAIRES, TEETEE
--- NOTE | 2020-02-23 12:26 | PCM.PN.HOSP ---
Reason for Visit: failure to thrive. Subjective: Too weak to do her ADLs at home. Very tired. Vitals/I&O's: Vital Signs Temp Pulse Resp BP Pulse Ox 36.7 C 70 18 132/73 H 97 02/23/20 11:02 02/23/20 11:02 02/23/20 11:02 02/23/20 11:02 02/23/20 11:02 Oxygen Flow Rate (L/min) 3 Oxygen Delivery Method Nasal Cannula Weight: 47.3 kg Body Mass Index (BMI) 18.4 Intake and Output for Last 24 Hours 02/21/20 02/22/20 02/23/20 23:59 23:59 23:59 Intake Total 1360.83 / 1360.83 2101.67 / 2101.67 Output Total 400 / 400 400 / 400 Balance 960.83 / 960.83 1701.67 / 1701.67 General: Alert, No apparent distress HEENT: Atraumatic, Normocephalic Oral: Moist Mucosa, No Gingival or Mucosal Lesions/ Ulcerations Neck: No Nodes, Thyroid Normal Size and Texture Lungs: Clear to auscultation, Normal air movement, No rhonchi, No wheeze Cardiovascular: Regular rate, Regular Rhythm, Normal S1, Normal S2, No murmurs Abdomen: Bowel Sounds Present, Soft, Non Tender, Non-Distended, No Hepato-splenomegaly Extremities: No edema, No Calf Tenderness Laboratory Results 02/22/20 16:55: WBC 17.6 H, RBC 4.31, Hgb 12.5, Hct 39.3, MCV 91.2, MCH 29.0, MCHC 31.8 L, RDW Std Deviation 60.0 H, RDW Coeff of Jacob 17.9 H, Plt Count 133 L, MPV 10.6, Immature Gran % (Auto) 0.700, Neut % (Auto) 89.9 H, Lymph % (Auto) 3.6 L, [place] % (Auto) 5.1, Eos % (Auto) 0.6, Baso % (Auto) 0.1, Absolute Neuts (auto) 15.8 H, Absolute Lymphs (auto) 0.63 L, Nucleated RBC % 0 02/22/20 16:55: Sodium 136, Potassium 4.6, Chloride 103, Carbon Dioxide 23.0, Anion Gap 10, BUN 80 H, Creatinine 1.79 H, Estim Creat Clear Calc 20.42, Est GFR (MDRD) Af Amer 35 L, Est GFR (MDRD) Non-Af 29 L, BUN/Creatinine Ratio 44.7 H, Glucose 142 H, Calcium 9.2, Total Bilirubin 2.10 H, AST 81 H, ALT 105 H, Alkaline Phosphatase 60, Troponin I 0.130 H, Total Protein 7.1, Albumin 3.2, Globulin 3.9, Albumin/Globulin Ratio 0.8 L 02/22/20 16:55: Lactic Acid 2.3 H* 02/22/20 16:55: Total Creatine Kinase 78 02/22/20 16:55: PT 41.3 H, INR 4.3 H* 02/22/20 17:35: Urine Color Yellow, Urine Clarity Clear, Urine pH 5.0, Ur Specific [place] 1.015, Urine Protein 15 H, Urine Glucose (UA) Normal, Urine Ketones Negative, Urine Occult Blood 25 H, Urine Nitrite Negative, Urine Bilirubin Negative, Urine Urobilinogen Normal, Ur Leukocyte Esterase 100 H, Urine RBC 0-5 SEEN, Urine WBC 10-25 SEEN, Ur Squamous Epith Cells 0 SEEN, Urine Bacteria 4+, Urine Mucus 0 SEEN 02/22/20 20:31: Troponin I 0.076 H 02/22/20 21:30: Lactic Acid 2.9 H* 02/22/20 23:29: Troponin I 0.113 H 02/23/20 05:20: WBC 13.5 H, RBC 3.76 L, Hgb 11.2 L, Hct 34.6 L, MCV 92.0, MCH 29.8, MCHC 32.4, RDW Std Deviation 61.1 H, RDW Coeff of Jacob 17.8 H, Plt Count 100 L, MPV 10.4, Immature Gran % (Auto) 0.600, Neut % (Auto) 85.0 H, Lymph % (Auto) 5.9 L, [place] % (Auto) 6.0, Eos % (Auto) 2.4, Baso % (Auto) 0.1, Absolute Neuts (auto) 11.5 H, Absolute Lymphs (auto) 0.80 L, Nucleated RBC % 0 02/23/20 05:20: PT 47.2 H, INR 5.1 H* 02/23/20 05:20: Sodium 139, Potassium 3.6, Chloride 108 H, Carbon Dioxide 23.0, Anion Gap 8, BUN 68 H, Creatinine 1.29 H, Estim Creat Clear Calc 25.97, Est GFR (MDRD) Af Amer 51 L, Est GFR (MDRD) Non-Af 42 L, BUN/Creatinine Ratio 52.7 H, Glucose 103, Calcium 8.7 02/23/20 05:20: Lactic Acid 1.3 Current Medications Acetaminophen (Acetaminophen 325 Mg Tablet) 650 mg PO Q6H PRN PRN PRN Reason: Pain Score 1-10/Temp > 100.7 F Albuterol/Ipratropium (Ipratropium/Albuterol Sulfate 3 Ml Ampul.Neb) 3 ml INHALATION Q6H.RT [facility] Last Admin: 02/23/20 07:13 Dose: 3 ml Documented by: Atorvastatin Calcium (Atorvastatin Calcium 10 Mg Tablet) 10 mg PO QHS [facility] Last Admin: 02/22/20 20:54 Dose: 10 mg Documented by: Calamine/Phenol (Menthol/Lanolin/Calamine/Znox 113 Gm Tube) 1 applic TOPICAL BID [facility]; Protocol Last Admin: 02/23/20 11:07 Dose: 1 applicatio Documented by: Dexamethasone (Dexamethasone 4 Mg Tablet) 6 mg PO DAILY [facility] Stop: 02/24/20 10:01 Last Admin: 02/23/20 10:58 Dose: 6 mg Documented by: Diltiazem HCl (Diltiazem Cd 240 Mg Capsule) 240 mg PO DAILY [facility] Last Admin: 02/23/20 10:58 Dose: 240 mg Documented by: Sodium Chloride () 1,000 mls @ 100 mls/hr IV .Q10H [facility] Last Infusion: 02/23/20 11:31 Dose: 100 mls/hr Documented by: Ceftriaxone Sodium (Rocephin) 1 gm in 50 mls @ 100 mls/hr IV Q24 [facility] Last Infusion: 02/23/20 11:31 Dose: Infused Documented by: Levothyroxine Sodium (Levothyroxine 75 Mcg Tablet) 75 mcg PO DAILY@0600 [facility] Last Admin: 02/23/20 05:27 Dose: 75 mcg Documented by: Loratadine (Loratadine 10 Mg Tablet) 10 mg PO DAILY [facility] Last Admin: 11/28/20 10:58 Dose: 10 mg Documented by: Melatonin (Melatonin 3 Mg Tablet) 3 mg PO QHS PRN PRN PRN Reason: INSOMNIA Nitroglycerin (Nitroglycerin (Inpatient Use) 0.4 Mg Tab.Subl) 0.4 mg SUBLINGUAL Q5M PRN PRN Reason: CARDIAC/CHEST PAIN Ondansetron HCl (Ondansetron 4 Mg/2 Ml Vial) 4 mg IV Q8H PRN PRN PRN Reason: NAUSEA/VOMITING Pantoprazole Sodium (Pantoprazole Sodium 20 Mg Tablet) 20 mg PO DAILY [facility] Last Admin: 02/23/20 10:58 Dose: 20 mg Documented by: Sodium Chloride (0.9% Saline Lock 10 Ml Syringe) 10 - 40 ml IV UD PRN PRN Reason: SALINE FLUSH STROKE Vital Signs/Narrative: Vital Signs Temp Pulse Resp BP Pulse Ox 02/23/20 11:02 36.7 C 70 18 132/73 H 97 Medical Necessity - Tobacco Use Smoking Status: Never smoker Assessment/Plan All Active Problems (Last Updated 02/12/20 @ 14:39 by Yasmin Agee) 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 failure to thrive likely given advanced age, medical comorbidities and recent illness. PT recommends additional therapy will need SNF placement. 2. recent COVID-19, possible Antigen +, but PCR negative On chronic oxygen, but never lower than 94% on her standard oxygen, so 10 day quarantine instead of 21 day is appropriate (did not meet Severe criteria) despite treatment, which she has completed the 10 day quarantine. on dexamethasone through 01/23 to complete 10 day course 3. Abnormal UA minimally abnormal with 100 LE, 10-25 WBC and 4+ bacteria on CTX if cx negative or not suggestive of UTI (polymicrobial, etc.) would DC abx. 4. coagulopathy 2/2 warfarin no bleeding, so continue to hold warfarin 5. Lactic acidosis not septic upon presentation no additional work up 6. Leukocytosis likely 2/2 steroids monitor 7. VTE prophylaxis: anticoagulated. Inpatient E&M: 75157 Subs Hosp L2
[2020-02-23] MEDS: Atorvastatin Calcium 10 MG Tablet PO (21:23)
[2020-02-24] VITALS (12 sets, daily range): BP systolic 130–133; BP diastolic 72–77; PULSE 69–72; RESP 18–20; TEMP 36.4–36.8; O2SAT 93–96
[2020-02-24] MEDS: 0.9% Normal Saline 1,000 ML 100 ML IV ×3 (01:54→22:21)
[2020-02-24] MEDS: Levothyroxine 75 MCG Tablet PO (05:01)
[2020-02-24 05:37] LABS: Absolute Neutrophil Count 6.8 X10^3/uL (2.0-7.7); Basophil# 0.01 X10^3/uL; Basophil% 0.1 % (0-1); Hematocrit 31.9 % (37-47); Lymphocyte % 5.3 % (19-41); Mean Corp Hgb Conc 31.3 g/dL (32-36); Mean Corpuscular Volume 92.5 fL (81-99); Mean Platelet Vol. 11.1 fl (6.2-12.0); Monocyte# 0.26 X10^3/uL; Monocyte% 3.4 % (0-10); NRBC Flagged by Analyzer 0 % (0-5); Neutrophil # 6.83 X10^3/uL (2.7-7.7); Neutrophil % 90.5 % (47-70); POSITIVE COUNT YES; POSITIVE DIFFERENTIAL YES; Platelet Count 82 K/mm3 (150-450); RBC Distribution Width CV 17.6 % (11.6-14.6); RBC Distribution Width SD 60.6 fl (35.1-43.9); Red Blood Count 3.45 M/mm3 (4.2-5.4); White Blood Count 7.6 K/mm3 (4.4-11.0)
[2020-02-24 05:39] LABS: Differential Indicated SCAN CRITERIA MET
[2020-02-24 05:46] LABS: Prothrombin Time (Protime)PT. 43.3 SECONDS (11.7-14.9)
[2020-02-24 05:50] LABS: Anion Gap 7 (5-15); BUN 53 mg/dL (7-18); BUN/Creat Ratio 44.9 RATIO (10-20); Calcium,Total 8.3 mg/dL (8.5-10.1); Chloride 108 mmol/L (98-107); Creatinine, Serum 1.18 mg/dL (0.55-1.02); EST Glomerular Filtration Rate 47 mL/min (>60); Est Glom Filt Rate - Afr Amer 57 mL/min (>60); Estimated Creatinine Clearance 28.39 ml/min; Glucose 129 mg/dL (74-106); Potassium 4.3 mmol/L (3.5-5.1); Sodium Level 137 mmol/L (136-145)
[2020-02-24 05:56] LABS: International Normalized Ratio 4.6
[2020-02-24 06:00] LABS: Platelet Estimate MOD DEC (ADEQ)
[2020-02-24] MEDS: Ipratropium/Albuterol Sulfate 3 ML AMPUL.NEB INHALATION ×3 (06:43→19:45)
[2020-02-24] MEDS: Ceftriaxone 1 GM/50 ML BAG IV (09:20)
[2020-02-24] MEDS: Pantoprazole Sodium 20 MG Tablet PO (09:21)
[2020-02-24] MEDS: Loratadine 10 MG Tablet PO (09:21)
[2020-02-24] MEDS: dexAMETHasone 4 MG Tablet 6 MG PO (09:21)
[2020-02-24] MEDS: dilTIAZem CD 240 MG Capsule PO (09:22)
[2020-02-24] MEDS: Menthol/Lanolin/Calamine/Znox 113 GM Tube 1 APPLIC TOPICAL ×2 (09:22→20:34)
--- NOTE | 2020-02-24 12:55 | PN_ITS ---
Reason for Visit: FTT Subjective: Feeling sleepy. Vitals/I&O's: Vital Signs Temp Pulse Resp BP Pulse Ox 36.4 C L 72 20 H 131/73 H 94 02/24/20 09:20 02/24/20 12:25 02/24/20 12:25 02/24/20 09:20 02/24/20 09:20 Oxygen Flow Rate (L/min) 3 Oxygen Delivery Method Nasal Cannula Weight: 52.2 kg Body Mass Index (BMI) 18.4 Intake and Output for Last 24 Hours 02/22/20 02/23/20 02/24/20 23:59 23:59 23:59 Intake Total 1360.83 / 1360.83 3533.34 / 3533.34 1653.34 / 1653.34 Output Total 400 / 400 650 / 650 400 / 400 Balance 960.83 / 960.83 2883.34 / 2883.34 1253.34 / 1253.34 General: Alert, No apparent distress HEENT: Atraumatic, Normocephalic Oral: Moist Mucosa, No Gingival or Mucosal Lesions/ Ulcerations Neck: No Nodes, Thyroid Normal Size and Texture Lungs: Clear to auscultation, Normal air movement, No rhonchi, No wheeze Cardiovascular: Regular rate, Regular Rhythm, Normal S1, Normal S2 Abdomen: Bowel Sounds Present, Soft, Non Tender, Non-Distended Extremities: No edema, No Calf Tenderness Microbiology Past 72 Hours 02/22/20 22:50 Urine, Clean Catch Urine Culture - Final Mixed Gram Pos & Gram Neg Org Laboratory Results 02/24/20 05:21: PT 43.3 H, INR 4.6 H* 02/24/20 05:21: WBC 7.6, RBC 3.45 L, Hgb 10.0 L, Hct 31.9 L, MCV 92.5, MCH 29.0, MCHC 31.3 L, RDW Std Deviation 60.6 H, RDW Coeff of Jacob 17.6 H, Plt Count 82 L, MPV 11.1, Immature Gran % (Auto) 0.700, Neut % (Auto) 90.5 H, Lymph % (Auto) 5.3 L, [place] % (Auto) 3.4, Eos % (Auto) 0.0, Baso % (Auto) 0.1, Absolute Neuts (auto) 6.8, Absolute Lymphs (auto) 0.40 L, Nucleated RBC % 0, Platelet Estimate MOD DEC 02/24/20 05:21: Sodium 137, Potassium 4.3, Chloride 108 H, Carbon Dioxide 22.0, Anion Gap 7, BUN 53 H, Creatinine 1.18 H, Estim Creat Clear Calc 28.39, Est GFR (MDRD) Af Amer 57 L, Est GFR (MDRD) Non-Af 47 L, BUN/Creatinine Ratio 44.9 H, Glucose 129 H, Calcium 8.3 L Current Medications Acetaminophen (Acetaminophen 325 Mg Tablet) 650 mg PO Q6H PRN PRN PRN Reason: Pain Score 1-10/Temp > 100.7 F Albuterol/Ipratropium (Ipratropium/Albuterol Sulfate 3 Ml Ampul.Neb) 3 ml INHALATION Q6H.RT [facility] Last Admin: 02/24/20 12:25 Dose: 3 ml Documented by: Atorvastatin Calcium (Atorvastatin Calcium 10 Mg Tablet) 10 mg PO QHS [facility] Last Admin: 02/23/20 21:23 Dose: 10 mg Documented by: Calamine/Phenol (Menthol/Lanolin/Calamine/Znox 113 Gm Tube) 1 applic TOPICAL BID [facility]; Protocol Last Admin: 02/24/20 09:22 Dose: 1 applicatio Documented by: Diltiazem HCl (Diltiazem Cd 240 Mg Capsule) 240 mg PO DAILY [facility] Last Admin: 02/24/20 09:22 Dose: 240 mg Documented by: Sodium Chloride () 1,000 mls @ 100 mls/hr IV .Q10H [facility] Last Admin: 02/24/20 12:21 Dose: 100 mls/hr Documented by: Ceftriaxone Sodium (Rocephin) 1 gm in 50 mls @ 100 mls/hr IV Q24 [facility] Last Infusion: 02/24/20 09:50 Dose: Infused Documented by: Levothyroxine Sodium (Levothyroxine 75 Mcg Tablet) 75 mcg PO DAILY@0600 [facility] Last Admin: 02/24/20 05:01 Dose: 75 mcg Documented by: Loratadine (Loratadine 10 Mg Tablet) 10 mg PO DAILY [facility] Last Admin: 02/24/20 09:21 Dose: 10 mg Documented by: Melatonin (Melatonin 3 Mg Tablet) 3 mg PO QHS PRN PRN PRN Reason: INSOMNIA Nitroglycerin (Nitroglycerin (Inpatient Use) 0.4 Mg Tab.Subl) 0.4 mg SUBLINGUAL Q5M PRN PRN Reason: CARDIAC/CHEST PAIN Ondansetron HCl (Ondansetron 4 Mg/2 Ml Vial) 4 mg IV Q8H PRN PRN PRN Reason: NAUSEA/VOMITING Pantoprazole Sodium (Pantoprazole Sodium 20 Mg Tablet) 20 mg PO DAILY [facility] Last Admin: 02/24/20 09:21 Dose: 20 mg Documented by: Sodium Chloride (0.9% Saline Lock 10 Ml Syringe) 10 - 40 ml IV UD PRN PRN Reason: SALINE FLUSH STROKE Vital Signs/Narrative: Vital Signs Temp Pulse Resp BP Pulse Ox 02/24/20 12:25 72 20 H 02/24/20 09:20 36.4 C L 70 18 131/73 H 94 Medical Necessity - Tobacco Use Smoking Status: Never smoker Assessment/Plan All Active Problems (Last Updated 02/12/20 @ 14:39 by Yasmin Agee) COVID-19 (Acute) [facility] current use of anticoagulant (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 failure to thrive * likely given advanced age, medical comorbidities and recent illness. * PT recommends additional therapy * will need SNF placement. 2. recent COVID-19, possible * Antigen +, but PCR negative * On chronic oxygen, but never lower than 94% on her standard oxygen, so 10 day quarantine instead of 21 day is appropriate (did not meet Severe criteria) despite treatment, which she has completed the 10 day quarantine. * on dexamethasone through 01/23 to complete 10 day course 3. Abnormal UA * minimally abnormal with 100 LE, 10-25 WBC and 4+ bacteria * on CTX * if cx negative or not suggestive of UTI (polymicrobial, etc.) would DC abx. 4. coagulopathy * still elevated * 2/2 warfarin * no bleeding, so continue to hold warfarin 5. Lactic acidosis * not septic upon presentation * no additional work up 6. Leukocytosis * likely 2/2 steroids * monitor 7. elevated troponin * no MO * on statin, dilt. allergy to GERI- 8. HFpEF: * EF 60% from 12/17 * complicated by severe pulmonary HTN (RVSP 112 mmHg) * resume diuretic 8. RONNIE: * resolved 9. VTE prophylaxis: anticoagulated. Inpatient E&M: 48071 Subs Hosp L2
[2020-02-24] MEDS: Atorvastatin Calcium 10 MG Tablet PO (20:34)
[2020-02-25] VITALS (8 sets, daily range): BP systolic 130–151; BP diastolic 74–81; PULSE 69–74; RESP 16–20; TEMP 36.4–36.6; O2SAT 88–94
[2020-02-25 05:05] LABS: Absolute Lymphocyte Count 0.55 X10^3/uL (0.83-4.51); Absolute Neutrophil Count 9.3 X10^3/uL (2.0-7.7); Basophil# 0.01 X10^3/uL; Basophil% 0.1 % (0-1); Hemoglobin 10.7 g/dL (12.0-15.0); Lymphocyte # 0.55 X10^3/ul (4.0); Lymphocyte % 5.3 % (19-41); Mean Corp Hgb Conc 32.4 g/dL (32-36); Mean Corpuscular Hgb 30.4 pg (27.0-32.0); Mean Corpuscular Volume 93.8 fL (81-99); Mean Platelet Vol. 11.5 fl (6.2-12.0); Monocyte% 3.9 % (0-10); NRBC Flagged by Analyzer 0 % (0-5); Neutrophil % 89.8 % (47-70); POSITIVE COUNT YES; POSITIVE DIFFERENTIAL YES; Platelet Count 91 K/mm3 (150-450); RBC Distribution Width CV 17.9 % (11.6-14.6); RBC Distribution Width SD 61.1 fl (35.1-43.9); Red Blood Count 3.52 M/mm3 (4.2-5.4); White Blood Count 10.4 K/mm3 (4.4-11.0)
[2020-02-25 05:13] LABS: Differential Indicated SCAN CRITERIA MET
[2020-02-25 05:14] LABS: International Normalized Ratio 2.7; Prothrombin Time (Protime)PT. 28.5 SECONDS (11.7-14.9)
[2020-02-25 05:20] LABS: Anion Gap 8 (5-15); BUN 58 mg/dL (7-18); BUN/Creat Ratio 49.2 RATIO (10-20); Calcium,Total 8.4 mg/dL (8.5-10.1); Chloride 110 mmol/L (98-107); Creatinine, Serum 1.18 mg/dL (0.55-1.02); EST Glomerular Filtration Rate 47 mL/min (>60); Est Glom Filt Rate - Afr Amer 57 mL/min (>60); Estimated Creatinine Clearance 31.45 ml/min; Glucose 123 mg/dL (74-106); Potassium 4.2 mmol/L (3.5-5.1); Sodium Level 137 mmol/L (136-145)
[2020-02-25] MEDS: Levothyroxine 75 MCG Tablet PO (05:42)
[2020-02-25 05:53] LABS: Platelet Estimate SLT DEC (ADEQ)
[2020-02-25] MEDS: Ipratropium/Albuterol Sulfate 3 ML AMPUL.NEB INHALATION ×2 (07:19→13:18)
[2020-02-25] MEDS: 0.9% Normal Saline 1,000 ML 100 ML IV (08:12)
[2020-02-25] MEDS: Ceftriaxone 1 GM/50 ML BAG IV (08:12)
[2020-02-25] MEDS: Pantoprazole Sodium 20 MG Tablet PO (08:14)
[2020-02-25] MEDS: dilTIAZem CD 240 MG Capsule PO (08:14)
[2020-02-25] MEDS: Loratadine 10 MG Tablet PO (08:15)
[2020-02-25] MEDS: Menthol/Lanolin/Calamine/Znox 113 GM Tube 1 APPLIC TOPICAL (08:15)
[2020-02-25] MEDS: Furosemide 40 MG Tablet PO (08:16)
--- NOTE | 2020-02-25 08:16 | PN_ITS ---
Vitals/I&O's: Vital Signs Temp Pulse Resp BP Pulse Ox 97.7 F L 70 18 130/79 H 94 02/25/20 02:19 02/25/20 06:54 02/25/20 02:19 02/25/20 02:19 02/25/20 02:19 Oxygen Flow Rate (L/min) 3 Oxygen Delivery Method Nasal Cannula Weight: 122 lb 12.76 oz Body Mass Index (BMI) 18.4 Intake and Output for Last 24 Hours 02/23/20 02/24/20 02/25/20 23:59 23:59 23:59 Intake Total 3533.34 / 3533.34 2653.34 / 2653.34 Output Total 650 / 650 900 / 900 Balance 2883.34 / 2883.34 1753.34 / 1753.34 Microbiology Past 72 Hours 02/22/20 22:50 Urine, Clean Catch Urine Culture - Final Mixed Gram Pos & Gram Neg Org Laboratory Results 02/25/20 04:57: PT 28.5 H, INR 2.7 02/25/20 04:57: WBC 10.4, RBC 3.52 L, Hgb 10.7 L, Hct 33.0 L, MCV 93.8, MCH 30.4, MCHC 32.4, RDW Std Deviation 61.1 H, RDW Coeff of Jacob 17.9 H, Plt Count 91 L, MPV 11.5, Immature Gran % (Auto) 0.900, Neut % (Auto) 89.8 H, Lymph % (Auto) 5.3 L, [place] % (Auto) 3.9, Eos % (Auto) 0.0, Baso % (Auto) 0.1, Absolute Neuts (auto) 9.3 H, Absolute Lymphs (auto) 0.55 L, Nucleated RBC % 0, Platelet Estimate SLT 02/25/20 04:57: Sodium 137, Potassium 4.2, Chloride 110 H, Carbon Dioxide 19.0 L , Anion Gap 8, BUN 58 H, Creatinine 1.18 H, Estim Creat Clear Calc 31.45, Est GFR (MDRD) Af Amer 57 L, Est GFR (MDRD) Non-Af 47 L, BUN/Creatinine Ratio 49.2 H , Glucose 123 H, Calcium 8.4 L Current Medications Acetaminophen (Acetaminophen 325 Mg Tablet) 650 mg PO Q6H PRN PRN PRN Reason: Pain Score 1-10/Temp > 100.7 F Albuterol/Ipratropium (Ipratropium/Albuterol Sulfate 3 Ml Ampul.Neb) 3 ml INHALATION Q6H.RT [facility] Last Admin: 02/25/20 07:19 Dose: 3 ml Documented by: Atorvastatin Calcium (Atorvastatin Calcium 10 Mg Tablet) 10 mg PO QHS [facility] Last Admin: 02/24/20 20:34 Dose: 10 mg Documented by: Calamine/Phenol (Menthol/Lanolin/Calamine/Znox 113 Gm Tube) 1 applic TOPICAL BID [facility]; Protocol Last Admin: 02/24/20 20:34 Dose: 1 applicatio Documented by: Diltiazem HCl (Diltiazem Cd 240 Mg Capsule) 240 mg PO DAILY [facility] Last Admin: 02/24/20 09:22 Dose: 240 mg Documented by: Furosemide (Furosemide 40 Mg Tablet) 40 mg PO DAILY [facility] Sodium Chloride () 1,000 mls @ 100 mls/hr IV .Q10H [facility] Last Admin: 02/24/20 22:21 Dose: 100 mls/hr Documented by: Ceftriaxone Sodium (Rocephin) 1 gm in 50 mls @ 100 mls/hr IV Q24 [facility] Last Infusion: 02/24/20 09:50 Dose: Infused Documented by: Levothyroxine Sodium (Levothyroxine 75 Mcg Tablet) 75 mcg PO DAILY@0600 [facility] Last Admin: 02/25/20 05:42 Dose: 75 mcg Documented by: Loratadine (Loratadine 10 Mg Tablet) 10 mg PO DAILY [facility] Last Admin: 02/24/20 09:21 Dose: 10 mg Documented by: Melatonin (Melatonin 3 Mg Tablet) 3 mg PO QHS PRN PRN PRN Reason: INSOMNIA Nitroglycerin (Nitroglycerin (Inpatient Use) 0.4 Mg Tab.Subl) 0.4 mg SUBLINGUAL Q5M PRN PRN Reason: CARDIAC/CHEST PAIN Ondansetron HCl (Ondansetron 4 Mg/2 Ml Vial) 4 mg IV Q8H PRN PRN PRN Reason: NAUSEA/VOMITING Pantoprazole Sodium (Pantoprazole Sodium 20 Mg Tablet) 20 mg PO DAILY [facility] Last Admin: 02/24/20 09:21 Dose: 20 mg Documented by: Sodium Chloride (0.9% Saline Lock 10 Ml Syringe) 10 - 40 ml IV UD PRN PRN Reason: SALINE FLUSH STROKE Vital Signs/Narrative: Vital Signs Pulse 02/25/20 06:54 70 Medical Necessity - Tobacco Use Smoking Status: Never smoker Assessment/Plan All Active Problems (Last Updated 02/12/20 @ 14:39 by Yasmin Agee) 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 Failure to thrive * likely given advanced age, medical comorbidities and recent illness. * PT recommends additional therapy * will need SNF placement. 2. recent COVID-19, possible * Antigen +, but PCR negative * On chronic oxygen, but never lower than 94% on her standard oxygen, so 10 day quarantine instead of 21 day is appropriate (did not meet Severe criteria) despite treatment, which she has completed the 10 day quarantine. * on dexamethasone through 01/23 to complete 10 day course 3. Abnormal UA * minimally abnormal with 100 LE, 10-25 WBC and 4+ bacteria * on CTX * if cx negative or not suggestive of UTI (polymicrobial, etc.) would DC abx. 4. coagulopathy * still elevated * 2/2 warfarin * no bleeding, so continue to hold warfarin 5. Lactic acidosis * not septic upon presentation * no additional work up 6. Leukocytosis * likely 2/2 steroids * monitor 7. elevated troponin * no IA * on statin, dilt. allergy to GERI- 8. HFpEF: * EF 60% from 12/17 * complicated by severe pulmonary HTN (RVSP 112 mmHg) * resume diuretic 8. RONNIE: * resolved 9. VTE prophylaxis: anticoagulated.
--- NOTE | 2020-02-25 10:19 | NURSING ---
Brittney, RN from palliative care, called in and asked for update on patient. UPdate provided, will notify SW here to call Brittney if needed.
--- NOTE | 2020-02-25 11:02 | PCM.TXEXTCAR ---
- Diet 02/22/20 18:49 Diet: Cardiac - Heart Healthy Food consistency:: Regular Liquid Consistency:: Regular/Thin Type of Dietary Supplement:: Zeke Diet Comments: Zeke 1 pkt BID at L&D; Ensure Enlive 120 ml w/ B; Magic cup w/ L&D - Routine Orders/Code Status Suppository Type: Dulcolax 10mg Suppository Frequency: Daily PRN Code [facility] - Wound(s) COCCYX Wound Type: Pressure Injury - Therapies Weight Bearing: Weight bearing as tolerated Extremity Affected:: Bilateral Lower Physical Therapy: Eval and Treat Occupational Therapy: Eval and Treat Speech Therapy: Eval and Treat - Allergies/Procedures Done in Hospital Allergies/Adverse Reactions: Allergies GERI Inhibitors Allergy (Verified 02/22/20 17:03) Angioedema amiodarone Allergy (Verified 02/22/20 17:03) Other doxycycline Allergy (Verified 02/22/20 17:03) Other rosuvastatin calcium [From Crestor] Allergy (Verified 02/22/20 17:03) Other Sulfa (Sulfonamide Antibiotics) Allergy (Verified 02/22/20 17:03) Nausea tiotropium bromide [From Spiriva with HandiHaler] Allergy (Verified 02/22/20 17:03) Nausea oxycodone Adverse Reaction (Severe, Verified 02/22/20 17:03) confusion codeine Adverse Reaction (Verified 02/22/20 17:03) Vomiting hydrocodone bitartrate [From Vicodin] Adverse Reaction (Verified 02/22/20 17:03) Vomiting - Type of Care/Length of Stay Estimated LOS: Convalescent Care Less Than 30 days Type of Care Needed: Skilled Rehab Potential: Good Prognosis: Good - Additional Orders/Day of Discharge Day of Discharge: 02/25/20 - Dietary and Speech Recommendations Dietitian Recommendations/Changes: Continue Cardiac diet. Continue ONS ensure enlive 120 ml w/ b-fast; magic cup L&D for increase myriam/pro if consumed. Continue Zeke 1 pkt BID to promote wound healing. - Follow Up Care Primary Care Physician: Abby Pendleton DO [Primary Care Provider] - Please follow up with your Primary Care Physician in: In 1 to 2 weeks Please Follow Up With: Jason Neri MD When: As you scheduled in April 2020 Please Follow Up With: Eleuterio Molina MD When: In 4 to 6 weeks
--- NOTE | 2020-02-25 11:04 | CASEMGMT ---
SW called patient's daughter and left her a voice mail. She had called ED SW earlier and left her a voice mail. SW did fax a referral to [facility] [place] [facility], patient's first choice is not accepting patients right now. SW will also check in with patient. Ana GUZMAN MSW
--- NOTE | 2020-02-25 11:37 | CASEMGMT ---
Addendum entered by Ana Chavez 02/25/20 12:13: TOVA called [facility] with [facility]. SW explained the positive COVID on 02-14 and negative COVID on 02-15. SW told her we are doing another test now. She said they are not taking COVID patients. She also said [facility] is not taking patients right now. SW will let patient know. Awaiting results of today's test. Ana GUZMAN COMMUNICATIONS PROFESSIONAL Original Note: SW went to patient's room, introduced self and role at [facility]. Patient said she changed her mind and would like to go to [facility] ([facility] SW received a return call from patient's daughter Antonia. SW told her patient mentioned [facility]. She said that is fine. SW told her SW can get back to her with any updates. SW answered her questions. TOVA called [facility] and per Yasmin they would not be able to take patient as she has a positive COVID test recently. TOVA asked if her test came back negative could she possible come and she said no. TOVA spoke with Bouchra at [facility] and she said if patient's COVID is negative today they would consider patient. SW went and spoke with patient letting her know that [facility] said they would not take her because of the positive COVID test. SW also let her know that [facility] said if her COVID test today is negative [facility] could consider her. She also asked SW to send a referral to [facility]. TOVA will continue to work on d/c plan. Ana GUZMAN COMMUNICATIONS PROFESSIONAL
--- NOTE | 2020-02-25 13:04 | PCM.DC.SUM ---
Discharge Date and Diagnosis Date of Admission: 02/22/20 Date of Discharge: 02/25/20 - Primary Discharge Diagnosis Acute Problems: Failure to thrive. Chronic diastolic heart failure, right-sided heart failure with severe pulmonary hypertension. Multiple valvular heart disease RONNIE secondary to diuretic resolved - Secondary Discharge Diagnosis Chronic Problems: Chronic Problems (Last Updated 02/12/20 @ 14:39 by Yasmin Agee) Longstanding persistent atrial fibrillation (Chronic) Breast cancer (Chronic) Valvular heart disease (Chronic) Renal insufficiency (Chronic) Bronchiectasis (Chronic) Hyponatremia (Chronic) Severe back pain (Chronic) MDS (myelodysplastic syndrome) (Chronic) Anemia (Chronic) History of breast cancer in female (Chronic) Pure hypercholesterolemia (Chronic) Essential hypertension (Chronic) Prosthetic aortic valve stenosis (Chronic) Nonrheumatic mitral valve regurgitation (Chronic) S/P valve repair with a 28 mm G04 annuloplasty ring in October 2011; Nonrheumatic tricuspid (valve) insufficiency (Chronic) S/P repair with a 30 mm MC3 ring angioplasty system in October 2011 Cardiac pacemaker in situ (Chronic) pacemaker implant 08/08 Presence of prosthetic heart valve (Chronic) 11/06, Mitral valve repair with 28mm [employer] annuloplasty, tricuspid repair with 30mm MC ring annuloplasty Nonrheumatic aortic (valve) insufficiency (Chronic) S/P TAVR with [employer] 23 mm low dense valve in May 2013 at [facility]; 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, dilated (Chronic) S/P AVR (aortic valve replacement) (Chronic ~05/2014) TAVR wit [employer] 23 mm Kandice valve Aortic Valve 06/09 History of bacterial endocarditis (Chronic) Thrombocytopenia (Chronic) Contusion of left upper arm, initial encounter (Chronic) Iron deficiency anemia (Chronic) Chronic atrial fibrillation (Chronic) Congestive heart failure (Chronic) Pulmonary hypertension (Chronic) Coronary artery disease (Chronic) Interstitial lung disease (Chronic) Hypothyroidism (Chronic) Hospital Course and Treatment Operations: None Summary of Care Provided: The patient is a 80 year old F with history of multiple valvular disease and TAVR, mitral valve repair annuloplasty, tricuspid valve repair and interstitial lung disease was admitted with weakness, fatigue and failure to thrive. 1. Failure to thrive due to multiple cardiac and pulmonary conditions as mentioned below. PT recommended further additional treatment at SNF placement. 2. recent COVID-19, possible: Patient completed dexamethasone. Patient chronically on oxygen. She completed 10-day quarantine. Rapid COVID-19 antigen negative. 3. Abnormal UA mainly bacteriuria/contamination: Patient denies dysuria. UA 10-25 WBCs, LE 100, nitrite negative and 4+ bacteria. Urine culture shows mixed gram-positive and gram-negative organism. Initially on ceftriaxone which was discontinued. 4. coagulopathy due to Coumadin overdose: INR 2.7. Warfarin dose decreased to 2 mg every day. 5. Lactic acidosis probably due to dehydration/hypoxia: Patient was not septic by clinical presentation therefore no additional work-up was done. 6. Leukocytosis due to steroids 7. Elevated troponin: Patient has history of subendocardial LA in the past but currently not having any chest pain. Advised to follow-up with Dr. Neri. On statin, diltiazem. Allergic to GERI inhibitor. no LA on statin, dilt. allergy to GERI- 8. HFpEF: Last echo was done in November 2019. EF 60%, severe pulmonary hypertension. On diuretic. Left ventricular systolic function is normal. The estimated ejection fraction is 60 %. D shaped septum in systole and diastole. Severely dilated right ventricle. Moderately severe global right ventricular systolic dysfunction. The left atrium is severely enlarged. The right atrium is severely enlarged. An annuloplasty ring is noted in the mitral position. Mild diffuse mitral valve thickening. The mitral valve chordae are thickened and/or calcified. Trivial mitral valve insufficiency. An annuloplasty ring is noted in the tricuspid position. Poor coaptation of the tricuspid valve leaflets. Moderate to Severe transvalvular insufficiency of the tricuspid valve. Stable appearing bioprosthetic aortic valve apparatus. Moderate aortic stenosis. Trivial transvalvular insufficiency of the aortic valve. Mild (1+) pulmonic valve insufficiency. Mildly dilated aortic root. Right ventricular systolic pressure estimated to be 112 mmHg. There is evidence of diastolic dysfunction. 8. RONNIE secondary to diuretic dose: Admission creatinine 1. 7 9, improved to 1.8. Diuretic was held. Diuretic resumed to Lasix 40 mg daily which converted to torsemide 20 mg daily. 9. VTE prophylaxis: anticoagulated. Discharge medication reconciliation done. Discharge follow-up instructions completed. Discharge process discussed with the patient and all questions were answered to patient's satisfaction. Discharged to SNF. Total time spent, exact 35 minutes on discharge meds reconciliation, examination, coordination of care with nurses and ancillary staff, review of imaging and blood test and discussion with the patient on follow-up instructions Objective: Seen and examined. Patient has history of chronic heart and lung disease. She follows Dr. Neri and Dr. Molina. History of aortic stenosis status post TAVR in March 2017, history of bacterial endocarditis, congestive heart failure, pulmonary hypertension, coronary artery disease, interstitial lung disease tricuspid insufficiency status post repair and MR status post valve repair with annuloplasty On threat monitoring analyst, patient heart rhythm. Patient on home oxygen 3 L. Physical exam General: Alert, Oriented x3, Cooperative HEENT: Atraumatic, PERRLA, EOMI, Normocephalic Oral: No Gingival or Mucosal Lesions/ Ulcerations Neck: Supple, No JVD, Negative Carotid Bruits Lungs: Air entry diminished in bilateral lung bases. No crepitation/rhonchi Cardiovascular: Paced rhythm. Normal S1, Normal S2, ejection systolic murmur over left second ICS and holosystolic murmur over cardiac apex and left lower sternal border. Abdomen: Bowel Sounds Present, Soft, Non Tender, Non-Distended : No renal angle tenderness. No suprapubic tenderness. Extremities: No edema, Capillary Refill Less than 3 Seconds Skin: No rashes, No breakdown Musculoskeletal: No Tenderness to Palpation of Joints or Extremities Neurological: Cranial nerves II-XII grossly intact, Deep Tendon Reflexes 2+/4 and Symmetrical, Neuro grossly intact Psych/Mental Status: Normal Affect, Appropriate. - Physical Exam Vitals/I&O's: Vital Signs Temp Pulse Resp BP Pulse Ox 97.6 F L 69 20 H 140/74 H 94 02/25/20 08:19 02/25/20 08:19 02/25/20 08:19 02/25/20 08:19 02/25/20 08:19 Oxygen Flow Rate (L/min) 3 Oxygen Delivery Method Nasal Cannula Weight: 122 lb 12.76 oz Body Mass Index (BMI) 18.4 Intake and Output for Last 24 Hours 02/23/20 02/24/20 02/25/20 23:59 23:59 23:59 Intake Total 3533.34 / 3533.34 2653.34 / 2653.34 1275 / 1275 Output Total 650 / 650 900 / 900 Balance 2883.34 / 2883.34 1753.34 / 1753.34 1275 / 1275 Microbiology Past 72 Hours 02/25/20 11:54 Mucosa - Nose SARS-CoV-2 Antigen (Rapid) - Final 02/22/20 22:50 Urine, Clean Catch Urine Culture - Final Mixed Gram Pos & Gram Neg Org Laboratory Results 02/25/20 04:57: PT 28.5 H, INR 2.7 02/25/20 04:57: WBC 10.4, RBC 3.52 L, Hgb 10.7 L, Hct 33.0 L, MCV 93.8, MCH 30.4, MCHC 32.4, RDW Std Deviation 61.1 H, RDW Coeff of Jacob 17.9 H, Plt Count 91 L, MPV 11.5, Immature Gran % (Auto) 0.900, Neut % (Auto) 89.8 H, Lymph % (Auto) 5.3 L, [place] % (Auto) 3.9, Eos % (Auto) 0.0, Baso % (Auto) 0.1, Absolute Neuts (auto) 9.3 H, Absolute Lymphs (auto) 0.55 L, Nucleated RBC % 0, Platelet Estimate SLT 02/25/20 04:57: Sodium 137, Potassium 4.2, Chloride 110 H, Carbon Dioxide 19.0 L, Anion Gap 8, BUN 58 H, Creatinine 1.18 H, Estim Creat Clear Calc 31.45, Est GFR (MDRD) Af Amer 57 L, Est GFR (MDRD) Non-Af 47 L, BUN/Creatinine Ratio 49.2 H, Glucose 123 H, Calcium 8.4 L Current Medications Acetaminophen (Acetaminophen 325 Mg Tablet) 650 mg PO Q6H PRN PRN PRN Reason: Pain Score 1-10/Temp > 100.7 F Albuterol/Ipratropium (Ipratropium/Albuterol Sulfate 3 Ml Ampul.Neb) 3 ml INHALATION Q6H.RT RADHA Last Admin: 02/25/20 07:19 Dose: 3 ml Documented by: Atorvastatin Calcium (Atorvastatin Calcium 10 Mg Tablet) 10 mg PO QHS RADHA Last Admin: 02/24/20 20:34 Dose: 10 mg Documented by: Calamine/Phenol (Menthol/Lanolin/Calamine/Znox 113 Gm Tube) 1 applic TOPICAL BID RADHA; Protocol Last Admin: 02/25/20 08:15 Dose: 1 applicatio Documented by: Diltiazem HCl (Diltiazem Cd 240 Mg Capsule) 240 mg PO DAILY [facility] Last Admin: 02/25/20 08:14 Dose: 240 mg Documented by: Furosemide (Furosemide 40 Mg Tablet) 40 mg PO DAILY [facility] Last Admin: 02/25/20 08:16 Dose: 40 mg Documented by: Sodium Chloride () 1,000 mls @ 100 mls/hr IV .Q10H [facility] Last Admin: 02/25/20 08:12 Dose: 100 mls/hr Documented by: Ceftriaxone Sodium (Rocephin) 1 gm in 50 mls @ 100 mls/hr IV Q24 [facility] Last Infusion: 02/25/20 08:53 Dose: Infused Documented by: Levothyroxine Sodium (Levothyroxine 75 Mcg Tablet) 75 mcg PO DAILY@0600 [facility] Last Admin: 02/25/20 05:42 Dose: 75 mcg Documented by: Loratadine (Loratadine 10 Mg Tablet) 10 mg PO DAILY [facility] Last Admin: 02/25/20 08:15 Dose: 10 mg Documented by: Melatonin (Melatonin 3 Mg Tablet) 3 mg PO QHS PRN PRN PRN Reason: INSOMNIA Nitroglycerin (Nitroglycerin (Inpatient Use) 0.4 Mg Tab.Subl) 0.4 mg SUBLINGUAL Q5M PRN PRN Reason: CARDIAC/CHEST PAIN Ondansetron HCl (Ondansetron 4 Mg/2 Ml Vial) 4 mg IV Q8H PRN PRN PRN Reason: NAUSEA/VOMITING Pantoprazole Sodium (Pantoprazole Sodium 20 Mg Tablet) 20 mg PO DAILY [facility] Last Admin: 02/25/20 08:14 Dose: 20 mg Documented by: Sodium Chloride (0.9% Saline Lock 10 Ml Syringe) 10 - 40 ml IV UD PRN PRN Reason: SALINE FLUSH Home Medications: Medications to take at Discharge Nitroglycerin [Nitrostat] 0.4 mg SL DAILY PRN 06/23/16 diltiazem HCl 240 mg capsule,extended release 24 hr 240 mg PO DAILY #90 cap 05/14/19 Fexofenadine HCl [Adriana Allergy] 180 mg PO DAILY 08/22/19 Fluticasone Propion/Salmeterol [Wixela 250-50 Inhub] 1 puff INHALATION BID 08/22/19 Polyvinyl Alcohol/Povidone/Pf [Refresh Classic Eye Drops] 1 drp EACH EYE TID 08/22/19 Spironolactone [Aldactone] 25 mg PO DAILY 08/22/19 Acetaminophen [Tylenol Tablet] 325 mg PO Q4H PRN PRN 12/17/19 Ipratropium/Albuterol Sulfate [Duoneb] 3 ml INHALATION Q6H 12/17/19 Multivitamin with Minerals [Multiple Vitamin] 1 ea PO DAILY 12/17/19 atorvastatin 10 mg tablet 10 mg PO QHS #90 tab 12/25/19 potassium chloride 20 mEq tablet,extended release 20 meq PO DAILY 01/04/20 Esomeprazole Mag Trihydrate [Nexium] 20 mg PO DAILY 02/15/20 Levothyroxine Sodium [Synthroid] 75 mcg PO DAILY 02/15/20 Metolazone [Zaroxolyn] 5 mg PO MOTH 02/15/20 Tamoxifen Citrate [Nolvadex] 20 mg PO DAILY 02/15/20 Torsemide 20 mg PO DAILY #30 tab 02/25/20 Warfarin [Coumadin] 2 mg PO DAILY #0 02/25/20 Following Prescriptions Were Given to Patient: Torsemide 20 mg PO DAILY #30 tab Transmission Status: Received by [id number] Primary Care Physician: Abby Pendleton DO [Primary Care Provider] - Please follow up with your Primary Care Physician in: In 1 to 2 weeks Please Follow Up With: Jason Neri MD When: As you scheduled in April 2020 Please Follow Up With: Eleuterio Molina MD When: In 4 to 6 weeks Medical Necessity - Tobacco Use Smoking Status: Never smoker Meaningful Use Info Meaningful Use Diagnoses (Choose all that apply): None applicable Inpatient E&M: [id number] [facility]
--- NOTE | 2020-02-25 13:18 | CASEMGMT ---
Patient's COVID test came back negative. TOVA spoke with Bouchra at [facility] and she said they can take patient. She did tell SW they have 3 residents that have tested positive. SW notified physician that he can discharge patient. SW spoke with patient and let her know [facility] said they would not take her due to the positive test. SW told her [facility] will accept her. SW did share that [facility] has 3 positive patients and she verbalized understanding. SW called patient's daughter and let her know above information. TOVA will place patient on will call list with [facility]. Ana GUZMAN MSW
--- NOTE | 2020-02-25 15:03 | CASEMGMT ---
Addendum entered by Ana Chavez 02/25/20 15:11: SW notified Irma with [facility] that patient is being discharged to [facility] [place] today. Ana BAIRES Original Note: Faxed orders to [facility]. Called [facility] and they can pick patient up at 4p via wc van. SW notified garbage man, RN who notified patient, Bouchra at [facility] and patient's daughter. Patient's daughter was upset on the phone. She said she finally got through to patient and patient told her she never wanted to talk to her again and told her she left her to . She was very upset. SW listened and provided emotional support. Plan: d/c to [facility] under skilled level of care. [facility] patient via wheelchair. Ana BAIRES
--- NOTE | 2020-02-25 15:32 | NURSING ---
This RN called and gave report to Karolyn @ [facility], transport to be here @ 1600 to sampler pickup patient
== END 2020-02-25 16:00 | disposition skilled nursing facility (03) | DRG 689 ==
LOC: ED 17:18 → PCU 18:28
PROVIDERS: Hospitalist; Admitting Provider Family Medicine; Emergency Provider Emergency Medicine; PCP Family Medicine; Visit Provider Internal Medicine
DX: N39.0 Urinary tract infection, site not specified (principal); I50.33 Acute on chronic diastolic (congestive) heart failure; I48.11 Longstanding persistent atrial fibrillation; I42.0 Dilated cardiomyopathy; I24.8 Other forms of acute ischemic heart disease; N17.9 Acute kidney failure, unspecified; D68.9 Coagulation defect, unspecified; E87.2 Acidosis; I11.0 Hypertensive heart disease with heart failure; E78.00 Pure hypercholesterolemia, unspecified; R62.7 Adult failure to thrive; E03.9 Hypothyroidism, unspecified; J44.9 Chronic obstructive pulmonary disease, unspecified; Z66 Do not resuscitate; T38.0X5A Adverse effect of glucocorticoids and synthetic analogues, initial encounter; I27.29 Other secondary pulmonary hypertension; E86.0 Dehydration; R09.02 Hypoxemia; T45.515A Adverse effect of anticoagulants, initial encounter; D46.9 Myelodysplastic syndrome, unspecified; I08.0 Rheumatic disorders of both mitral and aortic valves; I25.10 Atherosclerotic heart disease of native coronary artery without angina pectoris; Z96.653 Presence of artificial knee joint, bilateral; Z79.01 Long term (current) use of anticoagulants; Z85.3 Personal history of malignant neoplasm of breast; Z95.0 Presence of cardiac pacemaker; Z95.2 Presence of prosthetic heart valve; Z82.49 Family history of ischemic heart disease and other diseases of the circulatory system; Z79.890 Hormone replacement therapy; Z79.899 Other long term (current) drug therapy; Z88.8 Allergy status to other drugs, medicaments and biological substances; Z90.710 Acquired absence of both cervix and uterus; I25.2 Old myocardial infarction; Z86.19 Personal history of other infectious and parasitic diseases
CPT/HCPCS: 36415; 71045; 80048; 80053; 81001; 82550; 83605; 84484; 85025; 85610; 87086; 87088; 87426; 93005; 94640; 97110; 97162; 97166; 97530; 97535; 99285; J7030; A4216

== ENCOUNTER 2020-03-01 15:00 | Emergency (ER) | payer MEDICARE, OTHER, SELFPAY ==
[2020-02-22 18:59] VITALS: BMI 18.4
[2020-03-01] VITALS (10 sets, daily range): BP systolic 124–140; BP diastolic 73–83; PULSE 70–78; RESP 16–26; TEMP 36.4–37.2; O2SAT 90–98; BMI 23.8
--- NOTE | 2020-03-01 15:57 | EKG12_ITS ---
Test Reason : SOB Blood Pressure : / mmHG Vent. Rate : 070 BPM Atrial Rate : 340 BPM P-R Int : 000 ms QRS Dur : 154 ms QT Int : 462 ms P-R-T Axes : 000 178 059 degrees QTc Int : 498 ms Ventricular-paced rhythm Abnormal ECG Confirmed by WILLIAM CABRERA, ALFREDO ([id number]), editor dictionary MERYL FOLEY ([id number]) on 03/24/2020 8:19:49 AM Referred By: KAREN Confirmed By:ALFREDO THOMAS MD
--- NOTE | 2020-03-01 16:11 | ED.VIS.GEN ---
History of Present Illness Chief Complaint: Shortness of Breath Informant: Patient, SNF Onset: Weeks Maximum Severity: Mild Narrative: The patient is sent from nursing center for shortness of breath and anxiety. The patient has an extensive past history please see the chart for all of her details that include a recent positive Covid status then a subsequent follow-up negative Covid status, atrial fibrillation cardiac valve surgery and replacement [place] pulmonary hypertension CAD hypertension multiple other medical problems COPD chronically on 2 to 4 L home O2. She apparently became sick sometime in January with Covid subsequently admitted then discharged to this facility where she is currently on the full longterm side of the facility. The nurse reports that today the patient just kept being anxious she did want the nurse leave the room her medical providers were contacted and the nurse was instructed send her to the hospital. Per the staff information the patient had no fever no cough her baseline O2 sat on 2 to 4 L about 91 to 92% she is eating and drinking she is a full care patient and that she is unable to basically care for herself or ambulate on her own since this illness. On arrival the patient is afebrile her pulse ox is 92% on 4 L she is awake and alert speaking full sentences she does admit to being anxious and nervous she has no complaints of chest pain or abdominal pain has chronic shortness of breath that is unchanged she has had no change in her chronic cough and she is resting comfortably in the bed as we assess her Past Medical History - Allergies and Home Meds Allergies/Adverse Reactions: Allergies GERI Inhibitors Allergy (Verified 03/01/20 15:08) Angioedema amiodarone Allergy (Verified 03/01/20 15:08) Other doxycycline Allergy (Verified 03/01/20 15:08) Other rosuvastatin calcium [From Crestor] Allergy (Verified 03/01/20 15:08) Other Sulfa (Sulfonamide Antibiotics) Allergy (Verified 03/01/20 15:08) Nausea tiotropium bromide [From Spiriva with HandiHaler] Allergy (Verified 03/01/20 15:08) Nausea oxycodone Adverse Reaction (Severe, Verified 03/01/20 15:08) confusion codeine Adverse Reaction (Verified 03/01/20 15:08) Vomiting hydrocodone bitartrate [From Vicodin] Adverse Reaction (Verified 03/01/20 15:08) Vomiting Primary Care Physician: Abby Pendleton DO [Primary Care Provider] - Past Medical History: - - Extensive history as documented above Surgical History: cataract, hysterectomy, total knee arthroplasty, - - Mitral and tricuspid valve replacement, pacemaker implantation 2013 Smoking Status: Never smoker - Family History Maternal Family History: Family History (Last Reviewed 02/11/20 @ 14:40 by Yasmin Agee) Father CAD (coronary artery disease) Myocardial infarction Family History: Reports: No pertinent history Paternal Family History: Family History (Last Reviewed 02/11/20 @ 14:40 by Yasmin Agee) Father CAD (coronary artery disease) Myocardial infarction Family History: Reports: No pertinent history Review of Systems General: Denies: Chills, Fever, Sweats Eyes: Denies: Visual changes - bilaterally, Diplopia ENT: Denies: Rhinorrhea, Sore throat Cardiovascular: Denies: Chest pain, Palpitations Respiratory: Reports: Dyspnea, Cough. Denies: Dyspnea on exertion Gastrointestinal: Denies: Abdominal pain, Nausea, Vomiting, Diarrhea, Melena, Hematochezia Genitourinary: Denies: Dysuria, Hematuria, Frequency Musculoskeletal: Denies: Back pain, Extremity Pain Skin: Denies: Rash, Wounds Neurological: Denies: Headache, Weakness, Numbness Psych: Reports: Anxiety Physical Exam Vital Signs/Narrative: Vital Signs Temp Pulse Resp BP Pulse Ox 03/01/20 15:16 98.8 F 70 25 H 128/82 H 97 03/01/20 15:01 98.9 F 75 26 H 128/82 H 90 General: Well nourished, Well developed, No Acute Distress Head: Normocephalic, Atraumatic Eyes: Perrl, EOMI ENT: Moist mucous membranes, No rhinorrhea Neck: Supple, Nontender Cardiovascular: Regular rate, Regular rhythm, No murmurs Respiratory: No distress, CTA bilaterally, Chest nontender, Diminished Abdomen: Soft, Nontender, Nondistended, Normal bowel sounds Back: Nontender, Normal Inspection Extremities: Nontender, No edema Skin: Normal color, No rash Neurological: Alert, Oriented x3, Cranial nerves II-XII grossly intact, Normal Strength, Normal Sensation Psychological: Normal affect, Normal Mood Diagnostic/Tx/Re-eval - Medical Decision Making She is currently in no distress other than stating that she is anxious without specific cause there is no signs of respiratory failure or compromise clinically she appears stable Given all the above ED screening evaluation labs x-ray EKG Patient's EKG to my review shows a irregular pattern consistent with atrial fibrillation rate 70 nothing acute, chest x-ray 1 view to my review shows cardiomegaly radiology reviewed that film generally concur see those reports, screening labs are all generally unremarkable, BNP is about 1700, potassium 5.6 its been in that range before and this was from a femoral stick due to lack of IV access and there was some mild hemolysis per lab, creatinine 1.4 also similar ranges in the past, she is on multiple diuretics she is given oral Lasix here as were unable to establish IV access we will give her a small oral dose of Kayexalate After being treated with Ativan 0.5 mg p.o. she states she feels much better she is less anxious she is resting company in the bed her pulse ox on 4 L is about 92 to 93% she has no signs of air hunger or respiratory distress speaking full sentences Spoke with the nurse at the skilled nursing I spoke with the patient at length, she has been admitted January 19, then January then most recently again February 24 As I talked to the patient she indicates prior to becoming ill with Covid requiring admission she lived at home her daughter used to assist her the daughter also has Covid she was unable to return back to her home environment related to multiple factors and she was sent to these longterm facility where she has resided Patient states in the very blunt direct fashion that she does not wish to be in the skilled nursing as she would prefer to be at home and if she cannot return home she would prefer to be admitted to the hospital until her status changes such that she can return home Explained her that given all of the above given the Covid emergency is across the country and locally given her needs that they can be met at the nursing center she has had multiple recent admissions her ED work-up here is unremarkable, it is appropriate to return her back to the longterm facility where she can continue to receive her care she is not sure of how the skilled nursing is trying to facilitate her discharged back to her home, I explained to her we will have that staff explained that to her. I discussed the case with Dr. Oleary on-call for her medical staff who is aware of the above and will return the patient back to the nursing center the patient now agrees to that plan as she understands it is not feasible for her to stay in the hospital until she can be returned home Disposition back to skilled nursing stable Final impression, acute recurrent shortness of breath, exacerbation of COPD, atrial fibrillation, anxiety, multiple other medical problems, recent COVID-19 infection ED Disposition - Plan for ED Patient: Diagnosis: COVID-19, Chronic atrial fibrillation, Congestive heart failure Instructions: Coronavirus Disease 2019 (COVID-19): Caring for Yourself or Others, ED CHF Left Side, ED Heart Failure Congestive Right Referrals: Abby Pendleton DO [Primary Care Provider] -
[2020-03-01] MEDS: LORazepam 0.5 MG Tablet PO (17:19)
--- NOTE | 2020-03-01 17:20 | RAD_ITS ---
STUDY: X-RAY CHEST REASON FOR EXAM: Female, 80 years old. SHORTNESS OF BREATH TECHNIQUE: Single AP portable view of the chest. COMPARISON: 02/22/2020. FINDINGS: Blunting of the costophrenic angles is consistent with prior cardiothoracic surgery. Sternotomy wires are present. Pacemaker on the left. No vascular congestion or acute pulmonary inflammatory change. There is mild cardiac enlargement. Normal mediastinum and bj. Soft tissues and bony structures are unremarkable. RAD/Chest 1 View (Portable) IMPRESSION: No acute findings. Electronically Signed: Stephy Gutierrez MD at 17:59 EST Tel , Service support ,
--- NOTE | 2020-03-01 17:29 | CPS ---
Pt refused inhaler treatment. and PADMINI aware.
[2020-03-01 17:43] LABS: Absolute Lymphocyte Count 0.61 X10^3/uL (0.83-4.51); Basophil# 0.02 X10^3/uL; Basophil% 0.2 % (0-1); Eosinophil# 0.23 X10^3/uL; Eosinophils% 1.8 % (0-5); Lymphocyte # 0.61 X10^3/ul (4.0); Lymphocyte % 4.8 % (19-41); Mean Corp Hgb Conc 32.4 g/dL (32-36); Mean Corpuscular Hgb 30.1 pg (27.0-32.0); Mean Corpuscular Volume 93.2 fL (81-99); Mean Platelet Vol. 12.2 fl (6.2-12.0); Monocyte# 0.78 X10^3/uL; Monocyte% 6.2 % (0-10); NRBC Flagged by Analyzer 0 % (0-5); Neutrophil # 10.95 X10^3/uL (2.7-7.7); Neutrophil % 86.4 % (47-70); POSITIVE COUNT YES; Platelet Count 76 K/mm3 (150-450); RBC Distribution Width CV 18.8 % (11.6-14.6); RBC Distribution Width SD 61.7 fl (35.1-43.9); Red Blood Count 3.65 M/mm3 (4.2-5.4); White Blood Count 12.7 K/mm3 (4.4-11.0)
[2020-03-01 17:45] LABS: Differential Indicated SCAN CRITERIA MET
--- NOTE | 2020-03-01 17:45 | NURSING ---
Numerous unsuccessful attempts by nursing and lab to obtain IV or blood draw. Femoral drawn by Dr. Corona.
[2020-03-01 17:50] LABS: International Normalized Ratio 2.5; Prothrombin Time (Protime)PT. 26.7 SECONDS (11.7-14.9)
[2020-03-01 18:06] LABS: Platelet Estimate MOD DEC (ADEQ)
[2020-03-01 19:14] LABS: Anion Gap 10 (5-15); BUN 44 mg/dL (7-18); Chloride 111 mmol/L (98-107); Creatinine, Serum 1.42 mg/dL (0.55-1.02); EST Glomerular Filtration Rate 38 mL/min (>60); Est Glom Filt Rate - Afr Amer 46 mL/min (>60); Estimated Creatinine Clearance 24.99 ml/min; Glucose 98 mg/dL (74-106); Potassium 5.6 mmol/L (3.5-5.1); Sodium Level 138 mmol/L (136-145)
[2020-03-01] MEDS: Furosemide 20 MG Tablet PO (21:39)
[2020-03-01] MEDS: Sodium Polystyrene Sulfonate 15 GM/60 ML UDC PO (21:39)
== END 2020-03-01 21:42 | disposition home or self-care (01) ==
LOC: ED 16:28
PROVIDERS: Emergency Provider Emergency Medicine; PCP Family Medicine
DX: J44.1 Chronic obstructive pulmonary disease with (acute) exacerbation (principal); I11.0 Hypertensive heart disease with heart failure; I50.9 Heart failure, unspecified; I48.20 Chronic atrial fibrillation, unspecified; I27.20 Pulmonary hypertension, unspecified; I25.10 Atherosclerotic heart disease of native coronary artery without angina pectoris; F41.9 Anxiety disorder, unspecified; I25.2 Old myocardial infarction; Z79.01 Long term (current) use of anticoagulants; Z99.81 Dependence on supplemental oxygen; Z79.899 Other long term (current) drug therapy; Z86.19 Personal history of other infectious and parasitic diseases; Z95.0 Presence of cardiac pacemaker; Z95.2 Presence of prosthetic heart valve
CPT/HCPCS: 36415; 71045; 80048; 83880; 84484; 85025; 85610; 93005; 99285; A4216

== ENCOUNTER 2020-03-03 18:03 | Emergency (ER) | payer MEDICARE, OTHER, SELFPAY ==
[2020-03-01 15:01] VITALS: BMI 23.8
[2020-03-03] VITALS (9 sets, daily range): BP systolic 111–136; BP diastolic 76–86; PULSE 68–79; RESP 27–41; TEMP 36.4–36.6; O2SAT 81–97; BMI 25.8
--- NOTE | 2020-03-03 18:44 | EKG12_ITS ---
Test Reason : SOB Blood Pressure : / mmHG Vent. Rate : 070 BPM Atrial Rate : 326 BPM P-R Int : 000 ms QRS Dur : 158 ms QT Int : 466 ms P-R-T Axes : 154 202 057 degrees QTc Int : 503 ms Ventricular-paced rhythm Abnormal ECG Confirmed by WILLIAM CABRERA, ALFREDO ([id number]), editor managing newspaper NÉSTOR MONTIEL ([id number]) on 03/05/2020 1:05:32 PM Referred By: MARU Confirmed By:ALFREDO THOMAS MD
--- NOTE | 2020-03-03 18:44 | RAD_ITS ---
STUDY: X-RAY CHEST REASON FOR EXAM: Female, 80 years old. Increasing shortness of breath. TECHNIQUE: Frontal view COMPARISON: 03/01/2020 FINDINGS: Sternotomy wires and left-sided pacemaker are again noted. The lungs are expanded. Bilateral pleural effusions with possible basilar consolidations, left more than right similar to previous study. Left suprahilar infiltrate. Cardiomegaly. Normal mediastinum and bj. Prominence of the central pulmonary arteries. Normal visualized aortic arch and descending thoracic aorta. Normal visualized thoracic spine. Degenerative changes at the shoulders. There is no demonstrated abnormality of the visualized soft tissue structures of the upper abdomen. RAD/Chest 1 View (Portable) IMPRESSION: Bilateral pleural effusions with possible basilar consolidations, left more than right similar to previous study. Cardiomegaly. Prominence of the central pulmonary arteries. Left suprahilar infiltrate. Electronically Signed: Chan Ferrara DO at 19:41 EST Tel [phone], Service support ,
[2020-03-03 19:47] LABS: Absolute Lymphocyte Count 0.72 X10^3/uL (0.83-4.51); Absolute Neutrophil Count 8.9 X10^3/uL (2.0-7.7); Basophil# 0.04 X10^3/uL; Basophil% 0.4 % (0-1); Eosinophil# 0.18 X10^3/uL; Eosinophils% 1.7 % (0-5); Hematocrit 35.8 % (37-47); Hemoglobin 11.6 g/dL (12.0-15.0); Lymphocyte # 0.72 X10^3/ul (4.0); Lymphocyte % 6.8 % (19-41); Mean Corp Hgb Conc 32.4 g/dL (32-36); Mean Corpuscular Hgb 30.4 pg (27.0-32.0); Mean Corpuscular Volume 93.7 fL (81-99); Mean Platelet Vol. 11.5 fl (6.2-12.0); Monocyte# 0.67 X10^3/uL; Monocyte% 6.3 % (0-10); NRBC Flagged by Analyzer 0 % (0-5); Neutrophil # 8.91 X10^3/uL (2.7-7.7); Neutrophil % 84.3 % (47-70); POSITIVE COUNT YES; Platelet Count 76 K/mm3 (150-450); RBC Distribution Width CV 19.3 % (11.6-14.6); RBC Distribution Width SD 64.3 fl (35.1-43.9); Red Blood Count 3.82 M/mm3 (4.2-5.4); White Blood Count 10.6 K/mm3 (4.4-11.0)
--- NOTE | 2020-03-03 19:49 | ED.VIS.GEN ---
History of Present Illness Chief Complaint: Shortness of Breath Informant: Patient Narrative: Patient is an 80-year-old female who presents to the emergency department for shortness of breath. [facility] She was satting 82% at that time. Patient does wear BiPAP at night and was refusing this at the [facility]. She was given duo nebs. Patient states she has been chronically feeling short of breath for multiple weeks now. She did have one positive coronavirus test was negative. She has been in quarantine. Patient at this time states she wants to be put on hospice. She does have a DNR/DNI. She is currently denying any chest pain. No leg swelling or calf pain. She does have extensive cardiac history as well as COPD. She states she has been coughing. Past Medical History - Allergies and Home Meds Allergies/Adverse Reactions: Allergies GERI Inhibitors Allergy (Verified 03/03/20 20:19) Angioedema amiodarone Allergy (Verified 03/03/20 20:19) Other doxycycline Allergy (Verified 03/03/20 20:19) Other rosuvastatin calcium [From Crestor] Allergy (Verified 03/03/20 20:19) Other Sulfa (Sulfonamide Antibiotics) Allergy (Verified 03/03/20 20:19) Nausea tiotropium bromide [From Spiriva with HandiHaler] Allergy (Verified 03/03/20 20:19) Nausea oxycodone Adverse Reaction (Severe, Verified 03/03/20 20:19) confusion codeine Adverse Reaction (Verified 03/03/20 20:19) Vomiting hydrocodone bitartrate [From Vicodin] Adverse Reaction (Verified 03/03/20 20:19) Vomiting Primary Care Physician: Abby Pendleton DO [Primary Care Provider] - Prior records reviewed: Yes Surgical History: cataract, hysterectomy, total knee arthroplasty, - - Mitral and tricuspid valve replacement, pacemaker implantation 2013 Smoking Status: Never smoker - Family History Maternal Family History: Family History (Last Reviewed 02/11/20 @ 14:40 by Yasmin Agee) Father CAD (coronary artery disease) Myocardial infarction Family History: Reports: No pertinent history Paternal Family History: Family History (Last Reviewed 02/11/20 @ 14:40 by Yasmin Agee) Father CAD (coronary artery disease) Myocardial infarction Family History: Reports: No pertinent history Review of Systems All systems negative except as indicated General: Denies: Chills, Fever, Sweats Eyes: Denies: Visual changes - bilaterally, Diplopia ENT: Denies: Rhinorrhea, Sore throat Cardiovascular: Denies: Chest pain, Palpitations Respiratory: Reports: Dyspnea, Cough Gastrointestinal: Denies: Abdominal pain, Nausea, Vomiting, Diarrhea, Melena, Hematochezia Genitourinary: Denies: Dysuria, Hematuria, Frequency Musculoskeletal: Denies: Back pain, Extremity Pain Skin: Denies: Rash, Wounds Neurological: Denies: Headache, Weakness, Numbness Physical Exam Vital Signs/Narrative: Vital Signs Temp Pulse Resp BP Pulse Ox 03/03/20 19:40 97 03/03/20 19:11 97.6 F L 70 39 H 114/77 96 03/03/20 18:04 97.7 F L 68 30 H 136/84 H 95 03/03/20 18:03 81 Inital Vital Signs reviewed: Yes General: Cachectic, - - Mild distress Head: Normocephalic, Atraumatic Eyes: Perrl, EOMI ENT: Moist mucous membranes, No rhinorrhea Neck: Supple, Nontender Cardiovascular: Regular rate, Regular rhythm, No murmurs Respiratory: No distress, Chest nontender, Diminished, - - Tachypneic Abdomen: Soft, Nontender, Nondistended, Normal bowel sounds Back: Nontender, Normal Inspection Extremities: Nontender, No edema. Negative for: Calf Tenderness Skin: Normal color, No rash Neurological: Alert, Normal Strength, Normal Sensation, - - Oriented to person and place but not time Psychological: Normal affect, Normal Mood Diagnostic/Tx/Re-eval - EKG Initial EKG Interpretation: - - Rate of 70 bpm with a ventricular paced rhythm. Has a wide QRS with this. There is significant baseline artifact but no significant ST elevations appreciated. - Medical Decision Making Patient presents to the ED for shortness of breath and hypoxia. She is on 15L nonrebreather. She is currently refusing BiPAP. I did contact her daughter, Antonia, who is the POA. She did come to the emergency department. She is agreeable with the patient going on to hospice. Patient daughter did come to bedside. I did consult hospice who evaluated her at bedside as well. They did all become in agreement to place the patient on hospice. She will be transferred at this time. No other intervention being performed due to this fact. ED Disposition - Plan for ED Patient: Disposition: Home or Assisted Living Diagnosis: Hypoxia, Pleural effusion, Pulmonary infiltrate Referrals: Abby Pendleton DO [Primary Care Provider] -
--- NOTE | 2020-03-03 20:06 | ED.RN ---
HOSPICE CALLED FOR CONSULT AT THIS TIME
[2020-03-03 20:08] LABS: Anion Gap 10 (5-15); BUN 43 mg/dL (7-18); BUN/Creat Ratio 26.4 RATIO (10-20); Calcium,Total 8.7 mg/dL (8.5-10.1); Chloride 107 mmol/L (98-107); Creatinine, Serum 1.63 mg/dL (0.55-1.02); EST Glomerular Filtration Rate 32 mL/min (>60); Est Glom Filt Rate - Afr Amer 39 mL/min (>60); Estimated Creatinine Clearance 19.77 ml/min; Glucose 107 mg/dL (74-106); Magnesium 2.6 mg/dL (1.6-2.6); Potassium 5.4 mmol/L (3.5-5.1); Sodium Level 134 mmol/L (136-145)
[2020-03-03 20:33] LABS: Differential Indicated SCAN CRITERIA MET
[2020-03-03 20:34] LABS: Platelet Estimate MOD DEC (ADEQ)
--- NOTE | 2020-03-03 23:59 | ED.DEP ---
ED Disposition - Plan for ED Patient: Disposition: Home or Assisted Living Diagnosis: Hypoxia, Pleural effusion, Pulmonary infiltrate Instructions: Starting Hospice Referrals: Abby Pendleton DO [Primary Care Provider] -
[2020-03-04 11:24] LABS: BNP,B-Type NATRIURETIC PEPTIDE 1937.1 pg/mL (0-100)
== END 2020-03-03 23:54 | disposition hospice, home (50) ==
PROVIDERS: Emergency Provider Emergency Medicine; PCP Family Medicine
DX: R09.02 Hypoxemia (principal); J90 Pleural effusion, not elsewhere classified; J44.9 Chronic obstructive pulmonary disease, unspecified; R06.82 Tachypnea, not elsewhere classified; Z79.01 Long term (current) use of anticoagulants; Z79.899 Other long term (current) drug therapy; Z95.2 Presence of prosthetic heart valve; Z95.0 Presence of cardiac pacemaker; Z90.710 Acquired absence of both cervix and uterus
CPT/HCPCS: 71045; 80048; 83735; 83880; 84484; 85025; 87426; 93005; 99285